=== PATIENT | male | born 1935 | race Caucasian/White ===

== ENCOUNTER 2020-09-06 12:19 | Inpatient (IN) | payer MEDICARE ==
[2020-09-06] MEDS ORDERED: PANTOPRAZOLE 40 MG/10 ML VIAL IVP ONE (12:36)
--- NOTE | 2020-09-06 12:41 | ED ---
General Adult HPI - General Stated complaint: Poss GI bleed Time Seen by Provider: 09/06/20 12:23 Source: patient, RN notes reviewed, old records reviewed - History of Present Illness Initial comments: 85-year-old male presenting for evaluation of dark stool, concern for GI bleed. He states he's had dark stool for the past 2 days. He's had increased fatigue and dyspnea. He has had an epigastric and lower chest discomfort throughout this time as well. He denies any anticoagulation. He denies fever. Denies lower abdominal pain. Pain is epigastric and lower chest. This history of gastrointestinal hemorrhage. - Related Data Home Medications Medication Instructions Recorded Confirmed Ascorbic Acid [Vitamin C] 500 mg PO DAILY 09/06/20 09/06/20 Doxazosin [Cardura] 2 mg PO HS 09/06/20 09/06/20 Lecithin, Soy [Lecithin] 400 mg PO DAILY 09/06/20 09/06/20 Multivitamins, Thera [Multivitamin 1 tab PO DAILY 09/06/20 09/06/20 (formulary)] Simvastatin [Zocor] 5 mg PO HS 09/06/20 09/06/20 Vitamin E 400 unit PO DAILY 09/06/20 09/06/20 atenoloL [Atenolol] 25 mg PO DAILY 09/06/20 09/06/20 Allergies Allergy/AdvReac Type Severity Reaction Status Date / Time Penicillins Allergy Rash/Hives Verified 09/06/20 13:25 Review of Systems ROS Statement: Those systems with pertinent positive or pertinent negative responses have been documented in the HPI. ROS Other: All systems not noted in ROS Statement are negative. General Exam General appearance: alert, in no apparent distress Head exam: Present: atraumatic, normocephalic Eye exam: Present: normal appearance, PERRL ENT exam: Present: mucous membranes dry Neck exam: Present: normal inspection. Absent: tenderness, meningismus Respiratory exam: Present: normal lung sounds bilaterally. Absent: respiratory distress, wheezes Cardiovascular Exam: Present: normal rhythm, tachycardia GI/Abdominal exam: Present: soft, tenderness (Epigastric tenderness). Absent: distended, guarding Rectal exam: Present: black stool Extremities exam: Present: normal inspection, normal capillary refill. Absent: pedal edema Neurological exam: Present: alert, oriented X3, CN II-XII intact. Absent: motor sensory deficit Psychiatric exam: Present: normal affect, normal mood Skin exam: Present: warm, pallor Course Vital Signs 09/06/20 09/06/20 12:23 13:10 Temperature 97.7 F Pulse Rate 85 104 H Respiratory 18 18 Rate Blood Pressure 95/65 94/66 O2 Sat by Pulse 98 Oximetry EKG Findings - EKG Comments: EKG Findings:: Sinus tachycardia, left bundle branch block, ST segment depression in the precordial leads, no ST segment elevation, rate of 103 QRS duration 114, QTC 487 Medical Decision Making - Medical Decision Making 85-year-old male presenting with epigastric and lower chest pain, he has melanotic stool. He is borderline hypotensive and mildly tachycardic on arrival. He's had 3 days of melanotic stool and developed worsening epigastric and substernal chest pain throughout the day today. His EKG has ischemic changes, no ST segment elevation. He started on protonic's, 80 mg. He does appear somewhat fluid overloaded, with rales bilaterally. His chest x-ray confirms CHF. He is transfused 2 units of blood for hemoglobin of 6. He has a lactic acid of 5.0 and a significantly elevated troponin I 3. I discussed case with Dr. Sharif covering for gastroenterology, Dr. Sayra liang for cardiology, and Dr. Nabil liang for the ICU as well as the admitting physician Dr. Downs. Patient will be admitted to the ICU. Non-ST segment elevated FL, acute blood loss anemia, melanotic stool, acute GI bleed. - Lab Data Result diagrams: 09/06/20 12:39 09/06/20 12:39 Lab Results 09/06/20 09/06/20 09/06/20 Range/Units 12:39 12:39 12:39 WBC 9.4 (3.8-10.6) k/uL RBC 2.22 L (4.30-5.90) m/uL Hgb 6.4 L* (13.0-17.5) gm/dL Hct 20.3 L (39.0-53.0) % MCV 91.6 (80.0-100.0) fL MCH 28.7 (25.0-35.0) pg MCHC 31.4 (31.0-37.0) g/dL RDW 16.6 H (11.5-15.5) % Plt Count 205 (150-450) k/uL MPV 6.9 Neutrophils % 82 % Lymphocytes % 10 % Monocytes % 7 % Eosinophils % 1 % Basophils % 0 % Neutrophils # 7.7 (1.3-7.7) k/uL Lymphocytes # 0.9 L (1.0-4.8) k/uL Monocytes # 0.6 (0-1.0) k/uL Eosinophils # 0.1 (0-0.7) k/uL Basophils # 0.0 (0-0.2) k/uL Anisocytosis Slight Sodium 135 L (137-145) mmol/L Potassium 4.2 (3.5-5.1) mmol/L Chloride 103 (98-107) mmol/L Carbon Dioxide 23 (22-30) mmol/L Anion Gap 9 mmol/L BUN 28 H (9-20) mg/dL Creatinine 0.77 (0.66-1.25) mg/dL Est GFR (CKD-EPI)AfAm >90 (>60 ml/min/1.73 sqM) Est GFR (CKD-EPI)NonAf 84 (>60 ml/min/1.73 sqM) Glucose 173 H (74-99) mg/dL Plasma Lactic Acid Junior (0.7-2.0) mmol/L Calcium 8.7 (8.4-10.2) mg/dL Magnesium 1.8 (1.6-2.3) mg/dL Total Bilirubin 0.5 (0.2-1.3) mg/dL AST 101 H (17-59) U/L ALT 37 (4-49) U/L Alkaline Phosphatase 66 (38-126) U/L Troponin I 3.550 H* (0.000-0.034) ng/mL Total Protein 5.6 L (6.3-8.2) g/dL Albumin 3.4 L (3.5-5.0) g/dL Stool Occult Blood (Negative) Blood Type Recheck Bld Type Recheck Status Crossmatch Spec Expiration Date 09/06/20 09/06/20 09/06/20 Range/Units 12:39 12:40 12:41 WBC (3.8-10.6) k/uL RBC (4.30-5.90) m/uL Hgb (13.0-17.5) gm/dL Hct (39.0-53.0) % MCV (80.0-100.0) fL MCH (25.0-35.0) pg MCHC (31.0-37.0) g/dL RDW (11.5-15.5) % Plt Count (150-450) k/uL MPV Neutrophils % % Lymphocytes % % Monocytes % % Eosinophils % % Basophils % % Neutrophils # (1.3-7.7) k/uL Lymphocytes # (1.0-4.8) k/uL Monocytes # (0-1.0) k/uL Eosinophils # (0-0.7) k/uL Basophils # (0-0.2) k/uL Anisocytosis Sodium (137-145) mmol/L Potassium (3.5-5.1) mmol/L Chloride (98-107) mmol/L Carbon Dioxide (22-30) mmol/L Anion Gap mmol/L BUN (9-20) mg/dL Creatinine (0.66-1.25) mg/dL Est GFR (CKD-EPI)AfAm (>60 ml/min/1.73 sqM) Est GFR (CKD-EPI)NonAf (>60 ml/min/1.73 sqM) Glucose (74-99) mg/dL Plasma Lactic Acid Junior 5.0 H* (0.7-2.0) mmol/L Calcium (8.4-10.2) mg/dL Magnesium (1.6-2.3) mg/dL Total Bilirubin (0.2-1.3) mg/dL AST (17-59) U/L ALT (4-49) U/L Alkaline Phosphatase (38-126) U/L Troponin I (0.000-0.034) ng/mL Total Protein (6.3-8.2) g/dL Albumin (3.5-5.0) g/dL Stool Occult Blood Positive (Negative) Blood Type Recheck No Previous Record Bld Type Recheck Status CABO Indicated Crossmatch See Detail Spec Expiration Date 09/09/2020 - 2339 Critical Care Time Critical Care Time: Yes Total Critical Care Time: 35 Disposition Clinical Impression: Acute non-ST elevation myocardial infarction (NSTEMI), GI bleed Disposition: ADMITTED IP TO THIS HOSP Condition: Serious Is patient prescribed a controlled substance at d/c from ED?: No Referrals: Nonstaff,Physician [Primary Care Provider] - 1-2 days Decision to Admit Reason: Admit from EC Decision Date: 09/06/20 Decision Time: 13:55
[2020-09-06 13:09] LABS: Anisocytosis Slight; Basophils % (A) 0 %; Eosinophils # (A) 0.1 k/uL (0-0.7); Eosinophils % (A) 1 %; HCT 20.3 % (39.0-53.0); Lymphocytes # (A) 0.9 k/uL (1.0-4.8); Lymphocytes % (A) 10 %; MCH 28.7 pg (25.0-35.0); MCHC 31.4 g/dL (31.0-37.0); MCV 91.6 fL (80.0-100.0); Mean Platelet Volume 6.9; Monocytes # (A) 0.6 k/uL (0-1.0); Monocytes % (A) 7 %; Neutrophils # (A) 7.7 k/uL (1.3-7.7); Neutrophils % (A) 82 %; Platelet Count 205 k/uL (150-450); RBC 2.22 m/uL (4.30-5.90); RDW 16.6 % (11.5-15.5); WBC 9.4 k/uL (3.8-10.6)
[2020-09-06 13:12] LABS: HGB 6.4 gm/dL (13.0-17.5)
[2020-09-06 13:16] LABS: ALT 37 U/L (4-49); AST 101 U/L (17-59); African American GFR (CKD) >90 (>60 ml/min/1.73 sqM); Albumin 3.4 g/dL (3.5-5.0); Alkaline Phosphatase 66 U/L (38-126); Anion Gap 9 mmol/L; Blood Urea Nitrogen 28 mg/dL (9-20); Calcium 8.7 mg/dL (8.4-10.2); Carbon Dioxide 23 mmol/L (22-30); Chloride 103 mmol/L (98-107); Glucose 173 mg/dL (74-99); Magnesium 1.8 mg/dL (1.6-2.3); Non-African American GFR(CKD) 84 (>60 ml/min/1.73 sqM); Potassium 4.2 mmol/L (3.5-5.1); Sodium 135 mmol/L (137-145); Total Bilirubin 0.5 mg/dL (0.2-1.3); Total Protein 5.6 g/dL (6.3-8.2)
[2020-09-06 13:44] LABS: Prothrombin Time 10.6 sec (9.0-12.0)
[2020-09-06] MEDS ORDERED: NALOXONE 0.4 MG/ML 1 ML VIAL IV PRN (13:48)
[2020-09-06] MEDS ORDERED: FUROSEMIDE 10 MG/ML 2 ML VIAL IV STA (13:50)
--- NOTE | 2020-09-06 13:50 | XR ---
EXAMINATION TYPE: XR chest 2V DATE OF EXAM: 09/06/2020 COMPARISON: NONE HISTORY: Shortness of breath TECHNIQUE: Frontal and lateral views of the chest are obtained. FINDINGS: There is cardiomegaly with pulmonary venous congestion scattered infiltrates. The findings may reflec t congestive failure. Superimposed infiltrates of other etiology not excluded. Correlate clinically. Mediastinal structures are stable and grossly unremarkable. No evidence for hilar prominence. Degenerative changes dorsal spine. IMPRESSION: 1. There is cardiomegaly with pulmonary venous congestion scattered infiltrates. The findings may ref lect congestive failure. Superimposed infiltrates of other etiology not excluded. Correlate clinicall y.
[2020-09-06 13:51] LABS: Partial Thromboplastin Time 19.7 sec (22.0-30.0)
[2020-09-06] MEDS ORDERED: SODIUM CHLORIDE 0.9% 1,000 ML IV SCH ×2 (14:00→21:30)
--- NOTE | 2020-09-06 14:22 | P.HPIM ---
History of Present Illness H&P Date: 09/06/20 Chief Complaint: Epigastric pain and black stool This is a 85-year-old male with past medical history noted below presented to the emergency room with a chief complaint of having black stool. Patient said that his problems started 3 days ago and is been persistent. Today, he started having severe epigastric pain that he rates as 10 out of 10 in severity. Patient was also feeling weak. He presented to the emergency room and was found to be hypotensive with a hemoglobin of 6.4. Patient denies any history of GI bleed in the past. Last colonoscopy was 2 or 3 years ago and was reported normal. Patient denies alcohol use. No NSAIDs. 2 units of blood ordered for transfusion by ER staff. Patient otherwise denies any fevers or chills. He said that he is fairly active and usually is able to walk 1 mile with no difficulty. He has a history of coronary artery disease with previous CABG. Review of Systems Review of system: 14 points review of systems were obtained and were negative except to what were mentioned in the HPI. Past Medical History Past Medical History: Chest Pain / Angina, Myocardial Infarction (RI) History of Any Multi-Drug Resistant Organisms: None Reported Past Surgical History: Coronary Bypass/CABG Past Psychological History: No Psychological Hx Reported Smoking Status: Former smoker Past Alcohol Use History: Rare Past Drug Use History: None Reported Medications and Allergies Home Medications Medication Instructions Recorded Confirmed Type Ascorbic Acid [Vitamin C] 500 mg PO DAILY 09/06/20 09/06/20 History Doxazosin [Cardura] 2 mg PO HS 09/06/20 09/06/20 History Lecithin, Soy [Lecithin] 400 mg PO DAILY 09/06/20 09/06/20 History Multivitamins, Thera [Multivitamin 1 tab PO DAILY 09/06/20 09/06/20 History (formulary)] Simvastatin [Zocor] 5 mg PO HS 09/06/20 09/06/20 History Vitamin E 400 unit PO DAILY 09/06/20 09/06/20 History atenoloL [Atenolol] 25 mg PO DAILY 09/06/20 09/06/20 History Allergies Allergy/AdvReac Type Severity Reaction Status Date / Time Penicillins Allergy Rash/Hives Verified 09/06/20 13:25 Physical Exam Vitals: Vital Signs Temp Pulse Resp BP Pulse Ox 09/06/20 14:13 98 F 108 H 18 82/58 09/06/20 14:07 98 F 112 H 18 80/54 09/06/20 13:10 104 H 18 94/66 98 09/06/20 12:23 97.7 F 85 18 95/65 Intake and Output 09/05/20 09/06/20 09/06/20 22:59 06:59 14:59 Intake Total 0 Balance 0 Intake: Blood Product 0 Rc As-1 Unit 0 [id number] Other: Weight 97.522 kg General: The patient is awake and alert, in no distress Eye: there is normal conjunctiva bilaterally. Neck: The neck is supple, there is no JVD. Cardiovascular: Normal S1-S2, no S3-S4, no murmurs. Respiratory: Lungs diffuse crackles all over the chest Gastrointestinal: Abdomen is soft, nontender Musculoskeletal: There is +2 edema up to the midshin Neurological:. Speech is normal. Skin: Skin is warm and dry Results CBC & Chem 7: 09/06/20 12:39 09/06/20 12:39 Labs: Abnormal Lab Results - Last 24 Hours (Table) 09/06/20 09/06/20 09/06/20 Range/Units 12:39 12:39 12:39 RBC 2.22 L (4.30-5.90) m/uL Hgb 6.4 L* (13.0-17.5) gm/dL Hct 20.3 L (39.0-53.0) % RDW 16.6 H (11.5-15.5) % Lymphocytes # 0.9 L (1.0-4.8) k/uL APTT 19.7 L (22.0-30.0) sec Sodium 135 L (137-145) mmol/L BUN 28 H (9-20) mg/dL Glucose 173 H (74-99) mg/dL Plasma Lactic Acid Junior (0.7-2.0) mmol/L AST 101 H (17-59) U/L Troponin I (0.000-0.034) ng/mL Total Protein 5.6 L (6.3-8.2) g/dL Albumin 3.4 L (3.5-5.0) g/dL Crossmatch 09/06/20 09/06/2020 Range/Units 12:39 12:40 12:41 RBC (4.30-5.90) m/uL Hgb (13.0-17.5) gm/dL Hct (39.0-53.0) % RDW (11.5-15.5) % Lymphocytes # (1.0-4.8) k/uL APTT (22.0-30.0) sec Sodium (137-145) mmol/L BUN (9-20) mg/dL Glucose (74-99) mg/dL Plasma Lactic Acid Junior 5.0 H* (0.7-2.0) mmol/L AST (17-59) U/L Troponin I 3.550 H* (0.000-0.034) ng/mL Total Protein (6.3-8.2) g/dL Albumin (3.5-5.0) g/dL Crossmatch See Detail Assessment and Plan Assessment: This is a 85-year-old male with past medical history noted below who presented to the emergency room with chief complaint of black stool. Patient was evaluated in the ER and admitted to the hospital for further management of his medical problems noted below. 1. Upper GI bleed: GI consulted for further evaluation. Continue IV Protonix 40 mg twice daily. Nothing by mouth for now. 2. Hypovolemic shock: With lactic acidosis. Secondary to blood loss. Hold home blood pressure medications. 3. Acute blood loss anemia: 2 units of PRBC ordered for transfusion. Recheck hemoglobin in the morning 4. Acute heart failure exacerbation, suspected systolic: With evidence of fluid overloaded clinically and on chest x-ray. I would order BNP and echocardiogram for further evaluation. Continue IV Lasix 40 mg twice daily. 5. Troponin elevation: Most likely non-thrombotic troponin leak secondary to hypotension and ongoing GI bleed. 12-lead EKG in the emergency room showed no acute ischemic changes. Trend troponin. Cardiology consulted for further evaluation. 6. Lactic acidosis 7. History of coronary artery disease with prior CABG 8. DVT prophylaxis with SCD Patient to be admitted to the ICU. Overall prognosis is guarded.
[2020-09-06] MEDS: fentaNYL (PF) 50 MCG/ML 2 ML AMP IVP PRN (14:51)
[2020-09-06] MEDS ORDERED: ONDANSETRON 4 MG/2 ML VIAL IVP PRN (15:37)
[2020-09-06] MEDS ORDERED: ACETAMINOPHEN IV (For NPO) 1,000 MG in EMPTY BAG 1 BAG IVPB ONE (16:15)
--- NOTE | 2020-09-06 16:44 | CONS ---
CONSULTATION DATE OF SERVICE: 09/06/2020 REASON FOR CONSULTATION: Acute upper gastrointestinal bleed. HISTORY OF PRESENT ILLNESS: The patient is an 85-year-old pleasant white male, he came to the emergency room complaining of black tarry stools for the last 2 day's duration. He was having some heartburn for the last 3-4 days and had black tarry stools 3 days ago and 2 days ago, he did not have anything since then. He started to become somewhat short of breath and fatigued and this morning had severe chest discomfort, has prior history of coronary artery disease with CABG done several years ago. Came into the Emergency Room, was noted to have a hemoglobin of 6.4 g/dL and currently receiving 2 units of PRBC transfusion. Denies any recent NSAID use. No prior history of peptic ulcer disease. No history of EGD or colonoscopy in the past. He did have carpal bypass surgery several years ago denies being on any anticoagulation. He usually takes 1 aspirin a day. PAST MEDICAL HISTORY: Significant for hypertension, coronary artery disease, hyperlipidemia. MEDICATIONS: At home, atenolol, vitamin E, Zocor, multivitamin, and vitamin C. ALLERGIES: PENICILLIN. SOCIAL HISTORY: No smoking, no alcohol use. FAMILY HISTORY: Unremarkable. REVIEW OF SYSTEMS: CARDIOPULMONARY: He does have no chest pain, but he does have some chest pain and some shortness of breath. GENITOURINARY: No dysuria, no hematuria. MUSCULOSKELETAL: Unremarkable. SKIN: Unremarkable. ENDOCRINE: Unremarkable. PSYCHIATRIC: Unremarkable. NEUROLOGY: Unremarkable. GI: As mentioned above. HEMATOLOGY: Severe anemia. ENT: Vision unremarkable. CONSTITUTIONAL: No recent weight loss. No fever, chills, night sweats. PHYSICAL EXAMINATION: Blood pressure is 95/65, pulse rate 85, temperature 97.7. HEENT: Examination unremarkable. Conjunctivae are pink. Sclerae nonicteric. Oral cavity no lesions. NECK: No JVD or lymph node enlargement. CHEST: Clear to auscultation. HEART: Regular rate and rhythm. ABDOMEN: Soft, there was very minimal tenderness in the epigastric area. Rest of the abdomen is benign, bowel sounds are positive. EXTREMITIES: No pedal edema. SKIN: No rashes. NEURO: He is alert and oriented x3. No focal deficits. LABS: WBC 9.2, hemoglobin 6.4, platelets 205, PT 10.6, INR 1, BUN 28, creatinine 0.77. Troponin is 3.5. Past lactic acid is 5, occult blood is positive. IMPRESSION: 1. Black tarry stools for the last 4 days duration. Hemoglobin is 6 g/dL and receiving 2 units of PRBC transfusion. The patient did not have any active bleeding for the last 2 days. Did did not have any black tarry stools for the last 2 days duration. None so far in the emergency room. Most likely dealing with an upper GI source of bleeding, possibly peptic ulcer disease. No prior history of recent NSAID use. No history of EGD or colonoscopy in the past. 2. Chest pain with EKG changes and elevated troponin at 3.3. Cardiology has been consulted. 3. History of hypertension. 4. History of hypercholesteremia. 5. History of coronary artery disease status post CABG several years ago. RECOMMENDATIONS: 1. Protonix 40 mg twice daily. 2. Await Cardiology recommendations. 3. Monitor CBC every 6 hours. 4. If based on the results, will consider proceeding with an upper endoscopy once cleared by Cardiology. Thank you for this consultation. MMODL / IJN: [id number] /
[2020-09-06 20:16] LABS: Basophils % (A) 0 %; Eosinophils # (A) 0.1 k/uL (0-0.7); Eosinophils % (A) 1 %; HCT 31.1 % (39.0-53.0); Hypochromasia Slight; Lymphocytes # (A) 1.1 k/uL (1.0-4.8); Lymphocytes % (A) 6 %; MCH 28.4 pg (25.0-35.0); MCHC 30.3 g/dL (31.0-37.0); MCV 93.7 fL (80.0-100.0); Mean Platelet Volume 7.1; Monocytes # (A) 1.3 k/uL (0-1.0); Monocytes % (A) 8 %; Neutrophils # (A) 14.6 k/uL (1.3-7.7); Neutrophils % (A) 85 %; Platelet Count 228 k/uL (150-450); RBC 3.32 m/uL (4.30-5.90); WBC 17.2 k/uL (3.8-10.6)
[2020-09-06 20:20] LABS: HGB 9.4 gm/dL (13.0-17.5)
[2020-09-06 20:29] LABS: Albumin 3.8 g/dL (3.5-5.0); Magnesium 2.1 mg/dL (1.6-2.3); Potassium 4.8 mmol/L (3.5-5.1); Total Protein 6.1 g/dL (6.3-8.2)
[2020-09-06] MEDS ORDERED: FUROSEMIDE 10 MG/ML 4 ML VIAL IV SCH (21:00)
[2020-09-06] MEDS: SODIUM CHLORIDE 0.9% 1,000 ML IV SCH (21:30)
--- NOTE | 2020-09-06 21:56 | P.EN ---
i was notified to evaluate patient with hypotension patient with CAD and CABG, presented with 3-4 days history of GI bleed with aurelio, initial hgb was 6.4 improved with 2 units of blood, still having aurelio elevated trops and trending up, EKG showed lateral ischemic changes, cardiology thought its demand ischemia, BNP 1200 , CXR suggestive of congestion , however patient only made less than 100cc urine with diuresis , currently hypotensive and oliguric with worsening renal function. lung exam showed good breath sounds throughout , with minimal rales at lung basis , no JVD. plan continiue Bipap recheck BNP trops trending up , no heparin due to GI bleed worsening renal function , and worsening lactic acid cardiology recommended to consider gentle IVF hydration discussed with the patient and family , agreeable , if becomes fluid overloaded agreeable to intubation close monitor of urine output challenge with 500 cc IVF , then 130 cc per hour of normal saline close monitor of Hgb
[2020-09-06 22:29] LABS: ABG Base Excess -15.9 mmol/L; ABG HCO3 12 mmol/L (21-25); ABG Oxygen Saturation 98.1 % (94-97); ABG PCO2 31 mmHg (35-45); ABG PO2 119 mmHg (83-108); ABG TCO2 13 mmol/L (19-24); Allen Test Performed? Yes
[2020-09-06] MEDS ORDERED: SODIUM BICARB 8.4% 50 ML SYR (1 MEQ/ML) IV STA (22:50)
--- NOTE | 2020-09-06 22:52 | XR ---
EXAMINATION TYPE: XR chest 1V portable DATE OF EXAM: 09/06/2020 COMPARISON: 09/06/2020 HISTORY: Cough. Short of breath. TECHNIQUE: FINDINGS: There is pulmonary interstitial and airspace edema. Heart is probably enlarged. There are s ternal wires. There is blunting of the costophrenic angles. IMPRESSION: Congestive heart failure with pulmonary edema that is worse than exam earlier today 9 melania rs ago. RDS is possible.
[2020-09-06] MEDS ORDERED: WATER FOR INJECTION, STERILE 1,000 ML with SODIUM ACETATE 150 MEQ IV SCH ×2 (23:00)
[2020-09-06] MEDS: PANTOPRAZOLE 40 MG/10 ML VIAL IVP SCH (23:02)
[2020-09-06] MEDS: DEXTROSE 5% IN WATER 1,000 ML with SODIUM BICARB (1 MEQ/ML) 150 ML IV SCH (23:39)
[2020-09-06] MEDS ORDERED: FUROSEMIDE 10 MG/ML 4 ML VIAL IV STA (23:52)
[2020-09-07] MEDS: SODIUM CHLORIDE 0.9% 1,000 ML IV SCH ×2 (00:03→02:08)
[2020-09-07 00:05] LABS: Anisocytosis Slight; Basophils % (A) 0 %; Eosinophils # (A) 0.1 k/uL (0-0.7); Eosinophils % (A) 0 %; HCT 28.8 % (39.0-53.0); HGB 9.3 gm/dL (13.0-17.5); Hypochromasia Slight; Lymphocytes # (A) 0.9 k/uL (1.0-4.8); Lymphocytes % (A) 5 %; MCH 30.2 pg (25.0-35.0); MCHC 32.1 g/dL (31.0-37.0); MCV 93.8 fL (80.0-100.0); Mean Platelet Volume 7.4; Monocytes # (A) 1.2 k/uL (0-1.0); Monocytes % (A) 7 %; Neutrophils # (A) 14.9 k/uL (1.3-7.7); Neutrophils % (A) 86 %; Platelet Count 216 k/uL (150-450); RBC 3.07 m/uL (4.30-5.90); RDW 16.2 % (11.5-15.5); WBC 17.2 k/uL (3.8-10.6)
[2020-09-07] MEDS: fentaNYL (PF) 50 MCG/ML 2 ML AMP IVP PRN (00:54)
[2020-09-07] MEDS ORDERED: NITROGLYCERIN OINT 1 INCH/GM PACKET TOPICAL STA (01:50)
[2020-09-07] MEDS: MORPHINE SULFATE 4 MG/ML SYRINGE IVP PRN (03:02)
[2020-09-07] MEDS: NOREPINEPHRINE 4 MG in SODIUM CHLORIDE 0.9% 250 ML IV SCH ×2 (03:41→14:04)
--- NOTE | 2020-09-07 04:43 | XR ---
EXAM: XR Abdomen, 2 Views and XR Chest, 1 View CLINICAL HISTORY: ITS.REASON XR Reason: distended abd TECHNIQUE: Frontal view of the chest, frontal view of the abdomen/pelvis and upright or decubitus view of the abdomen. COMPARISON: Chest radiograph September 06, 2020. FINDINGS/IMPRESSION: Chest: Small left pleural effusion. Moderate pulmonary edema, similar in appearance to September 06, 2020. No pneumothorax. Cardiomegaly. Median sternotomy wires. Abdomen: Nonobstructed bowel gas pattern. Air distended stomach. Moderate fecal retention. Degenerative changes of the spine.
[2020-09-07 05:31] LABS: ABG Base Excess -12.1 mmol/L; ABG HCO3 15 mmol/L (21-25); ABG Oxygen Saturation 99.6 % (94-97); ABG PCO2 33 mmHg (35-45); ABG PH 7.26 (7.35-7.45); ABG PO2 146 mmHg (83-108); ABG TCO2 16 mmol/L (19-24); Allen Test Performed? Yes
[2020-09-07 06:22] LABS: Anisocytosis Slight; HCT 30.1 % (39.0-53.0); HGB 9.4 gm/dL (13.0-17.5); Hypochromasia Moderate; MCH 29.9 pg (25.0-35.0); MCHC 31.3 g/dL (31.0-37.0); MCV 95.6 fL (80.0-100.0); Mean Platelet Volume 7.5; Platelet Count 205 k/uL (150-450); RBC 3.15 m/uL (4.30-5.90); RDW 16.4 % (11.5-15.5); WBC 24.5 k/uL (3.8-10.6)
[2020-09-07 06:35] LABS: Calcium 8.2 mg/dL (8.4-10.2); Potassium 5.7 mmol/L (3.5-5.1)
--- NOTE | 2020-09-07 07:51 | ECHOF ---
Referral Reason:Heart failure exacerbation MEASUREMENTS -------- HEIGHT: 177.8 cm WEIGHT: 97.5 kg BP: 89/57 RVIDd: 3.9 cm (< 3.3) IVSd: 1.9 cm (0.6 - 1.1) LVIDd: 4.0 cm (3.9 - 5.3) LVPWd: 1.9 cm (0.6 - 1.1) IVSs: 1.9 cm LVIDs: 3.5 cm LVPWs: 1.9 cm LAESV Index (A-L): 40.47 ml/m Ao Diam: 3.6 cm (2.0 - 3.7) AV Cusp: 2.0 cm (1.5 - 2.6) RAP: 5.00 mmHg RVSP: 33.99 mmHg FINDINGS -------- Sinus rhythm. This was a technically difficult study with suboptimal apical views. The left ventricular size is normal. There is severe concentric left ventricular hypertrophy. The re is severe global hypokinesis of LV . Overall left ventricular systolic function is severely impa ired with, an EF between 25 - 30 %. Mitral Doppler inflow pattern suggests diastolic filling abnorm ality {E/E'}. Septal wall motion is delayed and consistent with prior cardiac surgery. The right ventricle is moderately enlarged. LA is moderately dilated 34-39 ml/m2 The right atrium was not well visualized. Lumason used Interatrial and interventricular septum intact. There is mild aortic valve sclerosis. There is no evidence of aortic regurgitation. There is no e vidence of aortic stenosis. Moderate mitral regurgitation is present. [id number] tricuspid regurgitation present. There is mild pulmonary hypertension. The right ventricular systolic pressure, as measured by Doppler, is 33.99mmHg. There is no pulmonic regurgitation present. The aortic root size is normal. IVC Not well visulized. There is no pericardial effusion. CONCLUSIONS -------- 1. The left ventricular size is normal. 2. There is severe concentric left ventricular hypertrophy. 3. There is severe global hypokinesis of LV . 4. Overall left ventricular systolic function is severely impaired with, an EF between 25 - 30 %. 5. Mitral Doppler inflow pattern suggest diastolic filling abnormality {E/E'}. 6. The right ventricle is moderately enlarged. 7. LA is moderately dilated 34-39 ml/m2 8. There is mild aortic valve sclerosis. 9. Moderate mitral regurgitation is present. 10. [id number] tricuspid regurgitation present. 11. There is mild pulmonary hypertension. 12. The right ventricular systolic pressure, as measured by Doppler, is 33.99mmHg. PALLET REPAIRER: Idalia Eller RDCS
[2020-09-07] MEDS ORDERED: FUROSEMIDE 10 MG/ML 10 ML VIAL IV STA (08:05)
[2020-09-07] MEDS ORDERED: DEXTROSE 5% IN WATER 1,000 ML with SODIUM BICARB (1 MEQ/ML) 150 ML IV SCH (08:15)
[2020-09-07] MEDS: DOBUTamine DRIP 500 MG in DEXTROSE/WATER 1 250ML.BAG IV SCH (09:01)
[2020-09-07] MEDS: FUROSEMIDE 100 MG in SODIUM CHLORIDE 0.9% 90 ML IV SCH ×2 (09:02→20:08)
--- NOTE | 2020-09-07 09:43 | P.NPCON ---
History of Present Illness - Reason for Consult acute renal failure - History of Present Illness Reason for consultation: Acute kidney injury History of present illness: Patient is a 85-year-old male seen in renal consultation for acute kidney injury. Creatinine was 0.77 on admission and is up to 2.37 today. Patient presented to the hospital with generalized weakness and dyspnea. He was having dark colored bowel movements for 2 days prior to admission. Hemoglobin was 6.4 on admission and he has received 2 units of packed red cells this admission. Hemoglobin 9.4 this morning. He hasn't had any bowel movements since being in the hospital. Patient also has history of CHF with ejection fraction of 25% with mild to moderate tricuspid regurgitation and moderate mitral regurgitation. Chest x-ray suggestive of fluid overload. Currently on BiPAP. He did receive IV Lasix yesterday morning, last night and again this morning but remains oliguric. He will not be started on dobutamine as well as Lasix drip. No history of diabetes. Covid 19 negative. He is also noted to be quite acidotic and is currently maintained on bicarb drip. Vital signs are stable. General: On BiPAP. HEENT: No JVD. LUNGS: Breath sounds decreased. HEART: Rate and Rhythm are regular. ABDOMEN: Soft, nontender. EXTREMITITES: 1+ edema. Past Medical History Past Medical History: Chest Pain / Angina, Myocardial Infarction ([place]) History of Any Multi-Drug Resistant Organisms: None Reported Past Surgical History: Coronary Bypass/CABG Past Psychological History: No Psychological Hx Reported Smoking Status: Former smoker Past Alcohol Use History: Rare Past Drug Use History: None Reported Medications and Allergies Home Medications Medication Instructions Recorded Confirmed Type Ascorbic Acid [Vitamin C] 500 mg PO DAILY 09/06/20 09/06/20 History Doxazosin [Cardura] 2 mg PO HS 09/06/20 09/06/20 History Lecithin, Soy [Lecithin] 400 mg PO DAILY 09/06/20 09/06/20 History Multivitamins, Thera [Multivitamin 1 tab PO DAILY 09/06/20 09/06/20 History (formulary)] Simvastatin [Zocor] 5 mg PO HS 09/06/20 09/06/20 History Vitamin E 400 unit PO DAILY 09/06/20 09/06/20 History atenoloL [Atenolol] 25 mg PO DAILY 09/06/20 09/06/20 History Allergies Allergy/AdvReac Type Severity Reaction Status Date / Time Penicillins Allergy Rash/Hives Verified 09/06/20 13:25 Physical Exam Vitals: Vital Signs Temp Pulse Resp BP Pulse Ox 09/07/20 09:20 87 26 H 94/57 93 L 09/07/20 09:10 90 28 H 102/52 93 L 09/07/20 09:00 70 28 H 79/55 93 L 09/07/20 08:50 68 30 H 85/60 93 L 09/07/20 08:40 92 28 H 111/61 90 L 09/07/20 08:30 92 30 H 84/62 94 L 09/07/20 08:23 87 26 H 83/56 96 09/07/20 08:20 81 28 H 76/54 93 L 09/07/20 08:10 71 30 H 82/56 95 09/07/20 08:00 71 31 H 78/48 09/07/20 07:50 68 30 H 71/49 09/07/20 07:40 90 30 H 87/54 09/07/20 07:37 97.9 F 90 26 H 87/54 100 09/07/20 07:30 93 28 H 89/63 09/07/20 07:20 93 30 H 81/55 09/07/20 07:10 94 26 H 101/68 09/07/20 07:00 87 30 H 74/56 100 09/07/20 06:50 93 30 H 77/60 96 09/07/20 06:45 83 30 H 85/32 100 09/07/20 06:40 92 29 H 93/53 100 09/07/20 06:35 93 29 H 76/53 99 09/07/20 06:30 97.6 F 94 28 H 78/56 99 09/07/20 06:25 90 29 H 90/60 100 09/07/20 06:20 96 29 H 101/70 97 09/07/20 06:15 96 32 H 88/60 99 09/07/20 06:10 92 31 H 81/51 100 09/07/20 06:05 86 33 H 77/56 100 09/07/20 06:00 92 30 H 84/57 100 09/07/20 05:55 93 31 H 78/58 99 09/07/20 05:50 96 29 H 73/53 99 09/07/20 05:45 85 29 H 84/56 100 09/07/20 05:40 96 33 H 80/68 100 09/07/20 05:35 95 35 H 85/45 98 09/07/20 05:30 78 29 H 76/55 96 09/07/20 05:25 73 30 H 77/44 100 09/07/20 05:20 86 29 H 85/67 100 09/07/20 05:15 86 30 H 73/54 100 09/07/20 05:10 80 30 H 93/48 100 09/07/20 05:05 83 28 H 84/57 100 09/07/20 05:00 87 30 H 80/55 100 09/07/20 04:55 84 30 H 80/57 100 09/07/20 04:50 88 28 H 80/58 100 09/07/20 04:45 85 29 H 83/54 100 09/07/20 04:40 87 30 H 78/57 100 09/07/20 04:35 87 29 H 85/58 100 09/07/20 04:30 92 31 H 81/57 100 09/07/20 04:25 89 27 H 86/58 100 09/07/20 04:20 94 29 H 88/67 100 09/07/20 04:15 97 29 H 96/63 99 09/07/20 04:00 89 30 H 79/48 98 09/07/20 03:45 86 32 H 81/52 95 09/07/20 03:30 82 37 H 61/37 97 09/07/20 03:15 88 30 H 65/50 100 09/07/20 03:05 99 18 76/45 99 09/07/20 03:00 103 H 34 H 90/48 99 09/07/20 02:45 101 H 34 H 87/71 99 09/07/20 02:30 98 34 H 94/55 98 09/07/20 02:15 104 H 31 H 90/59 98 09/07/20 02:00 96 40 H 93/64 100 09/07/20 01:45 100 32 H 97/64 97 09/07/20 01:30 104 H 30 H 101/71 97 09/07/20 01:15 110 H 31 H 87/52 100 09/07/20 01:00 97.8 F 103 H 27 H 104/59 96 09/07/20 00:45 117 H 39 H 104/79 100 09/07/20 00:30 116 H 45 H 103/78 98 09/07/20 00:15 116 H 31 H 99/60 97 09/07/20 00:04 115 H 31 H 99/60 98 09/07/20 00:00 116 H 40 H 104/64 95 09/06/20 23:45 111 H 33 H 107/70 97 09/06/20 23:30 118 H 32 H 95 09/06/20 23:15 116 H 31 H 106/67 97 09/06/20 23:00 118 H 41 H 115/73 98 09/06/20 22:45 114 H 33 H 107/62 98 09/06/20 22:30 101 H 33 H 103/93 98 09/06/20 22:15 107 H 30 H 95/70 98 09/06/20 22:00 90 33 H 81/53 95 09/06/20 21:45 92 31 H 76/57 95 09/06/20 21:30 104 H 29 H 82/65 98 09/06/20 21:15 106 H 28 H 84/56 95 09/06/20 21:10 105 H 20 84/56 95 09/06/20 21:00 107 H 26 H 94/62 98 09/06/20 20:45 112 H 30 H 98 09/06/20 20:30 113 H 27 H 84/61 98 09/06/20 20:15 115 H 25 H 98/69 98 09/06/20 20:00 124 H 27 H 98 09/06/20 19:45 118 H 30 H 90/63 94 L 09/06/20 19:30 120 H 29 H 87/71 95 09/06/20 19:27 117 H 18 87/71 09/06/20 19:15 121 H 30 H 96/56 94 L 09/06/20 19:00 130 H 33 H 95/65 96 09/06/20 17:59 115 H 18 80/59 93 L 09/06/20 17:17 97.4 F L 105 H 20 83/58 93 L 09/06/20 16:47 97.7 F 99 20 84/58 93 L 09/06/20 16:37 97.6 F 103 H 20 82/62 93 L 09/06/20 16:34 97.6 F 103 H 20 82/62 93 L 09/06/20 15:45 97.8 F 104 H 18 85/54 09/06/20 14:53 97.6 F 101 H 18 89/59 98 09/06/20 14:23 98 F 105 H 18 89/57 98 09/06/20 14:20 98 F 108 H 22 86/55 96 09/06/20 14:17 98 F 105 H 27 H 86/55 95 09/06/20 14:13 98 F 108 H 18 82/58 09/06/20 14:07 98 F 112 H 18 80/54 09/06/20 13:10 104 H 18 94/66 98 09/06/20 12:23 97.7 F 85 18 95/65 Intake and Output 09/06/20 09/07/20 09/07/20 22:59 06:59 14:59 Intake Total 620 47.621 86.228 Output Total 40 35 Balance 620 7.621 51.228 Intake: Intake, IV Titration 47.621 86.228 Amount Furosemide 100 mg In 0.833 Sodium Chloride 0.9% 90 ml @ 10 MG/HR 10 mls/hr IV .Q10H BETH Rx#: [id number] Norepinephrine 4 mg In 47.621 85.395 Sodium Chloride 0.9% 250 ml @ 0.05 MCG/KG/MIN 18. 578 mls/hr IV .[id number] B[facility] Rx#:[id number] Blood Product 620 As-1 Unit 310 [id number] As-1 Unit 310 [id number] Output: Urine 40 35 Results - Lab Results Most recent lab results ABG pH 7.26 (7.35-7.45) L 09/07/20 05:28 ABG pCO2 33 mmHg (35-45) L 09/07/20 05:28 ABG pO2 146 mmHg (83-108) H 09/07/20 05:28 ABG HCO3 15 mmol/L (21-25) L 09/07/20 05:28 ABG O2 Saturation 99.6 % (94-97) H 09/07/20 05:28 Calcium 8.2 mg/dL (8.4-10.2) L 09/07/20 05:49 Magnesium 2.0 mg/dL (1.6-2.3) 09/07/20 05:49 09/07/20 05:49 09/07/20 05:49 Assessment and Plan Plan: Assessment: 1. Acute kidney injury secondary to ATN secondary to acute blood loss anemia and cardiorenal syndrome. Baseline creatinine near 1 and is 2.37 today. Oliguric. 2. Acute on chronic systolic CHF with ejection fraction of 25% with moderate mitral regurgitation and tricuspid regurgitation. 3. Metabolic acidosis secondary to acute kidney injury. 4. Hyperkalemia secondary to acute kidney injury, GI bleed and metabolic acidosis. 5. Volume overload. 6. Acute blood loss anemia status post blood transfusion. GI following. Plan: Maintain bicarb drip. Dobutamine and Lasix drip to be started. Check UA and renal ultrasound. Repeat BMP this evening. Continue to monitor renal function and urine output closely. Continue to assess daily for need for renal replacement therapy. Thank you for the consultation. I will continue to follow the patient with you during his hospital stay.
[2020-09-07] MEDS: PANTOPRAZOLE 40 MG/10 ML VIAL IVP SCH ×2 (09:59→20:09)
--- NOTE | 2020-09-07 10:41 | US ---
EXAMINATION TYPE: US kidneys/renal and bladder DATE OF EXAM: 09/07/2020 COMPARISON: NONE CLINICAL HISTORY: yelitza. EC patient. EXAM MEASUREMENTS: Right Kidney: 10.4 x 7.2 x 5.1 cm Left Kidney: 10.4 x 6.4 x 6.1 cm Post Void Residual Volume: NA as Shaikh Catheter is present Right Kidney: No hydronephrosis or masses seen ; hyperechoic parallel linear foci mid pole suggests c alcified vessel barrett Left Kidney: No hydronephrosis or masses seen Bladder: Shaikh Catheter is noted within bladder There is no evidence for hydronephrosis at this point in time. No nephrolithiasis is seen. No jaye s are identified. IMPRESSION: 1. Normal renal ultrasound as visualized.
[2020-09-07 10:45] LABS: Appearance,Urine Cloudy (Clear); Bacteria,Urine Occasional /hpf; Bilirubin,Urine Negative (Negative); Blood,Urine Moderate (Negative); Color,Urine Yellow; Glucose,Urine (UA) Negative (Negative); Hyaline Casts,Urine 4 /lpf (0-2); Ketones,Urine Trace (Negative); Leukocyte Esterase,Urine Large (Negative); Mucus,Urine Moderate /hpf; Nitrite,Urine Negative (Negative); PH, Urine 5.5 (5.0-8.0); Protein,Urine 1+ (Negative); RBC,Urine 13 /hpf (0-5); Specific Gravity,Urine 1.026 (1.001-1.035); Squamous Epithelial Cell,Urine <1 /hpf (0-4); Urobilinogen,Urine <2.0 mg/dL (<2.0); WBC,Urine 14 /hpf (0-5)
--- NOTE | 2020-09-07 10:55 | P.PN ---
Subjective Progress Note Date: 09/07/20 Patient's overall condition declined significantly since last night. He is currently on 2 vasopressors including dobutamine and Levophed. His oxygen requirement also increased and is currently on BiPAP. Chest x-ray showed worsening pulmonary edema. Objective - Vital Signs Vital signs: Vital Signs Temp 97.9 F 09/07/20 07:37 Pulse 95 09/07/20 10:00 Resp 24 09/07/20 10:00 BP 109/68 09/07/20 10:00 Pulse Ox 96 09/07/20 10:00 Intake & Output 09/06/20 09/07/20 09/07/20 18:59 06:59 18:59 Intake Total 620 47.621 173.173 Output Total 40 65 Balance 620 7.621 108.173 Weight 97.522 kg Intake: Intake, IV Titration 47.621 173.173 Amount Furosemide 100 mg In 0.833 Sodium Chloride 0.9% 90 ml @ 10 MG/HR 10 mls/hr IV .Q10H [facility]ETH Rx#: [id number] Norepinephrine 4 mg In 47.621 172.340 Sodium Chloride 0.9% 250 ml @ 0.05 MCG/KG/MIN 18. 578 mls/hr IV .[id number] B[facility] Rx#:[id number] Blood Product 620 Rc As-1 Unit 310 [id number] Rc As-1 Unit 310 [id number] Output: Urine 40 65 - Exam General: The patient is awake and alert, he is wearing BiPAP Eye: there is normal conjunctiva bilaterally. Neck: The neck is supple, there is no JVD. Cardiovascular: Normal S1-S2, no S3-S4, no murmurs. Respiratory: Lungs with diffuse crackles and BiPAP sounds Gastrointestinal: Abdomen is soft, nontender Musculoskeletal: There is +2-3 pedal edema. Neurological:. Speech is normal. Skin: Skin is warm and dry - Labs CBC & Chem 7: 09/07/20 05:49 09/07/20 05:49 Labs: Abnormal Lab Results - Last 24 Hours (Table) 09/06/20 09/06/20 09/06/20 Range/Units 12:39 12:39 12:39 WBC (3.8-10.6) k/uL RBC 2.22 L (4.30-5.90) m/uL Hgb 6.4 L* (13.0-17.5) gm/dL Hct 20.3 L (39.0-53.0) % MCHC (31.0-37.0) g/dL RDW 16.6 H (11.5-15.5) % Neutrophils # (1.3-7.7) k/uL Lymphocytes # 0.9 L (1.0-4.8) k/uL Monocytes # (0-1.0) k/uL APTT 19.7 L (22.0-30.0) sec ABG pH (7.35-7.45) ABG pCO2 (35-45) mmHg ABG pO2 (83-108) mmHg ABG HCO3 (21-25) mmol/L ABG Total CO2 (19-24) mmol/L ABG O2 Saturation (94-97) % Sodium 135 L (137-145) mmol/L Potassium (3.5-5.1) mmol/L Carbon Dioxide (22-30) mmol/L BUN 28 H (9-20) mg/dL Creatinine (0.66-1.25) mg/dL Glucose 173 H (74-99) mg/dL Plasma Lactic Acid Junior (0.7-2.0) mmol/L Calcium (8.4-10.2) mg/dL AST 101 H (17-59) U/L ALT (4-49) U/L Troponin I (0.000-0.034) ng/mL Total Protein 5.6 L (6.3-8.2) g/dL Albumin 3.4 L (3.5-5.0) g/dL Urine Protein (Negative) Urine Ketones (Negative) Urine Blood (Negative) Ur Leukocyte Esterase (Negative) Urine RBC (0-5) /hpf Urine WBC (0-5) /hpf Urine WBC Clumps (None) /hpf Urine Bacteria (None) /hpf Hyaline Casts (0-2) /lpf Urine Mucus (None) /hpf Crossmatch 09/06/20 09/06/20 09/06/20 Range/Units 12:39 12:40 12:41 WBC (3.8-10.6) k/uL RBC (4.30-5.90) m/uL Hgb (13.0-17.5) gm/dL Hct (39.0-53.0) % MCHC (31.0-37.0) g/dL RDW (11.5-15.5) % Neutrophils # (1.3-7.7) k/uL Lymphocytes # (1.0-4.8) k/uL Monocytes # (0-1.0) k/uL APTT (22.0-30.0) sec ABG pH (7.35-7.45) ABG pCO2 (35-45) mmHg ABG pO2 (83-108) mmHg ABG HCO3 (21-25) mmol/L ABG Total CO2 (19-24) mmol/L ABG O2 Saturation (94-97) % Sodium (137-145) mmol/L Potassium (3.5-5.1) mmol/L Carbon Dioxide (22-30) mmol/L BUN (9-20) mg/dL Creatinine (0.66-1.25) mg/dL Glucose (74-99) mg/dL Plasma Lactic Acid Junior 5.0 H* (0.7-2.0) mmol/L Calcium (8.4-10.2) mg/dL AST (17-59) U/L ALT (4-49) U/L Troponin I 3.550 H* (0.000-0.034) ng/mL Total Protein (6.3-8.2) g/dL Albumin (3.5-5.0) g/dL Urine Protein (Negative) Urine Ketones (Negative) Urine Blood (Negative) Ur Leukocyte Esterase (Negative) Urine RBC (0-5) /hpf Urine WBC (0-5) /hpf Urine WBC Clumps (None) /hpf Urine Bacteria (None) /hpf Hyaline Casts (0-2) /lpf Urine Mucus (None) /hpf Crossmatch See Detail 09/06/20 09/06/20 09/06/20 Range/Units 17:46 19:53 19:53 WBC 17.2 H (3.8-10.6) k/uL RBC 3.32 L (4.30-5.90) m/uL Hgb 9.4 L D (13.0-17.5) gm/dL Hct 31.1 L (39.0-53.0) % MCHC 30.3 L (31.0-37.0) g/dL RDW 16.0 H (11.5-15.5) % Neutrophils # 14.6 H (1.3-7.7) k/uL Lymphocytes # (1.0-4.8) k/uL Monocytes # 1.3 H (0-1.0) k/uL APTT (22.0-30.0) sec ABG pH (7.35-7.45) ABG pCO2 (35-45) mmHg ABG pO2 (83-108) mmHg ABG HCO3 (21-25) mmol/L ABG Total CO2 (19-24) mmol/L ABG O2 Saturation (94-97) % Sodium (137-145) mmol/L Potassium (3.5-5.1) mmol/L Carbon Dioxide (22-30) mmol/L BUN (9-20) mg/dL Creatinine (0.66-1.25) mg/dL Glucose (74-99) mg/dL Plasma Lactic Acid Junior 11.7 H* (0.7-2.0) mmol/L Calcium (8.4-10.2) mg/dL AST (17-59) U/L ALT (4-49) U/L Troponin I 7.210 H* (0.000-0.034) ng/mL Total Protein (6.3-8.2) g/dL Albumin (3.5-5.0) g/dL Urine Protein (Negative) Urine Ketones (Negative) Urine Blood (Negative) Ur Leukocyte Esterase (Negative) Urine RBC (0-5) /hpf Urine WBC (0-5) /hpf Urine WBC Clumps (None) /hpf Urine Bacteria (None) /hpf Hyaline Casts (0-2) /lpf Urine Mucus (None) /hpf Crossmatch 09/06/20 09/06/20 09/06/20 Range/Units 19:53 22:26 23:49 WBC 17.2 H (3.8-10.6) k/uL RBC 3.07 L (4.30-5.90) m/uL Hgb 9.3 L (13.0-17.5) gm/dL Hct 28.8 L (39.0-53.0) % MCHC (31.0-37.0) g/dL RDW 16.2 H (11.5-15.5) % Neutrophils # 14.9 H (1.3-7.7) k/uL Lymphocytes # 0.9 L (1.0-4.8) k/uL Monocytes # 1.2 H (0-1.0) k/uL APTT (22.0-30.0) sec ABG pH 7.20 L (7.35-7.45) ABG pCO2 31 L (35-45) mmHg ABG pO2 119 H (83-108) mmHg ABG HCO3 12 L (21-25) mmol/L ABG Total CO2 13 L (19-24) mmol/L ABG O2 Saturation 98.1 H (94-97) % Sodium (137-145) mmol/L Potassium (3.5-5.1) mmol/L Carbon Dioxide 16 L (22-30) mmol/L BUN 32 H (9-20) mg/dL Creatinine 1.38 H (0.66-1.25) mg/dL Glucose 209 H (74-99) mg/dL Plasma Lactic Acid Junior (0.7-2.0) mmol/L Calcium (8.4-10.2) mg/dL AST 189 H (17-59) U/L ALT 50 H (4-49) U/L Troponin I (0.000-0.034) ng/mL Total Protein 6.1 L (6.3-8.2) g/dL Albumin (3.5-5.0) g/dL Urine Protein (Negative) Urine Ketones (Negative) Urine Blood (Negative) Ur Leukocyte Esterase (Negative) Urine RBC (0-5) /hpf Urine WBC (0-5) /hpf Urine WBC Clumps (None) /hpf Urine Bacteria (None) /hpf Hyaline Casts (0-2) /lpf Urine Mucus (None) /hpf Crossmatch 09/06/20 09/07/20 09/07/20 Range/Units 23:49 02:12 05:28 WBC (3.8-10.6) k/uL RBC (4.30-5.90) m/uL Hgb (13.0-17.5) gm/dL Hct (39.0-53.0) % MCHC (31.0-37.0) g/dL RDW (11.5-15.5) % Neutrophils # (1.3-7.7) k/uL Lymphocytes # (1.0-4.8) k/uL Monocytes # (0-1.0) k/uL APTT (22.0-30.0) sec ABG pH 7.26 L (7.35-7.45) ABG pCO2 33 L (35-45) mmHg ABG pO2 146 H (83-108) mmHg ABG HCO3 15 L (21-25) mmol/L ABG Total CO2 16 L (19-24) mmol/L ABG O2 Saturation 99.6 H (94-97) % Sodium (137-145) mmol/L Potassium (3.5-5.1) mmol/L Carbon Dioxide (22-30) mmol/L BUN (9-20) mg/dL Creatinine (0.66-1.25) mg/dL Glucose (74-99) mg/dL Plasma Lactic Acid Junior 13.2 H* (0.7-2.0) mmol/L Calcium (8.4-10.2) mg/dL AST (17-59) U/L ALT (4-49) U/L Troponin I 36.900 H* (0.000-0.034) ng/mL Total Protein (6.3-8.2) g/dL Albumin (3.5-5.0) g/dL Urine Protein (Negative) Urine Ketones (Negative) Urine Blood (Negative) Ur Leukocyte Esterase (Negative) Urine RBC (0-5) /hpf Urine WBC (0-5) /hpf Urine WBC Clumps (None) /hpf Urine Bacteria (None) /hpf Hyaline Casts (0-2) /lpf Urine Mucus (None) /hpf Crossmatch 09/07/20 09/07/20 09/07/20 Range/Units 05:49 05:49 05:49 WBC 24.5 H (3.8-10.6) k/uL RBC 3.15 L (4.30-5.90) m/uL Hgb 9.4 L (13.0-17.5) gm/dL Hct 30.1 L (39.0-53.0) % MCHC (31.0-37.0) g/dL RDW 16.4 H (11.5-15.5) % Neutrophils # (1.3-7.7) k/uL Lymphocytes # (1.0-4.8) k/uL Monocytes # (0-1.0) k/uL APTT (22.0-30.0) sec ABG pH (7.35-7.45) ABG pCO2 (35-45) mmHg ABG pO2 (83-108) mmHg ABG HCO3 (21-25) mmol/L ABG Total CO2 (19-24) mmol/L ABG O2 Saturation (94-97) % Sodium 135 L (137-145) mmol/L Potassium 5.7 H (3.5-5.1) mmol/L Carbon Dioxide 14 L (22-30) mmol/L BUN 40 H (9-20) mg/dL Creatinine 2.37 H (0.66-1.25) mg/dL Glucose 169 H (74-99) mg/dL Plasma Lactic Acid Junior 11.8 H* (0.7-2.0) mmol/L Calcium 8.2 L (8.4-10.2) mg/dL AST (17-59) U/L ALT (4-49) U/L Troponin I (0.000-0.034) ng/mL Total Protein (6.3-8.2) g/dL Albumin (3.5-5.0) g/dL Urine Protein (Negative) Urine Ketones (Negative) Urine Blood (Negative) Ur Leukocyte Esterase (Negative) Urine RBC (0-5) /hpf Urine WBC (0-5) /hpf Urine WBC Clumps (None) /hpf Urine Bacteria (None) /hpf Hyaline Casts (0-2) /lpf Urine Mucus (None) /hpf Crossmatch 09/07/20 Range/Units 09:53 WBC (3.8-10.6) k/uL RBC (4.30-5.90) m/uL Hgb (13.0-17.5) gm/dL Hct (39.0-53.0) % MCHC (31.0-37.0) g/dL RDW (11.5-15.5) % Neutrophils # (1.3-7.7) k/uL Lymphocytes # (1.0-4.8) k/uL Monocytes # (0-1.0) k/uL APTT (22.0-30.0) sec ABG pH (7.35-7.45) ABG pCO2 (35-45) mmHg ABG pO2 (83-108) mmHg ABG HCO3 (21-25) mmol/L ABG Total CO2 (19-24) mmol/L ABG O2 Saturation (94-97) % Sodium (137-145) mmol/L Potassium (3.5-5.1) mmol/L Carbon Dioxide (22-30) mmol/L BUN (9-20) mg/dL Creatinine (0.66-1.25) mg/dL Glucose (74-99) mg/dL Plasma Lactic Acid Junior (0.7-2.0) mmol/L Calcium (8.4-10.2) mg/dL AST (17-59) U/L ALT (4-49) U/L Troponin I (0.000-0.034) ng/mL Total Protein (6.3-8.2) g/dL Albumin (3.5-5.0) g/dL Urine Protein 1+ H (Negative) Urine Ketones Trace H (Negative) Urine Blood Moderate H (Negative) Ur Leukocyte Esterase Large H (Negative) Urine RBC 13 H (0-5) /hpf Urine WBC 14 H (0-5) /hpf Urine WBC Clumps Few H (None) /hpf Urine Bacteria Occasional H (None) /hpf Hyaline Casts 4 H (0-2) /lpf Urine Mucus Moderate H (None) /hpf Crossmatch Assessment and Plan Assessment: This is a 85-year-old male with past medical history noted below who presented to the emergency room with chief complaint of black stool. Patient was evaluated in the ER and admitted to the hospital for further management of his medical problems noted below. 1. Upper GI bleed: With hemoglobin of 6.4 on presentation. Status post 2 units of PRBC transfusion. GI consulted for further evaluation. Continue IV Protonix 40 mg twice daily. Nothing by mouth for now. Endoscopy on hold given unstable clinical status 2. Hypovolemic and cardiogenic shock: With lactic acidosis. Currently on IV dobutamine and Levophed drip. Secondary to blood loss and heart failure. Hold home blood pressure medications. 3. Acute heart failure exacerbation, suspected systolic: With evidence of fluid overload clinically and on chest x-ray. Continue IV Lasix as directed by cardiology 4. Acute blood loss anemia: 2 units of PRBC ordered for transfusion. Recheck hemoglobin in the morning 5. Troponin elevation/type II non-ST elevation IN: Most likely non-thrombotic troponin leak secondary to hypotension, heart failure, and GI bleed. 12-lead EKG in the emergency room showed no acute ischemic changes. Unable to anticoagulate or use aspirin at this time. Cardiology consulted for further evaluation. Echocardiogram done and awaiting report 6. Acute hypoxic respiratory failure secondary to flash pulmonary edema: Currently on BiPAP 7. History of coronary artery disease with prior CABG 8. DVT prophylaxis with SCD 9. CODE STATUS: DO NOT RESUSCITATE/DO NOT INTUBATE. Discussed with patient and his nephew at bedside who is his [employer]URABLE POWER OF [employer] SITE SUPERVISOR
--- NOTE | 2020-09-07 11:09 | CDI ---
Documentation Clarification Form Date: 09/07/2020 10:56:00 AM From: Lynnette Hernandez CCS, CCDS Admit Date: 09/06/2020 01:48:00 PM Patient Name: Danial Logan Visit Number: [id number] Discharge Date: ATTENTION: The Clinical Documentation Specialists (CDI) and [facility] Coding Staff appreciate your assistance in clarifying documentation. Please respond to the clarification below the line at the bottom and electronically sign. The CDI & [facility] Coding staff will review the response and follow-up if needed. Please note: Queries are made part of the Legal Health Record. If you have any questions, please contact the author of this message via ITS. Dr. Chirag Merirtt: Per the Nephrology Consult 09/07: JOSE secondary to ATN secondary to Acute Blood Loss Anemia and Cardiorenal Syndrome. Baseline Creatinine near 1 and is 2.37 today. Oliguric. Acute on Chronic Systolic CHF w/EF 25%. History/Risk Factors: CAD, OR & status post CABG, Hypertension, Hypercholesterolemia. Clinical Indicators: Presented to the ED on 09/06 with dark tarry stool for several days, diagnosed with NSTEMI, ABLA and Melanotic Stool. Patient was started on Levophed for dropping BP, Hgb 6/4 on presentation, improved to 9.4 status post 2 units PRBCs. Current BUN: 28^ - 32, 09/07: 40^. Current Creatinine: 0.77 - 1.38^; 08/28: 2.37^. Current GFR: 84 - 47; 09/07: 24 Previous GFR is not available or not documented. Per the Nephrology Consult: Baseline Creatinine is near 1. Treatment: IV Dobutamine & Lasix drips, UA & Renal US, monitored renal function & urine output. IV Protonix, IV Lasix 20 mg x1, IV Fentanyl, IV Zofran, IV Tylenol, IV Na Bicarb, IV Dextrose/Water w/Na Bicarb, IV Lasix 40 mg, Nitropaste. In order to capture the severity of condition, please clarify the stage of the CKD, if known: CKD Stage 2 (GFR 60-89) CKD Stage 3a (GFR 45-59) CKD Stage 3b (GFR 30-44) CKD Stage 4 (GFR 15-29) Other, please specify Unable to determine [Template Last reviewed: May 2020] aki, atn MTDD
--- NOTE | 2020-09-07 13:02 | P.PN ---
Subjective Progress Note Date: 09/07/20 Principal diagnosis: Acute upper gastrointestinal bleed Patient is a 85-year-old pleasant white male who came into the emergency room yesterday complaining of black tarry stools for the last 2-3 days duration. He is having some heartburn for the last 3-4 days of black tarry stools. He was also becoming short of breath and fatigue, yesterday morning he had severe chest discomfort and came into the emergency department. He has a prior history of coronary artery disease with CABG several years ago. On admission to the emergency department his hemoglobin was 6.4, he has been transfused with 2 units of packed red blood cells. Today's hemoglobin is 9.4, his troponins were elevated to 36 on his plasma lactic acid was 11.8, his potassium was 5.7. He has been oliguric with an output of 35 mL this morning. Through the night the team was called for acute respiratory distress, he has also been hypotensive. He was started on levothyroxine, dobutamine, and Lasix drip. He is currently on BiPAP. He had a abdominal x-ray that showed nonobstructive bowel gas pattern. Air distended stomach. Moderate fecal retention. Degenerative changes of the spine. He was seen and evaluated in the emergency department awaiting an ICU bed. He is denying any abdominal pain, he has had no further black stools, he denies any nausea or vomiting. Cardiology, pulmonology, and nephrology are on consult. Objective - Vital Signs Vital signs: Vital Signs Temp 97.9 F 09/07/20 07:37 Pulse 88 09/07/20 11:00 Resp 26 H 09/07/20 11:00 BP 90/60 09/07/20 11:00 Pulse Ox 96 09/07/20 11:00 Intake & Output 09/06/20 09/07/20 09/07/20 18:59 06:59 18:59 Intake Total 620 47.621 173.173 Output Total 40 100 Balance 620 7.621 73.173 Weight 97.522 kg Intake: Intake, IV Titration 47.621 173.173 Amount Furosemide 100 mg In 0.833 Sodium Chloride 0.9% 90 ml @ 10 MG/HR 10 mls/hr IV .Q10H [facility] Rx#: [id number] Norepinephrine 4 mg In 47.621 172.340 Sodium Chloride 0.9% 250 ml @ 0.05 MCG/KG/MIN 18. 578 mls/hr IV .[id number] [facility] Rx#:[id number] Blood Product 620 Rc As-1 Unit 310 [id number] Rc As-1 Unit 310 [id number] Output: Urine 40 100 - Exam General appearance: The patient is alert, oriented, on Bipap HET: Head is normocephalic and atraumatic. Conjunctiva pink. Sclera anicteric. Neck: Supple without lymphadenopathy. Abdomen: Soft, nontender, mildly distended with bowel sounds. No guarding or rigidity. Extremities: Normal skin color and turgor. No pedal edema Neurological: No focal deficits. Alert and oriented 3. - Labs CBC & Chem 7: 09/07/20 05:49 09/07/20 05:49 Labs: Abnormal Lab Results - Last 24 Hours (Table) 09/06/20 09/06/20 09/06/20 Range/Units 12:39 12:39 12:39 WBC (3.8-10.6) k/uL RBC 2.22 L (4.30-5.90) m/uL Hgb 6.4 L* (13.0-17.5) gm/dL Hct 20.3 L (39.0-53.0) % MCHC (31.0-37.0) g/dL RDW 16.6 H (11.5-15.5) % Neutrophils # (1.3-7.7) k/uL Lymphocytes # 0.9 L (1.0-4.8) k/uL Monocytes # (0-1.0) k/uL APTT 19.7 L (22.0-30.0) sec ABG pH (7.35-7.45) ABG pCO2 (35-45) mmHg ABG pO2 (83-108) mmHg ABG HCO3 (21-25) mmol/L ABG Total CO2 (19-24) mmol/L ABG O2 Saturation (94-97) % Sodium 135 L (137-145) mmol/L Potassium (3.5-5.1) mmol/L Carbon Dioxide (22-30) mmol/L BUN 28 H (9-20) mg/dL Creatinine (0.66-1.25) mg/dL Glucose 173 H (74-99) mg/dL Plasma Lactic Acid Junior (0.7-2.0) mmol/L Calcium (8.4-10.2) mg/dL AST 101 H (17-59) U/L ALT (4-49) U/L Troponin I (0.000-0.034) ng/mL Total Protein 5.6 L (6.3-8.2) g/dL Albumin 3.4 L (3.5-5.0) g/dL Urine Protein (Negative) Urine Ketones (Negative) Urine Blood (Negative) Ur Leukocyte Esterase (Negative) Urine RBC (0-5) /hpf Urine WBC (0-5) /hpf Urine WBC Clumps (None) /hpf Urine Bacteria (None) /hpf Hyaline Casts (0-2) /lpf Urine Mucus (None) /hpf Crossmatch 09/06/20 09/06/20 09/06/20 Range/Units 12:39 12:40 12:41 WBC (3.8-10.6) k/uL RBC (4.30-5.90) m/uL Hgb (13.0-17.5) gm/dL Hct (39.0-53.0) % MCHC (31.0-37.0) g/dL RDW (11.5-15.5) % Neutrophils # (1.3-7.7) k/uL Lymphocytes # (1.0-4.8) k/uL Monocytes # (0-1.0) k/uL APTT (22.0-30.0) sec ABG pH (7.35-7.45) ABG pCO2 (35-45) mmHg ABG pO2 (83-108) mmHg ABG HCO3 (21-25) mmol/L ABG Total CO2 (19-24) mmol/L ABG O2 Saturation (94-97) % Sodium (137-145) mmol/L Potassium (3.5-5.1) mmol/L Carbon Dioxide (22-30) mmol/L BUN (9-20) mg/dL Creatinine (0.66-1.25) mg/dL Glucose (74-99) mg/dL Plasma Lactic Acid Junior 5.0 H* (0.7-2.0) mmol/L Calcium (8.4-10.2) mg/dL AST (17-59) U/L ALT (4-49) U/L Troponin I 3.550 H* (0.000-0.034) ng/mL Total Protein (6.3-8.2) g/dL Albumin (3.5-5.0) g/dL Urine Protein (Negative) Urine Ketones (Negative) Urine Blood (Negative) Ur Leukocyte Esterase (Negative) Urine RBC (0-5) /hpf Urine WBC (0-5) /hpf Urine WBC Clumps (None) /hpf Urine Bacteria (None) /hpf Hyaline Casts (0-2) /lpf Urine Mucus (None) /hpf Crossmatch See Detail 09/06/20 09/06/20 09/06/20 Range/Units 17:46 19:53 19:53 WBC 17.2 H (3.8-10.6) k/uL RBC 3.32 L (4.30-5.90) m/uL Hgb 9.4 L D (13.0-17.5) gm/dL Hct 31.1 L (39.0-53.0) % MCHC 30.3 L (31.0-37.0) g/dL RDW 16.0 H (11.5-15.5) % Neutrophils # 14.6 H (1.3-7.7) k/uL Lymphocytes # (1.0-4.8) k/uL Monocytes # 1.3 H (0-1.0) k/uL APTT (22.0-30.0) sec ABG pH (7.35-7.45) ABG pCO2 (35-45) mmHg ABG pO2 (83-108) mmHg ABG HCO3 (21-25) mmol/L ABG Total CO2 (19-24) mmol/L ABG O2 Saturation (94-97) % Sodium (137-145) mmol/L Potassium (3.5-5.1) mmol/L Carbon Dioxide (22-30) mmol/L BUN (9-20) mg/dL Creatinine (0.66-1.25) mg/dL Glucose (74-99) mg/dL Plasma Lactic Acid Junior 11.7 H* (0.7-2.0) mmol/L Calcium (8.4-10.2) mg/dL AST (17-59) U/L ALT (4-49) U/L Troponin I 7.210 H* (0.000-0.034) ng/mL Total Protein (6.3-8.2) g/dL Albumin (3.5-5.0) g/dL Urine Protein (Negative) Urine Ketones (Negative) Urine Blood (Negative) Ur Leukocyte Esterase (Negative) Urine RBC (0-5) /hpf Urine WBC (0-5) /hpf Urine WBC Clumps (None) /hpf Urine Bacteria (None) /hpf Hyaline Casts (0-2) /lpf Urine Mucus (None) /hpf Crossmatch 09/06/20 09/06/20 09/06/20 Range/Units 19:53 22:26 23:49 WBC 17.2 H (3.8-10.6) k/uL RBC 3.07 L (4.30-5.90) m/uL Hgb 9.3 L (13.0-17.5) gm/dL Hct 28.8 L (39.0-53.0) % MCHC (31.0-37.0) g/dL RDW 16.2 H (11.5-15.5) % Neutrophils # 14.9 H (1.3-7.7) k/uL Lymphocytes # 0.9 L (1.0-4.8) k/uL Monocytes # 1.2 H (0-1.0) k/uL APTT (22.0-30.0) sec ABG pH 7.20 L (7.35-7.45) ABG pCO2 31 L (35-45) mmHg ABG pO2 119 H (83-108) mmHg ABG HCO3 12 L (21-25) mmol/L ABG Total CO2 13 L (19-24) mmol/L ABG O2 Saturation 98.1 H (94-97) % Sodium (137-145) mmol/L Potassium (3.5-5.1) mmol/L Carbon Dioxide 16 L (22-30) mmol/L BUN 32 H (9-20) mg/dL Creatinine 1.38 H (0.66-1.25) mg/dL Glucose 209 H (74-99) mg/dL Plasma Lactic Acid Junior (0.7-2.0) mmol/L Calcium (8.4-10.2) mg/dL AST 189 H (17-59) U/L ALT 50 H (4-49) U/L Troponin I (0.000-0.034) ng/mL Total Protein 6.1 L (6.3-8.2) g/dL Albumin (3.5-5.0) g/dL Urine Protein (Negative) Urine Ketones (Negative) Urine Blood (Negative) Ur Leukocyte Esterase (Negative) Urine RBC (0-5) /hpf Urine WBC (0-5) /hpf Urine WBC Clumps (None) /hpf Urine Bacteria (None) /hpf Hyaline Casts (0-2) /lpf Urine Mucus (None) /hpf Crossmatch 09/06/20 09/07/20 09/07/20 Range/Units 23:49 02:12 05:28 WBC (3.8-10.6) k/uL RBC (4.30-5.90) m/uL Hgb (13.0-17.5) gm/dL Hct (39.0-53.0) % MCHC (31.0-37.0) g/dL RDW (11.5-15.5) % Neutrophils # (1.3-7.7) k/uL Lymphocytes # (1.0-4.8) k/uL Monocytes # (0-1.0) k/uL APTT (22.0-30.0) sec ABG pH 7.26 L (7.35-7.45) ABG pCO2 33 L (35-45) mmHg ABG pO2 146 H (83-108) mmHg ABG HCO3 15 L (21-25) mmol/L ABG Total CO2 16 L (19-24) mmol/L ABG O2 Saturation 99.6 H (94-97) % Sodium (137-145) mmol/L Potassium (3.5-5.1) mmol/L Carbon Dioxide (22-30) mmol/L BUN (9-20) mg/dL Creatinine (0.66-1.25) mg/dL Glucose (74-99) mg/dL Plasma Lactic Acid Junior 13.2 H* (0.7-2.0) mmol/L Calcium (8.4-10.2) mg/dL AST (17-59) U/L ALT (4-49) U/L Troponin I 36.900 H* (0.000-0.034) ng/mL Total Protein (6.3-8.2) g/dL Albumin (3.5-5.0) g/dL Urine Protein (Negative) Urine Ketones (Negative) Urine Blood (Negative) Ur Leukocyte Esterase (Negative) Urine RBC (0-5) /hpf Urine WBC (0-5) /hpf Urine WBC Clumps (None) /hpf Urine Bacteria (None) /hpf Hyaline Casts (0-2) /lpf Urine Mucus (None) /hpf Crossmatch 09/07/20 09/07/20 09/07/20 Range/Units 05:49 05:49 05:49 WBC 24.5 H (3.8-10.6) k/uL RBC 3.15 L (4.30-5.90) m/uL Hgb 9.4 L (13.0-17.5) gm/dL Hct 30.1 L (39.0-53.0) % MCHC (31.0-37.0) g/dL RDW 16.4 H (11.5-15.5) % Neutrophils # (1.3-7.7) k/uL Lymphocytes # (1.0-4.8) k/uL Monocytes # (0-1.0) k/uL APTT (22.0-30.0) sec ABG pH (7.35-7.45) ABG pCO2 (35-45) mmHg ABG pO2 (83-108) mmHg ABG HCO3 (21-25) mmol/L ABG Total CO2 (19-24) mmol/L ABG O2 Saturation (94-97) % Sodium 135 L (137-145) mmol/L Potassium 5.7 H (3.5-5.1) mmol/L Carbon Dioxide 14 L (22-30) mmol/L BUN 40 H (9-20) mg/dL Creatinine 2.37 H (0.66-1.25) mg/dL Glucose 169 H (74-99) mg/dL Plasma Lactic Acid Junior 11.8 H* (0.7-2.0) mmol/L Calcium 8.2 L (8.4-10.2) mg/dL AST (17-59) U/L ALT (4-49) U/L Troponin I (0.000-0.034) ng/mL Total Protein (6.3-8.2) g/dL Albumin (3.5-5.0) g/dL Urine Protein (Negative) Urine Ketones (Negative) Urine Blood (Negative) Ur Leukocyte Esterase (Negative) Urine RBC (0-5) /hpf Urine WBC (0-5) /hpf Urine WBC Clumps (None) /hpf Urine Bacteria (None) /hpf Hyaline Casts (0-2) /lpf Urine Mucus (None) /hpf Crossmatch 09/07/20 09/07/20 Range/Units 09:53 10:22 WBC (3.8-10.6) k/uL RBC (4.30-5.90) m/uL Hgb (13.0-17.5) gm/dL Hct (39.0-53.0) % MCHC (31.0-37.0) g/dL RDW (11.5-15.5) % Neutrophils # (1.3-7.7) k/uL Lymphocytes # (1.0-4.8) k/uL Monocytes # (0-1.0) k/uL APTT (22.0-30.0) sec ABG pH (7.35-7.45) ABG pCO2 (35-45) mmHg ABG pO2 (83-108) mmHg ABG HCO3 (21-25) mmol/L ABG Total CO2 (19-24) mmol/L ABG O2 Saturation (94-97) % Sodium (137-145) mmol/L Potassium (3.5-5.1) mmol/L Carbon Dioxide (22-30) mmol/L BUN (9-20) mg/dL Creatinine (0.66-1.25) mg/dL Glucose (74-99) mg/dL Plasma Lactic Acid Junior 8.5 H* (0.7-2.0) mmol/L Calcium (8.4-10.2) mg/dL AST (17-59) U/L ALT (4-49) U/L Troponin I (0.000-0.034) ng/mL Total Protein (6.3-8.2) g/dL Albumin (3.5-5.0) g/dL Urine Protein 1+ H (Negative) Urine Ketones Trace H (Negative) Urine Blood Moderate H (Negative) Ur Leukocyte Esterase Large H (Negative) Urine RBC 13 H (0-5) /hpf Urine WBC 14 H (0-5) /hpf Urine WBC Clumps Few H (None) /hpf Urine Bacteria Occasional H (None) /hpf Hyaline Casts 4 H (0-2) /lpf Urine Mucus Moderate H (None) /hpf Crossmatch Assessment and Plan Assessment: 1. Black tarry stools for last 4 days duration. Hemoglobin of 6.4 and received 2 units of packed red blood cell transfusion. The patient has not had any further active bleeding or black tarry stools. Most likely dealing with an upper GI source of bleeding, possibly peptic ulcer disease. No prior history of recent NSAID use. No history of EGD or colonoscopy in the past. 2. Chest pain with EKG changes and elevated troponin at 36.9. Cardiology on consult 3. Acute respiratory distress, 18 called yesterday evening. Pulmonology on consult. Patient now on BiPAP. 4. History of hypertension 5. History of hypercholesteremia 6. History of coronary artery disease status post CABG several years ago Plan: 1. Protonix 40 mg twice daily 2. Patient was scheduled for EGD today, canceled due to change in respiratory and cardiac status 3. Await cardiology and pulmonology recommendations 4. Monitor Daily CBC 5. Patient is status post 2 units of packed red blood cell transfusion 6. Will consider proceeding with upper endoscopy once patient is stabilized We will continue to follow closely Dr. Zach Sharif I agree with the dictator's note, documented as a scribe by Sonal Pierre.
[2020-09-07] MEDS: DEXTROSE 5% IN WATER 1,000 ML with SODIUM BICARB (1 MEQ/ML) 150 ML IV SCH (14:03)
[2020-09-07 15:21] LABS: Calcium 7.6 mg/dL (8.4-10.2); Potassium 5.4 mmol/L (3.5-5.1)
--- NOTE | 2020-09-07 15:23 | HP ---
HISTORY AND PHYSICAL This is an 85-year-old male patient who presented to the hospital yesterday with severe GI bleeding and severe acute anemia secondary to GI loss. According to his son, he threw up dark red material and was having loose stools which were dark for several days. He is complaining mainly of epigastric and lower chest discomfort. Cardiology was consulted on account of his ECG abnormalities and abnormal troponins. His blood pressure was in the 90s and his heart rate was in the low 100s and hence beta blockers were held by the ER physician. His medications at home were reviewed and include atenolol, simvastatin and ascorbic acid and Cardura. There were no NSAIDs on board. When I saw him this morning, he was struggling to breathe. He was complaining of discomfort daily in the epigastric region, not in the chest. He was very short of breath using a BiPAP mask and uncomfortable. His respiratory rate obviously was elevated. His blood pressure was in the 90s and his heart rates were in the low 100s. EXAMINATION: His breath sounds are reduced bilaterally. HEART: Sounds were soft and distant. Abdomen was soft and mildly tender. No guarding. No rigidity. Lower extremity edema is noted. He had jugular venous distention. His 2D echo since then has shown severely reduced LV systolic function. Ejection fraction of about 25-30 percent and RVSP of about 34 mmHg. His ECG showed sinus tachycardia with ST depression in V3 to V6 and in the high lateral leads. His labs are reviewed and his white count is 25 34,000. Hemoglobin 6 and now after blood transfusions along with IV Lasix intermittently was 9.4. His lactic acid level is elevated. His troponins were elevated at 3.5, 7.2 and 37, potassium yesterday was 4.8, today it is 5.7. Creatinine has jumped to 2.37, BUN is 40. He has received multiple doses of IV Lasix. IMPRESSION: 1. Acute gastrointestinal bleeding. 2. Acute on chronic heart failure with severe exacerbation and acute respiratory failure requiring BiPAP therapy. Patient does not want to be intubated. He has been transfused 2-3 units of blood. His hemoglobin is up to 9, but in the process, he has become much more short of breath and when he came in his blood pressure is low. He is hypertensive (cardiogenic shock as well as hypovolemic shock) worsening renal function and acute on chronic renal failure. SUGGEST: 1. IV Lasix drip. 2. IV dobutamine 2.5 mics. 3. Continue low-dose Levophed to maintain blood pressure between 90 to 100 mmHg systolic. 4. I followed up after about 4 hours and his breathing was a lot better. When I saw him, he was able to lie flatter in bed and looked a lot more comfortable on this treatment. PLAN: Continue current management and hopefully we can get him to the endoscopy suite within the next 24 hours for endoscopy in as safe a manner as possible. His overall condition clearly is very critical and he does not want to be intubated. [id number] / KELLYN: [id number] /
--- NOTE | 2020-09-07 15:30 | P.CNPUL ---
History of Present Illness Consult date: 09/07/20 Reason for consult: dyspnea Chief complaint: Acute GI bleed, dark tarry stools, shortness of breath, fatigue History of present illness: 85-year-old white male patient with previous history of coronary artery disease with bypass grafting, previous history of myocardial infarction, former smoker, hyperlipidemia, presented to the emergency department on 09/06/2020 for evaluation of a 2 day history of passing dark tarry stools concerning for acute GI bleeding. Patient reports increased fatigue and dyspnea, and epigastric and lower chest discomfort. .he is not on any anticoagulation, denies any abdominal pain, he was noted to be borderline hypotensive, tachycardic on arrival. His hemoglobin on admission was 6. Patient was transfused with 2 units of packed red blood cells, positive lactic acid was elevated at 5.0 and subsequently increased to 11.7, patient hasn't done troponin elevation on admission with tro ponin level III.550, which has subsequently increased to 7.2, and 36.9 with a third set, cardiology has been consulted, his chest x-ray shows evidence of pulmonary edema, patient is short of breath, he is requiring BiPAP support currently, he is hypotensive, requiring levo fed support at 13 weeks per minute, he is currently on D5 with 3 A of bicarbonate at a rate of 75 ML per hour, his BiPAP settings are 10 and 5 and FiO2 of 80%. States he is short of breath, does not appear to be in any acute distress, his abdomen is distended, but nontender, this morning his hemoglobin is 9.4, blood cell count increased to 17.2, his renal function has worsened, BUN of 32 and creatinine of 1.3, proBNP level is 4820, he is evaluation by GI service, cardiology has been consulted, his echocardiogram revealed severely impaired systolic function with the EF between 25-30%, there was a moderate mitral regurgitation, mild to moderate tricuspid regurgitation, and mild pulmonary hypertension with right-sided pressures of 33.9 mmHg. X-ray of the abdomen showed nonobstructed bowel gas pattern, ear distended stomach, moderate fecal retention, renal ultrasound showed no hydronephrosis. Patient was given a small dose of Lasix 20 mg last night, has not produced significant output, remains oliguric, he will be given additional dose of 60 mg Lasix today, and cardiology after further discussion switched it to lasix infusion at 10 mg per hour, and dobutamine infusion was added. His current BiPAP settings are 10.5 and FiO2 of 80% Review of Systems All systems: negative Constitutional: Reports fatigue, Reports weakness, Denies chills, Denies fever Eyes: denies blurred vision, denies pain Ears, nose, mouth and throat: Denies headache, Denies sore throat Cardiovascular: Denies chest pain, Denies shortness of breath Respiratory: Reports dyspnea, Denies cough Gastrointestinal: Reports change in bowel habits, Reports melena, Denies abdominal pain, Denies diarrhea, Denies nausea, Denies vomiting Musculoskeletal: Denies myalgias Integumentary: Denies pruritus, Denies rash Neurological: Denies numbness, Denies weakness Psychiatric: Denies anxiety, Denies depression Endocrine: Denies fatigue, Denies weight change Past Medical History Past Medical History: Chest Pain / Angina, Myocardial Infarction (ID) Additional Past Medical History / Comment(s): History of CAD with previous history of bypass grafting Last Myocardial Infarction Date:: Unknown History of Any Multi-Drug Resistant Organisms: None Reported Past Surgical History: Coronary Bypass/CABG Past Psychological History: No Psychological Hx Reported Smoking Status: Former smoker Past Alcohol Use History: Rare Past Drug Use History: None Reported Medications and Allergies Home Medications Medication Instructions Recorded Confirmed Type Ascorbic Acid [Vitamin C] 500 mg PO DAILY 09/06/20 09/06/20 History Doxazosin [Cardura] 2 mg PO HS 09/06/20 09/06/20 History Lecithin, Soy [Lecithin] 400 mg PO DAILY 09/06/20 09/06/20 History Multivitamins, Thera [Multivitamin 1 tab PO DAILY 09/06/20 09/06/20 History (formulary)] Simvastatin [Zocor] 5 mg PO HS 09/06/20 09/06/20 History Vitamin E 400 unit PO DAILY 09/06/20 09/06/20 History atenoloL [Atenolol] 25 mg PO DAILY 09/06/20 09/06/20 History Allergies Allergy/AdvReac Type Severity Reaction Status Date / Time Penicillins Allergy Rash/Hives Verified 09/06/20 13:25 Physical Exam Vitals: Vital Signs Temp Pulse Resp BP Pulse Ox 09/07/20 14:30 96 30 H 95/60 96 09/07/20 14:00 92 18 92/60 96 09/07/20 13:35 98.6 F 94 22 90/61 96 09/07/20 13:00 93 27 H 91/59 94 L 09/07/20 12:30 93 28 H 98/66 83 L 09/07/20 12:00 88 26 H 98/65 94 L 09/07/20 11:30 90 26 H 89/62 90 L 09/07/20 11:00 88 26 H 90/60 96 09/07/20 10:30 88 32 H 93/69 96 09/07/20 10:00 95 24 109/68 96 09/07/20 09:20 87 26 H 94/57 93 L 09/07/20 09:10 90 28 H 102/52 93 L 09/07/20 09:00 70 28 H 79/55 93 L 09/07/20 08:50 68 30 H 85/60 93 L 09/07/20 08:40 92 28 H 111/61 90 L 09/07/20 08:30 92 30 H 84/62 94 L 09/07/20 08:23 87 26 H 83/56 96 09/07/20 08:20 81 28 H 76/54 93 L 09/07/20 08:10 71 30 H 82/56 95 09/07/20 08:00 71 31 H 78/48 09/07/20 07:50 68 30 H 71/49 09/07/20 07:40 90 30 H 87/54 09/07/20 07:37 97.9 F 90 26 H 87/54 100 09/07/20 07:30 93 28 H 89/63 09/07/20 07:20 93 30 H 81/55 09/07/20 07:10 94 26 H 101/68 09/07/20 07:00 87 30 H 74/56 100 09/07/20 06:50 93 30 H 77/60 96 09/07/20 06:45 83 30 H 85/32 100 09/07/20 06:40 92 29 H 93/53 100 09/07/20 06:35 93 29 H 76/53 99 09/07/20 06:30 97.6 F 94 28 H 78/56 99 09/07/20 06:25 90 29 H 90/60 100 09/07/20 06:20 96 29 H 101/70 97 09/07/20 06:15 96 32 H 88/60 99 09/07/20 06:10 92 31 H 81/51 100 09/07/20 06:05 86 33 H 77/56 100 09/07/20 06:00 92 30 H 84/57 100 09/07/20 05:55 93 31 H 78/58 99 09/07/20 05:50 96 29 H 73/53 99 09/07/20 05:45 85 29 H 84/56 100 09/07/20 05:40 96 33 H 80/68 100 09/07/20 05:35 95 35 H 85/45 98 09/07/20 05:30 78 29 H 76/55 96 09/07/20 05:25 73 30 H 77/44 100 09/07/20 05:20 86 29 H 85/67 100 09/07/20 05:15 86 30 H 73/54 100 09/07/20 05:10 80 30 H 93/48 100 09/07/20 05:05 83 28 H 84/57 100 09/07/20 05:00 87 30 H 80/55 100 09/07/20 04:55 84 30 H 80/57 100 09/07/20 04:50 88 28 H 80/58 100 09/07/20 04:45 85 29 H 83/54 100 09/07/20 04:40 87 30 H 78/57 100 09/07/20 04:35 87 29 H 85/58 100 09/07/20 04:30 92 31 H 81/57 100 09/07/20 04:25 89 27 H 86/58 100 09/07/20 04:20 94 29 H 88/67 100 09/07/20 04:15 97 29 H 96/63 99 09/07/20 04:00 89 30 H 79/48 98 09/07/20 03:45 86 32 H 81/52 95 09/07/20 03:30 82 37 H 61/37 97 09/07/20 03:15 88 30 H 65/50 100 09/07/20 03:05 99 18 76/45 99 09/07/20 03:00 103 H 34 H 90/48 99 09/07/20 02:45 101 H 34 H 87/71 99 09/07/20 02:30 98 34 H 94/55 98 09/07/20 02:15 104 H 31 H 90/59 98 09/07/20 02:00 96 40 H 93/64 100 09/07/20 01:45 100 32 H 97/64 97 09/07/20 01:30 104 H 30 H 101/71 97 09/07/20 01:15 110 H 31 H 87/52 100 09/07/20 01:00 97.8 F 103 H 27 H 104/59 96 09/07/20 00:45 117 H 39 H 104/79 100 09/07/20 00:30 116 H 45 H 103/78 98 09/07/20 00:15 116 H 31 H 99/60 97 09/07/20 00:04 115 H 31 H 99/60 98 09/07/20 00:00 116 H 40 H 104/64 95 09/06/20 23:45 111 H 33 H 107/70 97 09/06/20 23:30 118 H 32 H 95 09/06/20 23:15 116 H 31 H 106/67 97 09/06/20 23:00 118 H 41 H 115/73 98 09/06/20 22:45 114 H 33 H 107/62 98 09/06/20 22:30 101 H 33 H 103/93 98 09/06/20 22:15 107 H 30 H 95/70 98 09/06/20 22:00 90 33 H 81/53 95 09/06/20 21:45 92 31 H 76/57 95 09/06/20 21:30 104 H 29 H 82/65 98 09/06/20 21:15 106 H 28 H 84/56 95 09/06/20 21:10 105 H 20 84/56 95 09/06/20 21:00 107 H 26 H 94/62 98 09/06/20 20:45 112 H 30 H 98 09/06/20 20:30 113 H 27 H 84/61 98 09/06/20 20:15 115 H 25 H 98/69 98 09/06/20 20:00 124 H 27 H 98 09/06/20 19:45 118 H 30 H 90/63 94 L 09/06/20 19:30 120 H 29 H 87/71 95 09/06/20 19:27 117 H 18 87/71 09/06/20 19:15 121 H 30 H 96/56 94 L 09/06/20 19:00 130 H 33 H 95/65 96 09/06/20 17:59 115 H 18 80/59 93 L 09/06/20 17:17 97.4 F L 105 H 20 83/58 93 L 09/06/20 16:47 97.7 F 99 20 84/58 93 L 09/06/20 16:37 97.6 F 103 H 20 82/62 93 L 09/06/20 16:34 97.6 F 103 H 20 82/62 93 L 09/06/20 15:45 97.8 F 104 H 18 85/54 Intake and Output 09/07/20 09/07/20 09/07/20 06:59 14:59 22:59 Intake Total 47.621 207.212 Output Total 40 165 Balance 7.621 42.212 Intake: Intake, IV Titration 47.621 207.212 Amount Furosemide 100 mg In 0.833 Sodium Chloride 0.9% 90 ml @ 10 MG/HR 10 mls/hr IV .Q10H BETH Rx#: [id number] Norepinephrine 4 mg In 47.621 206.379 Sodium Chloride 0.9% 250 ml @ 0.05 MCG/KG/MIN 18. 578 mls/hr IV .[id number] BETH Rx#:[id number] Output: Urine 40 165 GENERAL EXAM: Alert, short of breath, 85-year-old white male, on BiPAP support, with pressures of 10, and FiO2 of 80%, resting on the gurney in the emergency department, awaiting a bed in the ICU, comfortable in no apparent distress. HEAD: Normocephalic/atraumatic. EYES: Normal reaction of pupils, equal size. Conjunctiva pink, sclera white. NOSE: Clear with pink turbinates. THROAT: No erythema or exudates. NECK: No masses, no JVD, no thyroid enlargement, no adenopathy. CHEST: No chest wall deformity. Symmetrical expansion. LUNGS: Equal air entry with diffuse basilar crackles CVS: Regular rate and rhythm, normal S1 and S2, no gallops, no murmurs, no rubs ABDOMEN: Soft, nontender. No hepatosplenomegaly, normal bowel sounds, no gu arding or rigidity. EXTREMITIES: No clubbing, no edema, no cyanosis, 2+ pulses and upper and lower e xtremities. MUSCULOSKELETAL: Muscle strength and tone normal. SPINE: No scoliosis or deformity SKIN: No rashes CENTRAL NERVOUS SYSTEM: Alert and oriented -3. No focal deficits, tone is normal in all 4 extremities. PSYCHIATRIC: Alert and oriented -3. Appropriate affect. Intact judgment and insight. Results - Laboratory Findings CBC and BMP: 09/07/20 05:49 09/07/20 05:49 ABG ABG pH 7.26 (7.35-7.45) L 09/07/20 05:28 ABG pCO2 33 mmHg (35-45) L 09/07/20 05:28 ABG pO2 146 mmHg (83-108) H 09/07/20 05:28 ABG O2 Saturation 99.6 % (94-97) H 09/07/20 05:28 PT/INR, D-dimer PT 10.6 sec (9.0-12.0) 09/06/20 12:39 INR 1.0 (<1.2) 09/06/20 12:39 Abnormal lab findings: Abnormal Labs 09/06/20 09/06/20 09/06/20 12:39 12:39 12:39 WBC RBC 2.22 L Hgb 6.4 L* Hct 20.3 L MCHC RDW 16.6 H Neutrophils # Lymphocytes # 0.9 L Monocytes # APTT 19.7 L ABG pH ABG pCO2 ABG pO2 ABG HCO3 ABG Total CO2 ABG O2 Saturation Sodium 135 L Potassium Carbon Dioxide BUN 28 H Creatinine Glucose 173 H Plasma Lactic Acid Junior Calcium AST 101 H ALT Troponin I Total Protein 5.6 L Albumin 3.4 L Urine Protein Urine Ketones Urine Blood Ur Leukocyte Esterase Urine RBC Urine WBC Urine WBC Clumps Urine Bacteria Hyaline Casts Urine Mucus Crossmatch 09/06/20 09/06/20 09/06/20 12:39 12:40 12:41 WBC RBC Hgb Hct MCHC RDW Neutrophils # Lymphocytes # Monocytes # APTT ABG pH ABG pCO2 ABG pO2 ABG HCO3 ABG Total CO2 ABG O2 Saturation Sodium Potassium Carbon Dioxide BUN Creatinine Glucose Plasma Lactic Acid Junior 5.0 H* Calcium AST ALT Troponin I 3.550 H* Total Protein Albumin Urine Protein Urine Ketones Urine Blood Ur Leukocyte Esterase Urine RBC Urine WBC Urine WBC Clumps Urine Bacteria Hyaline Casts Urine Mucus Crossmatch See Detail 09/06/20 09/06/20 09/06/20 17:46 19:53 19:53 WBC 17.2 H RBC 3.32 L Hgb 9.4 L D Hct 31.1 L MCHC 30.3 L RDW 16.0 H Neutrophils # 14.6 H Lymphocytes # Monocytes # 1.3 H APTT ABG pH ABG pCO2 ABG pO2 ABG HCO3 ABG Total CO2 ABG O2 Saturation Sodium Potassium Carbon Dioxide BUN Creatinine Glucose Plasma Lactic Acid Junior 11.7 H* Calcium AST ALT Troponin I 7.210 H* Total Protein Albumin Urine Protein Urine Ketones Urine Blood Ur Leukocyte Esterase Urine RBC Urine WBC Urine WBC Clumps Urine Bacteria Hyaline Casts Urine Mucus Crossmatch 09/06/20 09/06/20 09/06/20 19:53 22:26 23:49 WBC 17.2 H RBC 3.07 L Hgb 9.3 L Hct 28.8 L MCHC RDW 16.2 H Neutrophils # 14.9 H Lymphocytes # 0.9 L Monocytes # 1.2 H APTT ABG pH 7.20 L ABG pCO2 31 L ABG pO2 119 H ABG HCO3 12 L ABG Total CO2 13 L ABG O2 Saturation 98.1 H Sodium Potassium Carbon Dioxide 16 L BUN 32 H Creatinine 1.38 H Glucose 209 H Plasma Lactic Acid Junior Calcium AST 189 H ALT 50 H Troponin I Total Protein 6.1 L Albumin Urine Protein Urine Ketones Urine Blood Ur Leukocyte Esterase Urine RBC Urine WBC Urine WBC Clumps Urine Bacteria Hyaline Casts Urine Mucus Crossmatch 09/06/20 09/07/20 09/07/20 23:49 02:12 05:28 WBC RBC Hgb Hct MCHC RDW Neutrophils # Lymphocytes # Monocytes # APTT ABG pH 7.26 L ABG pCO2 33 L ABG pO2 146 H ABG HCO3 15 L ABG Total CO2 16 L ABG O2 Saturation 99.6 H Sodium Potassium Carbon Dioxide BUN Creatinine Glucose Plasma Lactic Acid Junior 13.2 H* Calcium AST ALT Troponin I 36.900 H* Total Protein Albumin Urine Protein Urine Ketones Urine Blood Ur Leukocyte Esterase Urine RBC Urine WBC Urine WBC Clumps Urine Bacteria Hyaline Casts Urine Mucus Crossmatch 09/07/20 09/07/20 09/07/20 05:49 05:49 05:49 WBC 24.5 H RBC 3.15 L Hgb 9.4 L Hct 30.1 L MCHC RDW 16.4 H Neutrophils # Lymphocytes # Monocytes # APTT ABG pH ABG pCO2 ABG pO2 ABG HCO3 ABG Total CO2 ABG O2 Saturation Sodium 135 L Potassium 5.7 H Carbon Dioxide 14 L BUN 40 H Creatinine 2.37 H Glucose 169 H Plasma Lactic Acid Junior 11.8 H* Calcium 8.2 L AST ALT Troponin I Total Protein Albumin Urine Protein Urine Ketones Urine Blood Ur Leukocyte Esterase Urine RBC Urine WBC Urine WBC Clumps Urine Bacteria Hyaline Casts Urine Mucus Crossmatch 09/07/20 09/07/20 09:53 10:22 WBC RBC Hgb Hct MCHC RDW Neutrophils # Lymphocytes # Monocytes # APTT ABG pH ABG pCO2 ABG pO2 ABG HCO3 ABG Total CO2 ABG O2 Saturation Sodium Potassium Carbon Dioxide BUN Creatinine Glucose Plasma Lactic Acid Junior 8.5 H* Calcium AST ALT Troponin I Total Protein Albumin Urine Protein 1+ H Urine Ketones Trace H Urine Blood Moderate H Ur Leukocyte Esterase Large H Urine RBC 13 H Urine WBC 14 H Urine WBC Clumps Few H Urine Bacteria Occasional H Hyaline Casts 4 H Urine Mucus Moderate H Crossmatch - Diagnostic Findings Chest x-ray: report reviewed, image reviewed Additional studies: Echocardiogram results reviewed, Assessment and Plan Plan: Assessment: #1. Acute GI bleeding, patient presented to the emergency department for evaluation of 2 day history of melanotic stools #2. Acute blood loss anemia related to the above, presented with a hemoglobin of 6.4, status post transfusion with 2 units of packed red blood cells, current hemoglobin is 9.4 #3. Acute non-ST elevated myocardial infarction #4. Acute cardiogenic shock, patient is currently on Levaquin fed, dobutamine and Lasix drip. Chest x-ray shows pulmonary edema, EF was severely impaired on the echocardiogram with EF 25-30% #5. Acute kidney injury #6. Leukocytosis, possibly reactive, related to acute myocardial infarction #7. Elevated troponins related to acute myocardial infarction #8. Lactic acidosis, doubt infectious etiology, patient has been afebrile, this likely related to acute cardiogenic shock #9. History of coronary artery disease with previous bypass grafting the details of which are unknown to us at this time #10. Former smoker Plan: Continue with the Lasix drip, continue with bicarbonate infusion, patient is maintained on norepinephrine infusion, cardiology has added dobutamine infusion, continue with the PPI therapy, GI service is following, today's chest x-ray continues to show pulmonary edema, his echocardiogram showed a severely impaired ventricular function with EF of 25-30%, patient is awaiting a bed in the intensive care unit. Likely need central line or midline placement for infusion of vasoactive drips. We'll continue BiPAP support, we discussed CODE STATUS with the patient and his son, and the patient made it very clear that he does not want intubation, placement of mechanical ventilator, progressive resuscitation, we'll continue with supportive medical treatment, overall prognosis is quite guarded. I performed a history & physical examination of the patient and discussed their management with my nurse practitioner, Eliana Wisodm. I reviewed the nurse practitioner's note and agree with the documented findings and plan of care. Lung sounds are positive for diminished breath sounds, with bibasilar crackles. The findings and the impression was discussed with the patient. I attest to the documentation by the nurse practitioner. Time with Patient: Greater than 30
[2020-09-07 15:45] LABS: Anisocytosis Slight; HCT 25.9 % (39.0-53.0); HGB 8.3 gm/dL (13.0-17.5); MCHC 31.9 g/dL (31.0-37.0); Mean Platelet Volume 7.3; Platelet Count 166 k/uL (150-450); RBC 2.84 m/uL (4.30-5.90); RDW 17.1 % (11.5-15.5); WBC 20.5 k/uL (3.8-10.6)
[2020-09-07 18:00] LABS: Glucose,Whole Blood 168 mg/dL (75-99)
[2020-09-07] MEDS ORDERED: SODIUM CHLORIDE 0.9% 1,000 ML IV SCH (20:30)
[2020-09-07 22:56] LABS: Calcium 7.7 mg/dL (8.4-10.2); Potassium 5.3 mmol/L (3.5-5.1)
[2020-09-08] MEDS ORDERED: AMIODARONE 360 MG in DEXTROSE 5% IN WATER 200 ML IV ONE ×2 (02:01)
[2020-09-08] MEDS: FUROSEMIDE 100 MG in SODIUM CHLORIDE 0.9% 90 ML IV SCH ×2 (04:26→15:15)
[2020-09-08] MEDS: NOREPINEPHRINE 4 MG in SODIUM CHLORIDE 0.9% 250 ML IV SCH (04:28)
[2020-09-08 05:01] LABS: Anisocytosis Slight; HCT 29.9 % (39.0-53.0); HGB 9.6 gm/dL (13.0-17.5); MCH 29.7 pg (25.0-35.0); MCHC 32.2 g/dL (31.0-37.0); MCV 92.2 fL (80.0-100.0); Platelet Count 150 k/uL (150-450); RBC 3.25 m/uL (4.30-5.90); RDW 16.9 % (11.5-15.5); WBC 23.8 k/uL (3.8-10.6)
[2020-09-08 05:09] LABS: Calcium 7.6 mg/dL (8.4-10.2)
[2020-09-08 05:10] LABS: Potassium 5.4 mmol/L (3.5-5.1)
[2020-09-08 05:34] LABS: Band Neutrophils % 1 %; Lymphocytes # (M) 0.48 k/uL (1.0-4.8); Metamyelocytes # (M) 0.24 k/uL (0); Metamyelocytes % 1 %; Monocytes # (M) 1.19 k/uL (0-1.0); Neutrophils % (M) 92 %; Nucleated Red Blood Cells 0 /100 WBC (0-0); Polychromasia Present; Total Cells Counted 200
--- NOTE | 2020-09-08 07:00 | XR ---
EXAMINATION TYPE: XR chest 1V portable DATE OF EXAM: 09/08/2020 HISTORY: Shortness of breath. COMPARISON: 09/06/2020 TECHNIQUE: Single view of the chest is submitted. FINDINGS: Demonstrated are scattered senescent parenchymal change. Perihilar and basilar infiltrates persist without significant interval improvement. The heart is stable. Hilar and mediastinal structures are within normal limits. Degenerative changes are seen of the dorsal spine. IMPRESSION: 1. Perihilar and basilar infiltrates persist without significant interval improvement.
[2020-09-08] MEDS: AMIODARONE 300 MG in DEXTROSE 5% IN WATER 250 ML IV SCH ×6 (07:13→23:10)
[2020-09-08] MEDS: PANTOPRAZOLE 40 MG/10 ML VIAL IVP SCH ×2 (08:39→20:47)
--- NOTE | 2020-09-08 10:17 | P.PN ---
Subjective Patient is seen in follow-up for acute kidney injury. Creatinine stable at 2.64 today. Maintained on Levophed and Lasix drip. He's also on amiodarone drip for A. fib with RVR. Remains on BiPAP. Dobutamine stopped per cardiology. Urine output 20-40 mL an hour. General: The patient appeared well nourished and normally developed. HEENT: On BiPAP. LUNGS: Breath sounds decreased. HEART: Irregular rate and rhythm. ABDOMEN: soft nontender. EXTREMITITES: 1+ edema. Objective - Vital Signs Vital signs: Vital Signs Temp 98.2 F 09/08/20 04:00 Pulse 130 H 09/08/20 07:00 Resp 21 09/08/20 07:00 BP 103/90 09/08/20 07:00 Pulse Ox 92 L 09/08/20 07:00 Intake & Output 09/07/20 09/08/20 09/08/20 18:59 06:59 18:59 Intake Total 346.174 826.621 50 Output Total 190 320 40 Balance 156.174 506.621 10 Weight 109 kg Intake: IV 150 Dextrose 5% in Water 1, 150 000 ml @ 75 mls/hr IV . [id number] [facility]ETH with Sodium Bicarb (1 Meq/ml) 150 ml Rx#:[id number] Intake, IV Titration 346.174 676.621 50 Amount Furosemide 100 mg In 0.833 61.583 Sodium Chloride 0.9% 90 ml @ 10 MG/HR 10 mls/hr IV .Q10H B[facility] Rx#: [id number] Norepinephrine 4 mg In 345.341 115.038 Sodium Chloride 0.9% 250 ml @ 0.05 MCG/KG/MIN 18. 578 mls/hr IV .[id number] B[facility] Rx#:[id number] Sodium Chloride 0.9% 1, 500 50 000 ml @ 50 mls/hr IV . Q20H BETH Rx#:[id number] Output: Urine 190 320 40 Other: Voiding Method Indwelling Catheter Indwelling Catheter - Labs CBC & Chem 7: 09/08/20 04:32 09/08/20 04:32 Labs: Abnormal Lab Results - Last 24 Hours (Table) 09/06/20 09/07/20 09/07/20 Range/Units 12:40 09:53 10:22 WBC (3.8-10.6) k/uL RBC (4.30-5.90) m/uL Hgb (13.0-17.5) gm/dL Hct (39.0-53.0) % RDW (11.5-15.5) % Neutrophils # (Manual) (1.3-7.7) k/uL Lymphocytes # (Manual) (1.0-4.8) k/uL Monocytes # (Manual) (0-1.0) k/uL Metamyelocytes # (Man) (0) k/uL Sodium (137-145) mmol/L Potassium (3.5-5.1) mmol/L Carbon Dioxide (22-30) mmol/L BUN (9-20) mg/dL Creatinine (0.66-1.25) mg/dL Glucose (74-99) mg/dL POC Glucose (mg/dL) (75-99) mg/dL Plasma Lactic Acid Junior 8.5 H* (0.7-2.0) mmol/L Calcium (8.4-10.2) mg/dL Urine Protein 1+ H (Negative) Urine Ketones Trace H (Negative) Urine Blood Moderate H (Negative) Ur Leukocyte Esterase Large H (Negative) Urine RBC 13 H (0-5) /hpf Urine WBC 14 H (0-5) /hpf Urine WBC Clumps Few H (None) /hpf Urine Bacteria Occasional H (None) /hpf Hyaline Casts 4 H (0-2) /lpf Urine Mucus Moderate H (None) /hpf Crossmatch See Detail 09/07/20 09/07/20 09/07/20 Range/Units 14:45 14:45 15:30 WBC 20.5 H (3.8-10.6) k/uL RBC 2.84 L (4.30-5.90) m/uL Hgb 8.3 L (13.0-17.5) gm/dL Hct 25.9 L (39.0-53.0) % RDW 17.1 H (11.5-15.5) % Neutrophils # (Manual) (1.3-7.7) k/uL Lymphocytes # (Manual) (1.0-4.8) k/uL Monocytes # (Manual) (0-1.0) k/uL Metamyelocytes # (Man) (0) k/uL Sodium 134 L (137-145) mmol/L Potassium 5.4 H (3.5-5.1) mmol/L Carbon Dioxide (22-30) mmol/L BUN 54 H (9-20) mg/dL Creatinine 2.69 H (0.66-1.25) mg/dL Glucose 181 H (74-99) mg/dL POC Glucose (mg/dL) (75-99) mg/dL Plasma Lactic Acid Junior 4.4 H* (0.7-2.0) mmol/L Calcium 7.6 L (8.4-10.2) mg/dL Urine Protein (Negative) Urine Ketones (Negative) Urine Blood (Negative) Ur Leukocyte Esterase (Negative) Urine RBC (0-5) /hpf Urine WBC (0-5) /hpf Urine WBC Clumps (None) /hpf Urine Bacteria (None) /hpf Hyaline Casts (0-2) /lpf Urine Mucus (None) /hpf Crossmatch 09/07/20 09/07/20 09/08/20 Range/Units 17:58 22:30 04:32 WBC (3.8-10.6) k/uL RBC (4.30-5.90) m/uL Hgb (13.0-17.5) gm/dL Hct (39.0-53.0) % RDW (11.5-15.5) % Neutrophils # (Manual) (1.3-7.7) k/uL Lymphocytes # (Manual) (1.0-4.8) k/uL Monocytes # (Manual) (0-1.0) k/uL Metamyelocytes # (Man) (0) k/uL Sodium 134 L 134 L (137-145) mmol/L Potassium 5.3 H 5.4 H (3.5-5.1) mmol/L Carbon Dioxide 20 L (22-30) mmol/L BUN 62 H 65 H (9-20) mg/dL Creatinine 2.76 H 2.64 H (0.66-1.25) mg/dL Glucose 127 H 139 H (74-99) mg/dL POC Glucose (mg/dL) 168 H (75-99) mg/dL Plasma Lactic Acid Junior (0.7-2.0) mmol/L Calcium 7.7 L 7.6 L (8.4-10.2) mg/dL Urine Protein (Negative) Urine Ketones (Negative) Urine Blood (Negative) Ur Leukocyte Esterase (Negative) Urine RBC (0-5) /hpf Urine WBC (0-5) /hpf Urine WBC Clumps (None) /hpf Urine Bacteria (None) /hpf Hyaline Casts (0-2) /lpf Urine Mucus (None) /hpf Crossmatch 09/08/20 Range/Units 04:32 WBC 23.8 H (3.8-10.6) k/uL RBC 3.25 L (4.30-5.90) m/uL Hgb 9.6 L (13.0-17.5) gm/dL Hct 29.9 L (39.0-53.0) % RDW 16.9 H (11.5-15.5) % Neutrophils # (Manual) 22.10 H (1.3-7.7) k/uL Lymphocytes # (Manual) 0.48 L (1.0-4.8) k/uL Monocytes # (Manual) 1.19 H (0-1.0) k/uL Metamyelocytes # (Man) 0.24 H (0) k/uL Sodium (137-145) mmol/L Potassium (3.5-5.1) mmol/L Carbon Dioxide (22-30) mmol/L BUN (9-20) mg/dL Creatinine (0.66-1.25) mg/dL Glucose (74-99) mg/dL POC Glucose (mg/dL) (75-99) mg/dL Plasma Lactic Acid Junior (0.7-2.0) mmol/L Calcium (8.4-10.2) mg/dL Urine Protein (Negative) Urine Ketones (Negative) Urine Blood (Negative) Ur Leukocyte Esterase (Negative) Urine RBC (0-5) /hpf Urine WBC (0-5) /hpf Urine WBC Clumps (None) /hpf Urine Bacteria (None) /hpf Hyaline Casts (0-2) /lpf Urine Mucus (None) /hpf Crossmatch Assessment and Plan Plan: Assessment: 1. Acute kidney injury secondary to ATN secondary to acute blood loss anemia, A. fib, hypotension and component of cardiorenal syndrome. Baseline creatinine near 1 and is 2.64 today. No hydronephrosis noted on kidney ultrasound. 2. Acute on chronic systolic CHF with ejection fraction of 25% with moderate mitral regurgitation and tricuspid regurgitation. 3. Metabolic acidosis secondary to acute kidney injury. Status post bicarb drip. 4. Hyperkalemia secondary to acute kidney injury, GI bleed and metabolic acidosis. Better. 5. Volume overload. 6. Acute blood loss anemia secondary to GI bleed status post blood transfusion. GI following. Hemoglobin stable. 7. A. fib with RVR maintained on amiodarone drip. 8. Shock maintained on Levophed. Plan: Maintain Lasix drip at 10 mL an hour. Add metolazone 5 mg once daily. Add oral sodium bicarbonate. Wean FiO2 and vasopressors. Continue to monitor renal function and urine output closely. Continue to assess daily for need for renal replacement therapy. Patient currently hemodynamically unstable to tolerate renal replacement therapy. Repeat potassium level this afternoon.
[2020-09-08] MEDS: DOBUTamine DRIP 500 MG in DEXTROSE/WATER 1 250ML.BAG IV SCH (10:31)
[2020-09-08 11:11] LABS: ABG Base Excess -3.4 mmol/L; ABG HCO3 21 mmol/L (21-25); ABG Oxygen Saturation 99.6 % (94-97); ABG PCO2 33 mmHg (35-45); ABG PH 7.42 (7.35-7.45); ABG PO2 125 mmHg (83-108); ABG TCO2 22 mmol/L (19-24); Allen Test Performed? Yes
[2020-09-08] MEDS: NOREPINEPHRINE 32 MG in SODIUM CHLORIDE 0.9% 218 ML IV SCH (12:21)
[2020-09-08] MEDS: SODIUM BICARBONATE TAB 650 MG TAB PO SCH ×3 (12:22→20:48)
[2020-09-08] MEDS: metOLazone 5 MG TAB PO SCH (12:22)
--- NOTE | 2020-09-08 12:26 | P.PN ---
Subjective Progress Note Date: 09/08/20 Principal diagnosis: Acute upper gastrointestinal bleed Patient is a 85-year-old pleasant white male who came into the emergency room yesterday complaining of black tarry stools for the last 2-3 days duration. He is having some heartburn for the last 3-4 days of black tarry stools. He was also becoming short of breath and fatigue, yesterday morning he had severe chest discomfort and came into the emergency department. He has a prior history of coronary artery disease with CABG several years ago. On admission to the emergency department his hemoglobin was 6.4, he has been transfused with 2 units of packed red blood cells. Today's hemoglobin is 9.6. He has not had any further signs of bleeding. He denies any chest pain, abdominal pain, nausea, or vomiting. He has not had any more melena. His breathing does appear better today. Cardiology, pulmonology, and nephrology are closely following. According to his nurse the patient went into A. fib with RVR. His been started on amiodarone, continues with levofed, and Lasix drip. Dobutamine stopped per cardiology. He remains on BiPAP. Objective - Vital Signs Vital signs: Vital Signs Temp 98.2 F 09/08/20 04:00 Pulse 130 H 09/08/20 07:00 Resp 21 09/08/20 07:00 BP 103/90 09/08/20 07:00 Pulse Ox 92 L 09/08/20 07:00 Intake & Output 09/07/20 09/08/20 09/08/20 18:59 06:59 18:59 Intake Total 346.174 826.621 50 Output Total 190 320 40 Balance 156.174 506.621 10 Weight 109 kg Intake: IV 150 Dextrose 5% in Water 1, 150 000 ml @ 75 mls/hr IV . [id number] BETH with Sodium Bicarb (1 Meq/ml) 150 ml Rx#:[id number] Intake, IV Titration 346.174 676.621 50 Amount Furosemide 100 mg In 0.833 61.583 Sodium Chloride 0.9% 90 ml @ 10 MG/HR 10 mls/hr IV .Q10H BETH Rx#: [id number] Norepinephrine 4 mg In 345.341 115.038 Sodium Chloride 0.9% 250 ml @ 0.05 MCG/KG/MIN 18. 578 mls/hr IV .[id number] BETH Rx#:[id number] Sodium Chloride 0.9% 1, 500 50 000 ml @ 50 mls/hr IV . Q20H BETH Rx#:[id number] Output: Urine 190 320 40 Other: Voiding Method Indwelling Catheter Indwelling Catheter - Exam General appearance: The patient is alert, oriented, on Bipap HET: Head is normocephalic and atraumatic. Conjunctiva pink. Sclera anicteric. Neck: Supple without lymphadenopathy. Abdomen: Soft, nontender, mildly distended with bowel sounds. No guarding or rigidity. Extremities: Normal skin color and turgor. No pedal edema Neurological: No focal deficits. Alert and oriented 3. - Labs CBC & Chem 7: 09/08/20 04:32 09/08/20 11:47 Labs: Abnormal Lab Results - Last 24 Hours (Table) 09/06/20 09/07/20 09/07/20 Range/Units 12:40 09:53 10:22 WBC (3.8-10.6) k/uL RBC (4.30-5.90) m/uL Hgb (13.0-17.5) gm/dL Hct (39.0-53.0) % RDW (11.5-15.5) % Neutrophils # (Manual) (1.3-7.7) k/uL Lymphocytes # (Manual) (1.0-4.8) k/uL Monocytes # (Manual) (0-1.0) k/uL Metamyelocytes # (Man) (0) k/uL Sodium (137-145) mmol/L Potassium (3.5-5.1) mmol/L Carbon Dioxide (22-30) mmol/L BUN (9-20) mg/dL Creatinine (0.66-1.25) mg/dL Glucose (74-99) mg/dL POC Glucose (mg/dL) (75-99) mg/dL Plasma Lactic Acid Junior 8.5 H* (0.7-2.0) mmol/L Calcium (8.4-10.2) mg/dL Urine Protein 1+ H (Negative) Urine Ketones Trace H (Negative) Urine Blood Moderate H (Negative) Ur Leukocyte Esterase Large H (Negative) Urine RBC 13 H (0-5) /hpf Urine WBC 14 H (0-5) /hpf Urine WBC Clumps Few H (None) /hpf Urine Bacteria Occasional H (None) /hpf Hyaline Casts 4 H (0-2) /lpf Urine Mucus Moderate H (None) /hpf Crossmatch See Detail 09/07/20 09/07/20 09/07/20 Range/Units 14:45 14:45 15:30 WBC 20.5 H (3.8-10.6) k/uL RBC 2.84 L (4.30-5.90) m/uL Hgb 8.3 L (13.0-17.5) gm/dL Hct 25.9 L (39.0-53.0) % RDW 17.1 H (11.5-15.5) % Neutrophils # (Manual) (1.3-7.7) k/uL Lymphocytes # (Manual) (1.0-4.8) k/uL Monocytes # (Manual) (0-1.0) k/uL Metamyelocytes # (Man) (0) k/uL Sodium 134 L (137-145) mmol/L Potassium 5.4 H (3.5-5.1) mmol/L Carbon Dioxide (22-30) mmol/L BUN 54 H (9-20) mg/dL Creatinine 2.69 H (0.66-1.25) mg/dL Glucose 181 H (74-99) mg/dL POC Glucose (mg/dL) (75-99) mg/dL Plasma Lactic Acid Junior 4.4 H* (0.7-2.0) mmol/L Calcium 7.6 L (8.4-10.2) mg/dL Urine Protein (Negative) Urine Ketones (Negative) Urine Blood (Negative) Ur Leukocyte Esterase (Negative) Urine RBC (0-5) /hpf Urine WBC (0-5) /hpf Urine WBC Clumps (None) /hpf Urine Bacteria (None) /hpf Hyaline Casts (0-2) /lpf Urine Mucus (None) /hpf Crossmatch 09/07/20 09/07/20 09/08/20 Range/Units 17:58 22:30 04:32 WBC (3.8-10.6) k/uL RBC (4.30-5.90) m/uL Hgb (13.0-17.5) gm/dL Hct (39.0-53.0) % RDW (11.5-15.5) % Neutrophils # (Manual) (1.3-7.7) k/uL Lymphocytes # (Manual) (1.0-4.8) k/uL Monocytes # (Manual) (0-1.0) k/uL Metamyelocytes # (Man) (0) k/uL Sodium 134 L 134 L (137-145) mmol/L Potassium 5.3 H 5.4 H (3.5-5.1) mmol/L Carbon Dioxide 20 L (22-30) mmol/L BUN 62 H 65 H (9-20) mg/dL Creatinine 2.76 H 2.64 H (0.66-1.25) mg/dL Glucose 127 H 139 H (74-99) mg/dL POC Glucose (mg/dL) 168 H (75-99) mg/dL Plasma Lactic Acid Junior (0.7-2.0) mmol/L Calcium 7.7 L 7.6 L (8.4-10.2) mg/dL Urine Protein (Negative) Urine Ketones (Negative) Urine Blood (Negative) Ur Leukocyte Esterase (Negative) Urine RBC (0-5) /hpf Urine WBC (0-5) /hpf Urine WBC Clumps (None) /hpf Urine Bacteria (None) /hpf Hyaline Casts (0-2) /lpf Urine Mucus (None) /hpf Crossmatch 09/08/20 Range/Units 04:32 WBC 23.8 H (3.8-10.6) k/uL RBC 3.25 L (4.30-5.90) m/uL Hgb 9.6 L (13.0-17.5) gm/dL Hct 29.9 L (39.0-53.0) % RDW 16.9 H (11.5-15.5) % Neutrophils # (Manual) 22.10 H (1.3-7.7) k/uL Lymphocytes # (Manual) 0.48 L (1.0-4.8) k/uL Monocytes # (Manual) 1.19 H (0-1.0) k/uL Metamyelocytes # (Man) 0.24 H (0) k/uL Sodium (137-145) mmol/L Potassium (3.5-5.1) mmol/L Carbon Dioxide (22-30) mmol/L BUN (9-20) mg/dL Creatinine (0.66-1.25) mg/dL Glucose (74-99) mg/dL POC Glucose (mg/dL) (75-99) mg/dL Plasma Lactic Acid Junior (0.7-2.0) mmol/L Calcium (8.4-10.2) mg/dL Urine Protein (Negative) Urine Ketones (Negative) Urine Blood (Negative) Ur Leukocyte Esterase (Negative) Urine RBC (0-5) /hpf Urine WBC (0-5) /hpf Urine WBC Clumps (None) /hpf Urine Bacteria (None) /hpf Hyaline Casts (0-2) /lpf Urine Mucus (None) /hpf Crossmatch Assessment and Plan Assessment: 1. Black tarry stools for last 4 days duration prior to hospitalization. Hemoglobin of 6.4 and received 2 units of packed red blood cell transfusion. The patient has not had any further active bleeding or black tarry stools. Most likely dealing with an upper GI source of bleeding, possibly peptic ulcer disease. No prior history of recent NSAID use. No history of EGD or colonoscopy in the past. 2. Chest pain with EKG changes and elevated troponin at 36.9. New onset atrial fibrillation with RVR on amiodarone drip. Cardiology following closely 3. Acute respiratory distress. Pulmonology on consult. Patient remains on BiPAP. 4. Acute kidney injury secondary to ATN secondary to acute blood loss anemia, A. fib, hypotension and component of cardiorenal syndrome. 5. History of hypertension 6. History of hypercholesteremia 7. History of coronary artery disease status post CABG several years ago Plan: 1. Continue Protonix 40 mg twice daily 2. Appreicaite cardiology and pulmonology recommendations 4. Monitor Daily CBC and transfuse as needed for hemoglobin less than 7 5. Patient is status post 2 units of packed red blood cell transfusion 6. Will consider proceeding with upper endoscopy in the next 48-72 hours once patient is stabilized We will continue to follow closely Dr. Zach Sharif I agree with the dictator's note, documented as a scribe by Sonal Pierre.
--- NOTE | 2020-09-08 12:56 | P.PN ---
Subjective Patient went into atrial fibrillation with RVR with aberrancy He is on pressors for low blood pressure His hemoglobin has remained stable at 9.6. White count is elevated Sodium 134 potassium 5.4 creatinine 2.64 He is on IV amiodarone at this time and remains in A. fib with RVR with aberrancy His urine output is low Data stop dobutamine because he went into A. fib with RVR but he remains on norepinephrine for pressure control On examination but sounds are reduced bilaterally He is on BiPAP mask Heart sounds are irregular Lower extremity edema Low urine output Impression Patient presented with GI bleeding with significant acute anemia Thereafter he had acute and chronic congestive heart failure with respiratory distress requiring BiPAP treatment I started him on dobutamine yesterday He was already on norepinephrine at low dose to maintain blood pressure between 90-100 mmHg Hyperkalemia Lasix drip and yesterday he looked a lot better Today his respiratory status is better than when I saw him yesterday morning prezone A. fib with RVR with difficult rate control. There is inability to give him any beta blockers on account of his hypertension Known cardiac myopathy He needs an endoscopy and we should evaluate him on a daily basis While his risks of anesthesia are significant his overall risk of mortality is high. Overall prognosis is poor Objective - Vital Signs Vital signs: Vital Signs Temp 98.2 F 09/08/20 04:00 Pulse 80 09/08/20 11:00 Resp 18 09/08/20 11:00 BP 109/72 09/08/20 10:00 Pulse Ox 97 09/08/20 11:00 Intake & Output 09/07/20 09/08/20 09/08/20 18:59 06:59 18:59 Intake Total 346.174 826.621 344.583 Output Total 190 320 120 Balance 156.174 506.621 224.583 Weight 109 kg Intake: IV 150 Dextrose 5% in Water 1, 150 000 ml @ 75 mls/hr IV . [id number] BETH with Sodium Bicarb (1 Meq/ml) 150 ml Rx#:[id number] Intake, IV Titration 346.174 676.621 294.583 Amount Amiodarone 300 mg In 44.583 Dextrose 5% in Water 250 ml @ 0.5 MG/MIN 25 mls/hr IV .Q10H BETH Rx#: [id number] Furosemide 100 mg In 0.833 61.583 Sodium Chloride 0.9% 90 ml @ 10 MG/HR 10 mls/hr IV .Q10H BETH Rx#: [id number] Norepinephrine 4 mg In 345.341 115.038 Sodium Chloride 0.9% 250 ml @ 0.05 MCG/KG/MIN 18. 578 mls/hr IV .[id number] BETH Rx#:[id number] Sodium Chloride 0.9% 1, 500 250 000 ml @ 50 mls/hr IV . Q20H BETH Rx#:[id number] Oral 50 Output: Urine 190 320 120 Other: Voiding Method Indwelling Catheter Indwelling Catheter Indwelling Catheter ABP, PAP, CO, CI - Last Documented Arterial Blood Pressure 112/63 - Labs CBC & Chem 7: 09/08/20 04:32 09/08/20 11:47 Labs: Abnormal Lab Results - Last 24 Hours (Table) 09/06/20 09/07/20 09/07/20 Range/Units 12:40 14:45 14:45 WBC (3.8-10.6) k/uL RBC (4.30-5.90) m/uL Hgb (13.0-17.5) gm/dL Hct (39.0-53.0) % RDW (11.5-15.5) % Neutrophils # (Manual) (1.3-7.7) k/uL Lymphocytes # (Manual) (1.0-4.8) k/uL Monocytes # (Manual) (0-1.0) k/uL Metamyelocytes # (Man) (0) k/uL ABG pCO2 (35-45) mmHg ABG pO2 (83-108) mmHg ABG O2 Saturation (94-97) % Sodium 134 L (137-145) mmol/L Potassium 5.4 H (3.5-5.1) mmol/L Carbon Dioxide (22-30) mmol/L BUN 54 H (9-20) mg/dL Creatinine 2.69 H (0.66-1.25) mg/dL Glucose 181 H (74-99) mg/dL POC Glucose (mg/dL) (75-99) mg/dL Plasma Lactic Acid Junior 4.4 H* (0.7-2.0) mmol/L Calcium 7.6 L (8.4-10.2) mg/dL Crossmatch See Detail 09/07/20 09/07/20 09/07/20 Range/Units 15:30 17:58 22:30 WBC 20.5 H (3.8-10.6) k/uL RBC 2.84 L (4.30-5.90) m/uL Hgb 8.3 L (13.0-17.5) gm/dL Hct 25.9 L (39.0-53.0) % RDW 17.1 H (11.5-15.5) % Neutrophils # (Manual) (1.3-7.7) k/uL Lymphocytes # (Manual) (1.0-4.8) k/uL Monocytes # (Manual) (0-1.0) k/uL Metamyelocytes # (Man) (0) k/uL ABG pCO2 (35-45) mmHg ABG pO2 (83-108) mmHg ABG O2 Saturation (94-97) % Sodium 134 L (137-145) mmol/L Potassium 5.3 H (3.5-5.1) mmol/L Carbon Dioxide (22-30) mmol/L BUN 62 H (9-20) mg/dL Creatinine 2.76 H (0.66-1.25) mg/dL Glucose 127 H (74-99) mg/dL POC Glucose (mg/dL) 168 H (75-99) mg/dL Plasma Lactic Acid Junior (0.7-2.0) mmol/L Calcium 7.7 L (8.4-10.2) mg/dL Crossmatch 09/08/20 09/08/20 09/08/20 Range/Units 04:32 04:32 11:08 WBC 23.8 H (3.8-10.6) k/uL RBC 3.25 L (4.30-5.90) m/uL Hgb 9.6 L (13.0-17.5) gm/dL Hct 29.9 L (39.0-53.0) % RDW 16.9 H (11.5-15.5) % Neutrophils # (Manual) 22.10 H (1.3-7.7) k/uL Lymphocytes # (Manual) 0.48 L (1.0-4.8) k/uL Monocytes # (Manual) 1.19 H (0-1.0) k/uL Metamyelocytes # (Man) 0.24 H (0) k/uL ABG pCO2 33 L (35-45) mmHg ABG pO2 125 H (83-108) mmHg ABG O2 Saturation 99.6 H (94-97) % Sodium 134 L (137-145) mmol/L Potassium 5.4 H (3.5-5.1) mmol/L Carbon Dioxide 20 L (22-30) mmol/L BUN 65 H (9-20) mg/dL Creatinine 2.64 H (0.66-1.25) mg/dL Glucose 139 H (74-99) mg/dL POC Glucose (mg/dL) (75-99) mg/dL Plasma Lactic Acid Junior (0.7-2.0) mmol/L Calcium 7.6 L (8.4-10.2) mg/dL Crossmatch
--- NOTE | 2020-09-08 15:05 | P.PN ---
Subjective Progress Note Date: 09/08/20 Principal diagnosis: Acute hypoxic respiratory failure secondary to acute non-ST elevation myocardial infarction, pulmonary edema, and acute GI bleeding as well as acute cardiogenic shock. 85-year-old white male patient with previous history of coronary artery disease with bypass grafting, previous history of myocardial infarction, former smoker, hyperlipidemia, presented to the emergency department on 09/06/2020 for evaluation of a 2 day history of passing dark tarry stools concerning for acute GI bleeding. Patient reports increased fatigue and dyspnea, and epigastric and lower chest discomfort. .he is not on any anticoagulation, denies any abdominal pain, he was noted to be borderline hypotensive, tachycardic on arrival. His hemoglobin on admission was 6. Patient was transfused with 2 units of packed red blood cells, positive lactic acid was elevated at 5.0 and subsequently increased to 11.7, patient hasn't done troponin elevation on admission with troponin level III.550, which has subsequently increased to 7.2, and 36.9 with a third set, cardiology has been consulted, his chest x-ray shows evidence of pulmonary edema, patient is short of breath, he is requiring BiPAP support currently, he is hypotensive, requiring levo fed support at 13 weeks per minute, he is currently on D5 with 3 A of bicarbonate at a rate of 75 ML per hour, his BiPAP settings are 10 and 5 and FiO2 of 80%. States he is short of breath, does not appear to be in any acute distress, his abdomen is distended, but nontender, this morning his hemoglobin is 9.4, blood cell count increased to 17.2, his renal function has worsened, BUN of 32 and creatinine of 1.3, proBNP level is 48 20, he is evaluation by GI service, cardiology has been consulted, his echocardiogram revealed severely impaired systolic function with the EF between 25-30%, there was a moderate mitral regurgitation, mild to moderate tricuspid regurgitation, and mild pulmonary hypertension with right-sided pressures of 33.9 mmHg. X-ray of the abdomen showed nonobstructed bowel gas pattern, ear distended stomach, moderate fecal retention, renal ultrasound showed no hydronephrosis. Patient was given a small dose of Lasix 20 mg last night, has not produced significant output, remains oliguric, he will be given additional dose of 60 mg Lasix today, and cardiology after further discussion switched it to lasix infusion at 10 mg per hour, and dobutamine infusion was added. His current BiPAP settings are 10.5 and FiO2 of 80% Patient was reevaluated today in the ICU, remains on BiPAP, he is on IPAP of 10 and EPAP of 5, FiO2 is 60%, patient is on norepinephrine at 0.35 mcg/kg/m, he is also on amiodarone at 1 mg/minutes. Patient is off the Imitrex because he developed atrial fibrillation with RVR while on Dobutrex. Chest x-ray continues to show evidence of pulmonary edema. Slightly improved compared to the chest x- ray yesterday. But still consistent with pulmonary edema. Patient is also developing leukocytosis with WBC count of 23.8, hemoglobin is 9.6, received a total of 2 units of packed RBCs since admission yesterday. Patient has marginal urine output, and he remains in positive fluid balance roughly about 1 L in the last 24 hours. ABG on BiPAP today showed a pO2 of 125 pCO2 of 33 pH of 7.42. His potassium is a bit elevated at 5.4, his BUN is 65 and creatinine is 2.64. Right carpal is 20 this morning. Patient was switched to oral bicarb 650 mg by mouth 3 times a day. And his off sodium bicarb drip at present. Remains on Lasix drip at 10 mg per hour, he is also on Zaroxolyn 5 mg daily. Obviously the patient is not making significant improvement, but he is relatively holding. Yesterday I had a long discussion with the patient and his son while he was in the ER, and he clearly expressed wishes as not to be intubated and placed on mechanical ventilation. Objective - Vital Signs Vital signs: Vital Signs Temp 99 F 09/08/20 12:00 Pulse 83 09/08/20 14:00 Resp 24 09/08/20 14:00 BP 109/72 09/08/20 10:00 Pulse Ox 95 09/08/20 14:00 Intake & Output 09/07/20 09/08/20 09/08/20 18:59 06:59 18:59 Intake Total 346.174 826.621 644.583 Output Total 190 320 195 Balance 156.174 506.621 449.583 Weight 109 kg Intake: IV 150 Dextrose 5% in Water 1, 150 000 ml @ 75 mls/hr IV . [id number] BETH with Sodium Bicarb (1 Meq/ml) 150 ml Rx#:[id number] Intake, IV Titration 346.174 676.621 444.583 Amount Amiodarone 300 mg In 44.583 Dextrose 5% in Water 250 ml @ 0.5 MG/MIN 25 mls/hr IV .Q10H BETH Rx#: [id number] Furosemide 100 mg In 0.833 61.583 Sodium Chloride 0.9% 90 ml @ 10 MG/HR 10 mls/hr IV .Q10H BETH Rx#: [id number] Norepinephrine 4 mg In 345.341 115.038 Sodium Chloride 0.9% 250 ml @ 0.05 MCG/KG/MIN 18. 578 mls/hr IV .[id number] BETH Rx#:[id number] Sodium Chloride 0.9% 1, 500 400 000 ml @ 50 mls/hr IV . Q20H BETH Rx#:[id number] Oral 200 Output: Urine 190 320 195 Other: Voiding Method Indwelling Catheter Indwelling Catheter Indwelling Catheter ABP, PAP, CO, CI - Last Documented Arterial Blood Pressure 139/81 - Exam GENERAL EXAM: Revealed a 85-year-old white male, slightly lethargic, but arousable, follows simple instructions, on BiPAP. HEAD: Normocephalic/atraumatic. ENT: Dry mucous membranes, PERRLA, EOMI, no icterus, no neck masses, no JVD. CHEST: No chest wall deformity. Symmetrical expansion. LUNGS: Minimal crackles at the bases. CVS: Regular rate and rhythm, normal S1 and S2, no gallops, no murmurs, no rubs ABDOMEN: Obese, Soft, nontender. No hepatosplenomegaly, normal bowel sounds, no guarding or rigidity. EXTREMITIES: No clubbing, trace of bipedal edema, no cyanosis, 2+ pulses and upper and lower extremities. MUSCULOSKELETAL: Muscle strength and tone normal. SKIN: No rashes CENTRAL NERVOUS SYSTEM: Lethargic, but arousable, follows simple instructions, oriented 3. PSYCHIATRIC: Depressed mood, blunt affect, - Labs CBC & Chem 7: 09/08/20 04:32 09/08/20 11:47 Labs: Abnormal Lab Results - Last 24 Hours (Table) 09/06/20 09/07/20 09/07/20 Range/Units 12:40 14:45 14:45 WBC (3.8-10.6) k/uL RBC (4.30-5.90) m/uL Hgb (13.0-17.5) gm/dL Hct (39.0-53.0) % RDW (11.5-15.5) % Neutrophils # (Manual) (1.3-7.7) k/uL Lymphocytes # (Manual) (1.0-4.8) k/uL Monocytes # (Manual) (0-1.0) k/uL Metamyelocytes # (Man) (0) k/uL ABG pCO2 (35-45) mmHg ABG pO2 (83-108) mmHg ABG O2 Saturation (94-97) % Sodium 134 L (137-145) mmol/L Potassium 5.4 H (3.5-5.1) mmol/L Carbon Dioxide (22-30) mmol/L BUN 54 H (9-20) mg/dL Creatinine 2.69 H (0.66-1.25) mg/dL Glucose 181 H (74-99) mg/dL POC Glucose (mg/dL) (75-99) mg/dL Plasma Lactic Acid Junior 4.4 H* (0.7-2.0) mmol/L Calcium 7.6 L (8.4-10.2) mg/dL Crossmatch See Detail 09/07/20 09/07/20 09/07/20 Range/Units 15:30 17:58 22:30 WBC 20.5 H (3.8-10.6) k/uL RBC 2.84 L (4.30-5.90) m/uL Hgb 8.3 L (13.0-17.5) gm/dL Hct 25.9 L (39.0-53.0) % RDW 17.1 H (11.5-15.5) % Neutrophils # (Manual) (1.3-7.7) k/uL Lymphocytes # (Manual) (1.0-4.8) k/uL Monocytes # (Manual) (0-1.0) k/uL Metamyelocytes # (Man) (0) k/uL ABG pCO2 (35-45) mmHg ABG pO2 (83-108) mmHg ABG O2 Saturation (94-97) % Sodium 134 L (137-145) mmol/L Potassium 5.3 H (3.5-5.1) mmol/L Carbon Dioxide (22-30) mmol/L BUN 62 H (9-20) mg/dL Creatinine 2.76 H (0.66-1.25) mg/dL Glucose 127 H (74-99) mg/dL POC Glucose (mg/dL) 168 H (75-99) mg/dL Plasma Lactic Acid Junior (0.7-2.0) mmol/L Calcium 7.7 L (8.4-10.2) mg/dL Crossmatch 09/08/20 09/08/20 09/08/20 Range/Units 04:32 04:32 11:08 WBC 23.8 H (3.8-10.6) k/uL RBC 3.25 L (4.30-5.90) m/uL Hgb 9.6 L (13.0-17.5) gm/dL Hct 29.9 L (39.0-53.0) % RDW 16.9 H (11.5-15.5) % Neutrophils # (Manual) 22.10 H (1.3-7.7) k/uL Lymphocytes # (Manual) 0.48 L (1.0-4.8) k/uL Monocytes # (Manual) 1.19 H (0-1.0) k/uL Metamyelocytes # (Man) 0.24 H (0) k/uL ABG pCO2 33 L (35-45) mmHg ABG pO2 125 H (83-108) mmHg ABG O2 Saturation 99.6 H (94-97) % Sodium 134 L (137-145) mmol/L Potassium 5.4 H (3.5-5.1) mmol/L Carbon Dioxide 20 L (22-30) mmol/L BUN 65 H (9-20) mg/dL Creatinine 2.64 H (0.66-1.25) mg/dL Glucose 139 H (74-99) mg/dL POC Glucose (mg/dL) (75-99) mg/dL Plasma Lactic Acid Junior (0.7-2.0) mmol/L Calcium 7.6 L (8.4-10.2) mg/dL Crossmatch Assessment and Plan Assessment: Impression: Acute hypoxic referring failure Acute cardiogenic shock and pulmonary edema secondary to acute systolic dysf unction Acute non-ST elevation myocardial infarction Ischemic cardiomyopathy and LV dysfunction, ejection fraction is 25-30%. Acute GI bleeding Acute kidney injury, suspect acute tubular necrosis secondary to hypotension and possible cardiorenal syndrome. Acute lactic acidosis secondary to hypoperfusion and cardiogenic shock. History of coronary artery disease and previous CABG. Former smoker. Recommendation: Continue BiPAP, patient requested not to be placed on mechanical ventilation if his condition gets any worse. Continue Lasix drip. Continue norepinephrine and titrate accordingly maintain a mean arterial pressure of 65 or higher. Continue to monitor hemoglobin, and transfuse if hemoglobin below 8. Continue Protonix. GI to follow at this point the patient is not stable for EGD or colonoscopy. Patient did not tolerate Dobutrex as he developed atrial fibrillation with RVR requiring placement on amiodarone. Continue amiodarone. Continue sodium bicarb orally, IV bicarb was discontinued. Continue to follow in the ICU with different consultants including cardiology and nephrology and gastroenterology. Patient is critically ill. Critical care time is over 30 minutes not including the time spent on procedures/placement of a central line and arterial line Time with Patient: Greater than 30
--- NOTE | 2020-09-08 16:08 | P.PN ---
Subjective Progress Note Date: 09/08/20 Patient seen and examined at bedside. Patient is awake and alert. Patient went to A. fib earlier. Patient is currently on amiodarone. Dobutamine was discontinued and patient remains on norepinephrine. Patient is currently on BiPAP. Patient denies chest pain and is resting comfortably with the BiPAP. Shortness of breath is stable. Objective - Vital Signs Vital signs: Vital Signs Temp 99 F 09/08/20 12:00 Pulse 88 09/08/20 15:00 Resp 24 09/08/20 15:00 BP 109/72 09/08/20 10:00 Pulse Ox 100 09/08/20 15:00 Intake & Output 09/07/20 09/08/20 09/08/20 18:59 06:59 18:59 Intake Total 346.174 826.621 794.583 Output Total 190 320 295 Balance 156.174 506.621 499.583 Weight 109 kg Intake: IV 150 Dextrose 5% in Water 1, 150 000 ml @ 75 mls/hr IV . [id number] BETH with Sodium Bicarb (1 Meq/ml) 150 ml Rx#:[id number] Intake, IV Titration 346.174 676.621 594.583 Amount Amiodarone 300 mg In 44.583 Dextrose 5% in Water 250 ml @ 0.5 MG/MIN 25 mls/hr IV .Q10H BETH Rx#: [id number] Furosemide 100 mg In 0.833 61.583 100 Sodium Chloride 0.9% 90 ml @ 10 MG/HR 10 mls/hr IV .Q10H BETH Rx#: [id number] Norepinephrine 4 mg In 345.341 115.038 Sodium Chloride 0.9% 250 ml @ 0.05 MCG/KG/MIN 18. 578 mls/hr IV .[id number] BETH Rx#:[id number] Sodium Chloride 0.9% 1, 500 450 000 ml @ 50 mls/hr IV . Q20H BETH Rx#:[id number] Oral 200 Output: Urine 190 320 295 Other: Voiding Method Indwelling Catheter Indwelling Catheter Indwelling Catheter ABP, PAP, CO, CI - Last Documented Arterial Blood Pressure 141/66 - Exam General: [non toxic], [no distress], [appears at stated age] Derm: [warm], [dry] Head: [atraumatic], [normocephalic], [symmetric] Eyes: [EOMI], [no lid lag], [anicteric sclera] Mouth: [no lip lesion], [mucus membranes moist] Cardiovascular: [irregular], [no murmur], [positive posterior tibial pulse bilateral], Lungs: [Diminished bilateral], [no rhonchi, no rales] , [no accessory muscle use] Abdominal: [soft], [ nontender to palpation], [no guarding], [no appreciable organomegaly] Ext: [no gross muscle atrophy], [no edema], [no contractures] Neuro: [ CN II-XI grossly intact], [no focal neuro deficits] Psych: [Alert], [oriented], [appropriate affect] - Constitutional Constitutional Comment(s): A 12 point review systems was assessed patient was only positive for those discussed in HPI - Labs CBC & Chem 7: 09/08/20 04:32 09/08/20 11:47 Labs: Abnormal Lab Results - Last 24 Hours (Table) 09/06/20 09/07/20 09/07/20 Range/Units 12:40 14:45 15:30 WBC 20.5 H (3.8-10.6) k/uL RBC 2.84 L (4.30-5.90) m/uL Hgb 8.3 L (13.0-17.5) gm/dL Hct 25.9 L (39.0-53.0) % RDW 17.1 H (11.5-15.5) % Neutrophils # (Manual) (1.3-7.7) k/uL Lymphocytes # (Manual) (1.0-4.8) k/uL Monocytes # (Manual) (0-1.0) k/uL Metamyelocytes # (Man) (0) k/uL ABG pCO2 (35-45) mmHg ABG pO2 (83-108) mmHg ABG O2 Saturation (94-97) % Sodium (137-145) mmol/L Potassium (3.5-5.1) mmol/L Carbon Dioxide (22-30) mmol/L BUN (9-20) mg/dL Creatinine (0.66-1.25) mg/dL Glucose (74-99) mg/dL POC Glucose (mg/dL) (75-99) mg/dL Plasma Lactic Acid Junior 4.4 H* (0.7-2.0) mmol/L Calcium (8.4-10.2) mg/dL Crossmatch See Detail 09/07/20 09/07/20 09/08/20 Range/Units 17:58 22:30 04:32 WBC (3.8-10.6) k/uL RBC (4.30-5.90) m/uL Hgb (13.0-17.5) gm/dL Hct (39.0-53.0) % RDW (11.5-15.5) % Neutrophils # (Manual) (1.3-7.7) k/uL Lymphocytes # (Manual) (1.0-4.8) k/uL Monocytes # (Manual) (0-1.0) k/uL Metamyelocytes # (Man) (0) k/uL ABG pCO2 (35-45) mmHg ABG pO2 (83-108) mmHg ABG O2 Saturation (94-97) % Sodium 134 L 134 L (137-145) mmol/L Potassium 5.3 H 5.4 H (3.5-5.1) mmol/L Carbon Dioxide 20 L (22-30) mmol/L BUN 62 H 65 H (9-20) mg/dL Creatinine 2.76 H 2.64 H (0.66-1.25) mg/dL Glucose 127 H 139 H (74-99) mg/dL POC Glucose (mg/dL) 168 H (75-99) mg/dL Plasma Lactic Acid Junior (0.7-2.0) mmol/L Calcium 7.7 L 7.6 L (8.4-10.2) mg/dL Crossmatch 09/08/20 09/08/20 Range/Units 04:32 11:08 WBC 23.8 H (3.8-10.6) k/uL RBC 3.25 L (4.30-5.90) m/uL Hgb 9.6 L (13.0-17.5) gm/dL Hct 29.9 L (39.0-53.0) % RDW 16.9 H (11.5-15.5) % Neutrophils # (Manual) 22.10 H (1.3-7.7) k/uL Lymphocytes # (Manual) 0.48 L (1.0-4.8) k/uL Monocytes # (Manual) 1.19 H (0-1.0) k/uL Metamyelocytes # (Man) 0.24 H (0) k/uL ABG pCO2 33 L (35-45) mmHg ABG pO2 125 H (83-108) mmHg ABG O2 Saturation 99.6 H (94-97) % Sodium (137-145) mmol/L Potassium (3.5-5.1) mmol/L Carbon Dioxide (22-30) mmol/L BUN (9-20) mg/dL Creatinine (0.66-1.25) mg/dL Glucose (74-99) mg/dL POC Glucose (mg/dL) (75-99) mg/dL Plasma Lactic Acid Junior (0.7-2.0) mmol/L Calcium (8.4-10.2) mg/dL Crossmatch Assessment and Plan Assessment: This is a 85-year-old male with past medical history noted below who presented to the emergency room with chief complaint of black stool. Patient was evaluated in the ER and admitted to the hospital for further management of his medical problems noted below. 1. Upper GI bleed: With hemoglobin of 6.4 on presentation. Status post PRBC transfusions. GI recs appreciated. Continue IV Protonix 40 mg twice daily. Nothing by mouth for now. Endoscopy on hold given unstable clinical status Patient will likely need an upper endoscopy in the next 48 to 72 hours once patient is stable per GI. 2. Hypovolemic and cardiogenic shock: With lactic acidosis. Currently on Levophed drip. Secondary to blood loss and heart failure. Hold home blood pressure medications. 3. Acute heart failure exacerbation, systolic EF=25-30%: With evidence of fluid overload clinically and on chest x-ray. Continue IV Lasix as directed by cardiology 4. Acute blood loss anemia:Hb is stable at 9.6 status post 2 units PRBCs Continue to monitor 5. A. fib with RVR Continue amiodarone drip 6. Troponin elevation/type II non-ST elevation [place]: Most likely non-thrombotic troponin leak secondary to hypotension, heart failure, and GI bleed. 12-lead EKG in the emergency room showed no acute ischemic changes. Unable to anticoagulate or use aspirin at this time. Cardiology recommendations appreciated 7. Acute hypoxic respiratory failure secondary to flash pulmonary edema: Currently on BiPAP 8. History of coronary artery disease with prior CABG 9. DVT prophylaxis with SCD 10. CODE STATUS: DO NOT RESUSCITATE/DO NOT INTUBATE. Discussed with patient and his nephew at bedside who is his [employer]
--- NOTE | 2020-09-08 17:49 | OP ---
OPERATIVE REPORT OPERATIVE REPORT: Placement of right femoral triple-lumen catheter. PREOPERATIVE DIAGNOSIS: Acute myocardial infarction, acute hypoxic respiratory failure, acute gastrointestinal bleeding. POSTOPERATIVE DIAGNOSIS: Acute myocardial infarction, acute hypoxic respiratory failure, acute gastrointestinal bleeding. ANESTHESIA USED: Two mL of 1% lidocaine. PROCEDURE DESCRIPTION: The patient was placed in a supine position. The area of the right groin was prepared in a sterile fashion and drapes were applied. The right groin area was locally anesthetized with 2 mL of lidocaine. Then the right femoral vein was easily cannulated. A guidewire was placed. A triple-lumen catheter was inserted over the guidewire, and the guidewire was removed. The line was secured using 3.0 silk sutures. There was good blood flow in the 3 different ports of the triple-lumen catheter. No evidence of any immediate complications. MMODL / IJN: [id number] /
--- NOTE | 2020-09-08 17:49 | OP ---
OPERATIVE REPORT OPERATIVE REPORT: Placement of a left radial arterial line. PREOPERATIVE DIAGNOSIS: Acute hypoxic respiratory failure. POSTOPERATIVE DIAGNOSIS: Acute hypoxic respiratory failure. ANESTHESIA USED: None deployed. PROCEDURE DESCRIPTION: The left wrist was prepared in a sterile fashion and drapes were applied. The left radial artery was palpated, cannulated. A guidewire was placed and a Cook's catheter was inserted over the guidewire. Guidewire was removed. Good blood flow, good waveform noted. No evidence of any complications. Line was secured using 3.0 silk sutures. MMODL / IJN: [id number] /
[2020-09-08] MEDS: MORPHINE SULFATE 4 MG/ML SYRINGE IVP PRN (22:19)
[2020-09-09 05:08] LABS: Anisocytosis Slight; HCT 25.3 % (39.0-53.0); HGB 8.4 gm/dL (13.0-17.5); MCH 30.4 pg (25.0-35.0); MCHC 33.4 g/dL (31.0-37.0); MCV 91.1 fL (80.0-100.0); Platelet Count 104 k/uL (150-450); RBC 2.77 m/uL (4.30-5.90); RDW 16.5 % (11.5-15.5)
[2020-09-09 05:09] LABS: Calcium 7.2 mg/dL (8.4-10.2); Potassium 3.8 mmol/L (3.5-5.1)
[2020-09-09 05:32] LABS: Band Neutrophils % 1 %; Eosinophils # (M) 0.19 k/uL (0-0.7); Lymphocytes # (M) 2.41 k/uL (1.0-4.8); Monocytes # (M) 1.48 k/uL (0-1.0); Neutrophils % (M) 79 %; Nucleated Red Blood Cells 1 /100 WBC (0-0); Total Cells Counted 200; WBC 18.5 k/uL (3.8-10.6)
[2020-09-09 05:33] LABS: Large Platelets Present; Polychromasia Present
[2020-09-09] MEDS: FUROSEMIDE 100 MG in SODIUM CHLORIDE 0.9% 90 ML IV SCH ×3 (05:42→23:39)
[2020-09-09] MEDS: AMIODARONE 300 MG in DEXTROSE 5% IN WATER 250 ML IV SCH ×10 (08:15→23:40)
[2020-09-09] MEDS: PANTOPRAZOLE 40 MG/10 ML VIAL IVP SCH ×2 (08:16→20:36)
[2020-09-09] MEDS: SODIUM BICARBONATE TAB 650 MG TAB PO SCH (08:16)
[2020-09-09] MEDS: metOLazone 5 MG TAB PO SCH (08:16)
[2020-09-09] MEDS: NOREPINEPHRINE 32 MG in SODIUM CHLORIDE 0.9% 218 ML IV SCH (08:30)
--- NOTE | 2020-09-09 09:27 | XR ---
EXAMINATION TYPE: XR chest 1V DATE OF EXAM: 09/09/2020 CLINICAL HISTORY: Difficulty breathing progress study. TECHNIQUE: Single AP portable upright view of the chest is obtained. COMPARISON: Chest x-ray from one day earlier and older studies. FINDINGS: Overlying sternal wires and mediastinal clips redemonstrated. Persistent cardiomegaly. Per sistent central vascular congestion and small bilateral pleural effusions. Some interval improvement in central alveolar edema or opacity is from most recent x-ray. Osseous structures are intact. IMPRESSION: Cardiomegaly with central vascular congestion and small to tiny bilateral pleural effusio ns redemonstrated. Suspect CHF exacerbation. Improving bilateral central edema and/or infiltrates con sistent with interval improvement. Correlate clinically.
--- NOTE | 2020-09-09 09:51 | P.PN ---
Subjective Patient is seen in follow-up for acute kidney injury. Renal function improving. Maintained on Levophed and Lasix drip. He's also on amiodarone drip for A. fib with RVR. Now on 2 L nasal cannula. Urine output improved significantly. General: The patient appeared well nourished and normally developed. HEENT: No JVD. On nasal cannula. LUNGS: Breath sounds decreased. HEART: Irregular rate and rhythm. ABDOMEN: soft nontender. EXTREMITITES: 1+ edema. Objective - Vital Signs Vital signs: Vital Signs Temp 98.4 F 09/09/20 04:00 Pulse 125 H 09/09/20 08:00 Resp 26 H 09/09/20 08:00 BP 109/72 09/08/20 10:00 Pulse Ox 96 09/09/20 08:00 Intake & Output 09/08/20 09/09/20 09/09/20 18:59 06:59 18:59 Intake Total 1150.000 888.136 691.475 Output Total 995 2370 200 Balance 155.000 -1481.864 491.475 Weight 107.2 kg Intake: IV 20 Sodium Chloride 0.9% 1, 20 000 ml @ 50 mls/hr IV . Q20H BETH Rx#:[id number] Intake, IV Titration 950.000 768.136 91.475 Amount Amiodarone 300 mg In 250.000 250 Dextrose 5% in Water 250 ml @ 0.5 MG/MIN 25 mls/hr IV .Q10H BETH Rx#: [id number] Furosemide 100 mg In 100 100 26.333 Sodium Chloride 0.9% 90 ml @ 10 MG/HR 10 mls/hr IV .Q10H BETH Rx#: [id number] Norepinephrine 32 mg In 193.136 65.142 Sodium Chloride 0.9% 218 ml @ 0.05 MCG/KG/MIN 2. 555 mls/hr IV .Q24H BETH Rx#:[id number] Sodium Chloride 0.9% 1, 600 225 000 ml @ 50 mls/hr IV . Q20H BETH Rx#:[id number] Oral 200 100 600 Output: Urine 995 2370 200 Other: Voiding Method Indwelling Catheter Indwelling Catheter ABP, PAP, CO, CI - Last Documented Arterial Blood Pressure 107/57 - Labs CBC & Chem 7: 09/09/20 04:15 12/17/20 04:15 Labs: Abnormal Lab Results - Last 24 Hours (Table) 09/08/20 09/09/20 09/09/20 Range/Units 11:08 04:15 04:15 WBC 18.5 H (3.8-10.6) k/uL RBC 2.77 L (4.30-5.90) m/uL Hgb 8.4 L (13.0-17.5) gm/dL Hct 25.3 L (39.0-53.0) % RDW 16.5 H (11.5-15.5) % Plt Count 104 L (150-450) k/uL Neutrophils # (Manual) 14.80 H (1.3-7.7) k/uL Monocytes # (Manual) 1.48 H (0-1.0) k/uL Nucleated RBCs 1 H (0-0) /100 WBC ABG pCO2 33 L (35-45) mmHg ABG pO2 125 H (83-108) mmHg ABG O2 Saturation 99.6 H (94-97) % Sodium 134 L (137-145) mmol/L BUN 69 H (9-20) mg/dL Creatinine 2.08 H (0.66-1.25) mg/dL Glucose 158 H (74-99) mg/dL Calcium 7.2 L (8.4-10.2) mg/dL Assessment and Plan Plan: Assessment: 1. Acute kidney injury secondary to ATN secondary to acute blood loss anemia, A. fib, hypotension and component of cardiorenal syndrome. Baseline creatinine near 1 and peaked at 2.76 this admission - 2.08 today. No hydronephrosis noted on kidney ultrasound. 2. Acute on chronic systolic CHF with ejection fraction of 25% with moderate mitral regurgitation and tricuspid regurgitation. 3. Metabolic acidosis secondary to acute kidney injury. Status post bicarb drip. 4. Hyperkalemia secondary to acute kidney injury, GI bleed and metabolic acidosis. Resolved. 5. Volume overload. Improving with diuresis. 6. Acute blood loss anemia secondary to GI bleed status post blood transfusion. GI following. 7. A. fib with RVR maintained on amiodarone drip. 8. Shock maintained on Levophed. Plan: Maintain Lasix drip at 10 mL an hour. Maintain metolazone 5 mg once daily. Stop oral bicarb. Wean vasopressors. Continue to monitor renal function and urine output closely.
--- NOTE | 2020-09-09 11:41 | P.PN ---
Subjective Progress Note Date: 09/09/20 Principal diagnosis: GI bleeding Patient denied having any bleeding. No vomiting, no BM. No fevers. No chest pain or sob. No palpitations. Objective - Vital Signs Vital signs: Vital Signs Temp 98.4 F 09/09/20 04:00 Pulse 125 H 09/09/20 08:00 Resp 26 H 09/09/20 08:00 BP 109/72 09/08/20 10:00 Pulse Ox 96 09/09/20 08:00 Intake & Output 09/08/20 09/09/20 09/09/20 18:59 06:59 18:59 Intake Total 1150.000 888.136 691.475 Output Total 995 2370 200 Balance 155.000 -1481.864 491.475 Weight 107.2 kg Intake: IV 20 Sodium Chloride 0.9% 1, 20 000 ml @ 50 mls/hr IV . Q20H BETH Rx#:[id number] Intake, IV Titration 950.000 768.136 91.475 Amount Amiodarone 300 mg In 250.000 250 Dextrose 5% in Water 250 ml @ 0.5 MG/MIN 25 mls/hr IV .Q10H BETH Rx#: [id number] Furosemide 100 mg In 100 100 26.333 Sodium Chloride 0.9% 90 ml @ 10 MG/HR 10 mls/hr IV .Q10H BETH Rx#: [id number] Norepinephrine 32 mg In 193.136 65.142 Sodium Chloride 0.9% 218 ml @ 0.05 MCG/KG/MIN 2. 555 mls/hr IV .Q24H BETH Rx#:[id number] Sodium Chloride 0.9% 1, 600 225 000 ml @ 50 mls/hr IV . Q20H BETH Rx#:[id number] Oral 200 100 600 Output: Urine 995 2370 200 Other: Voiding Method Indwelling Catheter Indwelling Catheter ABP, PAP, CO, CI - Last Documented Arterial Blood Pressure 107/57 - Exam General: [non toxic], [no distress], [appears at stated age] Derm: [warm], [dry] Head: [atraumatic], [normocephalic], [symmetric] Eyes: [EOMI], [no lid lag], [anicteric sclera] Mouth: [no lip lesion], [mucus membranes moist] Cardiovascular: [irregular, tachycardic], [no murmur], [positive posterior tibial pulse bilateral], Lungs: [Diminished bilateral], [no rhonchi, no rales] , [no accessory muscle use] Abdominal: [soft], [ nontender to palpation], [no guarding], [no appreciable organomegaly] Ext: [no gross muscle atrophy], [no edema], [no contractures] Neuro: [ CN II-XI grossly intact], [no focal neuro deficits] Psych: [Alert], [oriented], [appropriate affect] - Labs CBC & Chem 7: 09/09/20 04:15 09/09/20 04:15 Labs: Abnormal Lab Results - Last 24 Hours (Table) 09/09/20 09/09/20 Range/Units 04:15 04:15 WBC 18.5 H (3.8-10.6) k/uL RBC 2.77 L (4.30-5.90) m/uL Hgb 8.4 L (13.0-17.5) gm/dL Hct 25.3 L (39.0-53.0) % RDW 16.5 H (11.5-15.5) % Plt Count 104 L (150-450) k/uL Neutrophils # (Manual) 14.80 H (1.3-7.7) k/uL Monocytes # (Manual) 1.48 H (0-1.0) k/uL Nucleated RBCs 1 H (0-0) /100 WBC Sodium 134 L (137-145) mmol/L BUN 69 H (9-20) mg/dL Creatinine 2.08 H (0.66-1.25) mg/dL Glucose 158 H (74-99) mg/dL Calcium 7.2 L (8.4-10.2) mg/dL Assessment and Plan Plan: Upper GI bleed: With hemoglobin of 6.4 on presentation. Status post PRBC transfusions. GI recs appreciated. No scopes until stable. Continue IV Protonix 40 mg twice daily. Nothing by mouth for now. Hypovolemic and cardiogenic shock, with lactic acidosis. Currently on Levophed drip as well as lasix gtt. Hold home blood pressure medications. Acute on chronic systolic heart failure exacerbation, systolic EF=25-30%: With evidence of fluid overload clinically and on chest x-ray. Continue IV Lasix as directed by cardiology A. fib with RVR Continue amiodarone drip NSTEMI with hx of CAD s/p CABG Most likely non-thrombotic troponin leak secondary to hypotension, heart fa ilure, and GI bleed. Unable to anticoagulate or use aspirin at this time due to GI bleeding. Cardiology recommendations appreciated Acute blood loss anemia: Hb is stable at 9.6 as of this am Recheck in the afternoon Acute hypoxic respiratory failure secondary to flash pulmonary edema: Resolved, currently off BiPAP CODE STATUS: DO NOT RESUSCITATE/DO NOT INTUBATE.
--- NOTE | 2020-09-09 12:53 | P.PN ---
Subjective Progress Note Date: 09/09/20 Principal diagnosis: Acute upper gastrointestinal bleed Patient is a 85-year-old pleasant white male who came into the emergency room yesterday complaining of black tarry stools for the last 2-3 days duration. He is having some heartburn for the last 3-4 days of black tarry stools. He was also becoming short of breath and fatigue, yesterday morning he had severe chest discomfort and came into the emergency department. He has a prior history of coronary artery disease with CABG several years ago. On admission to the emergency department his hemoglobin was 6.4, he has been transfused with 2 units of packed red blood cells. Today's hemoglobin is 8.4. He has not had any further signs of GI bleeding. Is not having a bowel movement since admission. He denies any chest pain, abdominal pain, nausea, or vomiting. His breathing does appear better today, is on 2 L of nasal cannula. Cardiology, pulmonology, and nephrology are closely following. He remains on amiodarone, and Levofed, however his nurse states they will be discontinuing his levofed. Objective - Vital Signs Vital signs: Vital Signs Temp 98.4 F 09/09/20 04:00 Pulse 113 H 09/09/20 06:00 Resp 18 09/09/20 06:00 BP 109/72 09/08/20 10:00 Pulse Ox 96 09/09/20 06:00 Intake & Output 09/08/20 09/09/20 09/09/20 18:59 06:59 18:59 Intake Total 1150.000 888.136 Output Total 995 2370 Balance 155.000 -1481.864 Weight 107.2 kg Intake: IV 20 Sodium Chloride 0.9% 1, 20 000 ml @ 50 mls/hr IV . Q20H BETH Rx#:[id number] Intake, IV Titration 950.000 768.136 Amount Amiodarone 300 mg In 250.000 250 Dextrose 5% in Water 250 ml @ 0.5 MG/MIN 25 mls/hr IV .Q10H BETH Rx#: [id number] Furosemide 100 mg In 100 100 Sodium Chloride 0.9% 90 ml @ 10 MG/HR 10 mls/hr IV .Q10H BETH Rx#: [id number] Norepinephrine 32 mg In 193.136 Sodium Chloride 0.9% 218 ml @ 0.05 MCG/KG/MIN 2. 555 mls/hr IV .Q24H BETH Rx#:[id number] Sodium Chloride 0.9% 1, 600 225 000 ml @ 50 mls/hr IV . Q20H BETH Rx#:[id number] Oral 200 100 Output: Urine 995 2370 Other: Voiding Method Indwelling Catheter Indwelling Catheter ABP, PAP, CO, CI - Last Documented Arterial Blood Pressure 91/52 - Exam General appearance: The patient is alert, oriented, person no acute distress. HET: Head is normocephalic and atraumatic. Conjunctiva pink. Sclera anicteric. Neck: Supple without lymphadenopathy. Abdomen: Soft, nontender, mildly distended with bowel sounds. No guarding or rigidity. Extremities: Normal skin color and turgor. No pedal edema Neurological: No focal deficits. Alert and oriented 3. - Labs CBC & Chem 7: 09/09/20 04:15 09/09/20 04:15 Labs: Abnormal Lab Results - Last 24 Hours (Table) 09/08/20 09/09/20 09/09/20 Range/Units 11:08 04:15 04:15 WBC 18.5 H (3.8-10.6) k/uL RBC 2.77 L (4.30-5.90) m/uL Hgb 8.4 L (13.0-17.5) gm/dL Hct 25.3 L (39.0-53.0) % RDW 16.5 H (11.5-15.5) % Plt Count 104 L (150-450) k/uL Neutrophils # (Manual) 14.80 H (1.3-7.7) k/uL Monocytes # (Manual) 1.48 H (0-1.0) k/uL Nucleated RBCs 1 H (0-0) /100 WBC ABG pCO2 33 L (35-45) mmHg ABG pO2 125 H (83-108) mmHg ABG O2 Saturation 99.6 H (94-97) % Sodium 134 L (137-145) mmol/L BUN 69 H (9-20) mg/dL Creatinine 2.08 H (0.66-1.25) mg/dL Glucose 158 H (74-99) mg/dL Calcium 7.2 L (8.4-10.2) mg/dL Assessment and Plan Assessment: 1. Black tarry stools for last 4 days duration prior to hospitalization. Hemoglobin of 6.4 and received 2 units of packed red blood cell transfusion. Most likely dealing with an upper GI source of bleeding, possibly peptic ulcer disease. No prior history of recent NSAID use. No history of EGD or colonoscopy in the past. The patient has not had any further active bleeding or black tarry stools. 2. Chest pain with EKG changes and elevated troponin at 36.9. New onset atrial fibrillation with RVR on amiodarone drip. Cardiology following closely 3. Acute respiratory distress. Pulmonology on consult following closely. 4. Acute kidney injury secondary to ATN secondary to acute blood loss anemia, A. fib, hypotension and component of cardiorenal syndrome. 5. History of hypertension 6. History of hypercholesteremia 7. History of coronary artery disease status post CABG several years ago Plan: 1. Continue Protonix 40 mg twice daily 2. Appreicaite cardiology and pulmonology recommendations 4. Monitor Daily CBC and transfuse as needed for hemoglobin less than 7 5. Patient is status post 2 units of packed red blood cell transfusion 6. Will consider proceeding with upper endoscopy if any further signs of GI bleed, and once patient is stable We will continue to follow closely Dr. Zach Sharif I agree with the dictator's note, documented as a scribe by Sonal Pierre.
[2020-09-09 13:51] LABS: Anisocytosis Slight; HCT 24.4 % (39.0-53.0); MCH 29.8 pg (25.0-35.0); MCHC 32.9 g/dL (31.0-37.0); MCV 90.4 fL (80.0-100.0); Mean Platelet Volume 8.8; RBC 2.69 m/uL (4.30-5.90); RDW 16.7 % (11.5-15.5)
[2020-09-09 14:22] LABS: Platelet Count 84 k/uL (150-450)
[2020-09-09 14:25] LABS: Band Neutrophils % 2 %; Lymphocytes # (M) 1.55 k/uL (1.0-4.8); Monocytes # (M) 1.09 k/uL (0-1.0); Myelocytes # (M) 0.16 k/uL (0); Myelocytes % 1 %; Neutrophils % (M) 81 %; Nucleated Red Blood Cells 3 /100 WBC (0-0); Total Cells Counted 200; WBC 15.5 k/uL (3.8-10.6)
[2020-09-09 14:27] LABS: Poikilocytosis (M) Present
--- NOTE | 2020-09-09 16:46 | P.PN ---
Subjective Progress Note Date: 09/09/20 Principal diagnosis: Acute hypoxic respiratory failure secondary to acute non-ST elevation myocardial infarction, pulmonary edema, and acute GI bleeding as well as acute cardiogenic shock. 85-year-old white male patient with previous history of coronary artery disease with bypass grafting, previous history of myocardial infarction, former smoker, hyperlipidemia, presented to the emergency department on 09/06/2020 for evaluation of a 2 day history of passing dark tarry stools concerning for acute GI bleeding. Patient reports increased fatigue and dyspnea, and epigastric and lower chest discomfort. .he is not on any anticoagulation, denies any abdominal pain, he was noted to be borderline hypotensive, tachycardic on arrival. His hemoglobin on admission was 6. Patient was transfused with 2 units of packed red blood cells, positive lactic acid was elevated at 5.0 and subsequently increased to 11.7, patient hasn't done troponin elevation on admission with troponin level III.550, which has subsequently increased to 7.2, and 36.9 with a third set, cardiology has been consulted, his chest x-ray shows evidence of pulmonary edema, patient is short of breath, he is requiring BiPAP support currently, he is hypotensive, requiring levo fed support at 13 weeks per minute, he is currently on D5 with 3 A of bicarbonate at a rate of 75 ML per hour, his BiPAP settings are 10 and 5 and FiO2 of 80%. States he is short of breath, does not appear to be in any acute distress, his abdomen is distended, but nontender, this morning his hemoglobin is 9.4, blood cell count increased to 17.2, his renal function has worsened, BUN of 32 and creatinine of 1.3, proBNP level is 48 20, he is evaluation by GI service, cardiology has been consulted, his echocardiogram revealed severely impaired systolic function with the EF between 25-30%, there was a moderate mitral regurgitation, mild to moderate tricuspid regurgitation, and mild pulmonary hypertension with right-sided pressures of 33.9 mmHg. X-ray of the abdomen showed nonobstructed bowel gas pattern, ear distended stomach, moderate fecal retention, renal ultrasound showed no hydronephrosis. Patient was given a small dose of Lasix 20 mg last night, has not produced significant output, remains oliguric, he will be given additional dose of 60 mg Lasix today, and cardiology after further discussion switched it to lasix infusion at 10 mg per hour, and dobutamine infusion was added. His current BiPAP settings are 10.5 and FiO2 of 80% Patient was reevaluated today in the ICU, remains on BiPAP, he is on IPAP of 10 and EPAP of 5, FiO2 is 60%, patient is on norepinephrine at 0.35 mcg/kg/m, he is also on amiodarone at 1 mg/minutes. Patient is off the Imitrex because he developed atrial fibrillation with RVR while on Dobutrex. Chest x-ray continues to show evidence of pulmonary edema. Slightly improved compared to the chest x- ray yesterday. But still consistent with pulmonary edema. Patient is also developing leukocytosis with WBC count of 23.8, hemoglobin is 9.6, received a total of 2 units of packed RBCs since admission yesterday. Patient has marginal urine output, and he remains in positive fluid balance roughly about 1 L in the last 24 hours. ABG on BiPAP today showed a pO2 of 125 pCO2 of 33 pH of 7.42. His potassium is a bit elevated at 5.4, his BUN is 65 and creatinine is 2.64. Right carpal is 20 this morning. Patient was switched to oral bicarb 650 mg by mouth 3 times a day. And his off sodium bicarb drip at present. Remains on Lasix drip at 10 mg per hour, he is also on Zaroxolyn 5 mg daily. Obviously the patient is not making significant improvement, but he is relatively holding. Yesterday I had a long discussion with the patient and his son while he was in the ER, and he clearly expressed wishes as not to be intubated and placed on mechanical ventilation. Reevaluated today on 09/09/20, patient remains in the ICU, remains on norepinephrine at 12 mcg/m, he is also on amiodarone at 1 mg/m, IV fluid at KVO, Lasix drip at 10 mg per hour. Patient is feeling better, he is on few liters nasal cannula, he is however in atrial fibrillation with RVR, amiodarone remains as requested by cardiology. Patient is alert oriented 3, and we are in the process of hopefully weaning off levo fed. Renal status is showing slight improvement, patient has good urine output roughly about 200 mL per hour. Patient was on BiPAP last night, however he was switched to a nasal cannula t reji. Chest x-ray continues to show evidence of cardiomegaly, and central venous congestion, small bilateral pleural effusions noted. Interval improvement is noted compared to chest x-ray on admission . Hemoglobin is holding remains around 8. WBC count is 15.5. BUN is 69 today creatinine is veronika n to 2.08. compared to 2.64 yesterday. Objective - Vital Signs Vital signs: Vital Signs Temp 98.4 F 09/09/20 04:00 Pulse 122 H 09/09/20 15:00 Resp 22 09/09/20 15:00 BP 109/72 09/08/20 10:00 Pulse Ox 99 09/09/20 15:05 Intake & Output 09/08/20 09/09/20 09/09/20 18:59 06:59 18:59 Intake Total 1150.000 888.136 918.316 Output Total 995 2370 940 Balance 155.000 -1481.864 -21.684 Weight 107.2 kg Intake: IV 20 Sodium Chloride 0.9% 1, 20 000 ml @ 50 mls/hr IV . Q20H [facility] Rx#:[id number] Intake, IV Titration 950.000 768.136 118.316 Amount Amiodarone 300 mg In 250.000 250 Dextrose 5% in Water 250 ml @ 0.5 MG/MIN 25 mls/hr IV .Q10H [facility] Rx#: [id number] Furosemide 100 mg In 100 100 26.333 Sodium Chloride 0.9% 90 ml @ 10 MG/HR 10 mls/hr IV .Q10H [facility] Rx#: [id number] Norepinephrine 32 mg In 193.136 91.983 Sodium Chloride 0.9% 218 ml @ 0.05 MCG/KG/MIN 2. 555 mls/hr IV .Q24H [facility] Rx#:[id number] Sodium Chloride 0.9% 1, 600 225 000 ml @ 50 mls/hr IV . Q20H [facility] Rx#:[id number] Oral 200 100 800 Output: Urine 995 2370 940 Other: Voiding Method Indwelling Catheter Indwelling Catheter Indwelling Catheter ABP, PAP, CO, CI - Last Documented Arterial Blood Pressure 95/50 - Exam GENERAL EXAM: Revealed a 85-year-old white male, in no distress, much better today compared to yesterday. HEAD: Normocephalic/atraumatic. ENT: Dry mucous membranes, PERRLA, EOMI, no icterus, no neck masses, no JVD. CHEST: No chest wall deformity. Symmetrical expansion. LUNGS: Minimal crackles at the bases. CVS: Regular rate and rhythm, normal S1 and S2, no gallops, no murmurs, no rubs ABDOMEN: Obese, Soft, nontender. No hepatosplenomegaly, normal bowel sounds, no guarding or rigidity. EXTREMITIES: No clubbing, trace of bipedal edema, no cyanosis, 2+ pulses and upper and lower extremities. Cold feet bilaterally. Diminished distal pulses MUSCULOSKELETAL: Muscle strength and tone normal. SKIN: No rashes CENTRAL NERVOUS SYSTEM: Alert and oriented 3, no gross focal deficits. PSYCHIATRIC: Normal mood affect and normal mental status examination. - Labs CBC & Chem 7: 09/09/20 13:02 09/09/20 04:15 Labs: Abnormal Lab Results - Last 24 Hours (Table) 09/09/20 09/09/20 09/09/20 Range/Units 04:15 04:15 13:02 WBC 18.5 H 15.5 H (3.8-10.6) k/uL RBC 2.77 L 2.69 L (4.30-5.90) m/uL Hgb 8.4 L 8.0 L (13.0-17.5) gm/dL Hct 25.3 L 24.4 L (39.0-53.0) % RDW 16.5 H 16.7 H (11.5-15.5) % Plt Count 104 L 84 L (150-450) k/uL Neutrophils # (Manual) 14.80 H 12.80 H (1.3-7.7) k/uL Monocytes # (Manual) 1.48 H 1.09 H (0-1.0) k/uL Myelocytes # (Manual) 0.16 H (0) k/uL Nucleated RBCs 1 H 3 H (0-0) /100 WBC Sodium 134 L (137-145) mmol/L BUN 69 H (9-20) mg/dL Creatinine 2.08 H (0.66-1.25) mg/dL Glucose 158 H (74-99) mg/dL Calcium 7.2 L (8.4-10.2) mg/dL Assessment and Plan Assessment: Impression: Acute hypoxic referring failure, secondary to acute systolic congestive heart failure and pulmonary edema Acute cardiogenic shock and pulmonary edema secondary to acute systolic dysfunct ion Acute non-ST elevation myocardial infarction Ischemic cardiomyopathy and LV dysfunction, ejection fraction is 25-30%. Acute GI bleeding, exact source in nature is not clear at this point. Acute kidney injury, suspect acute tubular necrosis secondary to hypotension and possible cardiorenal syndrome. Acute lactic acidosis secondary to hypoperfusion and cardiogenic shock. History of coronary artery disease and previous CABG. Former smoker. New-onset atrial fibrillation with RVR. Recommendation: Continue to monitor in the ICU. Continue amiodarone. Continue norepinephrine and titrate accordingly. Continue Lasix drip. Continue to monitor hemoglobin, and transfuse if hemoglobin below 8. Continue Protonix. Patient is critically ill. But improving Time with Patient: Less than 30
[2020-09-10] MEDS: MORPHINE SULFATE 4 MG/ML SYRINGE IVP PRN ×3 (00:31→16:23)
[2020-09-10 05:28] LABS: Anisocytosis Slight; HCT 20.3 % (39.0-53.0); Hypochromasia Slight; MCH 30.4 pg (25.0-35.0); MCHC 33.8 g/dL (31.0-37.0); MCV 89.7 fL (80.0-100.0); Poikilocytosis Slight; RBC 2.26 m/uL (4.30-5.90); RDW 16.3 % (11.5-15.5)
[2020-09-10 05:39] LABS: Potassium 2.9 mmol/L (3.5-5.1)
[2020-09-10] MEDS ORDERED: Potassium Replacement Protocol 1 EACH MISC MISCELLANE PRN (05:47)
[2020-09-10 05:51] LABS: Platelet Count 66 k/uL (150-450)
[2020-09-10 05:53] LABS: HGB 6.9 gm/dL (13.0-17.5)
[2020-09-10 06:24] LABS: Band Neutrophils % 3 %; Lymphocytes # (M) 1.52 k/uL (1.0-4.8); Metamyelocytes # (M) 0.23 k/uL (0); Metamyelocytes % 2 %; Monocytes # (M) 1.17 k/uL (0-1.0); Neutrophils % (M) 73 %; Nucleated Red Blood Cells 4 /100 WBC (0-0); Total Cells Counted 200; WBC 11.7 k/uL (3.8-10.6)
[2020-09-10] MEDS: POTASSIUM CHLORIDE 20 MEQ in WATER FOR INJECTION 1 100ML.BAG IVPB SCH ×3 (06:52→11:31)
[2020-09-10] MEDS: POTASSIUM CHLORIDE ER 20 MEQ TAB.ER PO SCH ×3 (06:52→11:31)
[2020-09-10] MEDS: FUROSEMIDE 100 MG in SODIUM CHLORIDE 0.9% 90 ML IV SCH ×2 (06:53→17:51)
[2020-09-10] MEDS: AMIODARONE 300 MG in DEXTROSE 5% IN WATER 250 ML IV SCH ×6 (06:53→17:04)
[2020-09-10] MEDS ORDERED: CALCIUM GLUCONATE 1 GM in SODIUM CHLORIDE 0.9% 100 ML IVPB ONE ×2 (07:00→12:00)
--- NOTE | 2020-09-10 09:24 | XR ---
EXAMINATION TYPE: XR chest 1V portable DATE OF EXAM: 09/10/2020 COMPARISON: 09/09/2020 INDICATION: Cardiogenic shock TECHNIQUE: Single frontal view of the chest is obtained. FINDINGS: The heart size is mildly prominent. Sternotomy wires are in the midline from prior CABG. The pulmonary vasculature is normal. Minimal residual infiltrate may be at the left base. Tiny amount of right pleural fluid may be presen t. Findings are improved from earlier exam. IMPRESSION: 1. Cardiomegaly. 2. Improving left lower lobe infiltrate. 3. Minimal residual right pleural fluid
[2020-09-10 09:29] LABS: ABG Base Excess 6.7 mmol/L; ABG HCO3 30 mmol/L (21-25); ABG Oxygen Saturation 99.2 % (94-97); ABG PCO2 41 mmHg (35-45); ABG PH 7.43 (7.35-7.45); ABG PO2 97 mmHg (83-108); ABG TCO2 32 mmol/L (19-24); Allen Test Performed? no
[2020-09-10] MEDS: PANTOPRAZOLE 40 MG/10 ML VIAL IVP SCH ×2 (10:03→19:58)
--- NOTE | 2020-09-10 10:23 | P.PN ---
Subjective Patient is seen in follow-up for acute kidney injury. Renal function improving. Maintained on Levophed and Lasix drip. He's also on amiodarone drip for A. fib with RVR. Now on 2 L nasal cannula. Urine output 2.7 L in the last 24 hours. General: The patient appeared well nourished and normally developed. HEENT: No JVD. On nasal cannula. LUNGS: Breath sounds decreased. HEART: Irregular rate and rhythm. ABDOMEN: soft nontender. EXTREMITITES: 1+ edema. Objective - Vital Signs Vital signs: Vital Signs Temp 98.1 F 09/10/20 09:28 Pulse 133 H 09/10/20 10:00 Resp 19 09/10/20 10:00 BP 101/86 09/10/20 10:00 Pulse Ox 99 09/10/20 10:00 Intake & Output 09/09/20 09/10/20 09/10/20 18:59 06:59 18:59 Intake Total 1268.316 409.254 449.9 Output Total 1115 1615 760 Balance 153.316 -1205.746 -310.1 Weight 106 kg Intake: IV 149.9 0.9 NACL 30 amiodarone 99.9 lasix 20 Intake, IV Titration 468.316 209.254 300 Amount Amiodarone 300 mg In 250 72.10 Dextrose 5% in Water 250 ml @ 1 MG/MIN 50 mls/hr IV .Q5H [facility] Rx#:[id number] Calcium Gluconate 1 gm In 100 Sodium Chloride 0.9% 100 ml @ 100 mls/hr IVPB ONCE ONE Rx#:[id number] Furosemide 100 mg In 126.333 72.333 Sodium Chloride 0.9% 90 ml @ 5 MG/HR 5 mls/hr IV .Q20H [facility] Rx#:[id number] Norepinephrine 32 mg In 91.983 64.821 Sodium Chloride 0.9% 218 ml @ 0.05 MCG/KG/MIN 2. 555 mls/hr IV .Q24H [facility] Rx#:[id number] Potassium Chloride 20 meq 200 In Water For Injection 1 100ml.bag @ 50 mls/hr IVPB Q2H [facility] Rx#: [id number] Oral 800 200 Blood Product 0 Rc As-1 Unit 0 [id number] Output: Urine 1115 1615 760 Other: Voiding Method Indwelling Catheter Indwelling Catheter ABP, PAP, CO, CI - Last Documented Arterial Blood Pressure 97/59 - Labs CBC & Chem 7: 09/10/20 05:11 09/10/20 05:11 Labs: Abnormal Lab Results - Last 24 Hours (Table) 09/09/20 09/10/20 09/10/20 Range/Units 13:02 05:11 05:11 WBC 15.5 H 11.7 H (3.8-10.6) k/uL RBC 2.69 L 2.26 L (4.30-5.90) m/uL Hgb 8.0 L 6.9 L* (13.0-17.5) gm/dL Hct 24.4 L 20.3 L (39.0-53.0) % RDW 16.7 H 16.3 H (11.5-15.5) % Plt Count 84 L 66 L (150-450) k/uL Neutrophils # (Manual) 12.80 H 8.80 H (1.3-7.7) k/uL Monocytes # (Manual) 1.09 H 1.17 H (0-1.0) k/uL Metamyelocytes # (Man) 0.23 H (0) k/uL Myelocytes # (Manual) 0.16 H (0) k/uL Nucleated RBCs 3 H 4 H (0-0) /100 WBC ABG HCO3 (21-25) mmol/L ABG Total CO2 (19-24) mmol/L ABG O2 Saturation (94-97) % Sodium 134 L (137-145) mmol/L Potassium 2.9 L (3.5-5.1) mmol/L BUN 69 H (9-20) mg/dL Creatinine 1.53 H (0.66-1.25) mg/dL Glucose 125 H (74-99) mg/dL Calcium 6.0 L* (8.4-10.2) mg/dL Crossmatch 09/10/20 09/10/20 Range/Units 07:00 09:08 WBC (3.8-10.6) k/uL RBC (4.30-5.90) m/uL Hgb (13.0-17.5) gm/dL Hct (39.0-53.0) % RDW (11.5-15.5) % Plt Count (150-450) k/uL Neutrophils # (Manual) (1.3-7.7) k/uL Monocytes # (Manual) (0-1.0) k/uL Metamyelocytes # (Man) (0) k/uL Myelocytes # (Manual) (0) k/uL Nucleated RBCs (0-0) /100 WBC ABG HCO3 30 H (21-25) mmol/L ABG Total CO2 32 H (19-24) mmol/L ABG O2 Saturation 99.2 H (94-97) % Sodium (137-145) mmol/L Potassium (3.5-5.1) mmol/L BUN (9-20) mg/dL Creatinine (0.66-1.25) mg/dL Glucose (74-99) mg/dL Calcium (8.4-10.2) mg/dL Crossmatch See Detail Assessment and Plan Plan: Assessment: 1. Acute kidney injury secondary to ATN secondary to acute blood loss anemia, A. fib, hypotension and component of cardiorenal syndrome. Baseline creatinine near 1 and peaked at 2.76 this admission - 1.53 today. No hydronephrosis noted on kidney ultrasound. 2. Acute on chronic systolic CHF with ejection fraction of 25% with moderate mitral regurgitation and tricuspid regurgitation. 3. Metabolic acidosis secondary to acute kidney injury. Status post bicarb drip. resolved. 4. Hyperkalemia secondary to acute kidney injury, GI bleed and metabolic acidosis. Resolved. now hypokalemic from diuresis. Being replaced. 5. Volume overload. Improving with diuresis. 6. Acute blood loss anemia secondary to GI bleed status post blood transfusion. GI following. Hemoglobin 6.9 today. He will be receiving another unit of blood. 7. A. fib with RVR maintained on amiodarone drip. 8. Shock maintained on Levophed. 9. Hypocalcemia secondary to acute kidney injury and diuresis. Plan: Lasix drip decreased to 5 mL an hour this morning. Decrease metolazone to 2.5 mg once daily. Wean vasopressors. Continue to monitor renal function and urine output closely. Continue to replace potassium. I will give him another gram of IV calcium gluconate today. Check ionized calcium level. Check albumin level.
[2020-09-10] MEDS: methylPREDNISolone SOD SUCCI 40 MG/ML 1 ML VIAL IV SCH ×2 (10:26→16:24)
--- NOTE | 2020-09-10 10:40 | P.PN ---
Subjective Progress Note Date: 09/10/20 Principal diagnosis: GI bleeding Patient states that he is feeling okay. He denied any pain. No shortness of breath. No overnight events. He did have a bowel movement yesterday and his stools were brown according to patient. Objective - Vital Signs Vital signs: Vital Signs Temp 97.8 F 09/10/20 09:58 Pulse 133 H 09/10/20 10:00 Resp 19 09/10/20 10:00 BP 101/86 09/10/20 10:00 Pulse Ox 99 09/10/20 10:00 Intake & Output 09/09/20 09/10/20 09/10/20 18:59 06:59 18:59 Intake Total 1268.316 409.254 449.9 Output Total 1115 1615 760 Balance 153.316 -1205.746 -310.1 Weight 106 kg Intake: IV 149.9 0.9 NACL 30 amiodarone 99.9 lasix 20 Intake, IV Titration 468.316 209.254 300 Amount Amiodarone 300 mg In 250 72.10 Dextrose 5% in Water 250 ml @ 1 MG/MIN 50 mls/hr IV .Q5H [facility] Rx#:[id number] Calcium Gluconate 1 gm In 100 Sodium Chloride 0.9% 100 ml @ 100 mls/hr IVPB ONCE ONE Rx#:[id number] Furosemide 100 mg In 126.333 72.333 Sodium Chloride 0.9% 90 ml @ 5 MG/HR 5 mls/hr IV .Q20H [facility] Rx#:[id number] Norepinephrine 32 mg In 91.983 64.821 Sodium Chloride 0.9% 218 ml @ 0.05 MCG/KG/MIN 2. 555 mls/hr IV .Q24H [facility] Rx#:[id number] Potassium Chloride 20 meq 200 In Water For Injection 1 100ml.bag @ 50 mls/hr IVPB Q2H [facility] Rx#: [id number] Oral 800 200 Blood Product 0 Rc As-1 Unit 0 [id number] Output: Urine 1115 1615 760 Other: Voiding Method Indwelling Catheter Indwelling Catheter ABP, PAP, CO, CI - Last Documented Arterial Blood Pressure 97/59 - Exam General: [non toxic], [no distress], [appears at stated age] Derm: [warm], [dry] Head: [atraumatic], [normocephalic], [symmetric] Eyes: [EOMI], [no lid lag], [anicteric sclera] Mouth: [no lip lesion], [mucus membranes moist] Cardiovascular: [irregular, tachycardic], [no murmur], [positive posterior tibial pulse bilateral], Lungs: [Diminished bilateral], [no rhonchi, no rales] , [no accessory muscle use] Abdominal: [soft], [ nontender to palpation], [no guarding], [no appreciable organomegaly] Ext: [no gross muscle atrophy], [no edema], [no contractures] Neuro: [ CN II-XI grossly intact], [no focal neuro deficits] Psych: [Alert], [oriented], [appropriate affect] - Labs CBC & Chem 7: 09/10/20 05:11 09/10/20 05:11 Labs: Abnormal Lab Results - Last 24 Hours (Table) 09/09/20 09/10/20 09/10/20 Range/Units 13:02 05:11 05:11 WBC 15.5 H 11.7 H (3.8-10.6) k/uL RBC 2.69 L 2.26 L (4.30-5.90) m/uL Hgb 8.0 L 6.9 L* (13.0-17.5) gm/dL Hct 24.4 L 20.3 L (39.0-53.0) % RDW 16.7 H 16.3 H (11.5-15.5) % Plt Count 84 L 66 L (150-450) k/uL Neutrophils # (Manual) 12.80 H 8.80 H (1.3-7.7) k/uL Monocytes # (Manual) 1.09 H 1.17 H (0-1.0) k/uL Metamyelocytes # (Man) 0.23 H (0) k/uL Myelocytes # (Manual) 0.16 H (0) k/uL Nucleated RBCs 3 H 4 H (0-0) /100 WBC ABG HCO3 (21-25) mmol/L ABG Total CO2 (19-24) mmol/L ABG O2 Saturation (94-97) % Sodium 134 L (137-145) mmol/L Potassium 2.9 L (3.5-5.1) mmol/L BUN 69 H (9-20) mg/dL Creatinine 1.53 H (0.66-1.25) mg/dL Glucose 125 H (74-99) mg/dL Calcium 6.0 L* (8.4-10.2) mg/dL Crossmatch 09/10/20 09/10/20 Range/Units 07:00 09:08 WBC (3.8-10.6) k/uL RBC (4.30-5.90) m/uL Hgb (13.0-17.5) gm/dL Hct (39.0-53.0) % RDW (11.5-15.5) % Plt Count (150-450) k/uL Neutrophils # (Manual) (1.3-7.7) k/uL Monocytes # (Manual) (0-1.0) k/uL Metamyelocytes # (Man) (0) k/uL Myelocytes # (Manual) (0) k/uL Nucleated RBCs (0-0) /100 WBC ABG HCO3 30 H (21-25) mmol/L ABG Total CO2 32 H (19-24) mmol/L ABG O2 Saturation 99.2 H (94-97) % Sodium (137-145) mmol/L Potassium (3.5-5.1) mmol/L BUN (9-20) mg/dL Creatinine (0.66-1.25) mg/dL Glucose (74-99) mg/dL Calcium (8.4-10.2) mg/dL Crossmatch See Detail Assessment and Plan Plan: Upper GI bleed: With hemoglobin of 6.4 on presentation/Acute blood loss anemia: Hemoglobin dropped again today to 6.9, will order one more unit of packed red b lood cells. Need to recheck hemoglobin after transfusion and around 5 PM this afternoon. Discussed with nurse. GI recs appreciated. No scopes until stable. Continue IV Protonix 40 mg twice daily. Hypovolemic and cardiogenic shock, with lactic acidosis. Currently on Levophed drip as well as lasix gtt which was decreased to 4 mg per hour per nephrology today.. Hold home blood pressure medications. Acute on chronic systolic heart failure exacerbation, systolic EF=25-30%: With evidence of fluid overload clinically and on chest x-ray. Continue IV Lasix as directed by cardiology Chest x-ray from today improving. A. 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 Unable to anticoagulate or use aspirin at this time due to GI bleeding. Cardiology recommendations appreciated Acute hypoxic respiratory failure secondary to flash pulmonary edema: Resolved, currently off BiPAP CODE STATUS: DO NOT RESUSCITATE/DO NOT INTUBATE.
[2020-09-10] MEDS: NOREPINEPHRINE 32 MG in SODIUM CHLORIDE 0.9% 218 ML IV SCH (13:18)
--- NOTE | 2020-09-10 14:04 | P.PN ---
Subjective Progress Note Date: 09/10/20 Principal diagnosis: Acute upper gastrointestinal bleed Patient is a 85-year-old pleasant white male who came into the emergency room yesterday complaining of black tarry stools for the last 2-3 days duration. He is having some heartburn for the last 3-4 days of black tarry stools. He was also becoming short of breath and fatigue, yesterday morning he had severe chest discomfort and came into the emergency department. He has a prior history of coronary artery disease with CABG several years ago. On admission to the emergency department his hemoglobin was 6.4, he has been transfused with 2 units of packed red blood cells. Today's hemoglobin is 6.9. He had a reported black stool. He denies any chest pain, abdominal pain, nausea, or vomiting. He remains on 2 L of oxygen per nasal cannula Cardiology, pulmonology, and nephrology are closely following. He remains on amiodarone, Lasix drip, and Levofed. He is getting another unit of PRBC transfusion today. Objective - Vital Signs Vital signs: Vital Signs Temp 98.2 F 09/10/20 08:15 Pulse 112 H 09/10/20 08:45 Resp 25 H 09/10/20 08:45 BP 91/65 09/10/20 08:45 Pulse Ox 94 L 09/10/20 04:00 Intake & Output 09/09/20 09/10/20 09/10/20 18:59 06:59 18:59 Intake Total 1268.316 409.254 320 Output Total 1115 1615 600 Balance 153.316 -1205.746 -280 Weight 106 kg Intake: IV 20 0.9 NACL 10 lasix 10 Intake, IV Titration 468.316 209.254 300 Amount Amiodarone 300 mg In 250 72.10 Dextrose 5% in Water 250 ml @ 1 MG/MIN 50 mls/hr IV .Q5H [facility] Rx#:[id number] Calcium Gluconate 1 gm In 100 Sodium Chloride 0.9% 100 ml @ 100 mls/hr IVPB ONCE ONE Rx#:[id number] Furosemide 100 mg In 126.333 72.333 Sodium Chloride 0.9% 90 ml @ 10 MG/HR 10 mls/hr IV .Q10H [facility] Rx#: [id number] Norepinephrine 32 mg In 91.983 64.821 Sodium Chloride 0.9% 218 ml @ 0.05 MCG/KG/MIN 2. 555 mls/hr IV .Q24H [facility] Rx#:[id number] Potassium Chloride 20 meq 200 In Water For Injection 1 100ml.bag @ 50 mls/hr IVPB Q2H [facility] Rx#: [id number] Oral 800 200 Output: Urine 1115 1615 600 Other: Voiding Method Indwelling Catheter Indwelling Catheter ABP, PAP, CO, CI - Last Documented Arterial Blood Pressure 97/58 - Exam General appearance: The patient is alert, oriented, person no acute distress. HET: Head is normocephalic and atraumatic. Conjunctiva pink. Sclera anicteric. Neck: Supple without lymphadenopathy. Abdomen: Soft, nontender, mildly distended with bowel sounds. No guarding or rigidity. Extremities: Bilateral hands and fingers peeling dusky, bilateral lower extrem ity feet and toes pale and dusky. Cool to touch, with pedal edema. Neurological: No focal deficits. Alert and oriented 3. - Labs CBC & Chem 7: 09/10/20 05:11 09/10/20 05:11 Labs: Abnormal Lab Results - Last 24 Hours (Table) 09/09/20 09/10/20 09/10/20 Range/Units 13:02 05:11 05:11 WBC 15.5 H 11.7 H (3.8-10.6) k/uL RBC 2.69 L 2.26 L (4.30-5.90) m/uL Hgb 8.0 L 6.9 L* (13.0-17.5) gm/dL Hct 24.4 L 20.3 L (39.0-53.0) % RDW 16.7 H 16.3 H (11.5-15.5) % Plt Count 84 L 66 L (150-450) k/uL Neutrophils # (Manual) 12.80 H 8.80 H (1.3-7.7) k/uL Monocytes # (Manual) 1.09 H 1.17 H (0-1.0) k/uL Metamyelocytes # (Man) 0.23 H (0) k/uL Myelocytes # (Manual) 0.16 H (0) k/uL Nucleated RBCs 3 H 4 H (0-0) /100 WBC Sodium 134 L (137-145) mmol/L Potassium 2.9 L (3.5-5.1) mmol/L BUN 69 H (9-20) mg/dL Creatinine 1.53 H (0.66-1.25) mg/dL Glucose 125 H (74-99) mg/dL Calcium 6.0 L* (8.4-10.2) mg/dL Crossmatch 09/10/20 Range/Units 07:00 WBC (3.8-10.6) k/uL RBC (4.30-5.90) m/uL Hgb (13.0-17.5) gm/dL Hct (39.0-53.0) % RDW (11.5-15.5) % Plt Count (150-450) k/uL Neutrophils # (Manual) (1.3-7.7) k/uL Monocytes # (Manual) (0-1.0) k/uL Metamyelocytes # (Man) (0) k/uL Myelocytes # (Manual) (0) k/uL Nucleated RBCs (0-0) /100 WBC Sodium (137-145) mmol/L Potassium (3.5-5.1) mmol/L BUN (9-20) mg/dL Creatinine (0.66-1.25) mg/dL Glucose (74-99) mg/dL Calcium (8.4-10.2) mg/dL Crossmatch See Detail Assessment and Plan Assessment: 1. Black tarry stools for last 4 days duration prior to hospitalization. Hemoglobin of 6.4 and received 2 units of packed red blood cell transfusion. Most likely dealing with an upper GI source of bleeding, possibly peptic ulcer disease. No prior history of recent NSAID use. No history of EGD or colonoscopy in the past. Patient had a drop in his hemoglobin today to 6.9. He is receiving 1 unit of packed red blood cell transfusion. 2. Chest pain with EKG changes and elevated troponin at 36.9. New onset atrial fibrillation with RVR on amiodarone drip. Cardiology following closely 3. Acute respiratory distress. Pulmonology on consult following closely. 4. Acute kidney injury secondary to ATN secondary to acute blood loss anemia, A. fib, hypotension and component of cardiorenal syndrome. 5. History of hypertension 6. History of hypercholesteremia 7. History of coronary artery disease status post CABG several years ago Plan: 1. Continue Protonix 40 mg twice daily 2. Appreicaite cardiology and pulmonology recommendations 4. Monitor Daily CBC and transfuse as needed for hemoglobin less than 7 5. Agree with PRBC transfusion 6. Will consider proceeding with upper endoscopy as patient stabilized with clearance from cardiology and pulmonology. We will continue to follow closely Dr. Alvarez I agree with the dictator's note, documented as a scribe by Sonal Pierre.
--- NOTE | 2020-09-10 14:05 | PN ---
PROGRESS NOTE Mr. Logan is an 85-year-old male patient who was admitted with GI bleeding, severe cardiomyopathy and heart failure. Today from a respiratory standpoint, he is doing extremely well. He is not even on a BiPAP mask and he looks very comfortable as compared to the last few days. However, he is on IV Lasix drip. The dose has just been reduced. His urine output is excellent. His hemoglobin did drop once again and he received blood and therefore there is evidence of ongoing GI losses. He is on norepinephrine and we have tried to reduce the dose, but his blood pressure plummets to the 60s. His hands and feet are bluish on account of norepinephrine. The second complicating factor is that he has gone to atrial fibrillation with RVR. He is on IV amiodarone. Unfortunately, we cannot give him beta blockers or calcium channel blockers and we simply continue IV amiodarone at 1 mg/minute. Suggest a GI management per Dr. Quinones. I would continue to taper off the norepinephrine and tomorrow we will assess whether we can stop IV Lasix drip and put him on IV Lasix pushes instead. MMODL / IJN: [id number] /
[2020-09-10 15:26] LABS: Albumin 2.9 g/dL (3.5-5.0); Calcium 7.3 mg/dL (8.4-10.2); Magnesium 2.2 mg/dL (1.6-2.3); Potassium 4.2 mmol/L (3.5-5.1)
[2020-09-10 15:27] LABS: HCT 27.8 % (39.0-53.0); Hypochromasia Slight; MCH 29.7 pg (25.0-35.0); MCHC 33.3 g/dL (31.0-37.0); MCV 89.4 fL (80.0-100.0); Mean Platelet Volume 8.2; Poikilocytosis Slight; RBC 3.11 m/uL (4.30-5.90); RDW 15.9 % (11.5-15.5)
[2020-09-10 15:38] LABS: HGB 9.3 gm/dL (13.0-17.5); Platelet Count 74 k/uL (150-450)
[2020-09-10 15:57] LABS: Lymphocytes # (M) 0.76 k/uL (1.0-4.8); Monocytes # (M) 0.64 k/uL (0-1.0); Neutrophils # (M) 11.43 k/uL (1.3-7.7); Neutrophils % (M) 90 %; Nucleated Red Blood Cells 13 /100 WBC (0-0); Polychromasia Present; Total Cells Counted 200; WBC 12.7 k/uL (3.8-10.6)
--- NOTE | 2020-09-10 16:07 | P.PN ---
Subjective Progress Note Date: 09/10/20 Principal diagnosis: Acute hypoxic respiratory failure secondary to acute pulmonary edema, acute non- ST segment elevation myocardial infarction, acute GI bleed with acute cardiogen ic shock 85-year-old white male patient with previous history of coronary artery disease with bypass grafting, previous history of myocardial infarction, former smoker, hyperlipidemia, presented to the emergency department on 09/06/2020 for evaluation of a 2 day history of passing dark tarry stools concerning for acute GI bleeding. Patient reports increased fatigue and dyspnea, and epigastric and lower chest discomfort. .he is not on any anticoagulation, denies any abdominal pain, he was noted to be borderline hypotensive, tachycardic on arrival. His hemoglobin on admission was 6. Patient was transfused with 2 units of packed red blood cells, positive lactic acid was elevated at 5.0 and subsequently increased to 11.7, patient hasn't done troponin elevation on admission with troponin level III.550, which has subsequently increased to 7.2, and 36.9 with a third set, cardiology has been consulted, his chest x-ray shows evidence of pulmonary edema, patient is short of breath, he is requiring BiPAP support currently, he is hypotensive, requiring levo fed support at 13 weeks per minute, he is currently on D5 with 3 A of bicarbonate at a rate of 75 ML per hour, his BiPAP settings are 10 and 5 and FiO2 of 80%. States he is short of breath, does not appear to be in any acute distress, his abdomen is distended, but nontender, this morning his hemoglobin is 9.4, blood cell count increased to 17.2, his renal function has worsened, BUN of 32 and creatinine of 1.3, proBNP level is 4820, he is evaluation by GI service, cardiology has been consulted, his echocardiogram revealed severely impaired systolic function with the EF between 25-30%, there was a moderate mitral regurgitation, mild to moderate tricuspid regurgitation, and mild pulmonary hypertension with right-sided pressures of 33.9 mmHg. X-ray of the abdomen showed nonobstructed bowel gas pattern, ear distended stomach, moderate fecal retention, renal ultrasound showed no hydronephrosis. Patient was given a small dose of Lasix 20 mg last night, has not produced significant output, remains oliguric, he will be given additional dose of 60 mg Lasix today, and cardiology after further discussion switched it to lasix infusion at 10 mg per hour, and dobutamine infusion was added. His current BiPAP settings are 10.5 and FiO2 of 80% Patient was reevaluated today in the ICU, remains on BiPAP, he is on IPAP of 10 and EPAP of 5, FiO2 is 60%, patient is on norepinephrine at 0.35 mcg/kg/m, he is also on amiodarone at 1 mg/minutes. Patient is off the Imitrex because he developed atrial fibrillation with RVR while on Dobutrex. Chest x-ray continues to show evidence of pulmonary edema. Slightly improved compared to the chest x- ray yesterday. But still consistent with pulmonary edema. Patient is also developing leukocytosis with WBC count of 23.8, hemoglobin is 9.6, received a total of 2 units of packed RBCs since admission yesterday. Patient has marginal urine output, and he remains in positive fluid balance roughly about 1 L in the last 24 hours. ABG on BiPAP today showed a pO2 of 125 pCO2 of 33 pH of 7.42. His potassium is a bit elevated at 5.4, his BUN is 65 and creatinine is 2.64. Right carpal is 20 this morning. Patient was switched to oral bicarb 650 mg by mouth 3 times a day. And his off sodium bicarb drip at present. Remains on Lasix drip at 10 mg per hour, he is also on Zaroxolyn 5 mg daily. Obviously the patient is not making significant improvement, but he is relatively holding. Yesterday I had a long discussion with the patient and his son while he was in the ER, and he clearly expressed wishes as not to be intubated and placed on mechanical ventilation. Reevaluated today on 09/09/20, patient remains in the ICU, remains on norepinephrine at 12 mcg/m, he is also on amiodarone at 1 mg/m, IV fluid at KVO, Lasix drip at 10 mg per hour. Patient is feeling better, he is on few liters nasal cannula, he is however in atrial fibrillation with RVR, amiodarone remains as requested by cardiology. Patient is alert oriented 3, and we are in the process of hopefully weaning off levo fed. Renal status is showing slight improvement, patient has good urine output roughly about 200 mL per hour. Patient was on BiPAP last night, however he was switched to a nasal cannula today. Chest x-ray continues to show evidence of cardiomegaly, and central venous congestion, small bilateral pleural effusions noted. Interval improvement is noted compared to chest x-ray on admission . Hemoglobin is holding remains around 8. WBC count is 15.5. BUN is 69 today creatinine is d own to 2.08. compared to 2.64 yesterday. The patient is seen today 09/10/2020 in follow-up in the intensive care unit. He is currently sitting up in bed. Awake and alert in no acute distress. Karolina ntaining O2 saturation in the 90s on 2 L/m per nasal cannula. Remains tachycardic. Slightly tachypneic. Hypotensive. On amiodarone drip at 1 mg/m. Lasix drip at 10 mg per hour. Zaroxolyn. IV Solu-Medrol. Norepinephrine at 8 mcg/m. 0.9 normal saline at, pulse per hour. Chest x-ray reveals cardiomegaly. Improving left lower lobe infiltrate. Minimal residual right pleural effusion. Hemoglobin was 6.9 earlier, transfused, current hemoglobin 9.3. He is status post 3 units of packed red blood cells this admission. White count 12.7. Platelets 74,000. Sodium 131. Potassium 4.2. Creatinine 1.71. Arterial blood gases on 28% FiO2 revealed a pO2 of 97, pCO2 41, pH 7.43. Objective - Vital Signs Vital signs: Vital Signs Temp 98.1 F 09/10/20 12:19 Pulse 121 H 09/10/20 15:00 Resp 24 09/10/20 15:00 BP 93/73 09/10/20 15:00 Pulse Ox 94 L 09/10/20 15:00 Intake & Output 09/09/20 09/10/20 09/10/20 18:59 06:59 18:59 Intake Total 1268.316 813.416 1071.433 Output Total 1115 1615 1510 Balance 153.316 -1205.746 -463.567 Weight 106 kg Intake: IV 391.4 0.9 NACL 80 amiodarone 266.4 lasix 45 Intake, IV Titration 468.316 209.254 345.033 Amount Amiodarone 300 mg In 250 72.10 45.033 Dextrose 5% in Water 250 ml @ 1 MG/MIN 50 mls/hr IV .Q5H [facility] Rx#:[id number] Calcium Gluconate 1 gm In 100 Sodium Chloride 0.9% 100 ml @ 100 mls/hr IVPB ONCE ONE Rx#:[id number] Furosemide 100 mg In 126.333 72.333 Sodium Chloride 0.9% 90 ml @ 5 MG/HR 5 mls/hr IV .Q20H [facility] Rx#:[id number] Norepinephrine 32 mg In 91.983 64.821 Sodium Chloride 0.9% 218 ml @ 0.05 MCG/KG/MIN 2. 555 mls/hr IV .Q24H [facility] Rx#:[id number] Potassium Chloride 20 meq 200 In Water For Injection 1 100ml.bag @ 50 mls/hr IVPB Q2H [facility] Rx#: [id number] Oral 800 200 Blood Product 310 Rc As-1 Unit 310 [id number] Output: Urine 1115 1615 1510 Other: Voiding Method Indwelling Catheter Indwelling Catheter Indwelling Catheter ABP, PAP, CO, CI - Last Documented Arterial Blood Pressure 100/95 - Exam GENERAL EXAM: Revealed a pleasant 85-year-old male patient, on 2 L nasal cannula, in no distress, much better today compared to yesterday. HEAD: Normocephalic/atraumatic. ENT: Dry mucous membranes, PERRLA, EOMI, no icterus, no neck masses, no JVD. CHEST: No chest wall deformity. Symmetrical expansion. LUNGS: Minimal crackles at the bases. CVS: Regular rate and rhythm, normal S1 and S2, no gallops, no murmurs, no rubs ABDOMEN: Obese, Soft, nontender. No hepatosplenomegaly, normal bowel sounds, no guarding or rigidity. EXTREMITIES: No clubbing, trace of bipedal edema, slight cyanosis, 2+ pulses and upper and lower extremities. Cold feet bilaterally. Diminished distal pulses MUSCULOSKELETAL: Muscle strength and tone normal. SKIN: No rashes CENTRAL NERVOUS SYSTEM: Alert and oriented 3, no gross focal deficits. PSYCHIATRIC: Normal mood affect and normal mental status examination. - Labs CBC & Chem 7: 09/10/20 15:00 09/10/20 15:00 Labs: Abnormal Lab Results - Last 24 Hours (Table) 09/10/20 09/10/20 09/10/20 Range/Units 05:11 05:11 07:00 WBC 11.7 H (3.8-10.6) k/uL RBC 2.26 L (4.30-5.90) m/uL Hgb 6.9 L* (13.0-17.5) gm/dL Hct 20.3 L (39.0-53.0) % RDW 16.3 H (11.5-15.5) % Plt Count 66 L (150-450) k/uL Neutrophils # (Manual) 8.80 H (1.3-7.7) k/uL Monocytes # (Manual) 1.17 H (0-1.0) k/uL Metamyelocytes # (Man) 0.23 H (0) k/uL Nucleated RBCs 4 H (0-0) /100 WBC ABG HCO3 (21-25) mmol/L ABG Total CO2 (19-24) mmol/L ABG O2 Saturation (94-97) % Sodium 134 L (137-145) mmol/L Potassium 2.9 L (3.5-5.1) mmol/L Chloride (98-107) mmol/L Carbon Dioxide (22-30) mmol/L BUN 69 H (9-20) mg/dL Creatinine 1.53 H (0.66-1.25) mg/dL Glucose 125 H (74-99) mg/dL Calcium 6.0 L* (8.4-10.2) mg/dL Ionized Calcium Vikki (4.5-5.3) mg/dL Albumin (3.5-5.0) g/dL Crossmatch See Detail 09/10/20 09/10/20 09/10/20 Range/Units 09:08 15:00 15:00 WBC 14.3 H (3.8-10.6) k/uL RBC 3.11 L (4.30-5.90) m/uL Hgb 9.3 L D (13.0-17.5) gm/dL Hct 27.8 L (39.0-53.0) % RDW 15.9 H (11.5-15.5) % Plt Count (150-450) k/uL Neutrophils # (Manual) (1.3-7.7) k/uL Monocytes # (Manual) (0-1.0) k/uL Metamyelocytes # (Man) (0) k/uL Nucleated RBCs (0-0) /100 WBC ABG HCO3 30 H (21-25) mmol/L ABG Total CO2 32 H (19-24) mmol/L ABG O2 Saturation 99.2 H (94-97) % Sodium (137-145) mmol/L Potassium (3.5-5.1) mmol/L Chloride (98-107) mmol/L Carbon Dioxide (22-30) mmol/L BUN (9-20) mg/dL Creatinine (0.66-1.25) mg/dL Glucose (74-99) mg/dL Calcium (8.4-10.2) mg/dL Ionized Calcium Vikki 4.2 L (4.5-5.3) mg/dL Albumin (3.5-5.0) g/dL Crossmatch 09/10/20 Range/Units 15:00 WBC (3.8-10.6) k/uL RBC (4.30-5.90) m/uL Hgb (13.0-17.5) gm/dL Hct (39.0-53.0) % RDW (11.5-15.5) % Plt Count (150-450) k/uL Neutrophils # (Manual) (1.3-7.7) k/uL Monocytes # (Manual) (0-1.0) k/uL Metamyelocytes # (Man) (0) k/uL Nucleated RBCs (0-0) /100 WBC ABG HCO3 (21-25) mmol/L ABG Total CO2 (19-24) mmol/L ABG O2 Saturation (94-97) % Sodium 131 L (137-145) mmol/L Potassium (3.5-5.1) mmol/L Chloride 94 L (98-107) mmol/L Carbon Dioxide 33 H (22-30) mmol/L BUN 79 H (9-20) mg/dL Creatinine 1.71 H (0.66-1.25) mg/dL Glucose 160 H (74-99) mg/dL Calcium 7.3 L (8.4-10.2) mg/dL Ionized Calcium Vikki (4.5-5.3) mg/dL Albumin 2.9 L (3.5-5.0) g/dL Crossmatch Assessment and Plan Assessment: 1 Acute hypoxic referring failure, secondary to acute systolic congestive heart failure and pulmonary edema, improving on 2 L nasal cannula, remains on a Lasix drip 2 Acute cardiogenic shock and pulmonary edema secondary to acute systolic dysfunction, currently on norepinephrine 3 Acute non-ST elevation myocardial infarction 4 Ischemic cardiomyopathy and LV dysfunction, ejection fraction is 25-30%. 5 Acute GI bleeding, exact source in nature is not clear at this point. Status post 3 units packed red blood cells this admission. Current hemoglobin 9.3. 6 Acute kidney injury, suspect acute tubular necrosis secondary to hypotension and possible cardiorenal syndrome. 7 Acute lactic acidosis secondary to hypoperfusion and cardiogenic shock. 8 History of coronary artery disease and previous CABG. 9 Former smoker. 10 New-onset atrial fibrillation with RVR. Plan: The patient was seen and evaluated by Dr. Ferrer Chest x-ray and labs reviewed Add Solu-Medrol 40 mg every 8 hours Decrease Lasix drip at 5 mg per hour Wean off norepinephrine as tolerated Transfuse a unit of packed red blood cells, continue to monitor hemoglobin Continue Protonix Rate control per cardiology We will continue to follow and make further recommendations based on his clinical status I, the cosigning physician, performed a history & physical examination of the patient. Lungs sounds crackles in the bilateral posterior bases. Maintaining good O2 saturations in the 90s on 2 L/m per nasal cannula. I discussed the assessment and plan of care with my nurse practitioner, Shima Walsh. I attest to the above note as dictated by her.
[2020-09-10] MEDS: metOLazone 5 MG TAB PO SCH (21:03)
[2020-09-11] MEDS: MORPHINE SULFATE 4 MG/ML SYRINGE IVP PRN (00:07)
[2020-09-11] MEDS: AMIODARONE 300 MG in DEXTROSE 5% IN WATER 250 ML IV SCH ×4 (00:07→06:34)
[2020-09-11] MEDS: methylPREDNISolone SOD SUCCI 40 MG/ML 1 ML VIAL IV SCH ×3 (00:09→16:07)
[2020-09-11 04:38] LABS: Anisocytosis Slight; HCT 27.8 % (39.0-53.0); HGB 9.1 gm/dL (13.0-17.5); Hypochromasia Slight; MCHC 32.8 g/dL (31.0-37.0); MCV 88.2 fL (80.0-100.0); Mean Platelet Volume 9.1; Poikilocytosis Slight; RBC 3.16 m/uL (4.30-5.90); RDW 16.2 % (11.5-15.5)
[2020-09-11 04:54] LABS: Platelet Count 78 k/uL (150-450)
[2020-09-11 04:57] LABS: Calcium 7.5 mg/dL (8.4-10.2); Magnesium 2.4 mg/dL (1.6-2.3); Potassium 3.8 mmol/L (3.5-5.1)
[2020-09-11 05:15] LABS: Band Neutrophils % 2 %; Lymphocytes # (M) 0.96 k/uL (1.0-4.8); Monocytes # (M) 0.36 k/uL (0-1.0); Neutrophils % (M) 88 %; Nucleated Red Blood Cells 20 /100 WBC (0-0); Polychromasia Present; Total Cells Counted 200
--- NOTE | 2020-09-11 07:37 | XR ---
EXAMINATION TYPE: XR chest 1V portable DATE OF EXAM: 09/11/2020 COMPARISON: 1218 HISTORY: Cough TECHNIQUE: Single frontal view of the chest is obtained. FINDINGS: Cardiomegaly with diffuse interstitial pattern, bilateral infiltrate and pleural effusion. No pneumothorax. Postoperative changes seen. Arthropathy of the shoulders. IMPRESSION: Diffuse pleural-parenchymal changes stable correlate for CHF otherwise consider pneumoni a.
[2020-09-11 07:54] LABS: Glucose,Whole Blood 224 mg/dL (75-99)
[2020-09-11] MEDS: INSULIN ASPART (NovoLOG) 100 UNIT/ML VIAL SQ SCH ×4 (08:22→20:03)
[2020-09-11] MEDS: PANTOPRAZOLE 40 MG/10 ML VIAL IVP SCH ×2 (08:22→19:57)
[2020-09-11] MEDS ORDERED: metOLazone 5 MG TAB PO SCH (09:00)
[2020-09-11] MEDS: NOREPINEPHRINE 32 MG in SODIUM CHLORIDE 0.9% 218 ML IV SCH (09:56)
--- NOTE | 2020-09-11 10:48 | P.PN ---
Subjective Progress Note Date: 09/11/20 Principal diagnosis: Melena, anemia of acute blood loss Patient is seen lying in bed in no acute complaints. She tolerated breakfast. No further signs or symptoms of GI bleeding. Objective - Vital Signs Vital signs: Vital Signs Temp 97.6 F 09/11/20 08:00 Pulse 114 H 09/11/20 08:00 Resp 31 H 09/11/20 08:00 BP 94/77 09/11/20 08:00 Pulse Ox 98 09/11/20 08:00 Intake & Output 09/10/20 09/11/20 09/11/20 18:59 06:59 18:59 Intake Total 1317.583 380.194 15 Output Total 2110 1705 175 Balance -792.417 -1324.806 -160 Weight 107.1 kg Intake: IV 536.3 228.3 15 0.9 NACL 110 130 10 amiodarone 366.3 33.3 lasix 60 65 5 Intake, IV Titration 471.283 151.894 Amount Amiodarone 300 mg In 71.283 94.500 Dextrose 5% in Water 250 ml @ 1 MG/MIN 50 mls/hr IV .Q5H [facility] Rx#:[id number] Calcium Gluconate 1 gm In 100 Sodium Chloride 0.9% 100 ml @ 100 mls/hr IVPB ONCE ONE Rx#:[id number] Furosemide 100 mg In 100 Sodium Chloride 0.9% 90 ml @ 5 MG/HR 5 mls/hr IV .Q20H [facility] Rx#:[id number] Norepinephrine 32 mg In 57.394 Sodium Chloride 0.9% 218 ml @ 0.05 MCG/KG/MIN 2. 555 mls/hr IV .Q24H [facility] Rx#:[id number] Potassium Chloride 20 meq 200 In Water For Injection 1 100ml.bag @ 50 mls/hr IVPB Q2H [facility] Rx#: [id number] Blood Product 310 Rc As-1 Unit 310 [id number] Output: Urine 2110 1705 175 Other: Voiding Method Indwelling Catheter Indwelling Catheter ABP, PAP, CO, CI - Last Documented Arterial Blood Pressure 92/79 - Exam On physical examination, patient appears comfortable in no apparent distress. HEAD: Normocephalic, atraumatic. EYES: No scleral icterus. No conjunctival injection. MOUTH: No lesions, tongue midline. NECK: Trachea midline, no gross abnormalities. CHEST: Decreased air entry in all lung ortiz. HEART: S1-S2 appreciated. ABDOMEN: Soft, obese. Bowel sounds are positive. No organomegaly. No guarding or rigidity. EXTREMITIES: Bilateral pedal edema. SKIN: No rashes, no jaundice. NEUROLOGIC: Alert and oriented to person and place. - Labs CBC & Chem 7: 09/11/20 04:20 09/11/20 04:20 Labs: Abnormal Lab Results - Last 24 Hours (Table) 09/10/20 09/10/20 09/10/20 Range/Units 07:00 15:00 15:00 WBC 12.7 H (3.8-10.6) k/uL RBC 3.11 L (4.30-5.90) m/uL Hgb 9.3 L D (13.0-17.5) gm/dL Hct 27.8 L (39.0-53.0) % RDW 15.9 H (11.5-15.5) % Plt Count 74 L (150-450) k/uL Neutrophils # (Manual) 11.43 H (1.3-7.7) k/uL Lymphocytes # (Manual) 0.76 L (1.0-4.8) k/uL Nucleated RBCs 13 H (0-0) /100 WBC Sodium (137-145) mmol/L Chloride (98-107) mmol/L Carbon Dioxide (22-30) mmol/L BUN (9-20) mg/dL Creatinine (0.66-1.25) mg/dL Glucose (74-99) mg/dL POC Glucose (mg/dL) (75-99) mg/dL Calcium (8.4-10.2) mg/dL Ionized Calcium Vikki 4.2 L (4.5-5.3) mg/dL Magnesium (1.6-2.3) mg/dL Albumin (3.5-5.0) g/dL Crossmatch See Detail 09/10/20 09/11/20 09/11/20 Range/Units 15:00 04:20 04:20 WBC 12.0 H (3.8-10.6) k/uL RBC 3.16 L (4.30-5.90) m/uL Hgb 9.1 L (13.0-17.5) gm/dL Hct 27.8 L (39.0-53.0) % RDW 16.2 H (11.5-15.5) % Plt Count 78 L (150-450) k/uL Neutrophils # (Manual) 10.80 H (1.3-7.7) k/uL Lymphocytes # (Manual) 0.96 L (1.0-4.8) k/uL Nucleated RBCs 20 H (0-0) /100 WBC Sodium 131 L 131 L (137-145) mmol/L Chloride 94 L 95 L (98-107) mmol/L Carbon Dioxide 33 H 33 H (22-30) mmol/L BUN 79 H 82 H (9-20) mg/dL Creatinine 1.71 H 1.57 H (0.66-1.25) mg/dL Glucose 160 H 171 H (74-99) mg/dL POC Glucose (mg/dL) (75-99) mg/dL Calcium 7.3 L 7.5 L (8.4-10.2) mg/dL Ionized Calcium Vikki (4.5-5.3) mg/dL Magnesium 2.4 H (1.6-2.3) mg/dL Albumin 2.9 L (3.5-5.0) g/dL Crossmatch 09/11/20 Range/Units 07:51 WBC (3.8-10.6) k/uL RBC (4.30-5.90) m/uL Hgb (13.0-17.5) gm/dL Hct (39.0-53.0) % RDW (11.5-15.5) % Plt Count (150-450) k/uL Neutrophils # (Manual) (1.3-7.7) k/uL Lymphocytes # (Manual) (1.0-4.8) k/uL Nucleated RBCs (0-0) /100 WBC Sodium (137-145) mmol/L Chloride (98-107) mmol/L Carbon Dioxide (22-30) mmol/L BUN (9-20) mg/dL Creatinine (0.66-1.25) mg/dL Glucose (74-99) mg/dL POC Glucose (mg/dL) 224 H (75-99) mg/dL Calcium (8.4-10.2) mg/dL Ionized Calcium Vikki (4.5-5.3) mg/dL Magnesium (1.6-2.3) mg/dL Albumin (3.5-5.0) g/dL Crossmatch Assessment and Plan (1) Melena Narrative/Plan: 85-year-old male with multiple medical comorbidities presenting with black tarry bowel movements over the past 4 days. Hemoglobin 6.4 status post transfusion of 2 units of packed red blood cells hemoglobin currently improved and stable. No recent EGD or colonoscopy. Unclear etiology may be secondary to gastritis, esophagitis, peptic ulcer disease or other etiology. Currently patient is being treated for elevated troponins and new onset atrial fibrillation with RVR and being followed by the pulmonology and cardiology services. Current Visit: Yes Status: Acute Code(s): K92.1 - MELENA SNOMED Code(s): 3786402 (2) Anemia associated with acute blood loss Current Visit: Yes Status: Acute Code(s): D62 - ACUTE POSTHEMORRHAGIC ANEMIA SNOMED Code(s): 630832310 (3) GI bleed Current Visit: Yes Status: Acute Code(s): K92.2 - GASTROINTESTINAL HEMORRHAGE, UNSPECIFIED SNOMED Code(s): 36204902 Plan: Supportive care Continue Protonix 40 mg twice daily Okay for diet as tolerated Continue to monitor hemoglobin and hematocrit and transfuse as needed Appreciate recommendations from cardiology and pulmonology service is Will consider proceeding to EGD was medically stable and cleared by cardiology and pulmonology service is Thank you for allowing us to participate in the care of the patient
[2020-09-11 11:53] LABS: Glucose,Whole Blood 343 mg/dL (75-99)
[2020-09-11] MEDS: AMIODARONE 200 MG TAB PO SCH ×3 (11:54→22:16)
--- NOTE | 2020-09-11 12:04 | P.PN ---
Subjective Progress Note Date: 09/11/20 Follow-up for acute kidney injury. Good urine output with Lasix. Negative of 2 L in the last 24 hours. Objective - Vital Signs Vital signs: Vital Signs Temp 97.6 F 09/11/20 08:00 Pulse 103 H 09/11/20 11:30 Resp 23 09/11/20 11:30 BP 108/79 09/11/20 11:30 Pulse Ox 99 09/11/20 11:30 Intake & Output 09/10/20 09/11/20 09/11/20 18:59 06:59 18:59 Intake Total 1317.583 380.194 60 Output Total 2110 1705 595 Balance -792.417 -1324.806 -535 Weight 107.1 kg Intake: IV 536.3 228.3 60 0.9 NACL 110 130 40 amiodarone 366.3 33.3 lasix 60 65 20 Intake, IV Titration 471.283 151.894 Amount Amiodarone 300 mg In 71.283 94.500 Dextrose 5% in Water 250 ml @ 1 MG/MIN 50 mls/hr IV .Q5H [facility] Rx#:[id number] Calcium Gluconate 1 gm In 100 Sodium Chloride 0.9% 100 ml @ 100 mls/hr IVPB ONCE ONE Rx#:[id number] Furosemide 100 mg In 100 Sodium Chloride 0.9% 90 ml @ 5 MG/HR 5 mls/hr IV .Q20H [facility] Rx#:[id number] Norepinephrine 32 mg In 57.394 Sodium Chloride 0.9% 218 ml @ 0.05 MCG/KG/MIN 2. 555 mls/hr IV .Q24H [facility] Rx#:[id number] Potassium Chloride 20 meq 200 In Water For Injection 1 100ml.bag @ 50 mls/hr IVPB Q2H [facility] Rx#: [id number] Blood Product 310 Rc As-1 Unit 310 [id number] Output: Urine 2110 1705 595 Other: Voiding Method Indwelling Catheter Indwelling Catheter Indwelling Catheter ABP, PAP, CO, CI - Last Documented Arterial Blood Pressure 92/79 - Exam No acute distress S1-S2 heard Decreased breath sounds Edema - Labs CBC & Chem 7: 09/11/20 04:20 09/11/20 04:20 Labs: Abnormal Lab Results - Last 24 Hours (Table) 1209/10/20 09/10/20 Range/Units 07:00 15:00 15:00 WBC 12.7 H (3.8-10.6) k/uL RBC 3.11 L (4.30-5.90) m/uL Hgb 9.3 L D (13.0-17.5) gm/dL Hct 27.8 L (39.0-53.0) % RDW 15.9 H (11.5-15.5) % Plt Count 74 L (150-450) k/uL Neutrophils # (Manual) 11.43 H (1.3-7.7) k/uL Lymphocytes # (Manual) 0.76 L (1.0-4.8) k/uL Nucleated RBCs 13 H (0-0) /100 WBC Sodium (137-145) mmol/L Chloride (98-107) mmol/L Carbon Dioxide (22-30) mmol/L BUN (9-20) mg/dL Creatinine (0.66-1.25) mg/dL Glucose (74-99) mg/dL POC Glucose (mg/dL) (75-99) mg/dL Calcium (8.4-10.2) mg/dL Ionized Calcium Vikki 4.2 L (4.5-5.3) mg/dL Magnesium (1.6-2.3) mg/dL Albumin (3.5-5.0) g/dL Crossmatch See Detail 09/10/20 09/11/20 09/11/20 Range/Units 15:00 04:20 04:20 WBC 12.0 H (3.8-10.6) k/uL RBC 3.16 L (4.30-5.90) m/uL Hgb 9.1 L (13.0-17.5) gm/dL Hct 27.8 L (39.0-53.0) % RDW 16.2 H (11.5-15.5) % Plt Count 78 L (150-450) k/uL Neutrophils # (Manual) 10.80 H (1.3-7.7) k/uL Lymphocytes # (Manual) 0.96 L (1.0-4.8) k/uL Nucleated RBCs 20 H (0-0) /100 WBC Sodium 131 L 131 L (137-145) mmol/L Chloride 94 L 95 L (98-107) mmol/L Carbon Dioxide 33 H 33 H (22-30) mmol/L BUN 79 H 82 H (9-20) mg/dL Creatinine 1.71 H 1.57 H (0.66-1.25) mg/dL Glucose 160 H 171 H (74-99) mg/dL POC Glucose (mg/dL) (75-99) mg/dL Calcium 7.3 L 7.5 L (8.4-10.2) mg/dL Ionized Calcium Vikki (4.5-5.3) mg/dL Magnesium 2.4 H (1.6-2.3) mg/dL Albumin 2.9 L (3.5-5.0) g/dL Crossmatch 09/11/20 09/11/20 Range/Units 07:51 11:52 WBC (3.8-10.6) k/uL RBC (4.30-5.90) m/uL Hgb (13.0-17.5) gm/dL Hct (39.0-53.0) % RDW (11.5-15.5) % Plt Count (150-450) k/uL Neutrophils # (Manual) (1.3-7.7) k/uL Lymphocytes # (Manual) (1.0-4.8) k/uL Nucleated RBCs (0-0) /100 WBC Sodium (137-145) mmol/L Chloride (98-107) mmol/L Carbon Dioxide (22-30) mmol/L BUN (9-20) mg/dL Creatinine (0.66-1.25) mg/dL Glucose (74-99) mg/dL POC Glucose (mg/dL) 224 H 343 H (75-99) mg/dL Calcium (8.4-10.2) mg/dL Ionized Calcium Vikki (4.5-5.3) mg/dL Magnesium (1.6-2.3) mg/dL Albumin (3.5-5.0) g/dL Crossmatch Assessment and Plan Assessment: #1 Nonoliguric acute kidney injury secondary to ischemic ATN and cardiorenal syndrome. Baseline creatinine near 1. #2 systolic CHF with the EF of 25% #3 hypervolemic hyponatremia #4 low normal blood pressures #5 volume overload #6 metabolic alkalosis secondary to diuretics Plan: #1 renal function stable and improving. Continue with Lasix at 5 mg an hour. #2 discontinue metolazone with hyponatremia. Metolazone can cause hyponatremia. #3 avoid nephrotoxic agents and hypotensive episodes.
--- NOTE | 2020-09-11 14:04 | P.PN ---
Subjective Progress Note Date: 09/11/20 Principal diagnosis: Acute hypoxic respiratory failure secondary to acute non-ST elevation myocardial infarction, pulmonary edema, and acute GI bleeding as well as acute cardiogenic shock. 85-year-old white male patient with previous history of coronary artery disease with bypass grafting, previous history of myocardial infarction, former smoker, hyperlipidemia, presented to the emergency department on 09/06/2020 for evaluation of a 2 day history of passing dark tarry stools concerning for acute GI bleeding. Patient reports increased fatigue and dyspnea, and epigastric and lower chest discomfort. .he is not on any anticoagulation, denies any abdominal pain, he was noted to be borderline hypotensive, tachycardic on arrival. His hemoglobin on admission was 6. Patient was transfused with 2 units of packed red blood cells, positive lactic acid was elevated at 5.0 and subsequently increased to 11.7, patient hasn't done troponin elevation on admission with troponin level III.550, which has subsequently increased to 7.2, and 36.9 with a third set, cardiology has been consulted, his chest x-ray shows evidence of pulmonary edema, patient is short of breath, he is requiring BiPAP support currently, he is hypotensive, requiring levo fed support at 13 weeks per minute, he is currently on D5 with 3 A of bicarbonate at a rate of 75 ML per hour, his BiPAP settings are 10 and 5 and FiO2 of 80%. States he is short of breath, does not appear to be in any acute distress, his abdomen is distended, but nontender, this morning his hemoglobin is 9.4, blood cell count increased to 17.2, his renal function has worsened, BUN of 32 and creatinine of 1.3, proBNP level is 48 20, he is evaluation by GI service, cardiology has been consulted, his echocardiogram revealed severely impaired systolic function with the EF between 25-30%, there was a moderate mitral regurgitation, mild to moderate tricuspid regurgitation, and mild pulmonary hypertension with right-sided pressures of 33.9 mmHg. X-ray of the abdomen showed nonobstructed bowel gas pattern, ear distended stomach, moderate fecal retention, renal ultrasound showed no hydronephrosis. Patient was given a small dose of Lasix 20 mg last night, has not produced significant output, remains oliguric, he will be given additional dose of 60 mg Lasix today, and cardiology after further discussion switched it to lasix infusion at 10 mg per hour, and dobutamine infusion was added. His current BiPAP settings are 10.5 and FiO2 of 80% Patient was reevaluated today in the ICU, remains on BiPAP, he is on IPAP of 10 and EPAP of 5, FiO2 is 60%, patient is on norepinephrine at 0.35 mcg/kg/m, he is also on amiodarone at 1 mg/minutes. Patient is off the Imitrex because he developed atrial fibrillation with RVR while on Dobutrex. Chest x-ray continues to show evidence of pulmonary edema. Slightly improved compared to the chest x- ray yesterday. But still consistent with pulmonary edema. Patient is also developing leukocytosis with WBC count of 23.8, hemoglobin is 9.6, received a total of 2 units of packed RBCs since admission yesterday. Patient has marginal urine output, and he remains in positive fluid balance roughly about 1 L in the last 24 hours. ABG on BiPAP today showed a pO2 of 125 pCO2 of 33 pH of 7.42. His potassium is a bit elevated at 5.4, his BUN is 65 and creatinine is 2.64. Right carpal is 20 this morning. Patient was switched to oral bicarb 650 mg by mouth 3 times a day. And his off sodium bicarb drip at present. Remains on Lasix drip at 10 mg per hour, he is also on Zaroxolyn 5 mg daily. Obviously the patient is not making significant improvement, but he is relatively holding. Yesterday I had a long discussion with the patient and his son while he was in the ER, and he clearly expressed wishes as not to be intubated and placed on mechanical ventilation. Reevaluated today on 09/09/20, patient remains in the ICU, remains on norepinephrine at 12 mcg/m, he is also on amiodarone at 1 mg/m, IV fluid at KVO, Lasix drip at 10 mg per hour. Patient is feeling better, he is on few liters nasal cannula, he is however in atrial fibrillation with RVR, amiodarone remains as requested by cardiology. Patient is alert oriented 3, and we are in the process of hopefully weaning off levo fed. Renal status is showing slight improvement, patient has good urine output roughly about 200 mL per hour. Patient was on BiPAP last night, however he was switched to a nasal cannula t reji. Chest x-ray continues to show evidence of cardiomegaly, and central venous congestion, small bilateral pleural effusions noted. Interval improvement is noted compared to chest x-ray on admission . Hemoglobin is holding remains around 8. WBC count is 15.5. BUN is 69 today creatinine is veronika n to 2.08. compared to 2.64 yesterday. The patient is seen today 09/10/2020 in follow-up in the intensive care unit. He is currently sitting up in bed. Awake and alert in no acute distress. Maint aining O2 saturation in the 90s on 2 L/m per nasal cannula. Remains tachycardic. Slightly tachypneic. Hypotensive. On amiodarone drip at 1 mg/m. Lasix drip at 10 mg per hour. Zaroxolyn. IV Solu-Medrol. Norepinephrine at 8 mcg/m. 0.9 normal saline at, pulse per hour. Chest x-ray reveals cardiomegaly. Improving left lower lobe infiltrate. Minimal residual right pleural effusion. Hemoglobin was 6.9 earlier, transfused, current hemoglobin 9.3. He is status post 3 units of packed red blood cells this admission. White count 12.7. Platelets 74,000. Sodium 131. Potassium 4.2. Creatinine 1.71. Arterial blood gases on 28% FiO2 revealed a pO2 of 97, pCO2 41, pH 7.4 Reevaluated today on 09/11/20, patient remains in the ICU, he is on 2 L nasal cannula, hemodynamically stable, off norepinephrine, remains on amiodarone at 1 milligram per minute, remains on Lasix at 5 mg per hour, norepinephrine for the last 24 hours. Hemoglobin is 9. Patient is feeling better, and his acrocyanosis in his toes and in the tips of his fingers is improving since norepinephrine was discontinued. WBC count is 12 hemoglobin is 9.1. Renal profile is improving BUN is 82 creatinine is down to 1.57 steadily improving since admission in spite of the Lasix drip at 5 mg per hour. Chest x-ray is showing significant improvement in his pulmonary edema. Objective - Vital Signs Vital signs: Vital Signs Temp 97.6 F 09/11/20 08:00 Pulse 103 H 09/11/20 11:30 Resp 23 09/11/20 11:30 BP 108/79 09/11/20 11:30 Pulse Ox 99 09/11/20 11:30 Intake & Output 09/10/20 09/11/20 09/11/20 18:59 06:59 18:59 Intake Total 1317.583 380.194 60 Output Total 2110 1705 595 Balance -792.417 -1324.806 -535 Weight 107.1 kg Intake: IV 536.3 228.3 60 0.9 NACL 110 130 40 amiodarone 366.3 33.3 lasix 60 65 20 Intake, IV Titration 471.283 151.894 Amount Amiodarone 300 mg In 71.283 94.500 Dextrose 5% in Water 250 ml @ 1 MG/MIN 50 mls/hr IV .Q5H [facility] Rx#:[id number] Calcium Gluconate 1 gm In 100 Sodium Chloride 0.9% 100 ml @ 100 mls/hr IVPB ONCE ONE Rx#:[id number] Furosemide 100 mg In 100 Sodium Chloride 0.9% 90 ml @ 5 MG/HR 5 mls/hr IV .Q20H [facility] Rx#:[id number] Norepinephrine 32 mg In 57.394 Sodium Chloride 0.9% 218 ml @ 0.05 MCG/KG/MIN 2. 555 mls/hr IV .Q24H [facility] Rx#:[id number] Potassium Chloride 20 meq 200 In Water For Injection 1 100ml.bag @ 50 mls/hr IVPB Q2H [facility] Rx#: [id number] Blood Product 310 Rc As-1 Unit 310 [id number] Output: Urine 2110 1705 595 Other: Voiding Method Indwelling Catheter Indwelling Catheter Indwelling Catheter ABP, PAP, CO, CI - Last Documented Arterial Blood Pressure 92/79 - Exam GENERAL EXAM: Revealed a 85-year-old white male, in no distress, much better today compared to yesterday. HEAD: Normocephalic/atraumatic. ENT: Dry mucous membranes, PERRLA, EOMI, no icterus, no neck masses, no JVD. CHEST: No chest wall deformity. Symmetrical expansion. LUNGS: Minimal crackles at the bases. CVS: Regular rate and rhythm, normal S1 and S2, no gallops, no murmurs, no rubs ABDOMEN: Obese, Soft, nontender. No hepatosplenomegaly, normal bowel sounds, no guarding or rigidity. EXTREMITIES: No clubbing, trace of bipedal edema, 2+ pulses and upper and lower extremities. Cold feet bilaterally. With acrocyanosis MUSCULOSKELETAL: Muscle strength and tone normal. SKIN: No rashes, however there is evidence of acrocyanosis tips of his fingers and tips of his toes. Improved compared to yesterday CENTRAL NERVOUS SYSTEM: Alert and oriented 3, no gross focal deficits. PSYCHIATRIC: Normal mood affect and normal mental status examination. - Labs CBC & Chem 7: 09/11/20 04:20 09/11/20 04:20 Labs: Abnormal Lab Results - Last 24 Hours (Table) 09/10/20 09/10/20 09/10/20 Range/Units 15:00 15:00 15:00 WBC 12.7 H (3.8-10.6) k/uL RBC 3.11 L (4.30-5.90) m/uL Hgb 9.3 L D (13.0-17.5) gm/dL Hct 27.8 L (39.0-53.0) % RDW 15.9 H (11.5-15.5) % Plt Count 74 L (150-450) k/uL Neutrophils # (Manual) 11.43 H (1.3-7.7) k/uL Lymphocytes # (Manual) 0.76 L (1.0-4.8) k/uL Nucleated RBCs 13 H (0-0) /100 WBC Sodium 131 L (137-145) mmol/L Chloride 94 L (98-107) mmol/L Carbon Dioxide 33 H (22-30) mmol/L BUN 79 H (9-20) mg/dL Creatinine 1.71 H (0.66-1.25) mg/dL Glucose 160 H (74-99) mg/dL POC Glucose (mg/dL) (75-99) mg/dL Calcium 7.3 L (8.4-10.2) mg/dL Ionized Calcium Vikki 4.2 L (4.5-5.3) mg/dL Magnesium (1.6-2.3) mg/dL Albumin 2.9 L (3.5-5.0) g/dL 09/11/20 09/11/20 09/11/20 Range/Units 04:20 04:20 07:51 WBC 12.0 H (3.8-10.6) k/uL RBC 3.16 L (4.30-5.90) m/uL Hgb 9.1 L (13.0-17.5) gm/dL Hct 27.8 L (39.0-53.0) % RDW 16.2 H (11.5-15.5) % Plt Count 78 L (150-450) k/uL Neutrophils # (Manual) 10.80 H (1.3-7.7) k/uL Lymphocytes # (Manual) 0.96 L (1.0-4.8) k/uL Nucleated RBCs 20 H (0-0) /100 WBC Sodium 131 L (137-145) mmol/L Chloride 95 L (98-107) mmol/L Carbon Dioxide 33 H (22-30) mmol/L BUN 82 H (9-20) mg/dL Creatinine 1.57 H (0.66-1.25) mg/dL Glucose 171 H (74-99) mg/dL POC Glucose (mg/dL) 224 H (75-99) mg/dL Calcium 7.5 L (8.4-10.2) mg/dL Ionized Calcium Vikki (4.5-5.3) mg/dL Magnesium 2.4 H (1.6-2.3) mg/dL Albumin (3.5-5.0) g/dL 09/11/20 Range/Units 11:52 WBC (3.8-10.6) k/uL RBC (4.30-5.90) m/uL Hgb (13.0-17.5) gm/dL Hct (39.0-53.0) % RDW (11.5-15.5) % Plt Count (150-450) k/uL Neutrophils # (Manual) (1.3-7.7) k/uL Lymphocytes # (Manual) (1.0-4.8) k/uL Nucleated RBCs (0-0) /100 WBC Sodium (137-145) mmol/L Chloride (98-107) mmol/L Carbon Dioxide (22-30) mmol/L BUN (9-20) mg/dL Creatinine (0.66-1.25) mg/dL Glucose (74-99) mg/dL POC Glucose (mg/dL) 343 H (75-99) mg/dL Calcium (8.4-10.2) mg/dL Ionized Calcium Vikki (4.5-5.3) mg/dL Magnesium (1.6-2.3) mg/dL Albumin (3.5-5.0) g/dL Assessment and Plan Assessment: Impression: Acute hypoxic referring failure, secondary to acute systolic congestive heart failure and pulmonary edema Acute cardiogenic shock and pulmonary edema secondary to acute systolic dysfunction Acute non-ST elevation myocardial infarction Ischemic cardiomyopathy and LV dysfunction, ejection fraction is 25-30%. Acute GI bleeding, exact source in nature is not clear at this point. Acute kidney injury, suspect acute tubular necrosis secondary to hypotension and possible cardiorenal syndrome. Acute lactic acidosis secondary to hypoperfusion and cardiogenic shock. History of coronary artery disease and previous CABG. Former smoker. New-onset atrial fibrillation with RVR. Recommendation: Continue to monitor in the ICU. Continue amiodarone. Off norepinephrine. Continue Lasix drip. At 5 mg per hour. Continue to monitor hemoglobin, and transfuse if hemoglobin below 8. Continue Protonix. We will continue to follow. Patient will eventually require further cardiac kamille luation possibly a cardiac catheterization. And he would also require further GI workup for his initial issue related to blood loss. Which they have been a contributing factor to his acute myocardial infarction. Time with Patient: Less than 30
[2020-09-11] MEDS: FUROSEMIDE 100 MG in SODIUM CHLORIDE 0.9% 90 ML IV SCH (14:34)
[2020-09-11 16:50] LABS: Glucose,Whole Blood 161 mg/dL (75-99)
--- NOTE | 2020-09-11 17:15 | P.PN ---
Subjective Progress Note Date: 09/11/20 Principal diagnosis: GI bleeding Patient is currently off norepinephrine, remains on amiodarone drip as well as Lasix drip. He continues to feel better. No chest pain or shortness of breath. He is eating and finished his breakfast today. No bowel movement today. No nausea or vomiting. No fevers, no other overnight events. Acrocyanosis in his toes and in the tips of his fingers is improving since norepinephrine was discontinued. Objective - Vital Signs Vital signs: Vital Signs Temp 97.6 F 09/11/20 08:00 Pulse 101 H 09/11/20 16:30 Resp 21 09/11/20 16:30 BP 95/78 09/11/20 16:30 Pulse Ox 98 09/11/20 16:30 Intake & Output 09/10/20 09/11/20 09/11/20 18:59 06:59 18:59 Intake Total 1317.583 480.194 145 Output Total 2110 1705 1305 Balance -792.417 -1224.806 -1160 Weight 107.1 kg Intake: IV 536.3 228.3 145 0.9 NACL 110 130 100 amiodarone 366.3 33.3 lasix 60 65 45 Intake, IV Titration 471.283 251.894 Amount Amiodarone 300 mg In 71.283 94.500 Dextrose 5% in Water 250 ml @ 1 MG/MIN 50 mls/hr IV .Q5H [facility] Rx#:[id number] Calcium Gluconate 1 gm In 100 Sodium Chloride 0.9% 100 ml @ 100 mls/hr IVPB ONCE ONE Rx#:[id number] Furosemide 100 mg In 100 100 Sodium Chloride 0.9% 90 ml @ 5 MG/HR 5 mls/hr IV .Q20H [facility] Rx#:[id number] Norepinephrine 32 mg In 57.394 Sodium Chloride 0.9% 218 ml @ 0.05 MCG/KG/MIN 2. 555 mls/hr IV .Q24H [facility] Rx#:[id number] Potassium Chloride 20 meq 200 In Water For Injection 1 100ml.bag @ 50 mls/hr IVPB Q2H [facility] Rx#: [id number] Blood Product 310 Rc As-1 Unit 310 [id number] Output: Urine 2110 1705 1305 Other: Voiding Method Indwelling Catheter Indwelling Catheter Indwelling Catheter ABP, PAP, CO, CI - Last Documented Arterial Blood Pressure 92/79 - Exam General: [non toxic], [no distress], [appears at stated age] Derm: [warm], [dry] Head: [atraumatic], [normocephalic], [symmetric] Eyes: [EOMI], [no lid lag], [anicteric sclera] Mouth: [no lip lesion], [mucus membranes moist] Cardiovascular: [irregular, tachycardic], [no murmur], [positive posterior tibial pulse bilateral], Lungs: [Diminished bilateral], [no rhonchi, no rales] , [no accessory muscle use] Abdominal: [soft], [ nontender to palpation], [no guarding], [no appreciable organomegaly] Ext: [no gross muscle atrophy], [no edema], [no contractures] Neuro: [ CN II-XI grossly intact], [no focal neuro deficits] Psych: [Alert], [oriented], [appropriate affect] - Labs CBC & Chem 7: 09/11/20 04:20 09/11/20 04:20 Labs: Abnormal Lab Results - Last 24 Hours (Table) 09/11/20 09/11/20 09/11/20 Range/Units 04:20 04:20 07:51 WBC 12.0 H (3.8-10.6) k/uL RBC 3.16 L (4.30-5.90) m/uL Hgb 9.1 L (13.0-17.5) gm/dL Hct 27.8 L (39.0-53.0) % RDW 16.2 H (11.5-15.5) % Plt Count 78 L (150-450) k/uL Neutrophils # (Manual) 10.80 H (1.3-7.7) k/uL Lymphocytes # (Manual) 0.96 L (1.0-4.8) k/uL Nucleated RBCs 20 H (0-0) /100 WBC Sodium 131 L (137-145) mmol/L Chloride 95 L (98-107) mmol/L Carbon Dioxide 33 H (22-30) mmol/L BUN 82 H (9-20) mg/dL Creatinine 1.57 H (0.66-1.25) mg/dL Glucose 171 H (74-99) mg/dL POC Glucose (mg/dL) 224 H (75-99) mg/dL Calcium 7.5 L (8.4-10.2) mg/dL Magnesium 2.4 H (1.6-2.3) mg/dL 09/11/20 09/11/20 Range/Units 11:52 16:48 WBC (3.8-10.6) k/uL RBC (4.30-5.90) m/uL Hgb (13.0-17.5) gm/dL Hct (39.0-53.0) % RDW (11.5-15.5) % Plt Count (150-450) k/uL Neutrophils # (Manual) (1.3-7.7) k/uL Lymphocytes # (Manual) (1.0-4.8) k/uL Nucleated RBCs (0-0) /100 WBC Sodium (137-145) mmol/L Chloride (98-107) mmol/L Carbon Dioxide (22-30) mmol/L BUN (9-20) mg/dL Creatinine (0.66-1.25) mg/dL Glucose (74-99) mg/dL POC Glucose (mg/dL) 343 H 161 H (75-99) mg/dL Calcium (8.4-10.2) mg/dL Magnesium (1.6-2.3) mg/dL Assessment and Plan Plan: Upper GI bleed: With hemoglobin of 6.4 on presentation/Acute blood loss anemia: Status post transfusion of packed red blood cells. Check hemoglobin in a.m. GI recs appreciated. No scopes until stable. Continue IV Protonix 40 mg twice daily. Hypovolemic and cardiogenic shock, with lactic acidosis. Off Levophed drip Continue lasix gtt at 5 mg per hour Hold home blood pressure medications. Acute on chronic systolic heart failure exacerbation, systolic EF=25-30%: With evidence of fluid overload clinically and on chest x-ray. Continue IV Lasix gtt Chest x-ray from today improving. A. 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 Unable to anticoagulate or use aspirin at this time due to GI bleeding. Cardiology recommendations appreciated Acute hypoxic respiratory failure secondary to flash pulmonary edema: Resolved, currently off BiPAP Steroid-induced hyperglycemia Start subcutaneous insulin and follow sliding scale CODE STATUS: DO NOT RESUSCITATE/DO NOT INTUBATE.
[2020-09-11] MEDS ORDERED: Potassium Replacement Protocol 1 EACH MISC MISCELLANE PRN (18:18)
[2020-09-11] MEDS ORDERED: POTASSIUM CHLORIDE ER 20 MEQ TAB.ER PO SCH (19:00)
[2020-09-11 20:04] LABS: Glucose,Whole Blood 81 mg/dL (75-99)
--- NOTE | 2020-09-11 21:20 | P.PN ---
Subjective Patient sitting up in bed. His respiratory status is improved significantly. He is now on only 2 L nasal cannula. He is off norepinephrine. He remains on IV amiodarone. He remains in atrial fibrillation with heart rates between 110 220 beats a minute. While he does have mild lower extremity edema his legs improved tremendously. His urine output on Lasix drip is excellent His chest x-ray has improved On examination heart sounds S1 and S2 are irregular Breath sounds are reduced bilaterally Mild bilateral lower extremity edema noted Impression Severe cardio myopathy Atrial fibrillation with RVR Acute GI bleeding requiring blood transfusions and precipitating heart failure and myocardial injury due to demand ischemia, type II [place] Suggest Switch to oral amiodarone 200 mg 3 times a day Continue IV Lasix while watching BUN and creatinine Objective - Vital Signs Vital signs: Vital Signs Temp 98.7 F 09/11/20 19:00 Pulse 106 H 09/11/20 21:00 Resp 18 09/11/20 21:00 BP 95/68 09/11/20 21:00 Pulse Ox 97 09/11/20 21:00 Intake & Output 09/11/20 09/11/20 09/12/20 06:59 18:59 06:59 Intake Total 480.194 165 45 Output Total 1705 1685 570 Balance -1224.806 -1520 -525 Weight 107.1 kg Intake: IV 228.3 165 45 0.9 NACL 130 110 30 amiodarone 33.3 lasix 65 55 15 Intake, IV Titration 251.894 Amount Amiodarone 300 mg In 94.500 Dextrose 5% in Water 250 ml @ 1 MG/MIN 50 mls/hr IV .Q5H [facility] Rx#:[id number] Furosemide 100 mg In 100 Sodium Chloride 0.9% 90 ml @ 5 MG/HR 5 mls/hr IV .Q20H [facility] Rx#:[id number] Norepinephrine 32 mg In 57.394 Sodium Chloride 0.9% 218 ml @ 0.05 MCG/KG/MIN 2. 555 mls/hr IV .Q24H [facility] Rx#:[id number] Output: Urine 1705 1685 570 Other: Voiding Method Indwelling Catheter Indwelling Catheter Indwelling Catheter ABP, PAP, CO, CI - Last Documented Arterial Blood Pressure 92/79 - Labs CBC & Chem 7: 09/11/20 04:20 09/11/20 04:20 Labs: Abnormal Lab Results - Last 24 Hours (Table) 09/11/20 09/11/20 09/11/20 Range/Units 04:20 04:20 07:51 WBC 12.0 H (3.8-10.6) k/uL RBC 3.16 L (4.30-5.90) m/uL Hgb 9.1 L (13.0-17.5) gm/dL Hct 27.8 L (39.0-53.0) % RDW 16.2 H (11.5-15.5) % Plt Count 78 L (150-450) k/uL Neutrophils # (Manual) 10.80 H (1.3-7.7) k/uL Lymphocytes # (Manual) 0.96 L (1.0-4.8) k/uL Nucleated RBCs 20 H (0-0) /100 WBC Sodium 131 L (137-145) mmol/L Chloride 95 L (98-107) mmol/L Carbon Dioxide 33 H (22-30) mmol/L BUN 82 H (9-20) mg/dL Creatinine 1.57 H (0.66-1.25) mg/dL Glucose 171 H (74-99) mg/dL POC Glucose (mg/dL) 224 H (75-99) mg/dL Calcium 7.5 L (8.4-10.2) mg/dL Magnesium 2.4 H (1.6-2.3) mg/dL 09/11/20 09/11/20 Range/Units 11:52 16:48 WBC (3.8-10.6) k/uL RBC (4.30-5.90) m/uL Hgb (13.0-17.5) gm/dL Hct (39.0-53.0) % RDW (11.5-15.5) % Plt Count (150-450) k/uL Neutrophils # (Manual) (1.3-7.7) k/uL Lymphocytes # (Manual) (1.0-4.8) k/uL Nucleated RBCs (0-0) /100 WBC Sodium (137-145) mmol/L Chloride (98-107) mmol/L Carbon Dioxide (22-30) mmol/L BUN (9-20) mg/dL Creatinine (0.66-1.25) mg/dL Glucose (74-99) mg/dL POC Glucose (mg/dL) 343 H 161 H (75-99) mg/dL Calcium (8.4-10.2) mg/dL Magnesium (1.6-2.3) mg/dL
[2020-09-12] MEDS: methylPREDNISolone SOD SUCCI 40 MG/ML 1 ML VIAL IV SCH ×4 (00:14→23:21)
[2020-09-12] MEDS: MORPHINE SULFATE 4 MG/ML SYRINGE IVP PRN ×2 (01:52→05:01)
[2020-09-12 04:19] LABS: Calcium 7.8 mg/dL (8.4-10.2)
[2020-09-12] MEDS ORDERED: Potassium Replacement Protocol 1 EACH MISC MISCELLANE PRN ×2 (04:53→20:05)
[2020-09-12] MEDS: POTASSIUM CHLORIDE ER 20 MEQ TAB.ER PO SCH ×5 (05:01→22:06)
[2020-09-12] MEDS: POTASSIUM CHLORIDE 20 MEQ in WATER FOR INJECTION 1 100ML.BAG IVPB SCH ×3 (05:01→08:25)
[2020-09-12 06:22] LABS: HCT 29.6 % (39.0-53.0); HGB 9.7 gm/dL (13.0-17.5); Hypochromasia Slight; MCH 29.3 pg (25.0-35.0); MCHC 32.9 g/dL (31.0-37.0); Mean Platelet Volume 9.4; Poikilocytosis Slight; RBC 3.32 m/uL (4.30-5.90); RDW 15.9 % (11.5-15.5)
[2020-09-12 06:31] LABS: Platelet Count 95 k/uL (150-450)
[2020-09-12 07:02] LABS: Band Neutrophils % 6 %; Metamyelocytes % 1 %; Monocytes # (M) 2.19 k/uL (0-1.0); Neutrophils % (M) 81 %; Nucleated Red Blood Cells 7 /100 WBC (0-0); Total Cells Counted 200; WBC 19.9 k/uL (3.8-10.6)
[2020-09-12 07:03] LABS: Polychromasia Present
[2020-09-12 07:03] LABS: Glucose,Whole Blood 174 mg/dL (75-99)
[2020-09-12] MEDS: INSULIN ASPART (NovoLOG) 100 UNIT/ML VIAL SQ SCH ×4 (07:04→21:35)
[2020-09-12] MEDS: AMIODARONE 200 MG TAB PO SCH ×3 (08:24→20:56)
[2020-09-12] MEDS: PANTOPRAZOLE 40 MG/10 ML VIAL IVP SCH ×2 (08:24→20:56)
--- NOTE | 2020-09-12 08:24 | XR ---
EXAMINATION TYPE: XR chest 1V portable DATE OF EXAM: 09/12/2020 HISTORY: Shortness of breath. COMPARISON: 09/11/2020 TECHNIQUE: Single view of the chest is submitted. FINDINGS: Demonstrated are scattered senescent parenchymal change. Pulmonary venous congestion persists as well as cardiomegaly although there is interval improvement. Small effusions noted. No evidence for focal pneumonia. Hilar and mediastinal structures are within normal limits. Degenerative changes are seen of the dorsal spine. IMPRESSION: 1. Pulmonary venous congestion persists as well as cardiomegaly although there is interval improveme nt. Small effusions noted. No evidence for focal pneumonia.
[2020-09-12] MEDS: FUROSEMIDE 100 MG in SODIUM CHLORIDE 0.9% 90 ML IV SCH ×2 (08:29→15:16)
[2020-09-12] MEDS: NOREPINEPHRINE 32 MG in SODIUM CHLORIDE 0.9% 218 ML IV SCH (11:13)
[2020-09-12 11:50] LABS: Glucose,Whole Blood 32 mg/dL (75-99)
[2020-09-12 11:50] LABS: Glucose,Whole Blood 79 mg/dL (75-99)
[2020-09-12 11:50] LABS: Glucose,Whole Blood 20 mg/dL (75-99)
[2020-09-12 11:51] LABS: Glucose,Whole Blood 70 mg/dL (75-99)
[2020-09-12] MEDS: METOPROLOL TARTRATE 12.5 MG TAB PO SCH ×2 (11:52→20:56)
--- NOTE | 2020-09-12 12:42 | P.PN ---
Subjective Progress Note Date: 09/12/20 Follow-up for acute kidney injury. Good urine output with Lasix. Negative of 3.6 L in the last 24 hours. Objective - Vital Signs Vital signs: Vital Signs Temp 98.7 F 09/12/20 08:00 Pulse 128 H 09/12/20 11:00 Resp 49 H 09/12/20 11:00 BP 100/74 09/12/20 11:00 Pulse Ox 97 09/12/20 11:00 Intake & Output 09/11/20 09/12/20 09/12/20 18:59 06:59 18:59 Intake Total 165 380 164.583 Output Total 1685 2540 670 Balance -1520 -2160 -505.417 Weight 104.9 kg Intake: IV 165 180 75 0.9 NACL 110 120 50 lasix 55 60 25 Intake, IV Titration 89.583 Amount Furosemide 100 mg In 89.583 Sodium Chloride 0.9% 90 ml @ 5 MG/HR 5 mls/hr IV .Q20H [facility] Rx#:[id number] Other 200 Output: Urine 1685 2540 670 Other: Voiding Method Indwelling Catheter Indwelling Catheter Indwelling Catheter ABP, PAP, CO, CI - Last Documented Arterial Blood Pressure 92/79 - Exam No acute distress S1-S2 heard Decreased breath sounds Edema - Labs CBC & Chem 7: 09/12/20 03:17 09/12/20 03:17 Labs: Abnormal Lab Results - Last 24 Hours (Table) 09/11/20 09/12/20 09/12/20 Range/Units 16:48 03:17 03:17 WBC 19.9 H (3.8-10.6) k/uL RBC 3.32 L (4.30-5.90) m/uL Hgb 9.7 L (13.0-17.5) gm/dL Hct 29.6 L (39.0-53.0) % RDW 15.9 H (11.5-15.5) % Plt Count 95 L (150-450) k/uL Neutrophils # (Manual) 17.30 H (1.3-7.7) k/uL Lymphocytes # (Manual) 0.40 L (1.0-4.8) k/uL Monocytes # (Manual) 2.19 H (0-1.0) k/uL Metamyelocytes # (Man) 0.20 H (0) k/uL Nucleated RBCs 7 H (0-0) /100 WBC Sodium 135 L (137-145) mmol/L Potassium 3.0 L (3.5-5.1) mmol/L Chloride 91 L (98-107) mmol/L Carbon Dioxide 40 H (22-30) mmol/L BUN 86 H (9-20) mg/dL Creatinine 1.47 H (0.66-1.25) mg/dL Glucose 174 H (74-99) mg/dL POC Glucose (mg/dL) 161 H (75-99) mg/dL Calcium 7.8 L (8.4-10.2) mg/dL 09/12/20 09/12/20 09/12/20 Range/Units 07:01 11:44 11:45 WBC (3.8-10.6) k/uL RBC (4.30-5.90) m/uL Hgb (13.0-17.5) gm/dL Hct (39.0-53.0) % RDW (11.5-15.5) % Plt Count (150-450) k/uL Neutrophils # (Manual) (1.3-7.7) k/uL Lymphocytes # (Manual) (1.0-4.8) k/uL Monocytes # (Manual) (0-1.0) k/uL Metamyelocytes # (Man) (0) k/uL Nucleated RBCs (0-0) /100 WBC Sodium (137-145) mmol/L Potassium (3.5-5.1) mmol/L Chloride (98-107) mmol/L Carbon Dioxide (22-30) mmol/L BUN (9-20) mg/dL Creatinine (0.66-1.25) mg/dL Glucose (74-99) mg/dL POC Glucose (mg/dL) 174 H 32 L 20 L (75-99) mg/dL Calcium (8.4-10.2) mg/dL 09/12/20 Range/Units 11:48 WBC (3.8-10.6) k/uL RBC (4.30-5.90) m/uL Hgb (13.0-17.5) gm/dL Hct (39.0-53.0) % RDW (11.5-15.5) % Plt Count (150-450) k/uL Neutrophils # (Manual) (1.3-7.7) k/uL Lymphocytes # (Manual) (1.0-4.8) k/uL Monocytes # (Manual) (0-1.0) k/uL Metamyelocytes # (Man) (0) k/uL Nucleated RBCs (0-0) /100 WBC Sodium (137-145) mmol/L Potassium (3.5-5.1) mmol/L Chloride (98-107) mmol/L Carbon Dioxide (22-30) mmol/L BUN (9-20) mg/dL Creatinine (0.66-1.25) mg/dL Glucose (74-99) mg/dL POC Glucose (mg/dL) 70 L (75-99) mg/dL Calcium (8.4-10.2) mg/dL Assessment and Plan Assessment: #1 Nonoliguric acute kidney injury secondary to ischemic ATN and cardiorenal syndrome. Baseline creatinine near 1. #2 systolic CHF with the EF of 25% #3 hypervolemic hyponatremia #4 low normal blood pressures #5 volume overload #6 metabolic alkalosis with hypokalemia secondary to diuretics Plan: #1 renal function stable and improving. Continue with Lasix at 5 mg an hour. #2 discontinued metolazone with hyponatremia. #3 avoid nephrotoxic agents and hypotensive episodes. #4 started on Aldactone by primary team for hypokalemia. Monitor closely
--- NOTE | 2020-09-12 12:46 | P.PN ---
Subjective Progress Note Date: 09/12/20 Principal diagnosis: Melena, anemia of acute blood loss Patient is seen lying in bed in no acute complaints. He continues to tolerate his diet with no abdominal pain. One bowel movement this morning somewhat dark in appearance. Hemoglobin stable at 9.7. Objective - Vital Signs Vital signs: Vital Signs Temp 98.7 F 09/12/20 08:00 Pulse 104 H 09/12/20 09:00 Resp 16 09/12/20 09:00 BP 98/63 09/12/20 09:00 Pulse Ox 99 09/12/20 09:00 Intake & Output 09/11/20 09/12/20 09/12/20 18:59 06:59 18:59 Intake Total 165 380 134.583 Output Total 1685 2540 420 Balance -1520 -2160 -285.417 Weight 104.9 kg Intake: IV 165 180 45 0.9 NACL 110 120 30 lasix 55 60 15 Intake, IV Titration 89.583 Amount Furosemide 100 mg In 89.583 Sodium Chloride 0.9% 90 ml @ 5 MG/HR 5 mls/hr IV .Q20H [facility] Rx#:[id number] Other 200 Output: Urine 1685 2540 420 Other: Voiding Method Indwelling Catheter Indwelling Catheter Indwelling Catheter ABP, PAP, CO, CI - Last Documented Arterial Blood Pressure 92/79 - Exam On physical examination, patient appears comfortable in no apparent distress. HEAD: Normocephalic, atraumatic. EYES: No scleral icterus. No conjunctival injection. MOUTH: No lesions, tongue midline. NECK: Trachea midline, no gross abnormalities. ABDOMEN: Soft, obese. Bowel sounds are positive. No organomegaly. No guarding or rigidity. EXTREMITIES: Bilateral pedal edema. SKIN: No rashes, no jaundice. NEUROLOGIC: Alert and oriented to person and place. - Labs CBC & Chem 7: 09/12/20 03:17 09/12/20 03:17 Labs: Abnormal Lab Results - Last 24 Hours (Table) 09/11/20 09/11/20 09/12/20 Range/Units 11:52 16:48 03:17 WBC (3.8-10.6) k/uL RBC (4.30-5.90) m/uL Hgb (13.0-17.5) gm/dL Hct (39.0-53.0) % RDW (11.5-15.5) % Plt Count (150-450) k/uL Neutrophils # (Manual) (1.3-7.7) k/uL Lymphocytes # (Manual) (1.0-4.8) k/uL Monocytes # (Manual) (0-1.0) k/uL Metamyelocytes # (Man) (0) k/uL Nucleated RBCs (0-0) /100 WBC Sodium 135 L (137-145) mmol/L Potassium 3.0 L (3.5-5.1) mmol/L Chloride 91 L (98-107) mmol/L Carbon Dioxide 40 H (22-30) mmol/L BUN 86 H (9-20) mg/dL Creatinine 1.47 H (0.66-1.25) mg/dL Glucose 174 H (74-99) mg/dL POC Glucose (mg/dL) 343 H 161 H (75-99) mg/dL Calcium 7.8 L (8.4-10.2) mg/dL 09/12/20 09/12/20 Range/Units 03:17 07:01 WBC 19.9 H (3.8-10.6) k/uL RBC 3.32 L (4.30-5.90) m/uL Hgb 9.7 L (13.0-17.5) gm/dL Hct 29.6 L (39.0-53.0) % RDW 15.9 H (11.5-15.5) % Plt Count 95 L (150-450) k/uL Neutrophils # (Manual) 17.30 H (1.3-7.7) k/uL Lymphocytes # (Manual) 0.40 L (1.0-4.8) k/uL Monocytes # (Manual) 2.19 H (0-1.0) k/uL Metamyelocytes # (Man) 0.20 H (0) k/uL Nucleated RBCs 7 H (0-0) /100 WBC Sodium (137-145) mmol/L Potassium (3.5-5.1) mmol/L Chloride (98-107) mmol/L Carbon Dioxide (22-30) mmol/L BUN (9-20) mg/dL Creatinine (0.66-1.25) mg/dL Glucose (74-99) mg/dL POC Glucose (mg/dL) 174 H (75-99) mg/dL Calcium (8.4-10.2) mg/dL Assessment and Plan (1) Melena Narrative/Plan: 85-year-old male with multiple medical comorbidities presenting with black tarry bowel movements over the past 4 days. Hemoglobin 6.4 status post transfusion of 2 units of packed red blood cells hemoglobin currently improved and stable. No recent EGD or colonoscopy. Unclear etiology may be secondary to gastritis, esophagitis, peptic ulcer disease or other etiology. Currently patient is being treated for elevated troponins and new onset atrial fibrillation with RVR and being followed by the pulmonology and cardiology services. Hemoglobin is stable at 9.7 this morning. Current Visit: Yes Status: Acute Code(s): K92.1 - MELENA SNOMED Code(s): 5592911 (2) Anemia associated with acute blood loss Current Visit: Yes Status: Acute Code(s): D62 - ACUTE POSTHEMORRHAGIC ANEMIA SNOMED Code(s): 841556147 (3) GI bleed Current Visit: Yes Status: Acute Code(s): K92.2 - GASTROINTESTINAL HEMORRHAGE, UNSPECIFIED SNOMED Code(s): 26249647 Plan: Supportive care Continue Protonix 40 mg twice daily Okay for diet as tolerated Continue to monitor hemoglobin and hematocrit and transfuse as needed Appreciate recommendations from cardiology and pulmonology service is Will consider proceeding to EGD was medically stable and cleared by cardiology and pulmonology service is Thank you for allowing us to participate in the care of the patient
--- NOTE | 2020-09-12 14:33 | P.PN ---
Subjective Patient seen and examined at chair side. Patient denies chest pain, shortness breath, fever, chills, nausea, vomiting, diarrhea, or constipation. Patient states he is feeling better. Objective - Vital Signs Vital signs: Vital Signs Temp 98.4 F 09/12/20 12:00 Pulse 107 H 09/12/20 12:00 Resp 17 09/12/20 12:00 BP 114/84 09/12/20 12:00 Pulse Ox 98 09/12/20 12:00 Intake & Output 09/11/20 09/12/20 09/12/20 18:59 06:59 18:59 Intake Total 165 380 164.583 Output Total 1685 2540 670 Balance -1520 -2160 -505.417 Weight 104.9 kg Intake: IV 165 180 75 0.9 NACL 110 120 50 lasix 55 60 25 Intake, IV Titration 89.583 Amount Furosemide 100 mg In 89.583 Sodium Chloride 0.9% 90 ml @ 5 MG/HR 5 mls/hr IV .Q20H [facility] Rx#:[id number] Other 200 Output: Urine 1685 2540 670 Other: Voiding Method Indwelling Catheter Indwelling Catheter Indwelling Catheter ABP, PAP, CO, CI - Last Documented Arterial Blood Pressure 92/79 - Exam General: [non toxic], [no distress], [appears at stated age] Derm: [warm], [dry] Head: [atraumatic], [normocephalic], [symmetric] Eyes: [EOMI], [no lid lag], [anicteric sclera] Mouth: [no lip lesion], [mucus membranes moist] Cardiovascular: [S1S2 reg], [no murmur], [positive posterior tibial pulse bilateral], Lungs: [CTA bilateral], [no rhonchi, no rales] , [no accessory muscle use] Abdominal: [soft], [ nontender to palpation], [no guarding], [no appreciable organomegaly] Ext: [no gross muscle atrophy], [no edema], [no contractures] Neuro: [ CN II-XI grossly intact], [no focal neuro deficits] Psych: [Alert], [oriented], [appropriate affect] - Labs CBC & Chem 7: 09/12/20 03:17 09/12/20 03:17 Labs: Abnormal Lab Results - Last 24 Hours (Table) 12/19/20 12/20/20 12/20/20 Range/Units 16:48 03:17 03:17 WBC 19.9 H (3.8-10.6) k/uL RBC 3.32 L (4.30-5.90) m/uL Hgb 9.7 L (13.0-17.5) gm/dL Hct 29.6 L (39.0-53.0) % RDW 15.9 H (11.5-15.5) % Plt Count 95 L (150-450) k/uL Neutrophils # (Manual) 17.30 H (1.3-7.7) k/uL Lymphocytes # (Manual) 0.40 L (1.0-4.8) k/uL Monocytes # (Manual) 2.19 H (0-1.0) k/uL Metamyelocytes # (Man) 0.20 H (0) k/uL Nucleated RBCs 7 H (0-0) /100 WBC Sodium 135 L (137-145) mmol/L Potassium 3.0 L (3.5-5.1) mmol/L Chloride 91 L (98-107) mmol/L Carbon Dioxide 40 H (22-30) mmol/L BUN 86 H (9-20) mg/dL Creatinine 1.47 H (0.66-1.25) mg/dL Glucose 174 H (74-99) mg/dL POC Glucose (mg/dL) 161 H (75-99) mg/dL Calcium 7.8 L (8.4-10.2) mg/dL 09/12/20 09/12/20 09/12/20 Range/Units 07:01 11:44 11:45 WBC (3.8-10.6) k/uL RBC (4.30-5.90) m/uL Hgb (13.0-17.5) gm/dL Hct (39.0-53.0) % RDW (11.5-15.5) % Plt Count (150-450) k/uL Neutrophils # (Manual) (1.3-7.7) k/uL Lymphocytes # (Manual) (1.0-4.8) k/uL Monocytes # (Manual) (0-1.0) k/uL Metamyelocytes # (Man) (0) k/uL Nucleated RBCs (0-0) /100 WBC Sodium (137-145) mmol/L Potassium (3.5-5.1) mmol/L Chloride (98-107) mmol/L Carbon Dioxide (22-30) mmol/L BUN (9-20) mg/dL Creatinine (0.66-1.25) mg/dL Glucose (74-99) mg/dL POC Glucose (mg/dL) 174 H 32 L 20 L (75-99) mg/dL Calcium (8.4-10.2) mg/dL 09/12/20 Range/Units 11:48 WBC (3.8-10.6) k/uL RBC (4.30-5.90) m/uL Hgb (13.0-17.5) gm/dL Hct (39.0-53.0) % RDW (11.5-15.5) % Plt Count (150-450) k/uL Neutrophils # (Manual) (1.3-7.7) k/uL Lymphocytes # (Manual) (1.0-4.8) k/uL Monocytes # (Manual) (0-1.0) k/uL Metamyelocytes # (Man) (0) k/uL Nucleated RBCs (0-0) /100 WBC Sodium (137-145) mmol/L Potassium (3.5-5.1) mmol/L Chloride (98-107) mmol/L Carbon Dioxide (22-30) mmol/L BUN (9-20) mg/dL Creatinine (0.66-1.25) mg/dL Glucose (74-99) mg/dL POC Glucose (mg/dL) 70 L (75-99) mg/dL Calcium (8.4-10.2) mg/dL Assessment and Plan Assessment: Upper GI bleed: With hemoglobin of 6.4 on presentation/Acute blood loss anemia: Status post transfusion of packed red blood cells. hemoglobin is stable at 9.7 today GI recs appreciated. Continue IV Protonix 40 mg twice daily. Hypovolemic and cardiogenic shock, with lactic acidosis. Off Levophed drip Continue lasix gtt at 5 mg per hour Hold home blood pressure medications. Acute on chronic systolic heart failure exacerbation, systolic EF=25-30%: With evidence of fluid overload clinically and on chest x-ray. Continue IV Lasix gtt Chest x-ray from today improving. A. 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 Unable to anticoagulate or use aspirin at this time due to GI bleeding. Cardiology recommendations appreciated Acute hypoxic respiratory failure secondary to flash pulmonary edema: Resolved, currently off BiPAP Steroid-induced hyperglycemia Start subcutaneous insulin and follow sliding scale CODE STATUS: DO NOT RESUSCITATE/DO NOT INTUBATE.
--- NOTE | 2020-09-12 15:31 | P.PN ---
Subjective Progress Note Date: 09/12/20 Principal diagnosis: Acute hypoxic respiratory failure secondary to acute non-ST elevation myocardial infarction, pulmonary edema, and acute GI bleeding as well as acute cardiogenic shock. 85-year-old white male patient with previous history of coronary artery disease with bypass grafting, previous history of myocardial infarction, former smoker, hyperlipidemia, presented to the emergency department on 09/06/2020 for evaluation of a 2 day history of passing dark tarry stools concerning for acute GI bleeding. Patient reports increased fatigue and dyspnea, and epigastric and lower chest discomfort. .he is not on any anticoagulation, denies any abdominal pain, he was noted to be borderline hypotensive, tachycardic on arrival. His hemoglobin on admission was 6. Patient was transfused with 2 units of packed red blood cells, positive lactic acid was elevated at 5.0 and subsequently increased to 11.7, patient hasn't done troponin elevation on admission with troponin level III.550, which has subsequently increased to 7.2, and 36.9 with a third set, cardiology has been consulted, his chest x-ray shows evidence of pulmonary edema, patient is short of breath, he is requiring BiPAP support currently, he is hypotensive, requiring levo fed support at 13 weeks per minute, he is currently on D5 with 3 A of bicarbonate at a rate of 75 ML per hour, his BiPAP settings are 10 and 5 and FiO2 of 80%. States he is short of breath, does not appear to be in any acute distress, his abdomen is distended, but nontender, this morning his hemoglobin is 9.4, blood cell count increased to 17.2, his renal function has worsened, BUN of 32 and creatinine of 1.3, proBNP level is 48 20, he is evaluation by GI service, cardiology has been consulted, his echocardiogram revealed severely impaired systolic function with the EF between 25-30%, there was a moderate mitral regurgitation, mild to moderate tricuspid regurgitation, and mild pulmonary hypertension with right-sided pressures of 33.9 mmHg. X-ray of the abdomen showed nonobstructed bowel gas pattern, ear distended stomach, moderate fecal retention, renal ultrasound showed no hydronephrosis. Patient was given a small dose of Lasix 20 mg last night, has not produced significant output, remains oliguric, he will be given additional dose of 60 mg Lasix today, and cardiology after further discussion switched it to lasix infusion at 10 mg per hour, and dobutamine infusion was added. His current BiPAP settings are 10.5 and FiO2 of 80% Patient was reevaluated today in the ICU, remains on BiPAP, he is on IPAP of 10 and EPAP of 5, FiO2 is 60%, patient is on norepinephrine at 0.35 mcg/kg/m, he is also on amiodarone at 1 mg/minutes. Patient is off the Imitrex because he developed atrial fibrillation with RVR while on Dobutrex. Chest x-ray continues to show evidence of pulmonary edema. Slightly improved compared to the chest x- ray yesterday. But still consistent with pulmonary edema. Patient is also developing leukocytosis with WBC count of 23.8, hemoglobin is 9.6, received a total of 2 units of packed RBCs since admission yesterday. Patient has marginal urine output, and he remains in positive fluid balance roughly about 1 L in the last 24 hours. ABG on BiPAP today showed a pO2 of 125 pCO2 of 33 pH of 7.42. His potassium is a bit elevated at 5.4, his BUN is 65 and creatinine is 2.64. Right carpal is 20 this morning. Patient was switched to oral bicarb 650 mg by mouth 3 times a day. And his off sodium bicarb drip at present. Remains on Lasix drip at 10 mg per hour, he is also on Zaroxolyn 5 mg daily. Obviously the patient is not making significant improvement, but he is relatively holding. Yesterday I had a long discussion with the patient and his son while he was in the ER, and he clearly expressed wishes as not to be intubated and placed on mechanical ventilation. Reevaluated today on 09/09/20, patient remains in the ICU, remains on norepinephrine at 12 mcg/m, he is also on amiodarone at 1 mg/m, IV fluid at KVO, Lasix drip at 10 mg per hour. Patient is feeling better, he is on few liters nasal cannula, he is however in atrial fibrillation with RVR, amiodarone remains as requested by cardiology. Patient is alert oriented 3, and we are in the process of hopefully weaning off levo fed. Renal status is showing slight improvement, patient has good urine output roughly about 200 mL per hour. Patient was on BiPAP last night, however he was switched to a nasal cannula t reji. Chest x-ray continues to show evidence of cardiomegaly, and central venous congestion, small bilateral pleural effusions noted. Interval improvement is noted compared to chest x-ray on admission . Hemoglobin is holding remains around 8. WBC count is 15.5. BUN is 69 today creatinine is veronika n to 2.08. compared to 2.64 yesterday. The patient is seen today 09/10/2020 in follow-up in the intensive care unit. He is currently sitting up in bed. Awake and alert in no acute distress. Maint aining O2 saturation in the 90s on 2 L/m per nasal cannula. Remains tachycardic. Slightly tachypneic. Hypotensive. On amiodarone drip at 1 mg/m. Lasix drip at 10 mg per hour. Zaroxolyn. IV Solu-Medrol. Norepinephrine at 8 mcg/m. 0.9 normal saline at, pulse per hour. Chest x-ray reveals cardiomegaly. Improving left lower lobe infiltrate. Minimal residual right pleural effusion. Hemoglobin was 6.9 earlier, transfused, current hemoglobin 9.3. He is status post 3 units of packed red blood cells this admission. White count 12.7. Platelets 74,000. Sodium 131. Potassium 4.2. Creatinine 1.71. Arterial blood gases on 28% FiO2 revealed a pO2 of 97, pCO2 41, pH 7.4 Reevaluated today on 09/11/20, patient remains in the ICU, he is on 2 L nasal cannula, hemodynamically stable, off norepinephrine, remains on amiodarone at 1 milligram per minute, remains on Lasix at 5 mg per hour, norepinephrine for the last 24 hours. Hemoglobin is 9. Patient is feeling better, and his acrocyanosis in his toes and in the tips of his fingers is improving since norepinephrine was discontinued. WBC count is 12 hemoglobin is 9.1. Renal profile is improving BUN is 82 creatinine is down to 1.57 steadily improving since admission in spite of the Lasix drip at 5 mg per hour. Chest x-ray is showing significant improvement in his pulmonary edema. Reevaluated today on 09/12/20, remains in the ICU, patient is now on Coumadin. Remains on Lasix at 5 mg per hour, off IV amiodarone, off norepinephrine, his IV fluid is at KVO, continues to have significant amount of urine output in the last 24 hours, patient is negative, over 8 L since admission. Surprisingly his renal functioning remains to improve, BUN is 86 creatinine is 1.47, creatinine went as high as 2.76 the day after admission. Clinically the patient is doing much better, and I would maintain him on Lasix drip, he is now on oral ami odarone, he is also on insulin and on methylprednisolone. No further episodes of GI bleeding, and hemoglobin is holding. Hemoglobin today is 9.7. Patient received a total of 3 units of packed RBCs since admission considering his cardiac status, we were unable to perform any GI studies/EGD or colonoscopy to address the primary source of his GI bleeding. Objective - Vital Signs Vital signs: Vital Signs Temp 98.4 F 09/12/20 12:00 Pulse 107 H 09/12/20 12:00 Resp 17 09/12/20 12:00 BP 114/84 09/12/20 12:00 Pulse Ox 98 09/12/20 12:00 Intake & Output 09/11/20 09/12/20 09/12/20 18:59 06:59 18:59 Intake Total 165 380 198.500 Output Total 1685 2540 670 Balance -1520 -2160 -471.500 Weight 104.9 kg Intake: IV 165 180 75 0.9 NACL 110 120 50 lasix 55 60 25 Intake, IV Titration 123.500 Amount Furosemide 100 mg In 123.500 Sodium Chloride 0.9% 90 ml @ 5 MG/HR 5 mls/hr IV .Q20H [facility] Rx#:[id number] Other 200 Output: Urine 1685 2540 670 Other: Voiding Method Indwelling Catheter Indwelling Catheter Indwelling Catheter ABP, PAP, CO, CI - Last Documented Arterial Blood Pressure 92/79 - Exam GENERAL EXAM: Revealed a 85-year-old white male, in no distress, on room air HEAD: Normocephalic/atraumatic. ENT: Dry mucous membranes, PERRLA, EOMI, no icterus, no neck masses, no JVD. CHEST: No chest wall deformity. Symmetrical expansion. LUNGS: Clear throughout no crackles or rhonchi or wheezes.. CVS: Irregular irregular rhythm, normal S1 and S2, no gallops, no murmurs, no rubs ABDOMEN: Obese, Soft, nontender. No hepatosplenomegaly, normal bowel sounds, no guarding or rigidity. EXTREMITIES: No clubbing, trace of bipedal edema, 2+ pulses and upper and lower extremities. MUSCULOSKELETAL: Muscle strength and tone normal. SKIN: No rashes, however there is evidence of acrocyanosis tips of his fingers and tips of his toes. Improving steadily since norepinephrine was discontinued CENTRAL NERVOUS SYSTEM: Alert and oriented 3, no gross focal deficits. PSYCHIATRIC: Normal mood affect and normal mental status examination. - Labs CBC & Chem 7: 09/12/20 03:17 09/12/20 03:17 Labs: Abnormal Lab Results - Last 24 Hours (Table) 09/11/20 09/12/20 09/12/20 Range/Units 16:48 03:17 03:17 WBC 19.9 H (3.8-10.6) k/uL RBC 3.32 L (4.30-5.90) m/uL Hgb 9.7 L (13.0-17.5) gm/dL Hct 29.6 L (39.0-53.0) % RDW 15.9 H (11.5-15.5) % Plt Count 95 L (150-450) k/uL Neutrophils # (Manual) 17.30 H (1.3-7.7) k/uL Lymphocytes # (Manual) 0.40 L (1.0-4.8) k/uL Monocytes # (Manual) 2.19 H (0-1.0) k/uL Metamyelocytes # (Man) 0.20 H (0) k/uL Nucleated RBCs 7 H (0-0) /100 WBC Sodium 135 L (137-145) mmol/L Potassium 3.0 L (3.5-5.1) mmol/L Chloride 91 L (98-107) mmol/L Carbon Dioxide 40 H (22-30) mmol/L BUN 86 H (9-20) mg/dL Creatinine 1.47 H (0.66-1.25) mg/dL Glucose 174 H (74-99) mg/dL POC Glucose (mg/dL) 161 H (75-99) mg/dL Calcium 7.8 L (8.4-10.2) mg/dL 09/12/20 09/12/20 09/12/20 Range/Units 07:01 11:44 11:45 WBC (3.8-10.6) k/uL RBC (4.30-5.90) m/uL Hgb (13.0-17.5) gm/dL Hct (39.0-53.0) % RDW (11.5-15.5) % Plt Count (150-450) k/uL Neutrophils # (Manual) (1.3-7.7) k/uL Lymphocytes # (Manual) (1.0-4.8) k/uL Monocytes # (Manual) (0-1.0) k/uL Metamyelocytes # (Man) (0) k/uL Nucleated RBCs (0-0) /100 WBC Sodium (137-145) mmol/L Potassium (3.5-5.1) mmol/L Chloride (98-107) mmol/L Carbon Dioxide (22-30) mmol/L BUN (9-20) mg/dL Creatinine (0.66-1.25) mg/dL Glucose (74-99) mg/dL POC Glucose (mg/dL) 174 H 32 L 20 L (75-99) mg/dL Calcium (8.4-10.2) mg/dL 09/12/ Range/Units 11:48 WBC (3.8-10.6) k/uL RBC (4.30-5.90) m/uL Hgb (13.0-17.5) gm/dL Hct (39.0-53.0) % RDW (11.5-15.5) % Plt Count (150-450) k/uL Neutrophils # (Manual) (1.3-7.7) k/uL Lymphocytes # (Manual) (1.0-4.8) k/uL Monocytes # (Manual) (0-1.0) k/uL Metamyelocytes # (Man) (0) k/uL Nucleated RBCs (0-0) /100 WBC Sodium (137-145) mmol/L Potassium (3.5-5.1) mmol/L Chloride (98-107) mmol/L Carbon Dioxide (22-30) mmol/L BUN (9-20) mg/dL Creatinine (0.66-1.25) mg/dL Glucose (74-99) mg/dL POC Glucose (mg/dL) 70 L (75-99) mg/dL Calcium (8.4-10.2) mg/dL Assessment and Plan Assessment: Impression: Acute hypoxic referring failure, secondary to acute systolic congestive heart failure and pulmonary edema Acute cardiogenic shock and pulmonary edema secondary to acute systolic dysfunction Acute non-ST elevation myocardial infarction Ischemic cardiomyopathy and LV dysfunction, ejection fraction is 25-30%. Acute GI bleeding, exact source in nature is not clear at this point. Acute kidney injury, suspect acute tubular necrosis secondary to hypotension and possible cardiorenal syndrome. Acute lactic acidosis secondary to hypoperfusion and cardiogenic shock. History of coronary artery disease and previous CABG. Former smoker. New-onset atrial fibrillation with RVR. Recommendation: Continue to monitor in the ICU. Continue amiodarone. Orally. Off norepinephrine. Continue Lasix drip. At 5 mg per hour. Will likely switch to oral Lasix tomorrow. Continue to monitor hemoglobin, and transfuse if hemoglobin below 8. Continue Protonix. Cardiology to decide on further diagnostic workup/cardiac catheterization p ossibly on this patient as his renal functioning continues to improve. We'll continue to follow Time with Patient: Less than 30
--- NOTE | 2020-09-12 15:39 | P.PN ---
Subjective Mr. Lora is steadily improving. He is on regular oxygen sitting in a chair He has no chest discomfort no shortness of breath at this time He remains on IV Lasix His potassium is low and is being replaced On examination heart sounds are irregular He remains in atrial fibrillation with heart rates of 100 110 beats a minute His blood pressures improved and is around 110-120 systolic Abdomen is soft Extremities show mild edema Impression Significant GI bleeding, acute, with acute anemia resulting in exacerbation of chronic systolic heart failure and type II NH with abnormal troponins Atrial fibrillation with RVR, off pressors now completely Plan Amiodarone 200 mg by mouth 3 times a day Start metoprolol 12.5 mg twice daily Aldactone 25 mg by mouth daily Continue IV Lasix line renal function is improving Objective - Vital Signs Vital signs: Vital Signs Temp 98.4 F 09/12/20 12:00 Pulse 101 H 09/12/20 15:00 Resp 15 09/12/20 15:00 BP 103/73 09/12/20 15:00 Pulse Ox 99 09/12/20 15:00 Intake & Output 09/11/20 09/12/20 09/12/20 18:59 06:59 18:59 Intake Total 165 380 258.500 Output Total 1685 2540 1090 Balance -1520 -2160 -831.500 Weight 104.9 kg Intake: IV 165 180 135 0.9 NACL 110 120 90 lasix 55 60 45 Intake, IV Titration 123.500 Amount Furosemide 100 mg In 123.500 Sodium Chloride 0.9% 90 ml @ 5 MG/HR 5 mls/hr IV .Q20H [facility] Rx#:[id number] Other 200 Output: Urine 1685 2540 1090 Other: Voiding Method Indwelling Catheter Indwelling Catheter Indwelling Catheter ABP, PAP, CO, CI - Last Documented Arterial Blood Pressure 92/79 - Labs CBC & Chem 7: 09/12/20 03:17 09/12/20 03:17 Labs: Abnormal Lab Results - Last 24 Hours (Table) 09/11/20 09/12/20 09/12/20 Range/Units 16:48 03:17 03:17 WBC 19.9 H (3.8-10.6) k/uL RBC 3.32 L (4.30-5.90) m/uL Hgb 9.7 L (13.0-17.5) gm/dL Hct 29.6 L (39.0-53.0) % RDW 15.9 H (11.5-15.5) % Plt Count 95 L (150-450) k/uL Neutrophils # (Manual) 17.30 H (1.3-7.7) k/uL Lymphocytes # (Manual) 0.40 L (1.0-4.8) k/uL Monocytes # (Manual) 2.19 H (0-1.0) k/uL Metamyelocytes # (Man) 0.20 H (0) k/uL Nucleated RBCs 7 H (0-0) /100 WBC Sodium 135 L (137-145) mmol/L Potassium 3.0 L (3.5-5.1) mmol/L Chloride 91 L (98-107) mmol/L Carbon Dioxide 40 H (22-30) mmol/L BUN 86 H (9-20) mg/dL Creatinine 1.47 H (0.66-1.25) mg/dL Glucose 174 H (74-99) mg/dL POC Glucose (mg/dL) 161 H (75-99) mg/dL Calcium 7.8 L (8.4-10.2) mg/dL 09/12/20 09/12/20 09/12/20 Range/Units 07:01 11:44 11:45 WBC (3.8-10.6) k/uL RBC (4.30-5.90) m/uL Hgb (13.0-17.5) gm/dL Hct (39.0-53.0) % RDW (11.5-15.5) % Plt Count (150-450) k/uL Neutrophils # (Manual) (1.3-7.7) k/uL Lymphocytes # (Manual) (1.0-4.8) k/uL Monocytes # (Manual) (0-1.0) k/uL Metamyelocytes # (Man) (0) k/uL Nucleated RBCs (0-0) /100 WBC Sodium (137-145) mmol/L Potassium (3.5-5.1) mmol/L Chloride (98-107) mmol/L Carbon Dioxide (22-30) mmol/L BUN (9-20) mg/dL Creatinine (0.66-1.25) mg/dL Glucose (74-99) mg/dL POC Glucose (mg/dL) 174 H 32 L 20 L (75-99) mg/dL Calcium (8.4-10.2) mg/dL 09/12/20 Range/Units 11:48 WBC (3.8-10.6) k/uL RBC (4.30-5.90) m/uL Hgb (13.0-17.5) gm/dL Hct (39.0-53.0) % RDW (11.5-15.5) % Plt Count (150-450) k/uL Neutrophils # (Manual) (1.3-7.7) k/uL Lymphocytes # (Manual) (1.0-4.8) k/uL Monocytes # (Manual) (0-1.0) k/uL Metamyelocytes # (Man) (0) k/uL Nucleated RBCs (0-0) /100 WBC Sodium (137-145) mmol/L Potassium (3.5-5.1) mmol/L Chloride (98-107) mmol/L Carbon Dioxide (22-30) mmol/L BUN (9-20) mg/dL Creatinine (0.66-1.25) mg/dL Glucose (74-99) mg/dL POC Glucose (mg/dL) 70 L (75-99) mg/dL Calcium (8.4-10.2) mg/dL
[2020-09-12 17:22] LABS: Glucose,Whole Blood 198 mg/dL (75-99)
[2020-09-12] MEDS: SPIRONOLACTONE 25 MG TAB PO SCH (17:41)
[2020-09-12 21:27] LABS: Glucose,Whole Blood 183 mg/dL (75-99)
[2020-09-12 21:27] LABS: Glucose,Whole Blood 32 mg/dL (75-99)
[2020-09-13] MEDS: MORPHINE SULFATE 4 MG/ML SYRINGE IVP PRN ×3 (04:08→23:26)
[2020-09-13 04:19] LABS: HCT 30.7 % (39.0-53.0); Hypochromasia Slight; MCH 29.1 pg (25.0-35.0); MCHC 32.6 g/dL (31.0-37.0); MCV 89.2 fL (80.0-100.0); Mean Platelet Volume 8.6; Poikilocytosis Slight; RBC 3.44 m/uL (4.30-5.90); RDW 15.8 % (11.5-15.5)
[2020-09-13 04:27] LABS: Platelet Count 95 k/uL (150-450)
[2020-09-13 04:30] LABS: Calcium 7.7 mg/dL (8.4-10.2); Potassium 3.4 mmol/L (3.5-5.1)
[2020-09-13 05:03] LABS: Band Neutrophils % 2 %; Lymphocytes # (M) 1.03 k/uL (1.0-4.8); Monocytes # (M) 1.23 k/uL (0-1.0); Neutrophils % (M) 88 %; Nucleated Red Blood Cells 4 /100 WBC (0-0); Total Cells Counted 200; WBC 20.5 k/uL (3.8-10.6)
[2020-09-13] MEDS: POTASSIUM CHLORIDE ER 20 MEQ TAB.ER PO SCH ×5 (06:11→17:51)
[2020-09-13 07:08] LABS: Glucose,Whole Blood 154 mg/dL (75-99)
[2020-09-13] MEDS: INSULIN ASPART (NovoLOG) 100 UNIT/ML VIAL SQ SCH ×4 (07:08→20:29)
--- NOTE | 2020-09-13 07:15 | XR ---
EXAMINATION TYPE: XR chest 1V portable DATE OF EXAM: 09/13/2020 HISTORY: Shortness of breath. COMPARISON: 09/12/2020 TECHNIQUE: Single view of the chest is submitted. FINDINGS: Demonstrated are scattered senescent parenchymal change. Persistent pulmonary venous congestion with small effusions and cardiomegaly. Consider a degree of co ngestive failure. Hilar and mediastinal structures are within normal limits. Degenerative changes are seen of the dorsal spine. IMPRESSION: 1. Persistent pulmonary venous congestion with small effusions and cardiomegaly. Consider a degree o f congestive failure.
[2020-09-13] MEDS: PANTOPRAZOLE 40 MG/10 ML VIAL IVP SCH ×2 (08:35→20:03)
[2020-09-13] MEDS: AMIODARONE 200 MG TAB PO SCH ×3 (08:35→23:27)
[2020-09-13] MEDS: METOPROLOL TARTRATE 12.5 MG TAB PO SCH ×2 (08:35→20:03)
[2020-09-13] MEDS: methylPREDNISolone SOD SUCCI 40 MG/ML 1 ML VIAL IV SCH ×3 (08:35→23:26)
--- NOTE | 2020-09-13 09:43 | PN ---
PROGRESS NOTE Danial is an 85-year-old gentleman who is admitted to the ICU with a combination of problems including congestive heart failure that was an acute exacerbation of chronic systolic , type 2 myocardial infarction, atrial fibrillation with poorly- controlled ventricular rate and we are following him currently because of atrial fibrillation with poorly controlled ventricular rate. He is doing much better. Does not seem to be short of breath. Does not have leg edema. Continues to be in renal failure, mostly prerenal. He is on Lasix, which I am going to continue. Remains in atrial fibrillation with somewhat poorly-controlled ventricular rate. He is not on anticoagulant because of GI bleed. Currently on amiodarone 200 t.i.d., Lopressor 12.5 b.i.d., which I am going to increase to 25 b.i.d. for better heart rate control and he has been started on Aldactone yesterday. Will watch his renal functions and if they worsen, we will stop the Aldactone. PHYSICAL EXAM: Heart rate is 107 beats per minute, blood pressure is 117/83, respiratory rate is 12, O2 saturation is 97% on room air. Chest exam reveals good air entry bilaterally without any crackles or rhonchi. Heart exam reveals first and second heart sounds. Systolic murmur at the left lower sternal border. Abdomen is soft. Exam of extremities reveals mild edema. LABS: Show that the white cell count is 20, hemoglobin is 10. Potassium is 3.4, BUN is 87, creatinine is 1.3. ASSESSMENT: 1. Permanent atrial fibrillation with poorly controlled ventricular rate. 2. History of anemia. 3. Acute exacerbation of chronic systolic heart failure. PLAN: Will hold the anticoagulants at this time. Increase the dose of Lopressor. Continue the Lasix that he is on. MMODL / IJN: [id number] /
--- NOTE | 2020-09-13 09:59 | P.PN ---
Subjective Patient is seen in follow-up for acute kidney injury. Renal function improving. Off vasopressors. Maintain on Lasix drip at 5 mg/hr. He's also on amiodarone drip for A. fib with RVR. On room air. No chest pain or shortness of breath. Nonoliguric. General: The patient appeared well nourished and normally developed. HEENT: No JVD. On nasal cannula. LUNGS: Breath sounds decreased. HEART: Regular rate and rhythm. ABDOMEN: soft nontender. EXTREMITITES: Trace edema. Objective - Vital Signs Vital signs: Vital Signs Temp 98.2 F 09/12/20 21:00 Pulse 104 H 09/13/20 09:00 Resp 20 09/13/20 09:00 BP 108/78 09/13/20 09:00 Pulse Ox 99 09/13/20 09:00 Intake & Output 09/12/20 09/13/20 09/13/20 18:59 06:59 18:59 Intake Total 303.500 180 285 Output Total 1370 2185 350 Balance - Weight 102.1 kg Intake: IV 180 180 45 0.9 NACL 120 120 30 lasix 60 60 15 Intake, IV Titration 123.500 Amount Furosemide 100 mg In 123.500 Sodium Chloride 0.9% 90 ml @ 5 MG/HR 5 mls/hr IV .Q20H [facility] Rx#:[id number] Oral 240 Output: Urine 1370 2185 350 Other: Voiding Method Indwelling Catheter Indwelling Catheter Indwelling Catheter ABP, PAP, CO, CI - Last Documented Arterial Blood Pressure 92/79 - Labs CBC & Chem 7: 09/13/20 04:02 09/13/20 04:02 Labs: Abnormal Lab Results - Last 24 Hours (Table) 09/12/20 09/12/20 09/12/20 Range/Units 11:44 11:45 11:48 WBC (3.8-10.6) k/uL RBC (4.30-5.90) m/uL Hgb (13.0-17.5) gm/dL Hct (39.0-53.0) % RDW (11.5-15.5) % Plt Count (150-450) k/uL Neutrophils # (Manual) (1.3-7.7) k/uL Monocytes # (Manual) (0-1.0) k/uL Nucleated RBCs (0-0) /100 WBC Sodium (137-145) mmol/L Potassium (3.5-5.1) mmol/L Chloride (98-107) mmol/L Carbon Dioxide (22-30) mmol/L BUN (9-20) mg/dL Creatinine (0.66-1.25) mg/dL Glucose (74-99) mg/dL POC Glucose (mg/dL) 32 L 20 L 70 L (75-99) mg/dL Calcium (8.4-10.2) mg/dL 09/12/20 09/12/20 09/12/20 Range/Units 17:21 21:24 21:26 WBC (3.8-10.6) k/uL RBC (4.30-5.90) m/uL Hgb (13.0-17.5) gm/dL Hct (39.0-53.0) % RDW (11.5-15.5) % Plt Count (150-450) k/uL Neutrophils # (Manual) (1.3-7.7) k/uL Monocytes # (Manual) (0-1.0) k/uL Nucleated RBCs (0-0) /100 WBC Sodium (137-145) mmol/L Potassium (3.5-5.1) mmol/L Chloride (98-107) mmol/L Carbon Dioxide (22-30) mmol/L BUN (9-20) mg/dL Creatinine (0.66-1.25) mg/dL Glucose (74-99) mg/dL POC Glucose (mg/dL) 198 H 32 L 183 H (75-99) mg/dL Calcium (8.4-10.2) mg/dL 09/13/20 09/13/20 09/13/20 Range/Units 04:02 04:02 07:06 WBC 20.5 H (3.8-10.6) k/uL RBC 3.44 L (4.30-5.90) m/uL Hgb 10.0 L (13.0-17.5) gm/dL Hct 30.7 L (39.0-53.0) % RDW 15.8 H (11.5-15.5) % Plt Count 95 L (150-450) k/uL Neutrophils # (Manual) 18.40 H (1.3-7.7) k/uL Monocytes # (Manual) 1.23 H (0-1.0) k/uL Nucleated RBCs 4 H (0-0) /100 WBC Sodium 136 L (137-145) mmol/L Potassium 3.4 L (3.5-5.1) mmol/L Chloride 90 L (98-107) mmol/L Carbon Dioxide 39 H (22-30) mmol/L BUN 87 H (9-20) mg/dL Creatinine 1.38 H (0.66-1.25) mg/dL Glucose 143 H (74-99) mg/dL POC Glucose (mg/dL) 154 H (75-99) mg/dL Calcium 7.7 L (8.4-10.2) mg/dL Assessment and Plan Plan: Assessment: 1. Acute kidney injury secondary to ATN secondary to acute blood loss anemia, A. fib, hypotension and component of cardiorenal syndrome. Baseline creatinine near 1 and peaked at 2.76 this admission - 1.38 today. No hydronephrosis noted on kidney ultrasound. 2. Acute on chronic systolic CHF with ejection fraction of 25% with moderate mitral regurgitation and tricuspid regurgitation. 3. Metabolic alkalosis from diuresis. 4. Hyperkalemia secondary to acute kidney injury, GI bleed and metabolic acidosis. Resolved. now hypokalemic from diuresis. Being replaced. 5. Volume overload. Improving with diuresis. 6. Acute blood loss anemia secondary to GI bleed status post blood transfusion. GI following. Stable. 7. A. fib with RVR maintained on amiodarone and Lopressor. 8. Shock s/p Levophed. Plan: Stop Lasix drip. Start IV Lasix 40 mg twice daily. Wean vasopressors. Continue to monitor renal function and urine output closely. Continue to replace potassium.
--- NOTE | 2020-09-13 10:38 | P.PN ---
Subjective Progress Note Date: 09/13/20 Principal diagnosis: Acute GI bleed, non-ST elevated NM, cardiogenic shock 85-year-old white male patient with previous history of coronary artery disease with bypass grafting, previous history of myocardial infarction, former smoker, hyperlipidemia, presented to the emergency department on 09/06/2020 for evaluation of a 2 day history of passing dark tarry stools concerning for acute GI bleeding. Patient reports increased fatigue and dyspnea, and epigastric and lower chest discomfort. .he is not on any anticoagulation, denies any abdominal pain, he was noted to be borderline hypotensive, tachycardic on arrival. His hemoglobin on admission was 6. Patient was transfused with 2 units of packed red blood cells, positive lactic acid was elevated at 5.0 and subsequently increased to 11.7, patient hasn't done troponin elevation on admission with troponin level III.550, which has subsequently increased to 7.2, and 36.9 with a third set, cardiology has been consulted, his chest x-ray shows evidence of pulmonary edema, patient is short of breath, he is requiring BiPAP support currently, he is hypotensive, requiring levo fed support at 13 weeks per minute, he is currently on D5 with 3 A of bicarbonate at a rate of 75 ML per hour, his BiPAP settings are 10 and 5 and FiO2 of 80%. States he is short of breath, does not appear to be in any acute distress, his abdomen is distended, but nontender, this morning his hemoglobin is 9.4, blood cell count increased to 17.2, his renal function has worsened, BUN of 32 and creatinine of 1.3, proBNP level is 4820, he is evaluation by GI service, cardiology has been consulted, his echocardiogram revealed severely impaired systolic function with the EF between 25-30%, there was a moderate mitral regurgitation, mild to moderate tricuspid regurgitation, and mild pulmonary hypertension with right-sided pressures of 33.9 mmHg. X-ray of the abdomen showed nonobstructed bowel gas pattern, ear distended stomach, moderate fecal retention, renal ultrasound showed no hydronephrosis. Patient was given a small dose of Lasix 20 mg last night, has not produced significant output, remains oliguric, he will be given additional dose of 60 mg Lasix today, and cardiology after further discussion switched it to lasix infusion at 10 mg per hour, and dobutamine infusion was added. His current BiPAP settings are 10.5 and FiO2 of 80% Patient was reevaluated today in the ICU, remains on BiPAP, he is on IPAP of 10 and EPAP of 5, FiO2 is 60%, patient is on norepinephrine at 0.35 mcg/kg/m, he is also on amiodarone at 1 mg/minutes. Patient is off the Imitrex because he developed atrial fibrillation with RVR while on Dobutrex. Chest x-ray continues to show evidence of pulmonary edema. Slightly improved compared to the chest x- ray yesterday. But still consistent with pulmonary edema. Patient is also developing leukocytosis with WBC count of 23.8, hemoglobin is 9.6, received a total of 2 units of packed RBCs since admission yesterday. Patient has marginal urine output, and he remains in positive fluid balance roughly about 1 L in the last 24 hours. ABG on BiPAP today showed a pO2 of 125 pCO2 of 33 pH of 7.42. His potassium is a bit elevated at 5.4, his BUN is 65 and creatinine is 2.64. Right carpal is 20 this morning. Patient was switched to oral bicarb 650 mg by mouth 3 times a day. And his off sodium bicarb drip at present. Remains on Lasix drip at 10 mg per hour, he is also on Zaroxolyn 5 mg daily. Obviously the patient is not making significant improvement, but he is relatively holding. Yesterday I had a long discussion with the patient and his son while he was in the ER, and he clearly expressed wishes as not to be intubated and placed on mechanical ventilation. Reevaluated today on 09/09/20, patient remains in the ICU, remains on norepinephrine at 12 mcg/m, he is also on amiodarone at 1 mg/m, IV fluid at KVO, Lasix drip at 10 mg per hour. Patient is feeling better, he is on few liters nasal cannula, he is however in atrial fibrillation with RVR, amiodarone remains as requested by cardiology. Patient is alert oriented 3, and we are in the process of hopefully weaning off levo fed. Renal status is showing slight improvement, patient has good urine output roughly about 200 mL per hour. Patient was on BiPAP last night, however he was switched to a nasal cannula today. Chest x-ray continues to show evidence of cardiomegaly, and central venous congestion, small bilateral pleural effusions noted. Interval improvement is noted compared to chest x-ray on admission . Hemoglobin is holding remains around 8. WBC count is 15.5. BUN is 69 today creatinine is down to 2.08. compared to 2.64 yesterday. The patient is seen today 09/10/2020 in follow-up in the intensive care unit. He is currently sitting up in bed. Awake and alert in no acute distress. Maintaining O2 saturation in the 90s on 2 L/m per nasal cannula. Remains tachycardic. Slightly tachypneic. Hypotensive. On amiodarone drip at 1 mg/m. Lasix drip at 10 mg per hour. Zaroxolyn. IV Solu-Medrol. Norepinephrine at 8 mcg/m. 0.9 normal saline at, pulse per hour. Chest x-ray reveals cardiomegaly. Improving left lower lobe infiltrate. Minimal residual right pleural effusion. Hemoglobin was 6.9 earlier, transfused, current hemoglobin 9.3. He is status post 3 units of packed red blood cells this admission. White count 12.7. Platelets 74,000. Sodium 131. Potassium 4.2. Creatinine 1.71. Arterial blood gases on 28% FiO2 revealed a pO2 of 97, pCO2 41, pH 7.4 Reevaluated today on 09/11/20, patient remains in the ICU, he is on 2 L nasal cannula, hemodynamically stable, off norepinephrine, remains on amiodarone at 1 milligram per minute, remains on Lasix at 5 mg per hour, norepinephrine for the last 24 hours. Hemoglobin is 9. Patient is feeling better, and his acrocyanosis in his toes and in the tips of his fingers is improving since norepinephrine was discontinued. WBC count is 12 hemoglobin is 9.1. Renal profile is improving BUN is 82 creatinine is down to 1.57 steadily improving since admission in spite of the Lasix drip at 5 mg per hour. Chest x-ray is showing significant improvement in his pulmonary edema. Reevaluated today on 09/12/20, remains in the ICU, patient is now on Coumadin. Remains on Lasix at 5 mg per hour, off IV amiodarone, off norepinephrine, his IV fluid is at KVO, continues to have significant amount of urine output in the last 24 hours, patient is negative, over 8 L since admission. Surprisingly his renal functioning remains to improve, BUN is 86 creatinine is 1.47, creatinine went as high as 2.76 the day after admission. Clinically the patient is doing much better, and I would maintain him on Lasix drip, he is now on oral amiodarone, he is also on insulin and on methylprednisolone. No further episodes of GI bleeding, and hemoglobin is holding. Hemoglobin today is 9.7. Patient received a total of 3 units of packed RBCs since admission considering his cardiac status, we were unable to perform any GI studies/EGD or colonoscopy to address the primary source of his GI bleeding. On 09/13/2020 patient seen in follow-up in the intensive care unit. He is awake and alert, in no acute distress, room air pulse ox is 99%, he is currently on IV 0.9 normal saline at a rate of 10 ML per hour, and Lasix drip at 5 mg per hour, he is breathing comfortably, he is not complaining of any chest pain, has had no active bleeding, he is maintaining negative fluid balance, he is in -3 L over the last 24 hours, today's chest x-ray shows persistent pulmonary venous congestion with small effusions. Today's labs have been reviewed, showing red b lood cell count 20.5, hemoglobin of 10, sodium 136, potassium 3.4, chloride is 90, CO2 is 39. Potassium is being replaced per protocol. Abdomen is soft, nontender nausea or vomiting, patient is tolerating a heart healthy diet. His last bowel movement was yesterday, which was dark in appearance. No bleeding overnight. Continues on PPI therapy, GI service is following. Patient remains in atrial fibrillation, he remains on oral amiodarone 200 mg 3 times daily. No anticoagulation right now in view of recent GI bleeding Objective - Vital Signs Vital signs: Vital Signs Temp 98.2 F 09/12/20 21:00 Pulse 104 H 09/13/20 09:00 Resp 20 09/13/20 09:00 BP 108/78 09/13/20 09:00 Pulse Ox 99 09/13/20 09:00 Intake & Output 09/12/20 09/13/20 09/13/20 18:59 06:59 18:59 Intake Total 303.500 180 285 Output Total 1370 2185 350 Balance -1066.500 -2004 Weight 102.1 kg Intake: IV 180 180 45 0.9 NACL 120 120 30 lasix 60 60 15 Intake, IV Titration 123.500 Amount Furosemide 100 mg In 123.500 Sodium Chloride 0.9% 90 ml @ 5 MG/HR 5 mls/hr IV .Q20H [facility] Rx#:[id number] Oral 240 Output: Urine 1370 2185 350 Other: Voiding Method Indwelling Catheter Indwelling Catheter Indwelling Catheter ABP, PAP, CO, CI - Last Documented Arterial Blood Pressure 92/79 - Exam GENERAL EXAM: Alert, very pleasant, 85-year-old white male, on room air, with pulse ox of 99%, up to the commode,, comfortable in no apparent distress. HEAD: Normocephalic/atraumatic. EYES: Normal reaction of pupils, equal size. Conjunctiva pink, sclera white. NOSE: Clear with pink turbinates. THROAT: No erythema or exudates. NECK: No masses, no JVD, no thyroid enlargement, no adenopathy. CHEST: No chest wall deformity. Symmetrical expansion. LUNGS: Equal air entry with basilar crackles, but no wheeze, rhonchi or dullness . CVS: Irregular rate and rhythm, normal S1 and S2, no gallops, no murmurs, no rubs ABDOMEN: Soft, nontender. No hepatosplenomegaly, normal bowel sounds, no guarding or rigidity. EXTREMITIES: No clubbing, no edema, no cyanosis, 2+ pulses and upper and lower extremities. MUSCULOSKELETAL: Muscle strength and tone normal. SPINE: No scoliosis or deformity SKIN: No rashes CENTRAL NERVOUS SYSTEM: Alert and oriented -3. No focal deficits, tone is normal in all 4 extremities. PSYCHIATRIC: Alert and oriented -3. Appropriate affect. Intact judgment and insight. - Labs CBC & Chem 7: 09/13/20 04:02 09/13/20 04:02 Labs: Abnormal Lab Results - Last 24 Hours (Table) 09/12/20 09/12/20 09/12/20 Range/Units 11:44 11:45 11:48 WBC (3.8-10.6) k/uL RBC (4.30-5.90) m/uL Hgb (13.0-17.5) gm/dL Hct (39.0-53.0) % RDW (11.5-15.5) % Plt Count (150-450) k/uL Neutrophils # (Manual) (1.3-7.7) k/uL Monocytes # (Manual) (0-1.0) k/uL Nucleated RBCs (0-0) /100 WBC Sodium (137-145) mmol/L Potassium (3.5-5.1) mmol/L Chloride (98-107) mmol/L Carbon Dioxide (22-30) mmol/L BUN (9-20) mg/dL Creatinine (0.66-1.25) mg/dL Glucose (74-99) mg/dL POC Glucose (mg/dL) 32 L 20 L 70 L (75-99) mg/dL Calcium (8.4-10.2) mg/dL 09/12/20 09/12/20 09/12/20 Range/Units 17:21 21:24 21:26 WBC (3.8-10.6) k/uL RBC (4.30-5.90) m/uL Hgb (13.0-17.5) gm/dL Hct (39.0-53.0) % RDW (11.5-15.5) % Plt Count (150-450) k/uL Neutrophils # (Manual) (1.3-7.7) k/uL Monocytes # (Manual) (0-1.0) k/uL Nucleated RBCs (0-0) /100 WBC Sodium (137-145) mmol/L Potassium (3.5-5.1) mmol/L Chloride (98-107) mmol/L Carbon Dioxide (22-30) mmol/L BUN (9-20) mg/dL Creatinine (0.66-1.25) mg/dL Glucose (74-99) mg/dL POC Glucose (mg/dL) 198 H 32 L 183 H (75-99) mg/dL Calcium (8.4-10.2) mg/dL 09/13/20 09/13/20 09/13/20 Range/Units 04:02 04:02 07:06 WBC 20.5 H (3.8-10.6) k/uL RBC 3.44 L (4.30-5.90) m/uL Hgb 10.0 L (13.0-17.5) gm/dL Hct 30.7 L (39.0-53.0) % RDW 15.8 H (11.5-15.5) % Plt Count 95 L (150-450) k/uL Neutrophils # (Manual) 18.40 H (1.3-7.7) k/uL Monocytes # (Manual) 1.23 H (0-1.0) k/uL Nucleated RBCs 4 H (0-0) /100 WBC Sodium 136 L (137-145) mmol/L Potassium 3.4 L (3.5-5.1) mmol/L Chloride 90 L (98-107) mmol/L Carbon Dioxide 39 H (22-30) mmol/L BUN 87 H (9-20) mg/dL Creatinine 1.38 H (0.66-1.25) mg/dL Glucose 143 H (74-99) mg/dL POC Glucose (mg/dL) 154 H (75-99) mg/dL Calcium 7.7 L (8.4-10.2) mg/dL Assessment and Plan Plan: Assessment: #1. Acute hypoxic respiratory failure, secondary to acute systolic CHF and pulm onary edema #2. Acute GI bleeding, patient presented to the emergency department for evaluation of 2 day history of melanotic stools #3. Acute blood loss anemia related to the above, presented with a hemoglobin of 6.4, status post transfusion with 3 units of packed red blood cells, current hemoglobin is 10.0 #4. A. fib with RVR, to poorly controlled at times, patient is currently on amiodarone 200 mg times a day by mouth #5. Acute non-ST elevated myocardial infarction #6. Acute cardiogenic shock, patient is currently on Levaquin fed, dobutamine and Lasix drip. Chest x-ray shows pulmonary edema, EF was severely impaired on the echocardiogram with EF 25-30% #7. Acute kidney injury #8. Leukocytosis, possibly reactive, related to acute myocardial infarction and addition of steroids #9. Elevated troponins related to acute myocardial infarction #10. Lactic acidosis, doubt infectious etiology, patient has been afebrile, this likely related to acute cardiogenic shock #11. History of coronary artery disease with previous bypass grafting the details of which are unknown to us at this time #12. Former smoker Plan: Continue current medical treatment, rate controlled medications per cardiology, hemodynamically patient remains stable, no active bleeding overnight, remains on PPI therapy, his chest x-ray has been reviewed, still showing changes consistent with pulmonary vascular congestion and acute CHF, clinically patient is doing better, breathing easier, he is on room air, he stable for transfer out of intensive care unit. I performed a history & physical examination of the patient and discussed their management with my nurse practitioner, Eliana Wisdom. I reviewed the nurse practitioner's note and agree with the documented findings and plan of care. Lung sounds are positive for diminished breath sounds, with bibasilar crackles. The findings and the impression was discussed with the patient. I attest to the documentation by the nurse practitioner. Time with Patient: Less than 30
--- NOTE | 2020-09-13 12:03 | P.PN ---
Subjective Progress Note Date: 09/13/20 Principal diagnosis: Acute upper gastrointestinal bleed This is an 89-year-old white male patient who came into the emergency department last week for complaints of shortness of breath and chest pain. He was also with complaint of black stools and coffee-ground emesis. He was found to have elevated troponins, was diagnosed with new onset of atrial fibrillation with RVR. He remains in the ICU. He is without any complaints today. He denies having any further black bowel movements, or hematemesis. Remains on IV Lasix drip, his levo fed and IV amiodarone has been discontinued. He is now on oral amiodarone and metoprolol. He is no longer requiring oxygen, saturation is 98- 99% on room air. Hemoglobin continues to improve, today is at 10.0. Discussion with the patient regarding possibly proceeding with an upper endoscopy if any further episodes of bleeding, patient states at this point in time he does not want to proceed with any endoscopies. Objective - Vital Signs Vital signs: Vital Signs Temp 98.2 F 09/12/20 21:00 Pulse 104 H 09/13/20 09:00 Resp 20 09/13/20 09:00 BP 108/78 09/13/20 09:00 Pulse Ox 99 09/13/20 09:00 Intake & Output 09/12/20 09/13/20 09/13/20 18:59 06:59 18:59 Intake Total 303.500 180 285 Output Total 1370 2185 350 Balance -1066.500 Weight 102.1 kg Intake: IV 180 180 45 0.9 NACL 120 120 30 lasix 60 60 15 Intake, IV Titration 123.500 Amount Furosemide 100 mg In 123.500 Sodium Chloride 0.9% 90 ml @ 5 MG/HR 5 mls/hr IV .Q20H [facility] Rx#:[id number] Oral 240 Output: Urine 1370 2185 350 Other: Voiding Method Indwelling Catheter Indwelling Catheter Indwelling Catheter ABP, PAP, CO, CI - Last Documented Arterial Blood Pressure 92/79 - Exam General appearance: The patient is alert, oriented, person no acute distress. HET: Head is normocephalic and atraumatic. Conjunctiva pink. Sclera anicteric. Neck: Supple without lymphadenopathy. Abdomen: Soft, nontender, non-distended with bowel sounds. No guarding or rigidity. Extremities: Bilateral pedal edema. Neurological: No focal deficits. Alert and oriented 3. - Labs CBC & Chem 7: 09/13/20 04:02 09/13/20 04:02 Labs: Abnormal Lab Results - Last 24 Hours (Table) 09/12/20 09/12/20 09/12/20 Range/Units 11:44 11:45 11:48 WBC (3.8-10.6) k/uL RBC (4.30-5.90) m/uL Hgb (13.0-17.5) gm/dL Hct (39.0-53.0) % RDW (11.5-15.5) % Plt Count (150-450) k/uL Neutrophils # (Manual) (1.3-7.7) k/uL Monocytes # (Manual) (0-1.0) k/uL Nucleated RBCs (0-0) /100 WBC Sodium (137-145) mmol/L Potassium (3.5-5.1) mmol/L Chloride (98-107) mmol/L Carbon Dioxide (22-30) mmol/L BUN (9-20) mg/dL Creatinine (0.66-1.25) mg/dL Glucose (74-99) mg/dL POC Glucose (mg/dL) 32 L 20 L 70 L (75-99) mg/dL Calcium (8.4-10.2) mg/dL 09/12/20 09/12/20 09/12/20 Range/Units 17:21 21:24 21:26 WBC (3.8-10.6) k/uL RBC (4.30-5.90) m/uL Hgb (13.0-17.5) gm/dL Hct (39.0-53.0) % RDW (11.5-15.5) % Plt Count (150-450) k/uL Neutrophils # (Manual) (1.3-7.7) k/uL Monocytes # (Manual) (0-1.0) k/uL Nucleated RBCs (0-0) /100 WBC Sodium (137-145) mmol/L Potassium (3.5-5.1) mmol/L Chloride (98-107) mmol/L Carbon Dioxide (22-30) mmol/L BUN (9-20) mg/dL Creatinine (0.66-1.25) mg/dL Glucose (74-99) mg/dL POC Glucose (mg/dL) 198 H 32 L 183 H (75-99) mg/dL Calcium (8.4-10.2) mg/dL 09/13/20 09/13/20 09/13/20 Range/Units 04:02 04:02 07:06 WBC 20.5 H (3.8-10.6) k/uL RBC 3.44 L (4.30-5.90) m/uL Hgb 10.0 L (13.0-17.5) gm/dL Hct 30.7 L (39.0-53.0) % RDW 15.8 H (11.5-15.5) % Plt Count 95 L (150-450) k/uL Neutrophils # (Manual) 18.40 H (1.3-7.7) k/uL Monocytes # (Manual) 1.23 H (0-1.0) k/uL Nucleated RBCs 4 H (0-0) /100 WBC Sodium 136 L (137-145) mmol/L Potassium 3.4 L (3.5-5.1) mmol/L Chloride 90 L (98-107) mmol/L Carbon Dioxide 39 H (22-30) mmol/L BUN 87 H (9-20) mg/dL Creatinine 1.38 H (0.66-1.25) mg/dL Glucose 143 H (74-99) mg/dL POC Glucose (mg/dL) 154 H (75-99) mg/dL Calcium 7.7 L (8.4-10.2) mg/dL Assessment and Plan (1) Melena Narrative/Plan: 85-year-old male with multiple medical comorbidities presenting with black tarry bowel movements over the past 4 days. Hemoglobin 6.4 status post transfusion of 2 units of packed red blood cells hemoglobin currently improved and stable. No recent EGD or colonoscopy. Unclear etiology may be secondary to gastritis, esophagitis, peptic ulcer disease or other etiology. Currently patient is being treated for elevated troponins and new onset atrial fibrillation with RVR and being followed by the pulmonology and cardiology services. Current Visit: Yes Status: Acute Code(s): K92.1 - MELENA SNOMED Code(s): 7842509 (2) Anemia associated with acute blood loss Current Visit: Yes Status: Acute Code(s): D62 - ACUTE POSTHEMORRHAGIC ANEMIA SNOMED Code(s): 640156338 (3) GI bleed Current Visit: Yes Status: Acute Code(s): K92.2 - GASTROINTESTINAL HEMORRHAGE, UNSPECIFIED SNOMED Code(s): 04386658 Plan: Supportive care Continue Protonix 40 mg twice daily Okay for diet as tolerated Continue to monitor hemoglobin and hematocrit and transfuse as needed Appreciate recommendations from cardiology and pulmonology service is Will consider proceeding to EGD once medically stable and cleared by cardiology and pulmonology services, however at this time patient is stating he does not want to proceed with any endoscopy. Thank you for allowing us to participate in the care of the patient Dr. Zach Sharif I agree with the dictator's note, documented as a scribe by Sonal Pierre.
[2020-09-13 12:20] LABS: Glucose,Whole Blood 302 mg/dL (75-99)
[2020-09-13 13:07] VITALS: BMI 32.3
[2020-09-13] MEDS ORDERED: Potassium Replacement Protocol 1 EACH MISC MISCELLANE PRN (16:06)
--- NOTE | 2020-09-13 16:35 | P.PN ---
Subjective Progress Note Date: 09/13/20 Patient seen and examined at chair side. Patient denies chest pain, shortness breath, fever, chills, nausea, vomiting, diarrhea, or constipation. Patient states he is feeling better. Patient is requesting Benadryl cream for his legs. Patient states that helps his achy legs feel better. Objective - Vital Signs Vital signs: Vital Signs Temp 98.0 F 09/13/20 16:00 Pulse 102 H 09/13/20 16:00 Resp 18 09/13/20 16:00 BP 106/77 09/13/20 16:00 Pulse Ox 95 09/13/20 16:00 Intake & Output 09/12/20 09/13/20 09/13/20 18:59 06:59 18:59 Intake Total 303.500 180 825 Output Total 1370 2185 1200 Balance -1066.500 -2005 -375 Weight 102.1 kg 102.1 kg Intake: IV 180 180 125 0.9 NACL 120 120 100 lasix 60 60 25 Intake, IV Titration 123.500 100 Amount Furosemide 100 mg In 123.500 100 Sodium Chloride 0.9% 90 ml @ 5 MG/HR 5 mls/hr IV .Q20H [facility] Rx#:[id number] Oral 600 Output: Urine 1370 2185 1200 Other: Voiding Method Indwelling Catheter Indwelling Catheter Indwelling Catheter # Bowel Movements 1 ABP, PAP, CO, CI - Last Documented Arterial Blood Pressure 92/79 - Exam General: [non toxic], [no distress], [appears at stated age] Derm: [warm], [dry] Head: [atraumatic], [normocephalic], [symmetric] Eyes: [EOMI], [no lid lag], [anicteric sclera] Mouth: [no lip lesion], [mucus membranes moist] Cardiovascular: [irreg], [murmur], [positive posterior tibial pulse bilateral], Lungs: [CTA bilateral], [no rhonchi, no rales] , [no accessory muscle use] Abdominal: [soft], [ nontender to palpation], [no guarding], [no appreciable organomegaly] Ext: [no gross muscle atrophy], [no edema], [no contractures] Neuro: [ CN II-XI grossly intact], [no focal neuro deficits] Psych: [Alert], [oriented], [appropriate affect] - Labs CBC & Chem 7: 09/13/20 04:02 09/13/20 14:15 Labs: Abnormal Lab Results - Last 24 Hours (Table) 09/12/20 09/12/20 09/12/20 Range/Units 17:21 21:24 21:26 WBC (3.8-10.6) k/uL RBC (4.30-5.90) m/uL Hgb (13.0-17.5) gm/dL Hct (39.0-53.0) % RDW (11.5-15.5) % Plt Count (150-450) k/uL Neutrophils # (Manual) (1.3-7.7) k/uL Monocytes # (Manual) (0-1.0) k/uL Nucleated RBCs (0-0) /100 WBC Sodium (137-145) mmol/L Potassium (3.5-5.1) mmol/L Chloride (98-107) mmol/L Carbon Dioxide (22-30) mmol/L BUN (9-20) mg/dL Creatinine (0.66-1.25) mg/dL Glucose (74-99) mg/dL POC Glucose (mg/dL) 198 H 32 L 183 H (75-99) mg/dL Calcium (8.4-10.2) mg/dL 09/13/20 09/13/20 09/13/20 Range/Units 04:02 04:02 07:06 WBC 20.5 H (3.8-10.6) k/uL RBC 3.44 L (4.30-5.90) m/uL Hgb 10.0 L (13.0-17.5) gm/dL Hct 30.7 L (39.0-53.0) % RDW 15.8 H (11.5-15.5) % Plt Count 95 L (150-450) k/uL Neutrophils # (Manual) 18.40 H (1.3-7.7) k/uL Monocytes # (Manual) 1.23 H (0-1.0) k/uL Nucleated RBCs 4 H (0-0) /100 WBC Sodium 136 L (137-145) mmol/L Potassium 3.4 L (3.5-5.1) mmol/L Chloride 90 L (98-107) mmol/L Carbon Dioxide 39 H (22-30) mmol/L BUN 87 H (9-20) mg/dL Creatinine 1.38 H (0.66-1.25) mg/dL Glucose 143 H (74-99) mg/dL POC Glucose (mg/dL) 154 H (75-99) mg/dL Calcium 7.7 L (8.4-10.2) mg/dL 09/13/20 09/13/20 Range/Units 12:19 14:15 WBC (3.8-10.6) k/uL RBC (4.30-5.90) m/uL Hgb (13.0-17.5) gm/dL Hct (39.0-53.0) % RDW (11.5-15.5) % Plt Count (150-450) k/uL Neutrophils # (Manual) (1.3-7.7) k/uL Monocytes # (Manual) (0-1.0) k/uL Nucleated RBCs (0-0) /100 WBC Sodium (137-145) mmol/L Potassium 3.3 L (3.5-5.1) mmol/L Chloride (98-107) mmol/L Carbon Dioxide (22-30) mmol/L BUN (9-20) mg/dL Creatinine (0.66-1.25) mg/dL Glucose (74-99) mg/dL POC Glucose (mg/dL) 302 H (75-99) mg/dL Calcium (8.4-10.2) mg/dL Assessment and Plan Assessment: Upper GI bleed: With hemoglobin of 6.4 on presentation/Acute blood loss anemia: Status post transfusion of packed red blood cells. hemoglobin is stable at 10 today GI recs appreciated. Continue IV Protonix 40 mg twice daily. Per patient he does not want to proceed with an EGD Hypovolemic and cardiogenic shock, with lactic acidosis. Off Levophed drip Continue lasix gtt at 5 mg per hour Hold home blood pressure medications. Acute on chronic systolic heart failure exacerbation, systolic EF=25-30%: With evidence of fluid overload clinically and on chest x-ray. Continue IV Lasix q12h A. fib with RVR Continue amiodarone TID NSTEMI with hx of CAD s/p CABG Most likely non-thrombotic troponin leak secondary to hypotension, heart failure, and GI bleed. Cardiology recommendations appreciated Acute hypoxic respiratory failure secondary to flash pulmonary edema: improved Steroid-induced hyperglycemia insulin sliding scale Itchy legs benadryl cream prescribed CODE STATUS: DO NOT RESUSCITATE/DO NOT INTUBATE.
[2020-09-13] MEDS: SPIRONOLACTONE 25 MG TAB PO SCH (16:49)
[2020-09-13 16:57] LABS: Glucose,Whole Blood 150 mg/dL (75-99)
[2020-09-13] MEDS: diphenhydrAMINE 2% CREAM 28.4 GM TUBE TOPICAL SCH (20:02)
[2020-09-13] MEDS: FUROSEMIDE 10 MG/ML 4 ML VIAL IV SCH (20:03)
[2020-09-13 20:20] LABS: Glucose,Whole Blood 147 mg/dL (75-99)
[2020-09-14 05:47] LABS: HCT 32.4 % (39.0-53.0); HGB 10.2 gm/dL (13.0-17.5); Hypochromasia Slight; MCHC 31.3 g/dL (31.0-37.0); MCV 89.3 fL (80.0-100.0); Mean Platelet Volume 9.1; Platelet Count 115 k/uL (150-450); Poikilocytosis Slight; RBC 3.63 m/uL (4.30-5.90); RDW 15.9 % (11.5-15.5)
[2020-09-14 05:55] LABS: Calcium 8.1 mg/dL (8.4-10.2); Potassium 3.9 mmol/L (3.5-5.1)
[2020-09-14 06:17] LABS: Monocytes # (M) 1.79 k/uL (0-1.0); Neutrophils # (M) 27.81 k/uL (1.3-7.7); Neutrophils % (M) 93 %; Nucleated Red Blood Cells 1 /100 WBC (0-0); Total Cells Counted 200; WBC 29.9 k/uL (3.8-10.6)
[2020-09-14 06:18] LABS: Polychromasia Present
[2020-09-14 06:25] LABS: Glucose,Whole Blood 88 mg/dL (75-99)
[2020-09-14] MEDS: INSULIN ASPART (NovoLOG) 100 UNIT/ML VIAL SQ SCH ×4 (06:29→22:05)
[2020-09-14] MEDS ORDERED: Potassium Replacement Protocol 1 EACH MISC MISCELLANE PRN (06:32)
[2020-09-14] MEDS ORDERED: POTASSIUM CHLORIDE ER 20 MEQ TAB.ER PO SCH (07:00)
[2020-09-14] MEDS: FUROSEMIDE 10 MG/ML 4 ML VIAL IV SCH ×2 (08:22→22:12)
[2020-09-14] MEDS: SPIRONOLACTONE 25 MG TAB PO SCH (08:22)
[2020-09-14] MEDS: methylPREDNISolone SOD SUCCI 40 MG/ML 1 ML VIAL IV SCH (08:22)
[2020-09-14] MEDS: METOPROLOL TARTRATE 12.5 MG TAB PO SCH (08:22)
[2020-09-14] MEDS: PANTOPRAZOLE 40 MG/10 ML VIAL IVP SCH (08:22)
[2020-09-14] MEDS: AMIODARONE 200 MG TAB PO SCH ×3 (08:22→22:12)
[2020-09-14] MEDS: diphenhydrAMINE 2% CREAM 28.4 GM TUBE TOPICAL SCH ×2 (08:23→22:34)
[2020-09-14] MEDS ORDERED: METOPROLOL TARTRATE 12.5 MG TAB PO STA (09:48)
--- NOTE | 2020-09-14 10:12 | P.PN ---
Subjective Progress Note Date: 09/14/20 Principal diagnosis: Acute upper gastrointestinal bleed This is an 89-year-old white male patient who came into the emergency department last week for complaints of shortness of breath and chest pain. He was also with complaint of black stools and coffee-ground emesis. He was found to have elevated troponins, was diagnosed with new onset of atrial fibrillation with RVR. He was transferred out of the ICU to selective care unit. He is without any complaints today. He denies having any further black bowel movements, or hematemesis. See had a large brown bowel movement yesterday. He denies any abdominal pain, nausea, or vomiting. He is tolerating a regular diet. His hemoglobin is stable at 10.2. Objective - Vital Signs Vital signs: Vital Signs Temp 98.0 F 09/14/20 00:00 Pulse 120 H 09/14/20 05:00 Resp 19 09/14/20 05:00 BP 110/81 09/14/20 05:00 Pulse Ox 96 09/14/20 04:00 Intake & Output 09/13/20 09/14/20 09/14/20 18:59 06:59 18:59 Intake Total 1205 70 Output Total 1300 710 Balance -95 -640 Weight 102.1 kg 103 kg Intake: IV 145 70 0.9 NACL 120 70 lasix 25 Intake, IV Titration 100 Amount Furosemide 100 mg In 100 Sodium Chloride 0.9% 90 ml @ 5 MG/HR 5 mls/hr IV .Q20H [facility] Rx#:[id number] Oral 960 Output: Urine 1300 710 Other: Voiding Method Indwelling Catheter Indwelling Catheter # Bowel Movements 1 ABP, PAP, CO, CI - Last Documented Arterial Blood Pressure 92/79 - Exam General appearance: The patient is alert, oriented, person no acute distress. HET: Head is normocephalic and atraumatic. Conjunctiva pink. Sclera anicteric. Neck: Supple without lymphadenopathy. Abdomen: Soft, nontender, non-distended with bowel sounds. No guarding or rigidity. Extremities: Bilateral pedal edema. Neurological: No focal deficits. Alert and oriented 3. - Labs CBC & Chem 7: 09/14/20 05:13 09/14/20 05:13 Labs: Abnormal Lab Results - Last 24 Hours (Table) 09/13/20 09/13/20 09/13/20 Range/Units 12:19 14:15 16:55 WBC (3.8-10.6) k/uL RBC (4.30-5.90) m/uL Hgb (13.0-17.5) gm/dL Hct (39.0-53.0) % RDW (11.5-15.5) % Plt Count (150-450) k/uL Neutrophils # (Manual) (1.3-7.7) k/uL Lymphocytes # (Manual) (1.0-4.8) k/uL Monocytes # (Manual) (0-1.0) k/uL Nucleated RBCs (0-0) /100 WBC Potassium 3.3 L (3.5-5.1) mmol/L Chloride (98-107) mmol/L Carbon Dioxide (22-30) mmol/L BUN (9-20) mg/dL Glucose (74-99) mg/dL POC Glucose (mg/dL) 302 H 150 H (75-99) mg/dL Calcium (8.4-10.2) mg/dL 09/13/20 09/14/20 09/14/20 Range/Units 20:19 05:13 05:13 WBC 29.9 H (3.8-10.6) k/uL RBC 3.63 L (4.30-5.90) m/uL Hgb 10.2 L (13.0-17.5) gm/dL Hct 32.4 L (39.0-53.0) % RDW 15.9 H (11.5-15.5) % Plt Count 115 L (150-450) k/uL Neutrophils # (Manual) 27.81 H (1.3-7.7) k/uL Lymphocytes # (Manual) 0.60 L (1.0-4.8) k/uL Monocytes # (Manual) 1.79 H (0-1.0) k/uL Nucleated RBCs 1 H (0-0) /100 WBC Potassium (3.5-5.1) mmol/L Chloride 93 L (98-107) mmol/L Carbon Dioxide 36 H (22-30) mmol/L BUN 79 H (9-20) mg/dL Glucose 115 H (74-99) mg/dL POC Glucose (mg/dL) 147 H (75-99) mg/dL Calcium 8.1 L (8.4-10.2) mg/dL Assessment and Plan (1) Melena Narrative/Plan: 85-year-old male with multiple medical comorbidities presenting with black tarry bowel movements over the past 4 days. Hemoglobin 6.4 status post transfusion of 2 units of packed red blood cells hemoglobin currently improved and stable. No recent EGD or colonoscopy. Unclear etiology may be secondary to gastritis, esophagitis, peptic ulcer disease or other etiology. Currently patient is being treated for elevated troponins and new onset atrial fibrillation with RVR and being followed by the pulmonology and cardiology services. Patient has had no further bleeding. Hemoglobin is stable at 10.2. Current Visit: Yes Status: Acute Code(s): K92.1 - MELENA SNOMED Code(s): 7544930 (2) Anemia associated with acute blood loss Current Visit: Yes Status: Acute Code(s): D62 - ACUTE POSTHEMORRHAGIC ANEMIA SNOMED Code(s): 711175486 (3) GI bleed Current Visit: Yes Status: Acute Code(s): K92.2 - GASTROINTESTINAL HEMORRHAGE, UNSPECIFIED SNOMED Code(s): 75455817 Plan: Supportive care Continue Protonix 40 mg twice daily Okay for diet as tolerated Continue to monitor hemoglobin and hematocrit and transfuse as needed Appreciate recommendations from cardiology and pulmonology service is No plans for any endoscopies this admission as patient has had no further bleeding, hemoglobin remained stable and patient is declining. Thank you For this consultation, we will sign off at this time. Dr. Zach Sharif I agree with the dictator's note, documented as a scribe by Sonal Pierre.
[2020-09-14 11:44] LABS: Glucose,Whole Blood 147 mg/dL (75-99)
--- NOTE | 2020-09-14 12:16 | P.PN ---
Subjective Patient is seen in follow-up for acute kidney injury. Renal function improving. Off vasopressors. Maintain on Lasix 40 mg IV twice daily. On room air. No chest pain or shortness of breath. Nonoliguric. Appetite fair. General: The patient appeared well nourished and normally developed. HEENT: No JVD. On nasal cannula. LUNGS: Breath sounds decreased. HEART: Regular rate and rhythm. ABDOMEN: soft nontender. EXTREMITITES: Trace edema. Objective - Vital Signs Vital signs: Vital Signs Temp 97.6 F 09/14/20 08:15 Pulse 110 H 09/14/20 08:15 Resp 16 09/14/20 08:15 BP 114/62 09/14/20 08:15 Pulse Ox 94 L 09/14/20 08:15 Intake & Output 09/13/20 09/14/20 09/14/20 18:59 06:59 18:59 Intake Total 1205 70 155 Output Total 1300 710 Balance -95 -640 155 Weight 102.1 kg 103 kg Intake: IV 145 70 30 0.9 NACL 120 70 Invasive Line 3 10 Invasive Line 4 10 Invasive Line 6 10 lasix 25 Intake, IV Titration 100 Amount Furosemide 100 mg In 100 Sodium Chloride 0.9% 90 ml @ 5 MG/HR 5 mls/hr IV .Q20H [facility] Rx#:[id number] Oral 960 125 Output: Urine 1300 710 Other: Voiding Method Indwelling Catheter Indwelling Catheter Indwelling Catheter # Bowel Movements 1 ABP, PAP, CO, CI - Last Documented Arterial Blood Pressure 92/79 - Labs CBC & Chem 7: 09/14/20 05:13 09/14/20 05:13 Labs: Abnormal Lab Results - Last 24 Hours (Table) 09/13/20 09/13/20 09/13/20 Range/Units 12:19 14:15 16:55 WBC (3.8-10.6) k/uL RBC (4.30-5.90) m/uL Hgb (13.0-17.5) gm/dL Hct (39.0-53.0) % RDW (11.5-15.5) % Plt Count (150-450) k/uL Neutrophils # (Manual) (1.3-7.7) k/uL Lymphocytes # (Manual) (1.0-4.8) k/uL Monocytes # (Manual) (0-1.0) k/uL Nucleated RBCs (0-0) /100 WBC Potassium 3.3 L (3.5-5.1) mmol/L Chloride (98-107) mmol/L Carbon Dioxide (22-30) mmol/L BUN (9-20) mg/dL Glucose (74-99) mg/dL POC Glucose (mg/dL) 302 H 150 H (75-99) mg/dL Calcium (8.4-10.2) mg/dL 09/13/20 09/14/20 09/14/20 Range/Units 20:19 05:13 05:13 WBC 29.9 H (3.8-10.6) k/uL RBC 3.63 L (4.30-5.90) m/uL Hgb 10.2 L (13.0-17.5) gm/dL Hct 32.4 L (39.0-53.0) % RDW 15.9 H (11.5-15.5) % Plt Count 115 L (150-450) k/uL Neutrophils # (Manual) 27.81 H (1.3-7.7) k/uL Lymphocytes # (Manual) 0.60 L (1.0-4.8) k/uL Monocytes # (Manual) 1.79 H (0-1.0) k/uL Nucleated RBCs 1 H (0-0) /100 WBC Potassium (3.5-5.1) mmol/L Chloride 93 L (98-107) mmol/L Carbon Dioxide 36 H (22-30) mmol/L BUN 79 H (9-20) mg/dL Glucose 115 H (74-99) mg/dL POC Glucose (mg/dL) 147 H (75-99) mg/dL Calcium 8.1 L (8.4-10.2) mg/dL 09/14/20 Range/Units 11:39 WBC (3.8-10.6) k/uL RBC (4.30-5.90) m/uL Hgb (13.0-17.5) gm/dL Hct (39.0-53.0) % RDW (11.5-15.5) % Plt Count (150-450) k/uL Neutrophils # (Manual) (1.3-7.7) k/uL Lymphocytes # (Manual) (1.0-4.8) k/uL Monocytes # (Manual) (0-1.0) k/uL Nucleated RBCs (0-0) /100 WBC Potassium (3.5-5.1) mmol/L Chloride (98-107) mmol/L Carbon Dioxide (22-30) mmol/L BUN (9-20) mg/dL Glucose (74-99) mg/dL POC Glucose (mg/dL) 147 H (75-99) mg/dL Calcium (8.4-10.2) mg/dL Assessment and Plan Plan: Assessment: 1. Acute kidney injury secondary to ATN secondary to acute blood loss anemia, A. fib, hypotension and component of cardiorenal syndrome. Baseline creatinine near 1 and peaked at 2.76 this admission - 1.19 today. No hydronephrosis noted on kidney ultrasound. 2. Acute on chronic systolic CHF with ejection fraction of 25% with moderate mitral regurgitation and tricuspid regurgitation. 3. Metabolic alkalosis from diuresis. Better. 4. Hyperkalemia secondary to acute kidney injury, GI bleed and metabolic acidosis. Resolved. Became hypokalemic from diuresis. Status post placement. 5. Volume overload. Improving with diuresis. 6. Acute blood loss anemia secondary to GI bleed status post blood transfusion. GI following. Stable. 7. A. fib with RVR maintained on amiodarone and Lopressor. 8. Shock s/p Levophed. Plan: Maintain IV Lasix. Continue to monitor renal function and urine output closely.
--- NOTE | 2020-09-14 13:28 | P.PN ---
Subjective Progress Note Date: 09/14/20 No new complaints. Pt states he feels well and back to baseline Objective - Vital Signs Vital signs: Vital Signs Temp 97.6 F 09/14/20 08:15 Pulse 118 H 09/14/20 12:00 Resp 16 09/14/20 12:00 BP 130/76 09/14/20 12:00 Pulse Ox 94 L 09/14/20 12:00 Intake & Output 09/13/20 09/14/20 09/14/20 18:59 06:59 18:59 Intake Total 1205 70 155 Output Total 1300 710 Balance -95 -640 155 Weight 102.1 kg 103 kg Intake: IV 145 70 30 0.9 NACL 120 70 Invasive Line 3 10 Invasive Line 4 10 Invasive Line 6 10 lasix 25 Intake, IV Titration 100 Amount Furosemide 100 mg In 100 Sodium Chloride 0.9% 90 ml @ 5 MG/HR 5 mls/hr IV .Q20H [facility] Rx#:[id number] Oral 960 125 Output: Urine 1300 710 Other: Voiding Method Indwelling Catheter Indwelling Catheter Indwelling Catheter # Bowel Movements 1 ABP, PAP, CO, CI - Last Documented Arterial Blood Pressure 92/79 - Exam Gen: awake, alert HEENT: normocephalic, atraumatic, good hearing acuity, moist mucous membranes Resp: good air exchange, breathing comfortably with no accessory muscle use CVS: good distal perfusion x 4, GI: soft, NTTP, ND : no SPT, no CVAT, coles catheter not present MSK: no pitting edema, no clubbing Neuro: non-focal, moving all extremities Psych: cooperative, euthymic mood - Labs CBC & Chem 7: 09/14/20 05:13 09/14/20 05:13 Labs: Abnormal Lab Results - Last 24 Hours (Table) 09/13/20 09/13/20 09/13/20 Range/Units 14:15 16:55 20:19 WBC (3.8-10.6) k/uL RBC (4.30-5.90) m/uL Hgb (13.0-17.5) gm/dL Hct (39.0-53.0) % RDW (11.5-15.5) % Plt Count (150-450) k/uL Neutrophils # (Manual) (1.3-7.7) k/uL Lymphocytes # (Manual) (1.0-4.8) k/uL Monocytes # (Manual) (0-1.0) k/uL Nucleated RBCs (0-0) /100 WBC Potassium 3.3 L (3.5-5.1) mmol/L Chloride (98-107) mmol/L Carbon Dioxide (22-30) mmol/L BUN (9-20) mg/dL Glucose (74-99) mg/dL POC Glucose (mg/dL) 150 H 147 H (75-99) mg/dL Calcium (8.4-10.2) mg/dL 09/14/20 09/14/20 09/14/20 Range/Units 05:13 05:13 11:39 WBC 29.9 H (3.8-10.6) k/uL RBC 3.63 L (4.30-5.90) m/uL Hgb 10.2 L (13.0-17.5) gm/dL Hct 32.4 L (39.0-53.0) % RDW 15.9 H (11.5-15.5) % Plt Count 115 L (150-450) k/uL Neutrophils # (Manual) 27.81 H (1.3-7.7) k/uL Lymphocytes # (Manual) 0.60 L (1.0-4.8) k/uL Monocytes # (Manual) 1.79 H (0-1.0) k/uL Nucleated RBCs 1 H (0-0) /100 WBC Potassium (3.5-5.1) mmol/L Chloride 93 L (98-107) mmol/L Carbon Dioxide 36 H (22-30) mmol/L BUN 79 H (9-20) mg/dL Glucose 115 H (74-99) mg/dL POC Glucose (mg/dL) 147 H (75-99) mg/dL Calcium 8.1 L (8.4-10.2) mg/dL Assessment and Plan Assessment: 1. Mixed Shock, Hypovolemic secondary to ABLA, then Cardiogenic secondary to blood product transfusion superimposed on chronic HFrEF 2. Upper GI Bleed 3. Permanent Atrial Fibrillation with RVR 4. JOSE 5. HTN 6. HLD 85 year old man with history of CAD/HTN/HLD, HFrEF 25%, AFib presented with hypovolemic shock secondary to upper GI Bleed, warranting 3U PRBCs and levophed initially. He was then felt to be in cardiogenic shock warranting levophed and lasix gtt, which he was weaned off of gradually. Patient had refused an EGD for work up, however, fortunately blood counts remained stable at 10. GI and Cardiology consulted on care, and recommendations appreciated. Upper GI bleed: With hemoglobin of 6.4 on presentation/Acute blood loss anemia: Status post transfusion of packed red blood cells. hemoglobin is stable at 10 today GI recs appreciated. Continue IV Protonix 40 mg twice daily. Per patient he does not want to proceed with an EGD Hypovolemic and cardiogenic shock, with lactic acidosis. Off Levophed drip Off lasix gtt, now on 40mg IV BID Hold home blood pressure medications. Acute on chronic systolic heart failure exacerbation, systolic EF=25-30%: With evidence of fluid overload clinically and on chest x-ray. Continue IV Lasix q12h Continue spironolactone Start ARB (losartan), and uptitrate as tolerated since no longer in JOSE JOSE resolved with resolution of shock state A. fib with RVR Continue amiodarone TID Steroid-induced hyperglycemia insulin sliding scale Itchy legs benadryl cream prescribed CODE STATUS: DO NOT RESUSCITATE/DO NOT INTUBATE.
[2020-09-14] MEDS: MORPHINE SULFATE 4 MG/ML SYRINGE IVP PRN (14:08)
[2020-09-14] MEDS: LOSARTAN 25 MG TAB PO SCH (14:08)
--- NOTE | 2020-09-14 15:14 | P.PN ---
Subjective Progress Note Date: 09/14/20 HISTORY OF PRESENT ILLNESS: Patient examined this point bedside. He denies chest pain or pressure. He denies shortness of breath at rest. Patient's heart rate is mildly uncontrolled this morning in the low 100s. Blood pressure stable. PHYSICAL EXAM: VITAL SIGNS: Reviewed. GENERAL: Well-developed in no acute distress. NECK: Supple. No JVD or thyromegaly LUNGS: Respirations even and unlabored. Lungs diminished bilaterally. HEART: Irregular rate and rhythm. S1 and S2 heard. Systolic murmur. EXTREMITIES: Normal range of motion. No clubbing or cyanosis. Peripheral pulses intact. Trace bilateral lower extremity edema ASSESSMENT: Chronic persistent atrial fibrillation Acute exacerbation of chronic systolic congestive heart failure, EF 25-30% Upper GI bleed PLAN: Increase metoprolol to 25mg BID for optimal heart rate control No anticoagulation due to GI bleed Continue IV lasix per nephrology Further recommendations pending patient course Nurse practitioner note has been reviewed by physician. Signing provider agrees with the documented findings, assessment, and plan of care. Objective - Vital Signs Vital signs: Vital Signs Temp 97.6 F 09/14/20 08:15 Pulse 118 H 09/14/20 12:00 Resp 16 09/14/20 12:00 BP 130/76 09/14/20 12:00 Pulse Ox 94 L 09/14/20 12:00 Intake & Output 09/13/20 09/14/20 09/14/20 18:59 06:59 18:59 Intake Total 1205 70 280 Output Total 1300 710 Balance -95 -640 280 Weight 102.1 kg 103 kg Intake: IV 145 70 30 0.9 NACL 120 70 Invasive Line 3 10 Invasive Line 4 10 Invasive Line 6 10 lasix 25 Intake, IV Titration 100 Amount Furosemide 100 mg In 100 Sodium Chloride 0.9% 90 ml @ 5 MG/HR 5 mls/hr IV .Q20H [facility] Rx#:[id number] Oral 960 250 Output: Urine 1300 710 Other: Voiding Method Indwelling Catheter Indwelling Catheter Indwelling Catheter # Bowel Movements 1 ABP, PAP, CO, CI - Last Documented Arterial Blood Pressure 92/79 - Labs CBC & Chem 7: 09/14/20 05:13 09/14/20 05:13 Labs: Abnormal Lab Results - Last 24 Hours (Table) 09/13/20 09/13/20 09/14/20 Range/Units 16:55 20:19 05:13 WBC 29.9 H (3.8-10.6) k/uL RBC 3.63 L (4.30-5.90) m/uL Hgb 10.2 L (13.0-17.5) gm/dL Hct 32.4 L (39.0-53.0) % RDW 15.9 H (11.5-15.5) % Plt Count 115 L (150-450) k/uL Neutrophils # (Manual) 27.81 H (1.3-7.7) k/uL Lymphocytes # (Manual) 0.60 L (1.0-4.8) k/uL Monocytes # (Manual) 1.79 H (0-1.0) k/uL Nucleated RBCs 1 H (0-0) /100 WBC Chloride (98-107) mmol/L Carbon Dioxide (22-30) mmol/L BUN (9-20) mg/dL Glucose (74-99) mg/dL POC Glucose (mg/dL) 150 H 147 H (75-99) mg/dL Calcium (8.4-10.2) mg/dL 09/14/20 09/14/20 Range/Units 05:13 11:39 WBC (3.8-10.6) k/uL RBC (4.30-5.90) m/uL Hgb (13.0-17.5) gm/dL Hct (39.0-53.0) % RDW (11.5-15.5) % Plt Count (150-450) k/uL Neutrophils # (Manual) (1.3-7.7) k/uL Lymphocytes # (Manual) (1.0-4.8) k/uL Monocytes # (Manual) (0-1.0) k/uL Nucleated RBCs (0-0) /100 WBC Chloride 93 L (98-107) mmol/L Carbon Dioxide 36 H (22-30) mmol/L BUN 79 H (9-20) mg/dL Glucose 115 H (74-99) mg/dL POC Glucose (mg/dL) 147 H (75-99) mg/dL Calcium 8.1 L (8.4-10.2) mg/dL
--- NOTE | 2020-09-14 16:10 | PN ---
PROGRESS NOTE PULMONARY/CRITICAL CARE PROGRESS NOTE: DATE OF SERVICE: September 14, 2020 This is an 85-year-old gentleman with a history of acute hypoxemic respiratory failure secondary to CHF, as well as history of GI bleed. Currently, the patient is doing well from the pulmonary standpoint, could be discharged. He is currently on room air. The patient did receive 3 units of blood total. In addition, he has a history of atrial fibrillation with RVR, acute non ST-segment elevation myocardial infarction, acute cardiogenic shock, kidney injury, elevated troponins, lactic acidosis, CAD with previous bypass grafting, and previous tobacco use. Currently, the patient is sitting up in a chair. He is not on any supplemental oxygen. He looks very stable. Because of rapid heart rate, his beta feng dose was increased. PHYSICAL EXAMINATION: VITAL SIGNS: Current vital signs good temperature 97.6 heart rate 118, respiratory rate 16, blood pressure 130/76, mean 94, room air saturation 94% to 95%. GENERAL: Appears in no acute distress. HEENT: Examination is grossly unremarkable. NECK: Supple. Full range of motion. No adenopathy. Neck veins are flat. CARDIOVASCULAR: Examination reveals irregular rhythm and rate. S1, S2 normal. No S3, S4, or murmur. LUNGS: Reveal bibasilar crackles. Breath sounds equal. ABDOMEN: Soft. Bowel sounds are heard. EXTREMITIES: Are intact. No significant cyanosis, clubbing, or edema. SKIN: Without rash. NEUROLOGIC: Examination is brief but nonfocal. LABS: Labs are reviewed. White count 29.9, hemoglobin 10.2, hematocrit 32.4, platelet count a 115,000. Sodium 137, potassium 3.9, chloride 93, CO2 of 36. Anion gap is 8. BUN and creatinine were 79 and 1.19. Calcium 8.1. Microbiology is all negative. No recent chest x-ray. The last chest x-ray was done a day go which showed a pattern of chronic interstitial and alveolar edema. There were small effusions. CURRENT MEDICATIONS: Current medications are reviewed. He is on amiodarone, Benadryl cream, Lasix, insulin, losartan, Solu-Medrol, metoprolol, morphine, Narcan, Zofran, Protonix, potassium and Aldactone. ASSESSMENT: 1. Acute hypoxemic respiratory failure secondary to acute systolic congestive heart failure. 2. Acute gastrointestinal bleed, status post 3 units of PRBCs. 3. Atrial fibrillation with rapid ventricular response, currently on amiodarone. 4. Acute non ST-segment elevation myocardial infarction. 5. Acute cardiogenic shock, with most recent echocardiogram showing ejection fraction of 25% to 30%. 6. Acute kidney injury. 7. Leukocytosis, likely secondary to steroids. 8. Elevated troponins, secondary to acute myocardial infarction. 9. Lactic acidosis, resolved. 10.History of coronary artery disease with previous bypass grafting. 11.Previous history of tobacco use. PLAN: The patient's corticosteroids were discontinued. No additional recommendations are made. We will continue to follow. Prognosis is guarded. Additional recommendations and suggestions are forthcoming. MMODL / IJN: [id number] /
[2020-09-14] MEDS ORDERED: METOPROLOL TARTRATE 25 MG TAB PO STA (16:45)
[2020-09-14 17:19] LABS: Glucose,Whole Blood 102 mg/dL (75-99)
[2020-09-14 20:21] LABS: Glucose,Whole Blood 114 mg/dL (75-99)
[2020-09-14] MEDS ORDERED: METOPROLOL TARTRATE 25 MG TAB PO SCH (21:00)
[2020-09-14] MEDS: PANTOPRAZOLE 40 MG TABLET PO SCH (22:12)
[2020-09-14] MEDS: METOPROLOL TARTRATE 50 MG TAB PO SCH (22:12)
[2020-09-15 06:14] LABS: Glucose,Whole Blood 122 mg/dL (75-99)
[2020-09-15] MEDS: INSULIN ASPART (NovoLOG) 100 UNIT/ML VIAL SQ SCH ×4 (06:18→21:59)
[2020-09-15] MEDS: FUROSEMIDE 10 MG/ML 4 ML VIAL IV SCH ×2 (08:16→22:29)
[2020-09-15] MEDS: diphenhydrAMINE 2% CREAM 28.4 GM TUBE TOPICAL SCH ×2 (08:16→22:30)
[2020-09-15] MEDS: LOSARTAN 25 MG TAB PO SCH (08:16)
[2020-09-15] MEDS: PANTOPRAZOLE 40 MG TABLET PO SCH ×2 (08:16→21:48)
[2020-09-15] MEDS: AMIODARONE 200 MG TAB PO SCH ×3 (08:16→21:51)
[2020-09-15] MEDS: METOPROLOL TARTRATE 50 MG TAB PO SCH ×2 (08:16→21:48)
[2020-09-15] MEDS: SPIRONOLACTONE 25 MG TAB PO SCH (08:16)
[2020-09-15 08:18] LABS: Calcium 7.8 mg/dL (8.4-10.2); Magnesium 2.4 mg/dL (1.6-2.3); Potassium 4.1 mmol/L (3.5-5.1)
[2020-09-15 09:15] LABS: Basophils # (A) 0.2 k/uL (0-0.2); Basophils % (A) 1 %; Eosinophils # (A) 0.1 k/uL (0-0.7); Eosinophils % (A) 0 %; HCT 30.4 % (39.0-53.0); HGB 9.9 gm/dL (13.0-17.5); Hypochromasia Moderate; Lymphocytes # (A) 0.4 k/uL (1.0-4.8); Lymphocytes % (A) 1 %; MCH 29.2 pg (25.0-35.0); MCHC 32.6 g/dL (31.0-37.0); MCV 89.6 fL (80.0-100.0); Mean Platelet Volume 8.8; Monocytes # (A) 1.7 k/uL (0-1.0); Monocytes % (A) 5 %; Neutrophils % (A) 93 %; Platelet Count 121 k/uL (150-450); Poikilocytosis Slight; RDW 15.9 % (11.5-15.5); WBC 35.7 k/uL (3.8-10.6)
--- NOTE | 2020-09-15 11:13 | P.PN ---
Subjective Progress Note Date: 09/15/20 No new complaints today, did cough up thick yellowish-bloody sputum, WBC increasing to 35 today. ROS negative for chest pain, dyspnea, palps, abd pain, n/v/c/d, fevers, chills, sweats. Objective - Vital Signs Vital signs: Vital Signs Temp 98.3 F 09/15/20 08:15 Pulse 107 H 09/15/20 08:15 Resp 20 09/15/20 08:15 BP 109/78 09/15/20 08:15 Pulse Ox 93 L 09/15/20 08:15 Intake & Output 09/14/20 09/15/20 09/15/20 18:59 06:59 18:59 Intake Total 557 20 457 Output Total 700 1800 Balance -143 -1780 457 Weight 106 kg Intake: IV 70 20 10 Invasive Line 3 30 20 10 Invasive Line 4 20 Invasive Line 6 20 Oral 487 447 Output: Urine 700 1800 Other: Voiding Method Indwelling Catheter Indwelling Catheter ABP, PAP, CO, CI - Last Documented Arterial Blood Pressure 92/79 - Exam Gen: awake, alert HEENT: normocephalic, atraumatic, good hearing acuity, moist mucous membranes Resp: good air exchange, breathing comfortably with no accessory muscle use CVS: good distal perfusion x 4, GI: soft, NTTP, ND : no SPT, no CVAT, coles catheter not present MSK: no pitting edema, no clubbing Neuro: non-focal, moving all extremities Psych: cooperative, euthymic mood - Labs CBC & Chem 7: 09/15/20 07:47 09/15/20 07:47 Labs: Abnormal Lab Results - Last 24 Hours (Table) 09/14/20 09/14/20 09/14/20 Range/Units 11:39 17:03 20:19 WBC (3.8-10.6) k/uL RBC (4.30-5.90) m/uL Hgb (13.0-17.5) gm/dL Hct (39.0-53.0) % RDW (11.5-15.5) % Plt Count (150-450) k/uL Neutrophils # (1.3-7.7) k/uL Lymphocytes # (1.0-4.8) k/uL Monocytes # (0-1.0) k/uL Sodium (137-145) mmol/L Chloride (98-107) mmol/L Carbon Dioxide (22-30) mmol/L BUN (9-20) mg/dL Glucose (74-99) mg/dL POC Glucose (mg/dL) 147 H 102 H 114 H (75-99) mg/dL Calcium (8.4-10.2) mg/dL Magnesium (1.6-2.3) mg/dL 09/15/20 09/15/20 09/15/20 Range/Units 06:12 07:47 07:47 WBC 35.7 H (3.8-10.6) k/uL RBC 3.40 L (4.30-5.90) m/uL Hgb 9.9 L (13.0-17.5) gm/dL Hct 30.4 L (39.0-53.0) % RDW 15.9 H (11.5-15.5) % Plt Count 121 L (150-450) k/uL Neutrophils # 33.0 H (1.3-7.7) k/uL Lymphocytes # 0.4 L (1.0-4.8) k/uL Monocytes # 1.7 H (0-1.0) k/uL Sodium 134 L (137-145) mmol/L Chloride 89 L (98-107) mmol/L Carbon Dioxide 41 H* (22-30) mmol/L BUN 69 H (9-20) mg/dL Glucose 150 H (74-99) mg/dL POC Glucose (mg/dL) 122 H (75-99) mg/dL Calcium 7.8 L (8.4-10.2) mg/dL Magnesium 2.4 H (1.6-2.3) mg/dL Assessment and Plan Assessment: 1. Mixed Shock, Hypovolemic secondary to ABLA, then Cardiogenic secondary to blood product transfusion superimposed on chronic HFrEF 2. Upper GI Bleed 3. Permanent Atrial Fibrillation with RVR 4. JOSE 5. HTN 6. HLD 7. Leukocytosis with Cough with sputum production 85 year old man with history of CAD/HTN/HLD, HFrEF 25%, AFib presented with hypovolemic shock secondary to upper GI Bleed, warranting 3U PRBCs and levophed initially. He was then felt to be in cardiogenic shock warranting levophed and lasix gtt, which he was weaned off of gradually. Patient had refused an EGD for work up, however, fortunately blood counts remained stable at 10. GI and Cardiology consulted on care, and recommendations appreciated. Leukocytosis/Cough - sputum cx pending - started ceftriaxone/azithromycin - may be partly due to steroids, however, will cover empirically until further data available - CXR Upper GI bleed: With hemoglobin of 6.4 on presentation/Acute blood loss anemia: Status post transfusion of packed red blood cells. hemoglobin is stable at 10 today GI recs appreciated. Continue IV Protonix 40 mg twice daily. Per patient he does not want to proceed with an EGD Hypovolemic and cardiogenic shock, with lactic acidosis. Off Levophed drip Off lasix gtt, now on 40mg IV BID Hold home blood pressure medications. Acute on chronic systolic heart failure exacerbation, systolic EF=25-30%: With evidence of fluid overload clinically and on chest x-ray. Continue IV Lasix q12h Continue spironolactone Start ARB (losartan), and uptitrate as tolerated since no longer in JOSE JOSE resolved with resolution of shock state A. fib with RVR Continue amiodarone TID Steroid-induced hyperglycemia insulin sliding scale Itchy legs benadryl cream prescribed CODE STATUS: DO NOT RESUSCITATE/DO NOT INTUBATE.
[2020-09-15 11:48] LABS: Glucose,Whole Blood 103 mg/dL (75-99)
[2020-09-15 12:14] LABS: ABG Base Excess 20.2 mmol/L; ABG Oxygen Saturation 93.6 % (94-97); ABG PCO2 44 mmHg (35-45); ABG TCO2 43 mmol/L (19-24); Allen Test Performed? Yes
[2020-09-15 12:17] LABS: ABG PH 7.59 (7.35-7.45)
[2020-09-15 12:18] LABS: ABG HCO3 42 mmol/L (21-25); ABG PO2 59 mmHg (83-108)
--- NOTE | 2020-09-15 12:47 | P.PN ---
Subjective Patient is seen in follow-up for acute kidney injury. Renal function improving. Maintained on Lasix 40 mg IV twice daily. On room air. No chest pain or shortness of breath. Nonoliguric. Urine output 2.5 L in the last 24 hours. Still has edema. Appetite fair. General: The patient appeared well nourished and normally developed. HEENT: No JVD. On nasal cannula. LUNGS: Breath sounds decreased. HEART: Regular rate and rhythm. ABDOMEN: soft nontender. EXTREMITITES: 2+ edema. Objective - Vital Signs Vital signs: Vital Signs Temp 98.3 F 09/15/20 08:15 Pulse 107 H 09/15/20 08:15 Resp 20 09/15/20 08:15 BP 109/78 09/15/20 08:15 Pulse Ox 93 L 09/15/20 08:15 Intake & Output 09/14/20 09/15/20 09/15/20 18:59 06:59 18:59 Intake Total 557 20 477 Output Total 700 1800 Balance -143 -1780 477 Weight 106 kg Intake: IV 70 20 30 Invasive Line 3 30 20 10 Invasive Line 4 20 Invasive Line 6 20 Invasive Line 7 20 Oral 487 447 Output: Urine 700 1800 Other: Voiding Method Indwelling Catheter Indwelling Catheter Indwelling Catheter ABP, PAP, CO, CI - Last Documented Arterial Blood Pressure 92/79 - Labs CBC & Chem 7: 09/15/20 07:47 09/15/20 07:47 Labs: Abnormal Lab Results - Last 24 Hours (Table) 09/14/20 09/14/20 09/15/20 Range/Units 17:03 20:19 06:12 WBC (3.8-10.6) k/uL RBC (4.30-5.90) m/uL Hgb (13.0-17.5) gm/dL Hct (39.0-53.0) % RDW (11.5-15.5) % Plt Count (150-450) k/uL Neutrophils # (1.3-7.7) k/uL Lymphocytes # (1.0-4.8) k/uL Monocytes # (0-1.0) k/uL ABG pH (7.35-7.45) ABG pO2 (83-108) mmHg ABG HCO3 (21-25) mmol/L ABG Total CO2 (19-24) mmol/L ABG O2 Saturation (94-97) % Sodium (137-145) mmol/L Chloride (98-107) mmol/L Carbon Dioxide (22-30) mmol/L BUN (9-20) mg/dL Glucose (74-99) mg/dL POC Glucose (mg/dL) 102 H 114 H 122 H (75-99) mg/dL Calcium (8.4-10.2) mg/dL Magnesium (1.6-2.3) mg/dL 09/15/20 09/15/20 09/15/20 Range/Units 07:47 07:47 11:43 WBC 35.7 H (3.8-10.6) k/uL RBC 3.40 L (4.30-5.90) m/uL Hgb 9.9 L (13.0-17.5) gm/dL Hct 30.4 L (39.0-53.0) % RDW 15.9 H (11.5-15.5) % Plt Count 121 L (150-450) k/uL Neutrophils # 33.0 H (1.3-7.7) k/uL Lymphocytes # 0.4 L (1.0-4.8) k/uL Monocytes # 1.7 H (0-1.0) k/uL ABG pH (7.35-7.45) ABG pO2 (83-108) mmHg ABG HCO3 (21-25) mmol/L ABG Total CO2 (19-24) mmol/L ABG O2 Saturation (94-97) % Sodium 134 L (137-145) mmol/L Chloride 89 L (98-107) mmol/L Carbon Dioxide 41 H* (22-30) mmol/L BUN 69 H (9-20) mg/dL Glucose 150 H (74-99) mg/dL POC Glucose (mg/dL) 103 H (75-99) mg/dL Calcium 7.8 L (8.4-10.2) mg/dL Magnesium 2.4 H (1.6-2.3) mg/dL 09/15/20 Range/Units 12:11 WBC (3.8-10.6) k/uL RBC (4.30-5.90) m/uL Hgb (13.0-17.5) gm/dL Hct (39.0-53.0) % RDW (11.5-15.5) % Plt Count (150-450) k/uL Neutrophils # (1.3-7.7) k/uL Lymphocytes # (1.0-4.8) k/uL Monocytes # (0-1.0) k/uL ABG pH 7.59 H* (7.35-7.45) ABG pO2 59 L* (83-108) mmHg ABG HCO3 42 H* (21-25) mmol/L ABG Total CO2 43 H (19-24) mmol/L ABG O2 Saturation 93.6 L (94-97) % Sodium (137-145) mmol/L Chloride (98-107) mmol/L Carbon Dioxide (22-30) mmol/L BUN (9-20) mg/dL Glucose (74-99) mg/dL POC Glucose (mg/dL) (75-99) mg/dL Calcium (8.4-10.2) mg/dL Magnesium (1.6-2.3) mg/dL Assessment and Plan Plan: Assessment: 1. Acute kidney injury secondary to ATN secondary to acute blood loss anemia, A. fib, hypotension and component of cardiorenal syndrome. Baseline creatinine near 1 and peaked at 2.76 this admission - 1.08 today. No hydronephrosis noted on kidney ultrasound. 2. Acute on chronic systolic CHF with ejection fraction of 25% with moderate mitral regurgitation and tricuspid regurgitation. 3. Metabolic alkalosis and respiratory alkalosis. ABG reviewed. 4. Hyperkalemia secondary to acute kidney injury, GI bleed and metabolic acidosis. Resolved. Became hypokalemic from diuresis. Status post placement. 5. Volume overload. Improving with diuresis. 6. Acute blood loss anemia secondary to GI bleed status post blood transfusion. GI following. Stable. 7. A. fib with RVR maintained on amiodarone and Lopressor. 8. Shock s/p Levophed. Plan: Maintain IV Lasix. Add Diamox 250 mg IV twice daily. Continue to monitor renal function and urine output closely.
[2020-09-15] MEDS: AZITHROMYCIN 500 MG in SODIUM CHLORIDE 0.9% 250 ML IVPB SCH (13:18)
[2020-09-15] MEDS ORDERED: METOPROLOL TARTRATE 25 MG TAB PO STA (13:37)
--- NOTE | 2020-09-15 13:41 | P.PN ---
Subjective Progress Note Date: 09/15/20 HISTORY OF PRESENT ILLNESS: Patient examined this morning at the bedside. He denies chest pain or pressure. He denies shortness of breath at rest. Patients metoprolol was increased to 50mg BID. His heart rate is better controlled this morning. Blood pressure stable. PHYSICAL EXAM: VITAL SIGNS: Reviewed. GENERAL: Well-developed in no acute distress. NECK: Supple. No JVD or thyromegaly LUNGS: Respirations even and unlabored. Lungs diminished bilaterally with expiratory wheezing noted and some rales to bilateral bases. HEART: Irregular rate and rhythm. S1 and S2 heard. Systolic murmur. EXTREMITIES: Normal range of motion. No clubbing or cyanosis. Peripheral pulses intact. 2+ bilateral lower extremity edema ASSESSMENT: Chronic persistent atrial fibrillation Acute exacerbation of chronic systolic congestive heart failure, EF 25-30% Upper GI bleed PLAN: Continue current dose of metoprolol. Continue amio. Monitor heart rate. No anticoagulation due to GI bleed Continue IV lasix per nephrology Further recommendations pending patient course Nurse practitioner note has been reviewed by physician. Signing provider agrees with the documented findings, assessment, and plan of care. Objective - Vital Signs Vital signs: Vital Signs Temp 98.3 F 09/15/20 08:15 Pulse 107 H 09/15/20 08:15 Resp 20 09/15/20 08:15 BP 109/78 09/15/20 08:15 Pulse Ox 93 L 09/15/20 08:15 Intake & Output 09/14/20 09/15/20 09/15/20 18:59 06:59 18:59 Intake Total 557 20 477 Output Total 700 1800 Balance -143 -1780 477 Weight 106 kg Intake: IV 70 20 30 Invasive Line 3 30 20 10 Invasive Line 4 20 Invasive Line 6 20 Invasive Line 7 20 Oral 487 447 Output: Urine 700 1800 Other: Voiding Method Indwelling Catheter Indwelling Catheter Indwelling Catheter ABP, PAP, CO, CI - Last Documented Arterial Blood Pressure 92/79 - Labs CBC & Chem 7: 09/15/20 07:47 09/15/20 07:47 Labs: Abnormal Lab Results - Last 24 Hours (Table) 09/14/20 09/14/20 09/15/20 Range/Units 17:03 20:19 06:12 WBC (3.8-10.6) k/uL RBC (4.30-5.90) m/uL Hgb (13.0-17.5) gm/dL Hct (39.0-53.0) % RDW (11.5-15.5) % Plt Count (150-450) k/uL Neutrophils # (1.3-7.7) k/uL Lymphocytes # (1.0-4.8) k/uL Monocytes # (0-1.0) k/uL ABG pH (7.35-7.45) ABG pO2 (83-108) mmHg ABG HCO3 (21-25) mmol/L ABG Total CO2 (19-24) mmol/L ABG O2 Saturation (94-97) % Sodium (137-145) mmol/L Chloride (98-107) mmol/L Carbon Dioxide (22-30) mmol/L BUN (9-20) mg/dL Glucose (74-99) mg/dL POC Glucose (mg/dL) 102 H 114 H 122 H (75-99) mg/dL Calcium (8.4-10.2) mg/dL Magnesium (1.6-2.3) mg/dL 09/15/20 09/15/20 09/15/20 Range/Units 07:47 07:47 11:43 WBC 35.7 H (3.8-10.6) k/uL RBC 3.40 L (4.30-5.90) m/uL Hgb 9.9 L (13.0-17.5) gm/dL Hct 30.4 L (39.0-53.0) % RDW 15.9 H (11.5-15.5) % Plt Count 121 L (150-450) k/uL Neutrophils # 33.0 H (1.3-7.7) k/uL Lymphocytes # 0.4 L (1.0-4.8) k/uL Monocytes # 1.7 H (0-1.0) k/uL ABG pH (7.35-7.45) ABG pO2 (83-108) mmHg ABG HCO3 (21-25) mmol/L ABG Total CO2 (19-24) mmol/L ABG O2 Saturation (94-97) % Sodium 134 L (137-145) mmol/L Chloride 89 L (98-107) mmol/L Carbon Dioxide 41 H* (22-30) mmol/L BUN 69 H (9-20) mg/dL Glucose 150 H (74-99) mg/dL POC Glucose (mg/dL) 103 H (75-99) mg/dL Calcium 7.8 L (8.4-10.2) mg/dL Magnesium 2.4 H (1.6-2.3) mg/dL 09/15/20 Range/Units 12:11 WBC (3.8-10.6) k/uL RBC (4.30-5.90) m/uL Hgb (13.0-17.5) gm/dL Hct (39.0-53.0) % RDW (11.5-15.5) % Plt Count (150-450) k/uL Neutrophils # (1.3-7.7) k/uL Lymphocytes # (1.0-4.8) k/uL Monocytes # (0-1.0) k/uL ABG pH 7.59 H* (7.35-7.45) ABG pO2 59 L* (83-108) mmHg ABG HCO3 42 H* (21-25) mmol/L ABG Total CO2 43 H (19-24) mmol/L ABG O2 Saturation 93.6 L (94-97) % Sodium (137-145) mmol/L Chloride (98-107) mmol/L Carbon Dioxide (22-30) mmol/L BUN (9-20) mg/dL Glucose (74-99) mg/dL POC Glucose (mg/dL) (75-99) mg/dL Calcium (8.4-10.2) mg/dL Magnesium (1.6-2.3) mg/dL
--- NOTE | 2020-09-15 14:51 | XR ---
EXAMINATION TYPE: XR chest 2V DATE OF EXAM: 09/15/2020 COMPARISON: 09/13/2020 HISTORY: Shortness of breath TECHNIQUE: Frontal and lateral views of the chest are obtained. FINDINGS: Scattered senescent parenchymal changes noted. Hyperinflation compatible with COPD. There is pulmonary venous congestion with cardiomegaly and small effusions. The findings suggest tomasa estive failure. Superimposed infiltrates of other etiology are difficult to exclude and clinical kaylan elation is advised. Mediastinal structures are stable and grossly unremarkable. No evidence for hilar prominence. Degenerative changes dorsal spine. IMPRESSION: 1. There is pulmonary venous congestion with cardiomegaly and small effusions. The findings suggest c ongestive failure. Superimposed infiltrates of other etiology are difficult to exclude and clinical c orrelation is advised.
--- NOTE | 2020-09-15 15:45 | P.PN ---
Subjective Progress Note Date: 09/15/20 Principal diagnosis: Acute hypoxic respiratory failure secondary to acute pulmonary edema, acute non- ST segment elevation myocardial infarction, acute GI bleed with acute cardiogen ic shock 85-year-old white male patient with previous history of coronary artery disease with bypass grafting, previous history of myocardial infarction, former smoker, hyperlipidemia, presented to the emergency department on 09/06/2020 for evaluation of a 2 day history of passing dark tarry stools concerning for acute GI bleeding. Patient reports increased fatigue and dyspnea, and epigastric and lower chest discomfort. .he is not on any anticoagulation, denies any abdominal pain, he was noted to be borderline hypotensive, tachycardic on arrival. His hemoglobin on admission was 6. Patient was transfused with 2 units of packed red blood cells, positive lactic acid was elevated at 5.0 and subsequently increased to 11.7, patient hasn't done troponin elevation on admission with troponin level III.550, which has subsequently increased to 7.2, and 36.9 with a third set, cardiology has been consulted, his chest x-ray shows evidence of pulmonary edema, patient is short of breath, he is requiring BiPAP support currently, he is hypotensive, requiring levo fed support at 13 weeks per minute, he is currently on D5 with 3 A of bicarbonate at a rate of 75 ML per hour, his BiPAP settings are 10 and 5 and FiO2 of 80%. States he is short of breath, does not appear to be in any acute distress, his abdomen is distended, but nontender, this morning his hemoglobin is 9.4, blood cell count increased to 17.2, his renal function has worsened, BUN of 32 and creatinine of 1.3, proBNP level is 4820, he is evaluation by GI service, cardiology has been consulted, his echocardiogram revealed severely impaired systolic function with the EF between 25-30%, there was a moderate mitral regurgitation, mild to moderate tricuspid regurgitation, and mild pulmonary hypertension with right-sided pressures of 33.9 mmHg. X-ray of the abdomen showed nonobstructed bowel gas pattern, ear distended stomach, moderate fecal retention, renal ultrasound showed no hydronephrosis. Patient was given a small dose of Lasix 20 mg last night, has not produced significant output, remains oliguric, he will be given additional dose of 60 mg Lasix today, and cardiology after further discussion switched it to lasix infusion at 10 mg per hour, and dobutamine infusion was added. His current BiPAP settings are 10.5 and FiO2 of 80% Patient was reevaluated today in the ICU, remains on BiPAP, he is on IPAP of 10 and EPAP of 5, FiO2 is 60%, patient is on norepinephrine at 0.35 mcg/kg/m, he is also on amiodarone at 1 mg/minutes. Patient is off the Imitrex because he developed atrial fibrillation with RVR while on Dobutrex. Chest x-ray continues to show evidence of pulmonary edema. Slightly improved compared to the chest x- ray yesterday. But still consistent with pulmonary edema. Patient is also developing leukocytosis with WBC count of 23.8, hemoglobin is 9.6, received a total of 2 units of packed RBCs since admission yesterday. Patient has marginal urine output, and he remains in positive fluid balance roughly about 1 L in the last 24 hours. ABG on BiPAP today showed a pO2 of 125 pCO2 of 33 pH of 7.42. His potassium is a bit elevated at 5.4, his BUN is 65 and creatinine is 2.64. Right carpal is 20 this morning. Patient was switched to oral bicarb 650 mg by mouth 3 times a day. And his off sodium bicarb drip at present. Remains on Lasix drip at 10 mg per hour, he is also on Zaroxolyn 5 mg daily. Obviously the patient is not making significant improvement, but he is relatively holding. Yesterday I had a long discussion with the patient and his son while he was in the ER, and he clearly expressed wishes as not to be intubated and placed on mechanical ventilation. Reevaluated today on 09/09/20, patient remains in the ICU, remains on norepinephrine at 12 mcg/m, he is also on amiodarone at 1 mg/m, IV fluid at KVO, Lasix drip at 10 mg per hour. Patient is feeling better, he is on few liters nasal cannula, he is however in atrial fibrillation with RVR, amiodarone remains as requested by cardiology. Patient is alert oriented 3, and we are in the process of hopefully weaning off levo fed. Renal status is showing slight improvement, patient has good urine output roughly about 200 mL per hour. Patient was on BiPAP last night, however he was switched to a nasal cannula today. Chest x-ray continues to show evidence of cardiomegaly, and central venous congestion, small bilateral pleural effusions noted. Interval improvement is noted compared to chest x-ray on admission . Hemoglobin is holding remains around 8. WBC count is 15.5. BUN is 69 today creatinine is d own to 2.08. compared to 2.64 yesterday. The patient is seen today 09/10/2020 in follow-up in the intensive care unit. He is currently sitting up in bed. Awake and alert in no acute distress. Karolina ntaining O2 saturation in the 90s on 2 L/m per nasal cannula. Remains tachycardic. Slightly tachypneic. Hypotensive. On amiodarone drip at 1 mg/m. Lasix drip at 10 mg per hour. Zaroxolyn. IV Solu-Medrol. Norepinephrine at 8 mcg/m. 0.9 normal saline at, pulse per hour. Chest x-ray reveals cardiomegaly. Improving left lower lobe infiltrate. Minimal residual right pleural effusion. Hemoglobin was 6.9 earlier, transfused, current hemoglobin 9.3. He is status post 3 units of packed red blood cells this admission. White count 12.7. Platelets 74,000. Sodium 131. Potassium 4.2. Creatinine 1.71. Arterial blood gases on 28% FiO2 revealed a pO2 of 97, pCO2 41, pH 7.43. The patient is seen today 09/15/2020 in follow-up on the selective care unit. He is currently sitting up in a chair at the bedside. Awake and alert in no acute distress. Rectal maintaining good O2 saturations in the 90s on room air. He's been afebrile. Hemodynamically stable. Chest x-ray reveals pulmonary ve nous congestion with cardiomegaly and small effusions suggestive of congestive heart failure. He is status post 3 units of packed red blood cells this admission. Current hemoglobin 9.9. White count 35.7. Platelets 121. Sodium 134. Potassium 4.1. Bicarb 41. Creatinine 1.08. He remains on ceftriaxone and azithromycin. Receiving IV diuretics. Objective - Vital Signs Vital signs: Vital Signs Temp 97.6 F 09/15/20 12:15 Pulse 134 H 09/15/20 12:15 Resp 20 09/15/20 12:15 BP 108/64 09/15/20 12:15 Pulse Ox 94 L 09/15/20 12:15 Intake & Output 09/14/20 09/15/20 09/15/20 18:59 06:59 18:59 Intake Total 801 84 8058 Output Total 700 1800 450 Balance -143 -1780 827 Weight 106 kg Intake: IV 70 20 30 Invasive Line 3 30 20 10 Invasive Line 4 20 Invasive Line 6 20 Invasive Line 7 20 Oral 487 1247 Output: Urine 700 1800 450 Other: Voiding Method Indwelling Catheter Indwelling Catheter Indwelling Catheter # Voids 1,200 ABP, PAP, CO, CI - Last Documented Arterial Blood Pressure 92/79 - Exam GENERAL EXAM: Revealed a pleasant 85-year-old male patient, on room air, up in a chair at the bedside in no distress, much better today compared to yesterday. HEAD: Normocephalic/atraumatic. ENT: Dry mucous membranes, PERRLA, EOMI, no icterus, no neck masses, no JVD. CHEST: No chest wall deformity. Symmetrical expansion. LUNGS: Minimal crackles at the bases. CVS: Regular rate and rhythm, normal S1 and S2, no gallops, no murmurs, no rubs ABDOMEN: Obese, Soft, nontender. No hepatosplenomegaly, normal bowel sounds, no guarding or rigidity. EXTREMITIES: No clubbing, trace of bipedal edema, slight cyanosis, 2+ pulses and upper and lower extremities. Cold feet bilaterally. Diminished distal pulses MUSCULOSKELETAL: Muscle strength and tone normal. SKIN: No rashes CENTRAL NERVOUS SYSTEM: Alert and oriented 3, no gross focal deficits. PSYCHIATRIC: Normal mood affect and normal mental status examination. - Labs CBC & Chem 7: 09/15/20 07:47 09/15/20 07:47 Labs: Abnormal Lab Results - Last 24 Hours (Table) 09/14/20 09/14/20 09/15/20 Range/Units 17:03 20:19 06:12 WBC (3.8-10.6) k/uL RBC (4.30-5.90) m/uL Hgb (13.0-17.5) gm/dL Hct (39.0-53.0) % RDW (11.5-15.5) % Plt Count (150-450) k/uL Neutrophils # (1.3-7.7) k/uL Lymphocytes # (1.0-4.8) k/uL Monocytes # (0-1.0) k/uL ABG pH (7.35-7.45) ABG pO2 (83-108) mmHg ABG HCO3 (21-25) mmol/L ABG Total CO2 (19-24) mmol/L ABG O2 Saturation (94-97) % Sodium (137-145) mmol/L Chloride (98-107) mmol/L Carbon Dioxide (22-30) mmol/L BUN (9-20) mg/dL Glucose (74-99) mg/dL POC Glucose (mg/dL) 102 H 114 H 122 H (75-99) mg/dL Calcium (8.4-10.2) mg/dL Magnesium (1.6-2.3) mg/dL 09/15/20 09/15/20 09/15/20 Range/Units 07:47 07:47 11:43 WBC 35.7 H (3.8-10.6) k/uL RBC 3.40 L (4.30-5.90) m/uL Hgb 9.9 L (13.0-17.5) gm/dL Hct 30.4 L (39.0-53.0) % RDW 15.9 H (11.5-15.5) % Plt Count 121 L (150-450) k/uL Neutrophils # 33.0 H (1.3-7.7) k/uL Lymphocytes # 0.4 L (1.0-4.8) k/uL Monocytes # 1.7 H (0-1.0) k/uL ABG pH (7.35-7.45) ABG pO2 (83-108) mmHg ABG HCO3 (21-25) mmol/L ABG Total CO2 (19-24) mmol/L ABG O2 Saturation (94-97) % Sodium 134 L (137-145) mmol/L Chloride 89 L (98-107) mmol/L Carbon Dioxide 41 H* (22-30) mmol/L BUN 69 H (9-20) mg/dL Glucose 150 H (74-99) mg/dL POC Glucose (mg/dL) 103 H (75-99) mg/dL Calcium 7.8 L (8.4-10.2) mg/dL Magnesium 2.4 H (1.6-2.3) mg/dL 12/23/20 Range/Units 12:11 WBC (3.8-10.6) k/uL RBC (4.30-5.90) m/uL Hgb (13.0-17.5) gm/dL Hct (39.0-53.0) % RDW (11.5-15.5) % Plt Count (150-450) k/uL Neutrophils # (1.3-7.7) k/uL Lymphocytes # (1.0-4.8) k/uL Monocytes # (0-1.0) k/uL ABG pH 7.59 H* (7.35-7.45) ABG pO2 59 L* (83-108) mmHg ABG HCO3 42 H* (21-25) mmol/L ABG Total CO2 43 H (19-24) mmol/L ABG O2 Saturation 93.6 L (94-97) % Sodium (137-145) mmol/L Chloride (98-107) mmol/L Carbon Dioxide (22-30) mmol/L BUN (9-20) mg/dL Glucose (74-99) mg/dL POC Glucose (mg/dL) (75-99) mg/dL Calcium (8.4-10.2) mg/dL Magnesium (1.6-2.3) mg/dL Assessment and Plan Assessment: 1 Acute hypoxic referring failure, secondary to acute systolic congestive heart failure and pulmonary edema, improving on room air, on IV diuretics 2 Acute cardiogenic shock and pulmonary edema secondary to acute systolic dysfunction, recovered in hemodynamically stable 3 Acute non-ST elevation myocardial infarction 4 Ischemic cardiomyopathy and LV dysfunction, ejection fraction is 25-30%. 5 Acute GI bleeding, exact source in nature is not clear at this point. Status post 3 units packed red blood cells this admission. Current hemoglobin 9.9. 6 Acute kidney injury, suspect acute tubular necrosis secondary to hypotension and possible cardiorenal syndrome. 7 Acute lactic acidosis secondary to hypoperfusion and cardiogenic shock. 8 History of coronary artery disease and previous CABG. 9 Former smoker. 10 New-onset atrial fibrillation with RVR. Plan: The patient was seen and evaluated by Dr. Magana Chest x-ray and labs reviewed Continue IV diuretics We will continue to follow and make further recommendations based on his clinical status I, the cosigning physician, performed a history & physical examination of the patient. Lungs sounds crackles in the bilateral posterior bases. Maintaining good O2 saturations in the 90s on room air. I discussed the assessment and plan of care with my nurse practitioner, Shima Walsh. I attest to the above note as dictated by her.
[2020-09-15 16:55] LABS: Glucose,Whole Blood 127 mg/dL (75-99)
[2020-09-15 20:11] LABS: Glucose,Whole Blood 156 mg/dL (75-99)
[2020-09-16] MEDS: INSULIN ASPART (NovoLOG) 100 UNIT/ML VIAL SQ SCH ×4 (06:18→20:41)
[2020-09-16 08:25] LABS: Anisocytosis Slight; Basophils % (A) 0 %; Eosinophils # (A) 0.1 k/uL (0-0.7); Eosinophils % (A) 0 %; HCT 27.5 % (39.0-53.0); HGB 8.9 gm/dL (13.0-17.5); Hypochromasia Moderate; Lymphocytes # (A) 0.5 k/uL (1.0-4.8); Lymphocytes % (A) 2 %; MCH 28.6 pg (25.0-35.0); MCHC 32.3 g/dL (31.0-37.0); MCV 88.6 fL (80.0-100.0); Mean Platelet Volume 8.6; Monocytes # (A) 1.4 k/uL (0-1.0); Monocytes % (A) 4 %; Neutrophils % (A) 94 %; Platelet Count 119 k/uL (150-450); Poikilocytosis Slight; RBC 3.11 m/uL (4.30-5.90); RDW 16.1 % (11.5-15.5); WBC 35.2 k/uL (3.8-10.6)
[2020-09-16 08:34] LABS: Calcium 7.4 mg/dL (8.4-10.2); Magnesium 2.5 mg/dL (1.6-2.3)
[2020-09-16] MEDS ORDERED: IPRATROPIUM-ALBUTEROL 3 ML NEB INHALATION PRN (08:47)
[2020-09-16] MEDS: SPIRONOLACTONE 25 MG TAB PO SCH (09:03)
[2020-09-16] MEDS: METOPROLOL TARTRATE 50 MG TAB PO SCH ×2 (09:03→19:38)
[2020-09-16] MEDS: AMIODARONE 200 MG TAB PO SCH ×3 (09:03→19:39)
[2020-09-16] MEDS: LOSARTAN 25 MG TAB PO SCH (09:03)
[2020-09-16 09:04] LABS: Potassium 2.6 mmol/L (3.5-5.1)
[2020-09-16] MEDS: IPRATROPIUM-ALBUTEROL 3 ML NEB INHALATION SCH ×3 (09:04→19:23)
[2020-09-16] MEDS: diphenhydrAMINE 2% CREAM 28.4 GM TUBE TOPICAL SCH ×2 (09:04→19:39)
[2020-09-16] MEDS: FUROSEMIDE 10 MG/ML 4 ML VIAL IV SCH ×2 (09:04→13:05)
[2020-09-16] MEDS: AZITHROMYCIN 500 MG in SODIUM CHLORIDE 0.9% 250 ML IVPB SCH (09:04)
[2020-09-16] MEDS ORDERED: Potassium Replacement Protocol 1 EACH MISC MISCELLANE PRN (09:06)
[2020-09-16] MEDS: methylPREDNISolone SOD SUCCI 40 MG/ML 1 ML VIAL IV SCH ×2 (09:18→19:39)
[2020-09-16] MEDS: PANTOPRAZOLE 40 MG TABLET PO SCH ×2 (09:21→19:39)
[2020-09-16] MEDS ORDERED: POTASSIUM CHLORIDE 20 MEQ in WATER FOR INJECTION 1 100ML.BAG IVPB SCH (09:30)
[2020-09-16] MEDS: POTASSIUM CHLORIDE ER 20 MEQ TAB.ER PO SCH ×7 (09:44→21:51)
[2020-09-16 10:13] LABS: Basophilic Stippling Present
[2020-09-16 10:35] LABS: Appearance,Urine Clear (Clear); Bilirubin,Urine Negative (Negative); Blood,Urine Trace (Negative); Color,Urine Yellow; Glucose,Urine (UA) Negative (Negative); Hyaline Casts,Urine 1 /lpf (0-2); Ketones,Urine Negative (Negative); Leukocyte Esterase,Urine Negative (Negative); Nitrite,Urine Negative (Negative); Protein,Urine Negative (Negative); RBC,Urine 4 /hpf (0-5); Specific Gravity,Urine 1.014 (1.001-1.035); WBC,Urine 2 /hpf (0-5)
--- NOTE | 2020-09-16 12:14 | P.PN ---
Subjective Progress Note Date: 09/16/20 Principal diagnosis: CC: SOB This patient this morning and states the patient was short of breath and had wheezing on exam. I started patient on DuoNeb and steroids. When he went to see the patient he states that his breathing is better now. He has no acute complaints. Patient states that when he is medically stable for discharge he wants to go home and have his family take care of him. Patient states that he does not want to go to rehab. Objective - Vital Signs Vital signs: Vital Signs Temp 98.2 F 09/16/20 08:00 Pulse 81 09/16/20 09:16 Resp 18 09/16/20 09:16 BP 113/59 09/16/20 08:00 Pulse Ox 95 09/16/20 08:05 Intake & Output 09/15/20 09/16/20 09/16/20 18:59 06:59 18:59 Intake Total 1514 950 473 Output Total 450 900 Balance 1064 50 473 Weight 107.1 kg Intake: IV 30 Invasive Line 3 10 Invasive Line 7 20 Oral 1484 950 473 Output: Urine 450 900 Other: Voiding Method Indwelling Catheter Urinal Urinal # Voids 1,200 ABP, PAP, CO, CI - Last Documented Arterial Blood Pressure 92/79 - Exam General examination - Alert and Oriented 3 in NAD Heart - + S1S2 no murmurs Lungs - diffuse wheezing Abdomen soft NT ND +ve BS Extremities - +2 pitting edema bilaterally [employer] - Moving all 4 extremities spontaneously Psych - Calm and cooperative - Labs CBC & Chem 7: 09/16/20 07:05 09/16/20 07:05 Labs: Abnormal Lab Results - Last 24 Hours (Table) 09/15/20 09/15/20 09/15/20 Range/Units 12:11 16:54 20:09 WBC (3.8-10.6) k/uL RBC (4.30-5.90) m/uL Hgb (13.0-17.5) gm/dL Hct (39.0-53.0) % RDW (11.5-15.5) % Plt Count (150-450) k/uL Neutrophils # (1.3-7.7) k/uL Lymphocytes # (1.0-4.8) k/uL Monocytes # (0-1.0) k/uL ABG pH 7.59 H* (7.35-7.45) ABG pO2 59 L* (83-108) mmHg ABG HCO3 42 H* (21-25) mmol/L ABG Total CO2 43 H (19-24) mmol/L ABG O2 Saturation 93.6 L (94-97) % Sodium (137-145) mmol/L Potassium (3.5-5.1) mmol/L Chloride (98-107) mmol/L Carbon Dioxide (22-30) mmol/L BUN (9-20) mg/dL Creatinine (0.66-1.25) mg/dL Glucose (74-99) mg/dL POC Glucose (mg/dL) 127 H 156 H (75-99) mg/dL Calcium (8.4-10.2) mg/dL Magnesium (1.6-2.3) mg/dL Urine Blood (Negative) 09/16/20 09/16/20 09/16/20 Range/Units 07:05 07:05 10:06 WBC 35.2 H (3.8-10.6) k/uL RBC 3.11 L (4.30-5.90) m/uL Hgb 8.9 L (13.0-17.5) gm/dL Hct 27.5 L (39.0-53.0) % RDW 16.1 H (11.5-15.5) % Plt Count 119 L (150-450) k/uL Neutrophils # 33.0 H (1.3-7.7) k/uL Lymphocytes # 0.5 L (1.0-4.8) k/uL Monocytes # 1.4 H (0-1.0) k/uL ABG pH (7.35-7.45) ABG pO2 (83-108) mmHg ABG HCO3 (21-25) mmol/L ABG Total CO2 (19-24) mmol/L ABG O2 Saturation (94-97) % Sodium 135 L (137-145) mmol/L Potassium 2.6 L* (3.5-5.1) mmol/L Chloride 91 L (98-107) mmol/L Carbon Dioxide 38 H (22-30) mmol/L BUN 60 H (9-20) mg/dL Creatinine 1.43 H (0.66-1.25) mg/dL Glucose 104 H (74-99) mg/dL POC Glucose (mg/dL) (75-99) mg/dL Calcium 7.4 L (8.4-10.2) mg/dL Magnesium 2.5 H (1.6-2.3) mg/dL Urine Blood Trace H (Negative) Assessment and Plan Assessment: 1. Mixed Shock, Hypovolemic secondary to ABLA, then Cardiogenic secondary to blood product transfusion superimposed on chronic HFrEF 2. Upper GI Bleed 3. Permanent Atrial Fibrillation with RVR 4. JOSE 5. HTN 6. HLD 7. Leukocytosis with Cough with sputum production 85 year old man with history of CAD/HTN/HLD, HFrEF 25%, AFib presented with hypovolemic shock secondary to upper GI Bleed, warranting 3U PRBCs and levophed initially. He was then felt to be in cardiogenic shock warranting levophed and lasix gtt, which he was weaned off of gradually. Patient had refused an EGD for work up, however, fortunately blood counts remained stable at 10. GI and Cardiology consulted on care, and recommendations appreciated. #Leukocytosis/Cough -Likely due to steroids versus possible pneumonia -Chest x-ray shows venous congestion and difficult to exclude infiltrates -Check UA -Check blood cultures -We'll start patient on IV ceftriaxone and azithromycin -WBC stable at this morning #Upper GI bleed: With hemoglobin of 6.4 on presentation/Acute blood loss anemia: Status post transfusion of packed red blood cells. hemoglobin is stable at 8.9 today GI recs appreciated. Continue IV Protonix 40 mg twice daily. Per patient he does not want to proceed with an EGD There is no overt signs of bleeding #Hypovolemic and cardiogenic shock, with lactic acidosis. -Patient now off pressors -Resolved #COPD exacerbation -Patient having wheezing this morning -Restart IV steroids day 1/5 -Patient on azithromycin as above -Duo nebs scheduled and as needed -Pulmonology on board #Acute on chronic systolic heart failure exacerbation, systolic EF=25-30%: With evidence of fluid overload clinically and on chest x-ray. Continue IV Lasix 40 mg q12h Nephrology added Diamox 250 IV every 12 Continue spironolactone Start ARB (losartan), and uptitrate as tolerated since no longer in JOSE Nephrology managing diuretics JOSE resolved with resolution of shock state A. fib with RVR Continue amiodarone TID Steroid-induced hyperglycemia insulin sliding scale Itchy legs benadryl cream prescribed CODE STATUS: DO NOT RESUSCITATE/DO NOT INTUBATE.
--- NOTE | 2020-09-16 12:33 | P.PN ---
Subjective Progress Note Date: 09/16/20 HISTORY OF PRESENT ILLNESS: Patient examined this morning at the bedside. He denies chest pain or pressure. Patient reports mild shortness of breath this morning. Patient does have audible wheezing during examination. Patients metoprolol was increased to 50mg BID. His heart rate is better controlled this morning. Blood pressure stable. PHYSICAL EXAM: VITAL SIGNS: Reviewed. GENERAL: Well-developed in no acute distress. NECK: Supple. No JVD or thyromegaly LUNGS: Respirations even and unlabored. Lungs diminished bilaterally with expiratory wheezing noted. HEART: Regular rate and rhythm. S1 and S2 heard. Systolic murmur. EXTREMITIES: Normal range of motion. No clubbing or cyanosis. Peripheral pulses intact. 1-2+ bilateral lower extremity edema ASSESSMENT: Paroxysmal atrial fibrillation, EKG from this AM revealing SR Acute exacerbation of chronic systolic congestive heart failure, EF 25-30% Upper GI bleed PLAN: Patient started on breathing treatments and IV steroids per internal medicine Continue current dose of metoprolol. Continue amio. Monitor heart rate. No anticoagulation due to GI bleed Continue IV lasix per nephrology. Diamox added yesterday. Further recommendations pending patient course Nurse practitioner note has been reviewed by physician. Signing provider agrees with the documented findings, assessment, and plan of care. Objective - Vital Signs Vital signs: Vital Signs Temp 98.2 F 09/16/20 08:00 Pulse 81 09/16/20 09:16 Resp 18 09/16/20 09:16 BP 113/59 09/16/20 08:00 Pulse Ox 95 09/16/20 08:05 Intake & Output 09/15/20 09/16/20 09/16/20 18:59 06:59 18:59 Intake Total 1514 950 473 Output Total 450 900 Balance 1064 50 473 Weight 107.1 kg Intake: IV 30 Invasive Line 3 10 Invasive Line 7 20 Oral 1484 950 473 Output: Urine 450 900 Other: Voiding Method Indwelling Catheter Urinal Urinal # Voids 1,200 ABP, PAP, CO, CI - Last Documented Arterial Blood Pressure 92/79 - Labs CBC & Chem 7: 09/16/20 07:05 09/16/20 07:05 Labs: Abnormal Lab Results - Last 24 Hours (Table) 09/15/20 09/15/20 09/15/20 Range/Units 12:11 16:54 20:09 WBC (3.8-10.6) k/uL RBC (4.30-5.90) m/uL Hgb (13.0-17.5) gm/dL Hct (39.0-53.0) % RDW (11.5-15.5) % Plt Count (150-450) k/uL Neutrophils # (1.3-7.7) k/uL Lymphocytes # (1.0-4.8) k/uL Monocytes # (0-1.0) k/uL ABG pH 7.59 H* (7.35-7.45) ABG pO2 59 L* (83-108) mmHg ABG HCO3 42 H* (21-25) mmol/L ABG Total CO2 43 H (19-24) mmol/L ABG O2 Saturation 93.6 L (94-97) % Sodium (137-145) mmol/L Potassium (3.5-5.1) mmol/L Chloride (98-107) mmol/L Carbon Dioxide (22-30) mmol/L BUN (9-20) mg/dL Creatinine (0.66-1.25) mg/dL Glucose (74-99) mg/dL POC Glucose (mg/dL) 127 H 156 H (75-99) mg/dL Calcium (8.4-10.2) mg/dL Magnesium (1.6-2.3) mg/dL Urine Blood (Negative) 09/16/20 09/16/20 09/16/20 Range/Units 07:05 07:05 10:06 WBC 35.2 H (3.8-10.6) k/uL RBC 3.11 L (4.30-5.90) m/uL Hgb 8.9 L (13.0-17.5) gm/dL Hct 27.5 L (39.0-53.0) % RDW 16.1 H (11.5-15.5) % Plt Count 119 L (150-450) k/uL Neutrophils # 33.0 H (1.3-7.7) k/uL Lymphocytes # 0.5 L (1.0-4.8) k/uL Monocytes # 1.4 H (0-1.0) k/uL ABG pH (7.35-7.45) ABG pO2 (83-108) mmHg ABG HCO3 (21-25) mmol/L ABG Total CO2 (19-24) mmol/L ABG O2 Saturation (94-97) % Sodium 135 L (137-145) mmol/L Potassium 2.6 L* (3.5-5.1) mmol/L Chloride 91 L (98-107) mmol/L Carbon Dioxide 38 H (22-30) mmol/L BUN 60 H (9-20) mg/dL Creatinine 1.43 H (0.66-1.25) mg/dL Glucose 104 H (74-99) mg/dL POC Glucose (mg/dL) (75-99) mg/dL Calcium 7.4 L (8.4-10.2) mg/dL Magnesium 2.5 H (1.6-2.3) mg/dL Urine Blood Trace H (Negative)
--- NOTE | 2020-09-16 12:49 | P.PN ---
Subjective Progress Note Date: 09/16/20 Principal diagnosis: Is a 85-year-old male seen in consultation because of cardiorenal syndrome with acute kidney injury, his creatinine was getting better with diuretics. Creatin ine was 1.03 then went up to 1.4 this morning His vital signs are stable, albeit his blood pressure is sometimes in the 90s over the last few days but more in the 110 range currently. His intake is documented 2464 output 1350 Subjective he says is feeling better less short of breath is on nasal cannula oxygen and looks somewhat short of breath His feet are cool and bluish discolored, although he is denying any pain but there are obvious ischemic. Currently his on IV Lasix 40 twice a day, Aldactone 25 twice a day and Diamox 250 every 12 IV Objective - Vital Signs Vital signs: Vital Signs Temp 98.2 F 09/16/20 08:00 Pulse 78 09/16/20 12:29 Resp 18 09/16/20 12:29 BP 113/59 09/16/20 08:00 Pulse Ox 95 09/16/20 08:05 Intake & Output 09/15/20 09/16/20 09/16/20 18:59 06:59 18:59 Intake Total 1514 950 473 Output Total 450 900 Balance 1064 50 473 Weight 107.1 kg Intake: IV 30 Invasive Line 3 10 Invasive Line 7 20 Oral 1484 950 473 Output: Urine 450 900 Other: Voiding Method Indwelling Catheter Urinal Urinal # Voids 1,200 ABP, PAP, CO, CI - Last Documented Arterial Blood Pressure 92/79 On examination is awake alert oriented slightly short of breath HEENT exam JVP is elevated about 6-8 cm about the sternal angle at is supple no facial asymmetry Lungs are significant for expiratory wheezing but fair air entry no crackles are heard Heart sounds are unremarkable for any murmur rub gallop Abdomen soft nontender slightly distended Extremity exam was moderate edema with bluish discoloration and cold feet Neurologically awake alert oriented - Labs CBC & Chem 7: 09/16/20 07:05 09/16/20 07:05 Labs: Abnormal Lab Results - Last 24 Hours (Table) 09/15/20 09/15/20 09/16/20 Range/Units 16:54 20:09 07:05 WBC 35.2 H (3.8-10.6) k/uL RBC 3.11 L (4.30-5.90) m/uL Hgb 8.9 L (13.0-17.5) gm/dL Hct 27.5 L (39.0-53.0) % RDW 16.1 H (11.5-15.5) % Plt Count 119 L (150-450) k/uL Neutrophils # 33.0 H (1.3-7.7) k/uL Lymphocytes # 0.5 L (1.0-4.8) k/uL Monocytes # 1.4 H (0-1.0) k/uL Sodium (137-145) mmol/L Potassium (3.5-5.1) mmol/L Chloride (98-107) mmol/L Carbon Dioxide (22-30) mmol/L BUN (9-20) mg/dL Creatinine (0.66-1.25) mg/dL Glucose (74-99) mg/dL POC Glucose (mg/dL) 127 H 156 H (75-99) mg/dL Calcium (8.4-10.2) mg/dL Magnesium (1.6-2.3) mg/dL Urine Blood (Negative) 09/16/20 09/16/20 Range/Units 07:05 10:06 WBC (3.8-10.6) k/uL RBC (4.30-5.90) m/uL Hgb (13.0-17.5) gm/dL Hct (39.0-53.0) % RDW (11.5-15.5) % Plt Count (150-450) k/uL Neutrophils # (1.3-7.7) k/uL Lymphocytes # (1.0-4.8) k/uL Monocytes # (0-1.0) k/uL Sodium 135 L (137-145) mmol/L Potassium 2.6 L* (3.5-5.1) mmol/L Chloride 91 L (98-107) mmol/L Carbon Dioxide 38 H (22-30) mmol/L BUN 60 H (9-20) mg/dL Creatinine 1.43 H (0.66-1.25) mg/dL Glucose 104 H (74-99) mg/dL POC Glucose (mg/dL) (75-99) mg/dL Calcium 7.4 L (8.4-10.2) mg/dL Magnesium 2.5 H (1.6-2.3) mg/dL Urine Blood Trace H (Negative) Assessment and Plan Assessment: Impression 1. Acute kidney injury, prerenal with cardiorenal syndrome. Creatinine was 0.77 on 09/06/2020 on admission peaked at 2.76 on 09/07/2020, improved to 1.08 and 09/15/2020 but went up again this morning to 1.43 likely reflecting addition of Cozaar on 1222, and slightly low blood pressure and pulmonary edema 2. Metabolic alkalosis improved on Diamox currently on 250 g IV every 12. Bicarb from 41 down to 38 today 3. Anemia of chronic kidney disease hemoglobin is 8.9, rule out an deficiency, GI bleed 4. Atrial fibrillation 5. Hypokalemia secondary to diuretics currently on Aldactone and Cozaar should improve. Echo shows 25-30% ejection fraction dated 09/06/2020 6 cardiomyopathy poor ejection fraction Recommendation 1. Increase the Lasix from 40 IV to 80 IV 2. KCl 20 mEq every 2 hours for 5 doses. 3. Check labs tomorrow 4. He has cardiomyopathy with ejection fraction low might need dopamine if he does not improve
--- NOTE | 2020-09-16 13:11 | PN ---
PROGRESS NOTE PULMONARY/CRITICAL CARE PROGRESS NOTE: DATE OF SERVICE: September 16, 2020 An 85-year-old gentleman who was admitted back on September 06 for acute hypoxemic respiratory failure secondary to acute non ST-segment elevation myocardial infarction, acute pulmonary edema, acute GI bleed, and cardiogenic shock. Currently, the patient was having a bit more difficulty breathing today. He was quite a bit more wheezy. A breathing treatment was ordered. In addition, the patient will need potassium replacement. He is quite alkalotic. Diamox was added by the boat tester yesterday. Currently, the patient is resting reasonably comfortably in bed. He is a bit more tachypneic. PHYSICAL EXAMINATION: VITAL SIGNS: Current vital signs include temperature 98, heart rate 81, respiratory rate 18, blood pressure 118/56, and 2 L saturations 94%. GENERAL: He appears to be in mild respiratory distress. No audible wheezing. No conversational dyspnea or use of accessory muscles. HEENT: Examination is grossly unremarkable. NECK: Supple. Full range of motion. No adenopathy. Neck veins are flat. CARDIOVASCULAR: Examination reveals regular rhythm and rate. S1, S2 normal. No S3, S4, or murmur. HEART: Sounds are distant. LUNGS: Reveal bibasilar crackles. There is some expiratory wheezes as well. No rhonchi. ABDOMEN: Soft. Bowel sounds are heard. EXTREMITIES: Are intact. Mild edema noted. No cyanosis or clubbing. SKIN: Without rash. NEUROLOGIC: Examination is brief but nonfocal. LABS: Labs are reviewed. White count 35.2, hemoglobin 8.9, hematocrit 27.5, platelet count 119,000. Sodium 135, potassium 2.6, chloride 91, CO2 of 38. Anion gap is 6. BUN and creatinine were 60 and 1.43. Gases done yesterday show a pO2 of 59, pCO2 of 44, and pH of 7.59. These blood gases consistent with severe metabolic alkalosis. It probably relates to volume contraction alkalosis, prerenal azotemia and hypokalemia. In addition, the urinalysis was negative. Microbiology is negative. A chest x-ray shows no acute pulmonary edema. There is some mild basilar atelectasis. Yesterday's chest x-ray showed some mild pulmonary venous congestion. CURRENT MEDICATIONS: Current medications reviewed. The patient is on Diamox, Cordarone, Zithromax, Rocephin, Benadryl cream, Lasix, DuoNeb, losartan, Solu-Medrol, metoprolol, morphine, Narcan, Zofran, Protonix, potassium chloride, and Aldactone. ASSESSMENT: 1. Acute hypoxemic respiratory failure, secondary to acute systolic congestive heart failure and pulmonary edema, improved. 2. Acute cardiogenic shock and pulmonary edema, in part related to underlying acute non ST-segment elevation myocardial infarction, improved. 3. Ischemic cardiomyopathy with ejection fraction of 25% to 30%. 4. Acute gastrointestinal bleed, status post 3 units of PRBCs. 5. Acute kidney injury secondary to acute tubular necrosis. 6. Acute lactic acidosis, resolved. 7. Profound metabolic alkalosis secondary to hypokalemia, prerenal azotemia, and volume contraction. 8. History of coronary artery disease with previous bypass grafting. 9. Previous tobacco use. 10.New onset atrial fibrillation with rapid ventricular response. PLAN: The patient is receiving appropriate medications. Corticosteroids were added back. The patient is currently on antibiotics. The patient is on diuretics. We may want to hold those. His potassium needs to be increased above 4. We will have Nephrology do that. No additional recommendations are made. Prognosis is guarded. MMODL / IJN: [id number] /
[2020-09-16] MEDS: FUROSEMIDE 10 MG/ML 10 ML VIAL IV SCH ×2 (14:31→19:41)
[2020-09-17] MEDS: IPRATROPIUM-ALBUTEROL 3 ML NEB INHALATION SCH ×4 (01:03→19:51)
[2020-09-17] MEDS: INSULIN ASPART (NovoLOG) 100 UNIT/ML VIAL SQ SCH ×4 (06:27→20:40)
[2020-09-17 08:30] LABS: Calcium 7.6 mg/dL (8.4-10.2); Magnesium 2.7 mg/dL (1.6-2.3); Potassium 3.7 mmol/L (3.5-5.1)
[2020-09-17 08:39] LABS: HCT 27.9 % (39.0-53.0); HGB 8.8 gm/dL (13.0-17.5); Hypochromasia Marked; MCH 28.7 pg (25.0-35.0); MCHC 31.5 g/dL (31.0-37.0); MCV 91.2 fL (80.0-100.0); Mean Platelet Volume 9.8; Platelet Count 143 k/uL (150-450); Poikilocytosis Slight; RBC 3.06 m/uL (4.30-5.90); RDW 15.9 % (11.5-15.5); WBC 34.4 k/uL (3.8-10.6)
[2020-09-17] MEDS: AMIODARONE 200 MG TAB PO SCH ×3 (08:58→20:33)
[2020-09-17] MEDS: LOSARTAN 25 MG TAB PO SCH (08:59)
[2020-09-17] MEDS: METOPROLOL TARTRATE 50 MG TAB PO SCH ×2 (08:59→20:33)
[2020-09-17] MEDS: PANTOPRAZOLE 40 MG TABLET PO SCH ×2 (08:59→20:33)
[2020-09-17] MEDS: FUROSEMIDE 10 MG/ML 10 ML VIAL IV SCH ×2 (09:02→20:35)
[2020-09-17] MEDS: methylPREDNISolone SOD SUCCI 40 MG/ML 1 ML VIAL IV SCH (09:06)
[2020-09-17 09:19] LABS: Anisocytosis (M) Present; Monocytes # (M) 0.34 k/uL (0-1.0); Neutrophils # (M) 34.06 k/uL (1.3-7.7); Neutrophils % (M) 99 %; Nucleated Red Blood Cells 0 /100 WBC (0-0); Total Cells Counted 100
[2020-09-17] MEDS: diphenhydrAMINE 2% CREAM 28.4 GM TUBE TOPICAL SCH ×2 (09:21→20:40)
[2020-09-17] MEDS: AZITHROMYCIN 500 MG in SODIUM CHLORIDE 0.9% 250 ML IVPB SCH (10:34)
--- NOTE | 2020-09-17 11:10 | P.PN ---
Subjective Progress Note Date: 09/17/20 Principal diagnosis: Is a 85-year-old male seen in consultation because of cardiorenal syndrome with acute kidney injury, his creatinine was getting better with diuretics. Creatin ine was 1.03 then went up to 1.4 this morning His vital signs are stable, albeit his blood pressure is sometimes in the 90s His intake is documented at 2950 input 2020, on Lasix 80 every 12 hours IV Subjective he says is feeling better less short of breath is on nasal cannula oxygen and looks somewhat short of breath His feet are cool and bluish discolored, although he is denying any pain but there are obvious ischemic. Currently his on IV Lasix 40 twice a day, Aldactone 25 twice a day and Diamox 250 every 12 IV History of present illness: Patient is a 85-year-old male seen in renal consultation for acute kidney injury. Creatinine was 0.77 on admission and is up to 2.37 today. Patient presented to the hospital with generalized weakness and dyspnea. He was having dark colored bowel movements for 2 days prior to admission. Hemoglobin was 6.4 on admission and he has received 2 units of packed red cells this admission. Hemoglobin 9.4 this morning. He hasn't had any bowel movements since being in the hospital. Patient also has history of CHF with ejection fraction of 25% wit h mild to moderate tricuspid regurgitation and moderate mitral regurgitation. Chest x-ray suggestive of fluid overload. Currently on BiPAP. He did receive IV Lasix yesterday morning, last night and again this morning but remains oliguric. He will not be started on dobutamine as well as Lasix drip. No history of diabetes. Covid 19 negative. He is also noted to be quite acidotic and is currently maintained on bicarb drip. Objective - Vital Signs Vital signs: Vital Signs Temp 98.2 F 09/17/20 04:00 Pulse 73 09/17/20 09:19 Resp 18 09/17/20 04:00 BP 118/55 09/17/20 04:00 Pulse Ox 92 L 09/17/20 04:00 Intake & Output 09/16/20 09/17/20 09/17/20 18:59 06:59 18:59 Intake Total 1546 475 240 Output Total 1800 1150 Balance -254 -675 240 Weight 110 kg Intake: IV 300 Azithromycin 500 mg In 250 Sodium Chloride 0.9% 250 ml @ 250 mls/hr IVPB DAILY [facility] Rx#:[id number] cefTRIAXone 1 gm In 50 Sodium Chloride 0.9% 50 ml @ 100 mls/hr IVPB Q24HR [facility] Rx#:[id number] Oral 1246 475 240 Output: Urine 1800 1150 Other: Voiding Method Urinal Urinal # Voids 2 ABP, PAP, CO, CI - Last Documented Arterial Blood Pressure 92/79 On examination is awake alert oriented HEENT exam elevated JVD about 6-8 cm neck is supple no facial asymmetry Lungs are significant for bilateral wheezing fair air entry bilaterally Heart sounds unremarkable for any murmur rub gallop Abdomen soft nontender Extremity exam was 2+ edema CT yesterday was somewhat cyanosed but today they're covered with stockings Neurologically awake alert oriented but generalized weakness - Labs CBC & Chem 7: 09/17/20 08:03 09/17/20 08:03 Labs: Abnormal Lab Results - Last 24 Hours (Table) 09/17/20 09/17/20 Range/Units 08:03 08:03 WBC 34.4 H (3.8-10.6) k/uL RBC 3.06 L (4.30-5.90) m/uL Hgb 8.8 L (13.0-17.5) gm/dL Hct 27.9 L (39.0-53.0) % RDW 15.9 H (11.5-15.5) % Plt Count 143 L (150-450) k/uL Neutrophils # (Manual) 34.06 H (1.3-7.7) k/uL Sodium 136 L (137-145) mmol/L Chloride 96 L (98-107) mmol/L Carbon Dioxide 36 H (22-30) mmol/L BUN 65 H (9-20) mg/dL Creatinine 1.45 H (0.66-1.25) mg/dL Glucose 164 H (74-99) mg/dL Calcium 7.6 L (8.4-10.2) mg/dL Magnesium 2.7 H (1.6-2.3) mg/dL Assessment and Plan Assessment: Impression 1. Acute kidney injury, prerenal with cardiorenal syndrome. Creatinine was 0.77 on 09/06/2020 on admission peaked at 2.76 on 09/07/2020, improved to 1.08 and 09/15/2020 but went up again 1.43 likely reflecting addition of Cozaar on 09/14, and slightly low blood pressure and pulmonary edema 2. Metabolic alkalosis improved on Diamox currently on 250 g IV every 12. Bicarb from 41 down to 36 today 3. Anemia of chronic kidney disease hemoglobin is 8.8, rule out an deficiency, iron saturation spending. Possibly GI bleed 4. Atrial fibrillation, stable 5. Hypokalemia secondary to diuretics currently on Aldactone and Cozaar should improve. 6. cardiomyopathy poor ejection fraction,Echo shows 25-30% ejection fraction dated 09/06/2020 Recommendation 1. Continue IV Lasix but increase dose of 80 mg 12 started yesterday 09/16/2020 2. Increase Aldactone to 50 daily 3. Check labs tomorrow 4. He has cardiomyopathy with ejection fraction low might need dopamine if he does not improve
--- NOTE | 2020-09-17 11:27 | P.PN ---
Subjective Progress Note Date: 09/17/20 HISTORY OF PRESENT ILLNESS: Patient examined this morning at the bedside. He denies chest pain or pressure. He reports mild shortness of breath. He is on nasal cannula. Complaining of his nose feeling "stuffed up". His lasix was increased yesterday per nephrology. His lower extremity is improving. Creatinine 1.45 today. Potassium 3.7. Fluid balance over the last 24 hours is -929 mL. PHYSICAL EXAM: VITAL SIGNS: Reviewed. GENERAL: Well-developed in no acute distress. NECK: Supple. No JVD or thyromegaly LUNGS: Respirations even and unlabored. Lungs diminished. HEART: Regular rate and rhythm. S1 and S2 heard. Systolic murmur. EXTREMITIES: Normal range of motion. No clubbing or cyanosis. Peripheral pulses intact. 1-2+ bilateral lower extremity edema ASSESSMENT: Paroxysmal atrial fibrillation, currently maintaining sinus mechanism Acute exacerbation of chronic systolic congestive heart failure, EF 25-30% Upper GI bleed PLAN: Continue current dose of metoprolol. Continue amio. Monitor heart rate. No anticoagulation due to GI bleed Continue IV lasix and diamox per nephrology. Aldactone increased per nephrology Further recommendations pending patient course Nurse practitioner note has been reviewed by physician. Signing provider agrees with the documented findings, assessment, and plan of care. Objective - Vital Signs Vital signs: Vital Signs Temp 98.2 F 09/17/20 04:00 Pulse 73 09/17/20 09:19 Resp 18 09/17/20 04:00 BP 118/55 09/17/20 04:00 Pulse Ox 92 L 09/17/20 04:00 Intake & Output 09/16/20 09/17/20 09/17/20 18:59 06:59 18:59 Intake Total 1546 475 240 Output Total 1800 1150 Balance -254 -675 240 Weight 110 kg Intake: IV 300 Azithromycin 500 mg In 250 Sodium Chloride 0.9% 250 ml @ 250 mls/hr IVPB DAILY [facility] Rx#:[id number] cefTRIAXone 1 gm In 50 Sodium Chloride 0.9% 50 ml @ 100 mls/hr IVPB Q24HR [facility] Rx#:[id number] Oral 1246 475 240 Output: Urine 1800 1150 Other: Voiding Method Urinal Urinal # Voids 2 ABP, PAP, CO, CI - Last Documented Arterial Blood Pressure 92/79 - Labs CBC & Chem 7: 09/17/20 08:03 09/17/20 08:03 Labs: Abnormal Lab Results - Last 24 Hours (Table) 09/17/20 09/17/20 Range/Units 08:03 08:03 WBC 34.4 H (3.8-10.6) k/uL RBC 3.06 L (4.30-5.90) m/uL Hgb 8.8 L (13.0-17.5) gm/dL Hct 27.9 L (39.0-53.0) % RDW 15.9 H (11.5-15.5) % Plt Count 143 L (150-450) k/uL Neutrophils # (Manual) 34.06 H (1.3-7.7) k/uL Sodium 136 L (137-145) mmol/L Chloride 96 L (98-107) mmol/L Carbon Dioxide 36 H (22-30) mmol/L BUN 65 H (9-20) mg/dL Creatinine 1.45 H (0.66-1.25) mg/dL Glucose 164 H (74-99) mg/dL Calcium 7.6 L (8.4-10.2) mg/dL Magnesium 2.7 H (1.6-2.3) mg/dL Microbiology - Last 24 Hours (Table) 09/16/20 08:57 Blood Culture - Preliminary Blood No Growth after 24 hours
[2020-09-17] MEDS: SPIRONOLACTONE 25 MG TAB PO SCH ×2 (12:58→17:23)
--- NOTE | 2020-09-17 13:38 | PN ---
PROGRESS NOTE PULMONARY/CRITICAL CARE PROGRESS NOTE: DATE OF SERVICE: 09/17/2020 85-year-old gentleman who was admitted back on September 06 for acute hypoxemic respiratory failure secondary to acute non ST-segment elevation myocardial infarction and pulmonary edema. The patient actually had cardiogenic shock. Currently, the patient is doing better today. Yesterday, he was having significant wheezing. He has diuresed well in the last 24 hours. He is currently on appropriate medications including updrafts, steroids and antibiotics. He is also getting diuretics. The patient is sitting up in his chair. He is on 2 L nasal O2. Doing much better according to the nurse today. PHYSICAL EXAMINATION: VITAL SIGNS: Current vital signs are reviewed. Temperature is 98.7, heart rate 73, respiratory rate 18, blood pressure 134/66, mean 88, 2 L saturation 96%. Appears in no acute distress. HEENT: Examination is grossly unremarkable. Nasal O2 noted. NECK: Supple. Full range of motion. No adenopathy. Neck veins are flat. CARDIOVASCULAR: Examination reveals regular rhythm rate. Heart sounds are distant. Heart rate 73. A soft systolic murmur is noted. LUNGS: Reveal some diffuse coarse rhonchi. No wheezes. A few scattered crackles. Breath sounds are better today than they were yesterday. ABDOMEN: Soft. Bowel sounds are heard. EXTREMITIES are intact. Minimal edema. SKIN: Without rash. NEUROLOGIC: Examination is nonfocal. LABS: Reviewed. White count 34.4, hemoglobin 8.8, hematocrit 27.9, platelet count is a 143,000. Sodium 136, potassium 3.7, chloride 96, CO2 36, anion gap is 4. BUN and creatinine were 65 and 1.45. Urine is negative. Microbiology is currently negative. No recent chest x-ray. CURRENT MEDICATIONS: Reviewed. The patient is on Diamox, Cordarone, Zithromax, ceftriaxone, Benadryl cream, Lasix, NovoLog insulin, DuoNeb, losartan, Solu-Medrol, metoprolol, morphine, Narcan, Zofran, Protonix, potassium replacement, and Aldactone. ASSESSMENT: 1. Acute hypoxemic respiratory failure secondary to acute systolic congestive heart failure and pulmonary edema, improved. 2. Acute cardiogenic shock and pulmonary edema, in part related to underlying acute on non ST-segment elevation myocardial infarction, improved. 3. Ischemic cardiomyopathy with an ejection fraction of 25%-30%. 4. Acute gastrointestinal bleed, status post 3 units of PRBCs. 5. Acute kidney injury secondary to acute tubular necrosis. 6. Acute lactic acidosis, resolved. 7. Profound metabolic alkalosis secondary to hypokalemia, prerenal azotemia, and volume contraction, currently on Diamox. 8. History of coronary artery disease with previous bypass grafting. 9. Previous tobacco use. 10.New onset atrial fibrillation with rapid ventricular response. PLAN: Currently, the patient seems to be doing better. He is on appropriate medications. His potassium is much better controlled. We will continue to follow. Today's breathing is better. He is only on 2 L. He has diuresed well. MMODL / IJN: [id number] /
--- NOTE | 2020-09-17 14:29 | P.PN ---
Subjective Progress Note Date: 09/17/20 Principal diagnosis: CC: SOB Patient is sitting in the chair her nose in the room. He states that his shortness of breath is improving. Patient states that he is able to walk to the bathroom with some assistance. He is currently intubated liters nasal cannula. Objective - Vital Signs Vital signs: Vital Signs Temp 98.7 F 09/17/20 08:30 Pulse 77 09/17/20 12:22 Resp 18 09/17/20 11:35 BP 80/55 09/17/20 11:35 Pulse Ox 96 09/17/20 11:35 Intake & Output 09/16/20 09/17/20 09/17/20 18:59 06:59 18:59 Intake Total 1546 475 240 Output Total 1800 1150 500 Balance -560 -227 -260 Weight 110 kg Intake: IV 300 Azithromycin 500 mg In 250 Sodium Chloride 0.9% 250 ml @ 250 mls/hr IVPB DAILY [facility] Rx#:[id number] cefTRIAXone 1 gm In 50 Sodium Chloride 0.9% 50 ml @ 100 mls/hr IVPB Q24HR [facility] Rx#:[id number] Oral 1246 475 240 Output: Urine 1800 1150 500 Other: Voiding Method Urinal Urinal Urinal # Voids 2 ABP, PAP, CO, CI - Last Documented Arterial Blood Pressure 92/79 - Exam General examination - Alert and Oriented 3 in NAD Heart - + S1S2 no murmurs Lungs - diminsed breath sounds bilaterally Abdomen soft NT ND +ve BS Extremities - +2 pitting edema bilaterally NURSE CHEMICAL DEPENDENCY - Moving all 4 extremities spontaneously Psych - Calm and cooperative - Labs CBC & Chem 7: 09/17/20 08:03 09/17/20 08:03 Labs: Abnormal Lab Results - Last 24 Hours (Table) 09/17/20 09/17/20 Range/Units 08:03 08:03 WBC 34.4 H (3.8-10.6) k/uL RBC 3.06 L (4.30-5.90) m/uL Hgb 8.8 L (13.0-17.5) gm/dL Hct 27.9 L (39.0-53.0) % RDW 15.9 H (11.5-15.5) % Plt Count 143 L (150-450) k/uL Neutrophils # (Manual) 34.06 H (1.3-7.7) k/uL Sodium 136 L (137-145) mmol/L Chloride 96 L (98-107) mmol/L Carbon Dioxide 36 H (22-30) mmol/L BUN 65 H (9-20) mg/dL Creatinine 1.45 H (0.66-1.25) mg/dL Glucose 164 H (74-99) mg/dL Calcium 7.6 L (8.4-10.2) mg/dL Magnesium 2.7 H (1.6-2.3) mg/dL Microbiology - Last 24 Hours (Table) 09/16/20 08:57 Blood Culture - Preliminary Blood No Growth after 24 hours Assessment and Plan Assessment: 1. Mixed Shock, Hypovolemic secondary to ABLA, then Cardiogenic secondary to blood product transfusion superimposed on chronic HFrEF 2. Upper GI Bleed 3. Permanent Atrial Fibrillation with RVR 4. JOSE 5. HTN 6. HLD 7. Leukocytosis with Cough with sputum production 85 year old man with history of CAD/HTN/HLD, HFrEF 25%, AFib presented with hypovolemic shock secondary to upper GI Bleed, warranting 3U PRBCs and levophed initially. He was then felt to be in cardiogenic shock warranting levophed and lasix gtt, which he was weaned off of gradually. Patient had refused an EGD for work up, however, fortunately blood counts remained stable at 10. GI and Cardiology consulted on care, and recommendations appreciated. #Leukocytosis/Cough -Likely due to steroids versus possible pneumonia -Chest x-ray shows venous congestion and difficult to exclude infiltrates -UA is clear -Blood culture negative to date -We'll start patient on IV ceftriaxone and azithromycin day 3/7 -WBC decreased slightly #Upper GI bleed: With hemoglobin of 6.4 on presentation/Acute blood loss anemia: Status post transfusion of packed red blood cells. Hemoglobin is stable but trending down gradually. GI recs appreciated. Continue IV Protonix 40 mg twice daily. Per patient he does not want to proceed with an EGD There is no overt signs of bleeding #Hypovolemic and cardiogenic shock, with lactic acidosis. -Patient now off pressors -Resolved #COPD exacerbation -Patient having wheezing this morning -Restart steroids day 2/5. Transition to oral steroids. -Patient on azithromycin as above -Duo nebs scheduled and as needed -Pulmonology on board #Acute on chronic systolic heart failure exacerbation, systolic EF=25-30%: With evidence of fluid overload clinically and on chest x-ray. Nephrology increase Lasix to 80 mg IV twice a day Nephrology added Diamox 250 IV every 12 Continue spironolactone Start ARB (losartan), and uptitrate as tolerated since no longer in JOSE Nephrology managing diuretics #JOSE shayy cardiorenal -Cr stable on diuretics #Metabolic alkalosis likely due to diuretics -patient started on dimox -bicarb improving. #A. fib with RVR Continue amiodarone TID #Steroid-induced hyperglycemia insulin sliding scale #Itchy legs benadryl cream prescribed CODE STATUS: DO NOT RESUSCITATE/DO NOT INTUBATE. Patient refuses to go to rehab. He is amenable to home care. Patient states that after discharge his nephew will live with him.
[2020-09-18] MEDS: IPRATROPIUM-ALBUTEROL 3 ML NEB INHALATION SCH ×4 (03:00→19:28)
[2020-09-18] MEDS: INSULIN ASPART (NovoLOG) 100 UNIT/ML VIAL SQ SCH ×4 (06:15→20:42)
[2020-09-18 07:49] LABS: Basophils % (A) 0 %; Eosinophils % (A) 0 %; HCT 27.8 % (39.0-53.0); HGB 8.7 gm/dL (13.0-17.5); Hypochromasia Marked; Lymphocytes # (A) 0.3 k/uL (1.0-4.8); Lymphocytes % (A) 1 %; MCH 28.8 pg (25.0-35.0); MCHC 31.2 g/dL (31.0-37.0); MCV 92.1 fL (80.0-100.0); Mean Platelet Volume 9.3; Monocytes % (A) 4 %; Neutrophils # (A) 26.3 k/uL (1.3-7.7); Neutrophils % (A) 94 %; Platelet Count 132 k/uL (150-450); Poikilocytosis Slight; RBC 3.01 m/uL (4.30-5.90); RDW 15.8 % (11.5-15.5)
[2020-09-18 08:13] LABS: Calcium 7.9 mg/dL (8.4-10.2); Magnesium 2.7 mg/dL (1.6-2.3); Potassium 3.7 mmol/L (3.5-5.1)
[2020-09-18] MEDS: METOPROLOL TARTRATE 50 MG TAB PO SCH ×2 (09:50→20:42)
[2020-09-18] MEDS: AMIODARONE 200 MG TAB PO SCH ×2 (09:50→20:42)
[2020-09-18] MEDS: FUROSEMIDE 10 MG/ML 10 ML VIAL IV SCH ×2 (09:50→20:42)
[2020-09-18] MEDS: SPIRONOLACTONE 25 MG TAB PO SCH (09:50)
[2020-09-18] MEDS: AZITHROMYCIN 500 MG in SODIUM CHLORIDE 0.9% 250 ML IVPB SCH (09:51)
[2020-09-18] MEDS: PANTOPRAZOLE 40 MG TABLET PO SCH ×2 (09:51→20:42)
[2020-09-18] MEDS: predniSONE 20 MG TAB PO SCH (09:51)
[2020-09-18] MEDS: diphenhydrAMINE 2% CREAM 28.4 GM TUBE TOPICAL SCH ×2 (10:08→20:52)
[2020-09-18] MEDS ORDERED: POTASSIUM CHLORIDE ER 20 MEQ TAB.ER PO STA (10:33)
--- NOTE | 2020-09-18 10:35 | P.PN ---
Subjective Patient is seen in follow-up for acute kidney injury. Renal function stable. Maintained on Lasix 80 mg IV twice daily and Diamox. On room air. No chest pain or shortness of breath. Nonoliguric. Still has edema. Appetite fair. General: The patient appeared well nourished and normally developed. HEENT: No JVD. On nasal cannula. LUNGS: Breath sounds decreased. HEART: Regular rate and rhythm. ABDOMEN: soft nontender. EXTREMITITES: 2+ edema. Objective - Vital Signs Vital signs: Vital Signs Temp 97.7 F 09/18/20 09:56 Pulse 78 09/18/20 09:56 Resp 20 09/18/20 09:56 BP 99/54 09/18/20 09:56 Pulse Ox 93 L 09/18/20 09:56 Intake & Output 09/17/20 09/18/20 09/18/20 18:59 06:59 18:59 Intake Total 468 240 Output Total 700 1275 150 Balance -232 -1275 90 Weight 106.5 kg Intake: Oral 468 240 Output: Urine 700 1275 150 Other: Voiding Method Urinal Urinal Urinal ABP, PAP, CO, CI - Last Documented Arterial Blood Pressure 92/79 - Labs CBC & Chem 7: 09/18/20 07:19 09/18/20 07:19 Labs: Abnormal Lab Results - Last 24 Hours (Table) 09/18/20 09/18/20 Range/Units 07:19 07:19 WBC 28.0 H (3.8-10.6) k/uL RBC 3.01 L (4.30-5.90) m/uL Hgb 8.7 L (13.0-17.5) gm/dL Hct 27.8 L (39.0-53.0) % RDW 15.8 H (11.5-15.5) % Plt Count 132 L (150-450) k/uL Neutrophils # 26.3 H (1.3-7.7) k/uL Lymphocytes # 0.3 L (1.0-4.8) k/uL Sodium 135 L (137-145) mmol/L Carbon Dioxide 33 H (22-30) mmol/L BUN 68 H (9-20) mg/dL Creatinine 1.54 H (0.66-1.25) mg/dL Glucose 135 H (74-99) mg/dL Calcium 7.9 L (8.4-10.2) mg/dL Magnesium 2.7 H (1.6-2.3) mg/dL Microbiology - Last 24 Hours (Table) 09/16/20 08:57 Blood Culture - Preliminary Blood No Growth after 24 hours Assessment and Plan Plan: Assessment: 1. Acute kidney injury secondary to ATN secondary to acute blood loss anemia, A. fib, hypotension and component of cardiorenal syndrome. Baseline creatinine near 1 and peaked at 2.76 this admission - 1.54 today. No hydronephrosis noted on kidney ultrasound. No proteinuria on UA. 2. Acute on chronic systolic CHF with ejection fraction of 25% with moderate mitral regurgitation and tricuspid regurgitation. 3. Metabolic alkalosis and respiratory alkalosis. Alkalosis improved with diamox. 4. Hyperkalemia secondary to acute kidney injury, GI bleed and metabolic acidosis. Resolved. Became hypokalemic from diuresis. Status post placement. 5. Volume overload. Improving with diuresis. 6. Acute blood loss anemia secondary to GI bleed status post blood transfusion. GI following. Stable. 7. A. fib with RVR maintained on amiodarone and Lopressor. 8. Shock s/p Levophed. Plan: Maintain IV Lasix. Maintain Diamox 250 mg IV twice daily for another 24 hours. Add metolazone. Cozaar stopped September 17 due to low blood pressures. Replace potassium. 40 mEq today. Continue to monitor renal function and urine output. Repeat electrolytes in the morning.
--- NOTE | 2020-09-18 10:51 | P.PN ---
Subjective Progress Note Date: 09/18/20 Principal diagnosis: CC: SOB Patient is on room air this morning. He states that his breathing is improving. He has some wheezing on exam. Objective - Vital Signs Vital signs: Vital Signs Temp 97.7 F 09/18/20 09:56 Pulse 78 09/18/20 09:56 Resp 20 09/18/20 09:56 BP 99/54 09/18/20 09:56 Pulse Ox 93 L 09/18/20 09:56 Intake & Output 09/17/20 09/18/20 09/18/20 18:59 06:59 18:59 Intake Total 468 240 Output Total 700 1275 150 Balance -232 -1275 90 Weight 106.5 kg Intake: Oral 468 240 Output: Urine 700 1275 150 Other: Voiding Method Urinal Urinal Urinal ABP, PAP, CO, CI - Last Documented Arterial Blood Pressure 92/79 - Exam General examination - Alert and Oriented 3 in NAD Heart - + S1S2 no murmurs Lungs - diminsed breath sounds bilaterally Abdomen soft NT ND +ve BS Extremities - +2 pitting edema bilaterally [facility] [employer] - Moving all 4 extremities spontaneously Psych - Calm and cooperative - Labs CBC & Chem 7: 09/18/20 07:19 09/18/20 07:19 Labs: Abnormal Lab Results - Last 24 Hours (Table) 09/18/20 09/18/20 Range/Units 07:19 07:19 WBC 28.0 H (3.8-10.6) k/uL RBC 3.01 L (4.30-5.90) m/uL Hgb 8.7 L (13.0-17.5) gm/dL Hct 27.8 L (39.0-53.0) % RDW 15.8 H (11.5-15.5) % Plt Count 132 L (150-450) k/uL Neutrophils # 26.3 H (1.3-7.7) k/uL Lymphocytes # 0.3 L (1.0-4.8) k/uL Sodium 135 L (137-145) mmol/L Carbon Dioxide 33 H (22-30) mmol/L BUN 68 H (9-20) mg/dL Creatinine 1.54 H (0.66-1.25) mg/dL Glucose 135 H (74-99) mg/dL Calcium 7.9 L (8.4-10.2) mg/dL Magnesium 2.7 H (1.6-2.3) mg/dL Microbiology - Last 24 Hours (Table) 09/16/20 08:57 Blood Culture - Preliminary Blood No Growth after 24 hours Assessment and Plan Assessment: 1. Mixed Shock, Hypovolemic secondary to ABLA, then Cardiogenic secondary to blood product transfusion superimposed on chronic HFrEF 2. Upper GI Bleed 3. Permanent Atrial Fibrillation with RVR 4. JOSE 5. HTN 6. HLD 7. Leukocytosis with Cough with sputum production 85 year old man with history of CAD/HTN/HLD, HFrEF 25%, AFib presented with hypovolemic shock secondary to upper GI Bleed, warranting 3U PRBCs and levophed initially. He was then felt to be in cardiogenic shock warranting levophed and lasix gtt, which he was weaned off of gradually. Patient had refused an EGD for work up, however, fortunately blood counts remained stable at 10. GI and Cardiology consulted on care, and recommendations appreciated. #Leukocytosis/Cough -Likely due to steroids versus possible pneumonia -Chest x-ray shows venous congestion and difficult to exclude infiltrates -UA is clear -Blood culture negative to date -We'll start patient on IV ceftriaxone and azithromycin day 3/ -WBC decreased slightly #Upper GI bleed: With hemoglobin of 6.4 on presentation/Acute blood loss anemia: Status post transfusion of packed red blood cells. Hemoglobin is stable but trending down gradually. GI recs appreciated. Continue IV Protonix 40 mg twice daily. Per patient he does not want to proceed with an EGD There is no overt signs of bleeding #Hypovolemic and cardiogenic shock, with lactic acidosis. -Patient now off pressors -Resolved #COPD exacerbation -Patient having wheezing this morning -Restart steroids day 2/5. Transition to oral steroids. -Patient on azithromycin as above -Duo nebs scheduled and as needed -Pulmonology on board #Acute on chronic systolic heart failure exacerbation, systolic EF=25-30%: With evidence of fluid overload clinically and on chest x-ray. Nephrology increase Lasix to 80 mg IV twice a day Patient started on metolazone Nephrology added Diamox 250 IV every 12 -> per nephrology resume for another 24 hours Continue spironolactone Losartan due to borderline low blood pressure Nephrology managing diuretics #JOSE shayy cardiorenal -Creatinine is slightly worse this morning -Nephrology is managing #Metabolic alkalosis likely due to diuretics -patient started on dimox -bicarb improving. #A. fib with RVR Continue amiodarone TID #Steroid-induced hyperglycemia insulin sliding scale #Itchy legs benadryl cream prescribed CODE STATUS: DO NOT RESUSCITATE/DO NOT INTUBATE. Patient refuses to go to rehab. He is amenable to home care. Patient states that after discharge his nephew will live with him.
[2020-09-18] MEDS: metOLazone 5 MG TAB PO SCH (12:01)
--- NOTE | 2020-09-18 12:26 | PN ---
PROGRESS NOTE PULMONARY/CRITICAL CARE PROGRESS NOTE: DATE OF SERVICE: September 18, 2020 85-year-old gentleman who was admitted back on September 06 for acute hypoxemic respiratory failure secondary to acute non ST-segment elevation myocardial infarction and pulmonary edema. The patient actually had cardiogenic shock at that time. Currently, the patient is doing much better. He has been weaned down to a couple L nasal O2. Much less short of breath. A couple days ago, he was having some wheezing and cough with congestion. That is improved. Denies any chest pain or chest discomfort. He denies any fever or chills. Denies any nausea, vomiting or diarrhea. PHYSICAL EXAMINATION: VITAL SIGNS: Current vital signs are reviewed. Temperature is 97.1, heart rate 85, respiratory rate 20. Blood pressure 93/56, mean 68 and 2 L saturations 93%. He is also 92% on room air. GENERAL: Appears in no acute distress. HEENT: Examination is grossly unremarkable. NECK: Supple. Full range of motion. No adenopathy. Neck veins are flat. CARDIOVASCULAR: Examination reveals a regular rhythm and rate. Heart rate is in the mid 60s to low 70s. S1, S2 normal. A soft systolic murmur is noted. LUNGS: A few scattered crackles. No wheezes or rhonchi. Breath sounds equal. ABDOMEN: Soft. Bowel sounds are heard. EXTREMITIES: Extremities reveal mild edema. No cyanosis or clubbing. SKIN: Without rash. NEUROLOGIC: Examination is nonfocal. LABS: Reviewed. White count 28, hemoglobin 8.7, hematocrit 27.8, platelet count 132,000. Sodium 135, potassium 3.7, chloride 98, CO2 33, anion gap is 4, BUN and creatinine were 60 and 1.54. Urine is negative. Microbiology is currently negative. No recent chest x-ray. CURRENT MEDICATIONS: Include Diamox, Cordarone, Zithromax, Rocephin, Benadryl cream, Lasix, insulin, DuoNeb, Zaroxolyn, metoprolol, morphine, Narcan, Zofran, Protonix, potassium chloride, prednisone and Aldactone. ASSESSMENT: 1. Acute hypoxemic respiratory failure secondary to acute systolic congestive heart failure and pulmonary edema, improved. 2. Acute cardiogenic shock and pulmonary edema, secondary to acute non ST-segment elevation myocardial infarction. 3. Ischemic cardiomyopathy with an ejection fraction of 25%-30%. 4. Acute gastrointestinal bleed, status post 3 units of PRBCs. 5. Acute kidney injury secondary to acute tubular necrosis. 6. Acute lactic acidosis, resolved. 7. Metabolic alkalosis, secondary to hypokalemia, prerenal azotemia, and volume contraction, currently on Diamox. 8. History of coronary artery disease with previous bypass grafting. 9. Previous tobacco use, rule out chronic obstructive pulmonary disease. 10.New onset atrial fibrillation with RVR. PLAN: Currently, the patient is doing much better. The patient is on appropriate medications. No additional recommendations are made at this time. We will continue to follow. Primary issues are cardiac in nature. MMODL / IJN: [id number] /
--- NOTE | 2020-09-18 12:28 | P.PN ---
Subjective Progress Note Date: 09/18/20 HISTORY OF PRESENT ILLNESS: Patient examined this morning at the bedside. He denies chest pain or pressure. Reports his shortness of breath is improving. He remains on Lasix 80 mg IV every 12 hours. Creatinine 1.54 today. Fluid balance over the last 24 hours is -1500 mL. PHYSICAL EXAM: VITAL SIGNS: Reviewed. GENERAL: Well-developed in no acute distress. NECK: Supple. No JVD or thyromegaly LUNGS: Respirations even and unlabored. Lungs diminished with expiratory wheezing noted. HEART: Regular rate and rhythm. S1 and S2 heard. Systolic murmur. EXTREMITIES: Normal range of motion. No clubbing or cyanosis. Peripheral pulses intact. 2+ bilateral lower extremity edema ASSESSMENT: Paroxysmal atrial fibrillation, currently maintaining sinus mechanism Acute exacerbation of chronic systolic congestive heart failure, EF 25-30% Upper GI bleed PLAN: Continue current dose of metoprolol. Monitor heart rate. Decrease amio to 200mg BID No anticoagulation due to GI bleed Continue IV diuretics per nephrology Cozaar discontinued secondary to low blood pressure Further recommendations pending patient course Nurse practitioner note has been reviewed by physician. Signing provider agrees with the documented findings, assessment, and plan of care. Objective - Vital Signs Vital signs: Vital Signs Temp 97.1 F L 09/18/20 11:25 Pulse 85 09/18/20 11:25 Resp 20 09/18/20 11:25 BP 93/56 09/18/20 11:25 Pulse Ox 93 L 09/18/20 11:25 Intake & Output 09/17/20 09/18/20 09/18/20 18:59 06:59 18:59 Intake Total 468 660 Output Total 700 1275 825 Balance -232 -1275 -165 Weight 106.5 kg Intake: IV 420 0.9 NACL 120 Azithromycin 500 mg In 250 Sodium Chloride 0.9% 250 ml @ 250 mls/hr IVPB DAILY [facility] Rx#:[id number] cefTRIAXone 1 gm In 50 Sodium Chloride 0.9% 50 ml @ 100 mls/hr IVPB Q24HR [facility] Rx#:[id number] Oral 468 240 Output: Urine 700 1275 825 Other: Voiding Method Urinal Urinal Urinal # Voids 1 ABP, PAP, CO, CI - Last Documented Arterial Blood Pressure 92/79 - Labs CBC & Chem 7: 09/18/20 07:19 09/18/20 07:19 Labs: Abnormal Lab Results - Last 24 Hours (Table) 09/18/20 09/18/20 Range/Units 07:19 07:19 WBC 28.0 H (3.8-10.6) k/uL RBC 3.01 L (4.30-5.90) m/uL Hgb 8.7 L (13.0-17.5) gm/dL Hct 27.8 L (39.0-53.0) % RDW 15.8 H (11.5-15.5) % Plt Count 132 L (150-450) k/uL Neutrophils # 26.3 H (1.3-7.7) k/uL Lymphocytes # 0.3 L (1.0-4.8) k/uL Sodium 135 L (137-145) mmol/L Carbon Dioxide 33 H (22-30) mmol/L BUN 68 H (9-20) mg/dL Creatinine 1.54 H (0.66-1.25) mg/dL Glucose 135 H (74-99) mg/dL Calcium 7.9 L (8.4-10.2) mg/dL Magnesium 2.7 H (1.6-2.3) mg/dL Microbiology - Last 24 Hours (Table) 09/16/20 08:57 Blood Culture - Preliminary Blood No Growth after 48 hours
--- NOTE | 2020-09-18 13:55 | XR ---
EXAMINATION TYPE: XR chest 1V DATE OF EXAM: 09/18/2020 COMPARISON: Prior chest x-ray 09/15/2020 HISTORY: Dyspnea, wheezing TECHNIQUE: Single frontal view of the chest is obtained. FINDINGS: Patient is rotated and post median sternotomy. Interstitium is mildly increased. Cardiac m ediastinal silhouette shows borderline enlarged heart size. IMPRESSION: There may be a component of interstitial edema, findings are improved as compared to priti or exam.
[2020-09-19] MEDS: IPRATROPIUM-ALBUTEROL 3 ML NEB INHALATION SCH ×4 (01:43→19:45)
[2020-09-19] MEDS: INSULIN ASPART (NovoLOG) 100 UNIT/ML VIAL SQ SCH ×4 (06:37→20:38)
[2020-09-19 08:31] LABS: Anisocytosis Slight; Basophils # (A) 0.1 k/uL (0-0.2); Basophils % (A) 0 %; Eosinophils % (A) 0 %; HCT 28.2 % (39.0-53.0); HGB 8.9 gm/dL (13.0-17.5); Hypochromasia Marked; Lymphocytes # (A) 0.5 k/uL (1.0-4.8); Lymphocytes % (A) 2 %; MCH 28.4 pg (25.0-35.0); MCHC 31.6 g/dL (31.0-37.0); MCV 89.9 fL (80.0-100.0); Mean Platelet Volume 9.1; Monocytes % (A) 5 %; Neutrophils % (A) 92 %; Platelet Count 143 k/uL (150-450); Poikilocytosis Slight; RBC 3.14 m/uL (4.30-5.90); WBC 22.7 k/uL (3.8-10.6)
[2020-09-19 08:51] LABS: Magnesium 2.7 mg/dL (1.6-2.3); Potassium 3.9 mmol/L (3.5-5.1)
[2020-09-19] MEDS: AZITHROMYCIN 500 MG in SODIUM CHLORIDE 0.9% 250 ML IVPB SCH (09:21)
[2020-09-19] MEDS: predniSONE 20 MG TAB PO SCH (09:22)
[2020-09-19] MEDS: METOPROLOL TARTRATE 50 MG TAB PO SCH ×2 (09:22→20:37)
[2020-09-19] MEDS: AMIODARONE 200 MG TAB PO SCH ×2 (09:22→20:37)
[2020-09-19] MEDS: FUROSEMIDE 10 MG/ML 10 ML VIAL IV SCH ×2 (09:22→20:38)
[2020-09-19] MEDS: SPIRONOLACTONE 25 MG TAB PO SCH (09:22)
[2020-09-19] MEDS: metOLazone 5 MG TAB PO SCH (09:23)
[2020-09-19] MEDS: PANTOPRAZOLE 40 MG TABLET PO SCH ×2 (09:23→20:37)
[2020-09-19 09:31] LABS: Glucose,Whole Blood 169 mg/dL (75-99)
[2020-09-19 09:31] LABS: Glucose,Whole Blood 72 mg/dL (75-99)
[2020-09-19 09:31] LABS: Glucose,Whole Blood 184 mg/dL (75-99)
[2020-09-19 09:32] LABS: Glucose,Whole Blood 186 mg/dL (75-99)
[2020-09-19 09:35] LABS: Glucose,Whole Blood 149 mg/dL (75-99)
[2020-09-19 09:35] LABS: Glucose,Whole Blood 200 mg/dL (75-99)
[2020-09-19 09:35] LABS: Glucose,Whole Blood 155 mg/dL (75-99)
[2020-09-19 09:37] LABS: Glucose,Whole Blood 116 mg/dL (75-99)
[2020-09-19 09:38] LABS: Glucose,Whole Blood 180 mg/dL (75-99)
[2020-09-19 09:39] LABS: Glucose,Whole Blood 93 mg/dL (75-99)
[2020-09-19 09:39] LABS: Glucose,Whole Blood 146 mg/dL (75-99)
[2020-09-19 09:39] LABS: Glucose,Whole Blood 146 mg/dL (75-99)
[2020-09-19 09:40] LABS: Glucose,Whole Blood 139 mg/dL (75-99)
[2020-09-19 09:40] LABS: Glucose,Whole Blood 214 mg/dL (75-99)
[2020-09-19] MEDS: diphenhydrAMINE 2% CREAM 28.4 GM TUBE TOPICAL SCH ×2 (10:41→20:38)
[2020-09-19] MEDS ORDERED: POTASSIUM CHLORIDE ER 20 MEQ TAB.ER PO STA (10:50)
--- NOTE | 2020-09-19 10:52 | P.PN ---
Subjective Patient is seen in follow-up for acute kidney injury. Renal function stable. Maintained on Lasix 80 mg IV twice daily, metolazonea, Aldactone nd Diamox. On room air. No chest pain or shortness of breath. Nonoliguric. Still has edema. Appetite fair. General: The patient appeared well nourished and normally developed. HEENT: No JVD. On nasal cannula. LUNGS: Breath sounds decreased. HEART: Regular rate and rhythm. ABDOMEN: soft nontender. EXTREMITITES: 2+ edema. Objective - Vital Signs Vital signs: Vital Signs Temp 98.1 F 09/18/20 20:00 Pulse 68 09/19/20 08:46 Resp 18 09/19/20 03:13 BP 97/52 09/19/20 03:13 Pulse Ox 100 09/19/20 03:13 Intake & Output 09/18/20 09/19/20 09/19/20 18:59 06:59 18:59 Intake Total 1140 240 240 Output Total 1575 1375 125 Balance -435 -1135 115 Weight 108.7 kg Intake: IV 420 0.9 NACL 120 Azithromycin 500 mg In 250 Sodium Chloride 0.9% 250 ml @ 250 mls/hr IVPB DAILY [facility] Rx#:[id number] cefTRIAXone 1 gm In 50 Sodium Chloride 0.9% 50 ml @ 100 mls/hr IVPB Q24HR [facility] Rx#:[id number] Oral 720 240 240 Output: Urine 1575 1375 125 Other: Voiding Method Urinal Urinal # Voids 1 ABP, PAP, CO, CI - Last Documented Arterial Blood Pressure 92/79 - Labs CBC & Chem 7: 09/19/20 08:04 09/19/20 08:04 Labs: Abnormal Lab Results - Last 24 Hours (Table) 09/16/20 09/16/20 09/16/20 Range/Units 06:14 12:06 14:00 WBC (3.8-10.6) k/uL RBC (4.30-5.90) m/uL Hgb (13.0-17.5) gm/dL Hct (39.0-53.0) % RDW (11.5-15.5) % Plt Count (150-450) k/uL Neutrophils # (1.3-7.7) k/uL Lymphocytes # (1.0-4.8) k/uL Sodium (137-145) mmol/L Carbon Dioxide (22-30) mmol/L BUN (9-20) mg/dL Creatinine (0.66-1.25) mg/dL Glucose (74-99) mg/dL POC Glucose (mg/dL) 116 H 169 H 180 H (75-99) mg/dL Calcium (8.4-10.2) mg/dL Magnesium (1.6-2.3) mg/dL 09/16/20 09/16/20 09/17/20 Range/Units 17:14 20:00 06:15 WBC (3.8-10.6) k/uL RBC (4.30-5.90) m/uL Hgb (13.0-17.5) gm/dL Hct (39.0-53.0) % RDW (11.5-15.5) % Plt Count (150-450) k/uL Neutrophils # (1.3-7.7) k/uL Lymphocytes # (1.0-4.8) k/uL Sodium (137-145) mmol/L Carbon Dioxide (22-30) mmol/L BUN (9-20) mg/dL Creatinine (0.66-1.25) mg/dL Glucose (74-99) mg/dL POC Glucose (mg/dL) 72 L 184 H 186 H (75-99) mg/dL Calcium (8.4-10.2) mg/dL Magnesium (1.6-2.3) mg/dL 09/17/20 09/17/20 09/18/20 Range/Units 16:48 20:10 05:57 WBC (3.8-10.6) k/uL RBC (4.30-5.90) m/uL Hgb (13.0-17.5) gm/dL Hct (39.0-53.0) % RDW (11.5-15.5) % Plt Count (150-450) k/uL Neutrophils # (1.3-7.7) k/uL Lymphocytes # (1.0-4.8) k/uL Sodium (137-145) mmol/L Carbon Dioxide (22-30) mmol/L BUN (9-20) mg/dL Creatinine (0.66-1.25) mg/dL Glucose (74-99) mg/dL POC Glucose (mg/dL) 146 H 146 H 139 H (75-99) mg/dL Calcium (8.4-10.2) mg/dL Magnesium (1.6-2.3) mg/dL 09/18/20 09/18/20 09/18/20 Range/Units 12:00 16:42 20:30 WBC (3.8-10.6) k/uL RBC (4.30-5.90) m/uL Hgb (13.0-17.5) gm/dL Hct (39.0-53.0) % RDW (11.5-15.5) % Plt Count (150-450) k/uL Neutrophils # (1.3-7.7) k/uL Lymphocytes # (1.0-4.8) k/uL Sodium (137-145) mmol/L Carbon Dioxide (22-30) mmol/L BUN (9-20) mg/dL Creatinine (0.66-1.25) mg/dL Glucose (74-99) mg/dL POC Glucose (mg/dL) 214 H 155 H 200 H (75-99) mg/dL Calcium (8.4-10.2) mg/dL Magnesium (1.6-2.3) mg/dL 09/19/20 09/19/20 09/19/20 Range/Units 06:08 08:04 08:04 WBC 22.7 H (3.8-10.6) k/uL RBC 3.14 L (4.30-5.90) m/uL Hgb 8.9 L (13.0-17.5) gm/dL Hct 28.2 L (39.0-53.0) % RDW 16.0 H (11.5-15.5) % Plt Count 143 L (150-450) k/uL Neutrophils # 21.0 H (1.3-7.7) k/uL Lymphocytes # 0.5 L (1.0-4.8) k/uL Sodium 136 L (137-145) mmol/L Carbon Dioxide 32 H (22-30) mmol/L BUN 66 H (9-20) mg/dL Creatinine 1.50 H (0.66-1.25) mg/dL Glucose 116 H (74-99) mg/dL POC Glucose (mg/dL) 149 H (75-99) mg/dL Calcium 8.0 L (8.4-10.2) mg/dL Magnesium 2.7 H (1.6-2.3) mg/dL Microbiology - Last 24 Hours (Table) 09/16/20 08:57 Blood Culture - Preliminary Blood No Growth after 48 hours Assessment and Plan Plan: Assessment: 1. Acute kidney injury secondary to ATN secondary to acute blood loss anemia, A. fib, hypotension and component of cardiorenal syndrome. Baseline creatinine near 1 and peaked at 2.76 this admission - 1.5 today. No hydronephrosis noted on kidney ultrasound. No proteinuria on UA. 2. Acute on chronic systolic CHF with ejection fraction of 25% with moderate mitral regurgitation and tricuspid regurgitation. 3. Metabolic alkalosis and respiratory alkalosis. Alkalosis improved with diamox. 4. Hyperkalemia secondary to acute kidney injury, GI bleed and metabolic acidosis. Resolved. Became hypokalemic from diuresis. Status post placement. 5. Volume overload. Improving with diuresis. 6. Acute blood loss anemia secondary to GI bleed status post blood transfusion. GI following. Stable. 7. A. fib with RVR maintained on amiodarone and Lopressor. 8. Shock s/p Levophed. Plan: Maintain IV Lasix and metolazone. Maintain Diamox 250 mg IV twice daily for now. Low-salt diet and 1500 mL fluid restriction. Cozaar stopped September 17 due to low blood pressures. Replace potassium. 20 mEq today. Continue to monitor renal function and urine output. Daily weights. Repeat electrolytes in the morning. Consider adding dobutamine. Discussed with cardiology.
[2020-09-19] MEDS: DOBUTamine DRIP 500 MG in DEXTROSE/WATER 1 250ML.BAG IV SCH (11:38)
[2020-09-19 11:45] LABS: Glucose,Whole Blood 141 mg/dL (75-99)
--- NOTE | 2020-09-19 11:59 | P.PN ---
Subjective Progress Note Date: 09/19/20 Principal diagnosis: CC: SOB Patient says that his breathing is improving. Per nurse patient has good urine output. However per nurse there is worsening molting in his lower extremities with diminished pulses bilaterally. I discussed with cardiology and the plan is to start dobutamine. We will also obtain lower extremity arterial Dopplers and consult vascular surgery Objective - Vital Signs Vital signs: Vital Signs Temp 97.1 F L 09/19/20 09:48 Pulse 92 09/19/20 09:48 Resp 18 09/19/20 09:48 BP 96/57 09/19/20 09:48 Pulse Ox 99 09/19/20 09:48 Intake & Output 09/18/20 09/19/20 09/19/20 18:59 06:59 18:59 Intake Total 1140 240 710 Output Total 1575 1375 725 Balance -435 -1135 -15 Weight 108.7 kg Intake: IV 420 470 0.9 NACL 120 120 Azithromycin 500 mg In 250 250 Sodium Chloride 0.9% 250 ml @ 250 mls/hr IVPB DAILY [facility] Rx#:[id number] cefTRIAXone 1 gm In 50 100 Sodium Chloride 0.9% 50 ml @ 100 mls/hr IVPB Q24HR [facility] Rx#:[id number] Oral 720 240 240 Output: Urine 1575 1375 725 Other: Voiding Method Urinal Urinal Urinal # Voids 1 2 ABP, PAP, CO, CI - Last Documented Arterial Blood Pressure 92/79 - Exam General examination - Alert and Oriented 3 in NAD Heart - + S1S2 no murmurs Lungs - diminsed breath sounds bilaterally Abdomen soft NT ND +ve BS Extremities - +2 pitting edema bilaterally, discoloration with borderline formation in lower extremities and diminished pulses [employer] 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 - Moving all 4 extremities spontaneously Psych - Calm and cooperative - Labs CBC & Chem 7: 09/19/20 08:04 09/19/20 08:04 Labs: Abnormal Lab Results - Last 24 Hours (Table) 09/16/20 09/16/20 09/16/20 Range/Units 06:14 12:06 14:00 WBC (3.8-10.6) k/uL RBC (4.30-5.90) m/uL Hgb (13.0-17.5) gm/dL Hct (39.0-53.0) % RDW (11.5-15.5) % Plt Count (150-450) k/uL Neutrophils # (1.3-7.7) k/uL Lymphocytes # (1.0-4.8) k/uL Sodium (137-145) mmol/L Carbon Dioxide (22-30) mmol/L BUN (9-20) mg/dL Creatinine (0.66-1.25) mg/dL Glucose (74-99) mg/dL POC Glucose (mg/dL) 116 H 169 H 180 H (75-99) mg/dL Calcium (8.4-10.2) mg/dL Magnesium (1.6-2.3) mg/dL 09/16/20 09/16/20 09/17/20 Range/Units 17:14 20:00 06:15 WBC (3.8-10.6) k/uL RBC (4.30-5.90) m/uL Hgb (13.0-17.5) gm/dL Hct (39.0-53.0) % RDW (11.5-15.5) % Plt Count (150-450) k/uL Neutrophils # (1.3-7.7) k/uL Lymphocytes # (1.0-4.8) k/uL Sodium (137-145) mmol/L Carbon Dioxide (22-30) mmol/L BUN (9-20) mg/dL Creatinine (0.66-1.25) mg/dL Glucose (74-99) mg/dL POC Glucose (mg/dL) 72 L 184 H 186 H (75-99) mg/dL Calcium (8.4-10.2) mg/dL Magnesium (1.6-2.3) mg/dL 09/17/20 09/17/20 09/18/20 Range/Units 16:48 20:10 05:57 WBC (3.8-10.6) k/uL RBC (4.30-5.90) m/uL Hgb (13.0-17.5) gm/dL Hct (39.0-53.0) % RDW (11.5-15.5) % Plt Count (150-450) k/uL Neutrophils # (1.3-7.7) k/uL Lymphocytes # (1.0-4.8) k/uL Sodium (137-145) mmol/L Carbon Dioxide (22-30) mmol/L BUN (9-20) mg/dL Creatinine (0.66-1.25) mg/dL Glucose (74-99) mg/dL POC Glucose (mg/dL) 146 H 146 H 139 H (75-99) mg/dL Calcium (8.4-10.2) mg/dL Magnesium (1.6-2.3) mg/dL 09/18/20 09/18/20 09/18/20 Range/Units 12:00 16:42 20:30 WBC (3.8-10.6) k/uL RBC (4.30-5.90) m/uL Hgb (13.0-17.5) gm/dL Hct (39.0-53.0) % RDW (11.5-15.5) % Plt Count (150-450) k/uL Neutrophils # (1.3-7.7) k/uL Lymphocytes # (1.0-4.8) k/uL Sodium (137-145) mmol/L Carbon Dioxide (22-30) mmol/L BUN (9-20) mg/dL Creatinine (0.66-1.25) mg/dL Glucose (74-99) mg/dL POC Glucose (mg/dL) 214 H 155 H 200 H (75-99) mg/dL Calcium (8.4-10.2) mg/dL Magnesium (1.6-2.3) mg/dL 09/19/20 09/19/20 09/19/20 Range/Units 06:08 08:04 08:04 WBC 22.7 H (3.8-10.6) k/uL RBC 3.14 L (4.30-5.90) m/uL Hgb 8.9 L (13.0-17.5) gm/dL Hct 28.2 L (39.0-53.0) % RDW 16.0 H (11.5-15.5) % Plt Count 143 L (150-450) k/uL Neutrophils # 21.0 H (1.3-7.7) k/uL Lymphocytes # 0.5 L (1.0-4.8) k/uL Sodium 136 L (137-145) mmol/L Carbon Dioxide 32 H (22-30) mmol/L BUN 66 H (9-20) mg/dL Creatinine 1.50 H (0.66-1.25) mg/dL Glucose 116 H (74-99) mg/dL POC Glucose (mg/dL) 149 H (75-99) mg/dL Calcium 8.0 L (8.4-10.2) mg/dL Magnesium 2.7 H (1.6-2.3) mg/dL 09/19/20 Range/Units 11:34 WBC (3.8-10.6) k/uL RBC (4.30-5.90) m/uL Hgb (13.0-17.5) gm/dL Hct (39.0-53.0) % RDW (11.5-15.5) % Plt Count (150-450) k/uL Neutrophils # (1.3-7.7) k/uL Lymphocytes # (1.0-4.8) k/uL Sodium (137-145) mmol/L Carbon Dioxide (22-30) mmol/L BUN (9-20) mg/dL Creatinine (0.66-1.25) mg/dL Glucose (74-99) mg/dL POC Glucose (mg/dL) 141 H (75-99) mg/dL Calcium (8.4-10.2) mg/dL Magnesium (1.6-2.3) mg/dL Microbiology - Last 24 Hours (Table) 09/16/20 08:57 Blood Culture - Preliminary Blood No Growth after 72 hours Assessment and Plan Assessment: 1. Mixed Shock, Hypovolemic secondary to ABLA, then Cardiogenic secondary to blood product transfusion superimposed on chronic HFrEF 2. Upper GI Bleed 3. Permanent Atrial Fibrillation with RVR 4. JOSE 5. HTN 6. HLD 7. Leukocytosis with Cough with sputum production 8. Possible Lower extremity ischemia 85 year old man with history of CAD/HTN/HLD, HFrEF 25%, AFib presented with hypovolemic shock secondary to upper GI Bleed, warranting 3U PRBCs and levophed initially. He was then felt to be in cardiogenic shock warranting levophed and lasix gtt, which he was weaned off of gradually. Patient had refused an EGD for work up, however, fortunately blood counts remained stable at 10. GI and Cardiology consulted on care, and recommendations appreciated. #Leukocytosis/Cough -Likely due to steroids versus possible pneumonia -Chest x-ray shows venous congestion and difficult to exclude infiltrates -UA is clear -Blood culture negative to date -We'll start patient on IV ceftriaxone and azithromycin day / -WBC trending down #Upper GI bleed: With hemoglobin of 6.4 on presentation/Acute blood loss anemia: Status post transfusion of packed red blood cells. Hemoglobin is stable but trending down gradually. GI recs appreciated. Continue IV Protonix 40 mg twice daily. Per patient he does not want to proceed with an EGD There is no overt signs of bleeding #Worsening skin molting in the lower extremities likely due to lower extremity ischemia from heart failure -I discussed with cardiology and the plan is to start dobutamine -Check lower extremity arterial Dopplers -Consult vascular surgery #Hypovolemic and cardiogenic shock, with lactic acidosis. -Patient now off pressors -Resolved #COPD exacerbation -Patient having wheezing this morning -Restart steroids day 3/. -Patient on azithromycin as above -Duo nebs scheduled and as needed -Pulmonology on board #Acute on chronic systolic heart failure exacerbation, systolic EF=25-30%: With evidence of fluid overload clinically and on chest x-ray. Nephrology increase Lasix to 80 mg IV twice a day Patient started on metolazone Continue spironolactone Hold Losartan due to borderline low blood pressure Nephrology managing diuretics #JOSE shayy cardiorenal -Creatinine is stable -Nephrology is managing #Metabolic alkalosis likely due to diuretics -patient started on dimox -bicarb improving. #A. fib with RVR Continue amiodarone TID #Steroid-induced hyperglycemia insulin sliding scale #Itchy legs benadryl cream prescribed Poor prognosis -> patient at this time is refusing palliative or hospice care. We'll need to continue to discuss goals of care with the patient especially due to the new findings of skin molting in his lower extremities CODE STATUS: DO NOT RESUSCITATE/DO NOT INTUBATE. Patient refuses to go to rehab. He is amenable to home care. Patient states that after discharge his nephew will live with him.
--- NOTE | 2020-09-19 12:20 | P.GSCN ---
History of Present Illness History of present illness: This is a 85-year-old gentleman, I was consulted for vascular evaluation. Patient came in with upper GI bleed, hemoglobin dropped to 6 heparin we will has been improved patient has history of multiple medical issues, history of kidney injury,, cardiogenic shock, atrial fibrillation, congestive heart failure. Patient was in intensive care unit patient was on Levophed. Vascular examination brachial radial pulses are palpable, both femorals are palpable 2+ patient has a blister formation noted on his both lower extremities there is marked bilateral lower extremity swelling. Posterior tibial dorsal pedis by the Doppler patient has dusky appearance of the toes, patient is a scheduled to have a duplex of the extremity at this point patient be watched very closely we will close with nephrology if he needs angiography of both lower extremity follow with you Past Medical History Past Medical History: Chest Pain / Angina, Myocardial Infarction ([place]) Additional Past Medical History / Comment(s): History of CAD with previous history of bypass grafting Last Myocardial Infarction Date:: Unknown History of Any Multi-Drug Resistant Organisms: None Reported Past Surgical History: Coronary Bypass/CABG Past Psychological History: No Psychological Hx Reported Smoking Status: Former smoker Past Alcohol Use History: Rare Past Drug Use History: None Reported Medications and Allergies Home Medications Medication Instructions Recorded Confirmed Type Ascorbic Acid [Vitamin C] 500 mg PO DAILY 09/06/20 09/06/20 History Doxazosin [Cardura] 2 mg PO HS 09/06/20 09/06/20 History Lecithin, Soy [Lecithin] 400 mg PO DAILY 09/06/20 09/06/20 History Multivitamins, Thera [Multivitamin 1 tab PO DAILY 09/06/20 09/06/20 History (formulary)] Simvastatin [Zocor] 5 mg PO HS 09/06/20 09/06/20 History Vitamin E 400 unit PO DAILY 09/06/20 09/06/20 History atenoloL [Atenolol] 25 mg PO DAILY 09/06/20 09/06/20 History Allergies Allergy/AdvReac Type Severity Reaction Status Date / Time Penicillins Allergy Rash/Hives Verified 09/06/20 13:25 Surgical - Exam Vital Signs Temp Pulse Resp BP 97.7 F 85 18 95/65 09/06/20 12:23 09/06/20 12:23 09/06/20 12:23 09/06/20 12:23 Results - Labs 09/19/20 08:04 09/19/20 08:04 Abnormal Lab Results - Last 24 Hours (Table) 09/16/20 09/16/20 09/16/20 Range/Units 06:14 12:06 14:00 WBC (3.8-10.6) k/uL RBC (4.30-5.90) m/uL Hgb (13.0-17.5) gm/dL Hct (39.0-53.0) % RDW (11.5-15.5) % Plt Count (150-450) k/uL Neutrophils # (1.3-7.7) k/uL Lymphocytes # (1.0-4.8) k/uL Sodium (137-145) mmol/L Carbon Dioxide (22-30) mmol/L BUN (9-20) mg/dL Creatinine (0.66-1.25) mg/dL Glucose (74-99) mg/dL POC Glucose (mg/dL) 116 H 169 H 180 H (75-99) mg/dL Calcium (8.4-10.2) mg/dL Magnesium (1.6-2.3) mg/dL 09/16/20 09/16/20 09/17/20 Range/Units 17:14 20:00 06:15 WBC (3.8-10.6) k/uL RBC (4.30-5.90) m/uL Hgb (13.0-17.5) gm/dL Hct (39.0-53.0) % RDW (11.5-15.5) % Plt Count (150-450) k/uL Neutrophils # (1.3-7.7) k/uL Lymphocytes # (1.0-4.8) k/uL Sodium (137-145) mmol/L Carbon Dioxide (22-30) mmol/L BUN (9-20) mg/dL Creatinine (0.66-1.25) mg/dL Glucose (74-99) mg/dL POC Glucose (mg/dL) 72 L 184 H 186 H (75-99) mg/dL Calcium (8.4-10.2) mg/dL Magnesium (1.6-2.3) mg/dL 09/17/20 09/17/20 09/18/20 Range/Units 16:48 20:10 05:57 WBC (3.8-10.6) k/uL RBC (4.30-5.90) m/uL Hgb (13.0-17.5) gm/dL Hct (39.0-53.0) % RDW (11.5-15.5) % Plt Count (150-450) k/uL Neutrophils # (1.3-7.7) k/uL Lymphocytes # (1.0-4.8) k/uL Sodium (137-145) mmol/L Carbon Dioxide (22-30) mmol/L BUN (9-20) mg/dL Creatinine (0.66-1.25) mg/dL Glucose (74-99) mg/dL POC Glucose (mg/dL) 146 H 146 H 139 H (75-99) mg/dL Calcium (8.4-10.2) mg/dL Magnesium (1.6-2.3) mg/dL 09/18/20 09/18/20 09/18/20 Range/Units 12:00 16:42 20:30 WBC (3.8-10.6) k/uL RBC (4.30-5.90) m/uL Hgb (13.0-17.5) gm/dL Hct (39.0-53.0) % RDW (11.5-15.5) % Plt Count (150-450) k/uL Neutrophils # (1.3-7.7) k/uL Lymphocytes # (1.0-4.8) k/uL Sodium (137-145) mmol/L Carbon Dioxide (22-30) mmol/L BUN (9-20) mg/dL Creatinine (0.66-1.25) mg/dL Glucose (74-99) mg/dL POC Glucose (mg/dL) 214 H 155 H 200 H (75-99) mg/dL Calcium (8.4-10.2) mg/dL Magnesium (1.6-2.3) mg/dL 09/19/20 09/19/20 09/19/20 Range/Units 06:08 08:04 08:04 WBC 22.7 H (3.8-10.6) k/uL RBC 3.14 L (4.30-5.90) m/uL Hgb 8.9 L (13.0-17.5) gm/dL Hct 28.2 L (39.0-53.0) % RDW 16.0 H (11.5-15.5) % Plt Count 143 L (150-450) k/uL Neutrophils # 21.0 H (1.3-7.7) k/uL Lymphocytes # 0.5 L (1.0-4.8) k/uL Sodium 136 L (137-145) mmol/L Carbon Dioxide 32 H (22-30) mmol/L BUN 66 H (9-20) mg/dL Creatinine 1.50 H (0.66-1.25) mg/dL Glucose 116 H (74-99) mg/dL POC Glucose (mg/dL) 149 H (75-99) mg/dL Calcium 8.0 L (8.4-10.2) mg/dL Magnesium 2.7 H (1.6-2.3) mg/dL 09/19/20 Range/Units 11:34 WBC (3.8-10.6) k/uL RBC (4.30-5.90) m/uL Hgb (13.0-17.5) gm/dL Hct (39.0-53.0) % RDW (11.5-15.5) % Plt Count (150-450) k/uL Neutrophils # (1.3-7.7) k/uL Lymphocytes # (1.0-4.8) k/uL Sodium (137-145) mmol/L Carbon Dioxide (22-30) mmol/L BUN (9-20) mg/dL Creatinine (0.66-1.25) mg/dL Glucose (74-99) mg/dL POC Glucose (mg/dL) 141 H (75-99) mg/dL Calcium (8.4-10.2) mg/dL Magnesium (1.6-2.3) mg/dL Microbiology - Last 24 Hours (Table) 09/16/20 08:57 Blood Culture - Preliminary Blood No Growth after 72 hours Diabetes panel 09/19/20 Range/Units 08:04 Sodium 136 L (137-145) mmol/L Potassium 3.9 (3.5-5.1) mmol/L Chloride 99 (98-107) mmol/L Carbon Dioxide 32 H (22-30) mmol/L BUN 66 H (9-20) mg/dL Creatinine 1.50 H (0.66-1.25) mg/dL Glucose 116 H (74-99) mg/dL Calcium 8.0 L (8.4-10.2) mg/dL Calcium panel 09/19/20 Range/Units 08:04 Calcium 8.0 L (8.4-10.2) mg/dL Pituitary panel 09/19/20 Range/Units 08:04 Sodium 136 L (137-145) mmol/L Potassium 3.9 (3.5-5.1) mmol/L Chloride 99 (98-107) mmol/L Carbon Dioxide 32 H (22-30) mmol/L BUN 66 H (9-20) mg/dL Creatinine 1.50 H (0.66-1.25) mg/dL Glucose 116 H (74-99) mg/dL Calcium 8.0 L (8.4-10.2) mg/dL Adrenal panel 09/19/20 Range/Units 08:04 Sodium 136 L (137-145) mmol/L Potassium 3.9 (3.5-5.1) mmol/L Chloride 99 (98-107) mmol/L Carbon Dioxide 32 H (22-30) mmol/L BUN 66 H (9-20) mg/dL Creatinine 1.50 H (0.66-1.25) mg/dL Glucose 116 H (74-99) mg/dL Calcium 8.0 L (8.4-10.2) mg/dL
--- NOTE | 2020-09-19 12:41 | P.PN ---
Subjective Progress Note Date: 09/19/20 HISTORY OF PRESENT ILLNESS: Patient examined this morning at the bedside. He denies chest pain or pressure. Reports his shortness of breath is improving. Patient's lower extremity edema does appear to be slightly improved this morning. However he has worsening mottling of his bilateral feet. Creatinine today is 1.50. Fluid balance over the last 24 hours is -1500 mL. Nephrology is following and managing diuretic therapy. The patient is currently on Diamox, Lasix, Zaroxolyn, and Aldactone. PHYSICAL EXAM: VITAL SIGNS: Reviewed. GENERAL: Well-developed in no acute distress. NECK: Supple. No JVD or thyromegaly LUNGS: Respirations even and unlabored. Lungs diminished. HEART: Regular rate and rhythm. S1 and S2 heard. Systolic murmur. EXTREMITIES: Normal range of motion. No clubbing or cyanosis. 2-+ bilateral lower extremity edema. Patient with mottling of bilateral feet and toes. Cool to touch. ASSESSMENT: Paroxysmal atrial fibrillation, currently maintaining sinus mechanism Acute exacerbation of chronic systolic congestive heart failure, EF 25-30% Upper GI bleed PLAN: Continue current dose of metoprolol. Monitor heart rate. No anticoagulation due to GI bleed Continue diuretics per nephrology Cozaar remains on hold secondary to low blood pressure Will begin dobutamine at 2.5 mics per kilo per minute Per Dr. Sharif, no life vest at this time. Patient will require AICD in the future when his acute issues have resolved. Consult vascular surgery to evaluate worsening mottling of bilateral lower extremities Further recommendations pending patient course Nurse practitioner note has been reviewed by physician. Signing provider agrees with the documented findings, assessment, and plan of care. Objective - Vital Signs Vital signs: Vital Signs Temp 97.1 F L 09/19/20 09:48 Pulse 92 09/19/20 09:48 Resp 18 09/19/20 09:48 BP 96/57 09/19/20 09:48 Pulse Ox 99 09/19/20 09:48 Intake & Output 09/18/20 09/19/20 09/19/20 18:59 06:59 18:59 Intake Total 1140 240 710 Output Total 1575 1375 725 Balance -435 -1135 -15 Weight 108.7 kg Intake: IV 420 470 0.9 NACL 120 120 Azithromycin 500 mg In 250 250 Sodium Chloride 0.9% 250 ml @ 250 mls/hr IVPB DAILY [facility] Rx#:[id number] cefTRIAXone 1 gm In 50 100 Sodium Chloride 0.9% 50 ml @ 100 mls/hr IVPB Q24HR [facility] Rx#:[id number] Oral 720 240 240 Output: Urine 1575 1375 725 Other: Voiding Method Urinal Urinal Urinal # Voids 1 2 ABP, PAP, CO, CI - Last Documented Arterial Blood Pressure 92/79 - Labs CBC & Chem 7: 09/19/20 08:04 09/19/20 08:04 Labs: Abnormal Lab Results - Last 24 Hours (Table) 09/16/20 09/16/20 09/16/20 Range/Units 06:14 12:06 14:00 WBC (3.8-10.6) k/uL RBC (4.30-5.90) m/uL Hgb (13.0-17.5) gm/dL Hct (39.0-53.0) % RDW (11.5-15.5) % Plt Count (150-450) k/uL Neutrophils # (1.3-7.7) k/uL Lymphocytes # (1.0-4.8) k/uL Sodium (137-145) mmol/L Carbon Dioxide (22-30) mmol/L BUN (9-20) mg/dL Creatinine (0.66-1.25) mg/dL Glucose (74-99) mg/dL POC Glucose (mg/dL) 116 H 169 H 180 H (75-99) mg/dL Calcium (8.4-10.2) mg/dL Magnesium (1.6-2.3) mg/dL 09/16/20 09/16/20 09/17/20 Range/Units 17:14 20:00 06:15 WBC (3.8-10.6) k/uL RBC (4.30-5.90) m/uL Hgb (13.0-17.5) gm/dL Hct (39.0-53.0) % RDW (11.5-15.5) % Plt Count (150-450) k/uL Neutrophils # (1.3-7.7) k/uL Lymphocytes # (1.0-4.8) k/uL Sodium (137-145) mmol/L Carbon Dioxide (22-30) mmol/L BUN (9-20) mg/dL Creatinine (0.66-1.25) mg/dL Glucose (74-99) mg/dL POC Glucose (mg/dL) 72 L 184 H 186 H (75-99) mg/dL Calcium (8.4-10.2) mg/dL Magnesium (1.6-2.3) mg/dL 09/17/20 09/17/20 09/18/20 Range/Units 16:48 20:10 05:57 WBC (3.8-10.6) k/uL RBC (4.30-5.90) m/uL Hgb (13.0-17.5) gm/dL Hct (39.0-53.0) % RDW (11.5-15.5) % Plt Count (150-450) k/uL Neutrophils # (1.3-7.7) k/uL Lymphocytes # (1.0-4.8) k/uL Sodium (137-145) mmol/L Carbon Dioxide (22-30) mmol/L BUN (9-20) mg/dL Creatinine (0.66-1.25) mg/dL Glucose (74-99) mg/dL POC Glucose (mg/dL) 146 H 146 H 139 H (75-99) mg/dL Calcium (8.4-10.2) mg/dL Magnesium (1.6-2.3) mg/dL 09/18/20 09/18/20 09/18/20 Range/Units 12:00 16:42 20:30 WBC (3.8-10.6) k/uL RBC (4.30-5.90) m/uL Hgb (13.0-17.5) gm/dL Hct (39.0-53.0) % RDW (11.5-15.5) % Plt Count (150-450) k/uL Neutrophils # (1.3-7.7) k/uL Lymphocytes # (1.0-4.8) k/uL Sodium (137-145) mmol/L Carbon Dioxide (22-30) mmol/L BUN (9-20) mg/dL Creatinine (0.66-1.25) mg/dL Glucose (74-99) mg/dL POC Glucose (mg/dL) 214 H 155 H 200 H (75-99) mg/dL Calcium (8.4-10.2) mg/dL Magnesium (1.6-2.3) mg/dL 09/19/20 09/19/20 09/19/20 Range/Units 06:08 08:04 08:04 WBC 22.7 H (3.8-10.6) k/uL RBC 3.14 L (4.30-5.90) m/uL Hgb 8.9 L (13.0-17.5) gm/dL Hct 28.2 L (39.0-53.0) % RDW 16.0 H (11.5-15.5) % Plt Count 143 L (150-450) k/uL Neutrophils # 21.0 H (1.3-7.7) k/uL Lymphocytes # 0.5 L (1.0-4.8) k/uL Sodium 136 L (137-145) mmol/L Carbon Dioxide 32 H (22-30) mmol/L BUN 66 H (9-20) mg/dL Creatinine 1.50 H (0.66-1.25) mg/dL Glucose 116 H (74-99) mg/dL POC Glucose (mg/dL) 149 H (75-99) mg/dL Calcium 8.0 L (8.4-10.2) mg/dL Magnesium 2.7 H (1.6-2.3) mg/dL 09/19/20 Range/Units 11:34 WBC (3.8-10.6) k/uL RBC (4.30-5.90) m/uL Hgb (13.0-17.5) gm/dL Hct (39.0-53.0) % RDW (11.5-15.5) % Plt Count (150-450) k/uL Neutrophils # (1.3-7.7) k/uL Lymphocytes # (1.0-4.8) k/uL Sodium (137-145) mmol/L Carbon Dioxide (22-30) mmol/L BUN (9-20) mg/dL Creatinine (0.66-1.25) mg/dL Glucose (74-99) mg/dL POC Glucose (mg/dL) 141 H (75-99) mg/dL Calcium (8.4-10.2) mg/dL Magnesium (1.6-2.3) mg/dL Microbiology - Last 24 Hours (Table) 09/16/20 08:57 Blood Culture - Preliminary Blood No Growth after 72 hours
--- NOTE | 2020-09-19 13:14 | US ---
EXAMINATION TYPE: US venous doppler duplex LE BI DATE OF EXAM: 09/19/2020 12:52 PM COMPARISON: NONE CLINICAL HISTORY: 85-year-old male EDEMA-R/O CLOT. Bilateral leg edema, pt states no known h/o DVT SIDE PERFORMED: Bilateral TECHNIQUE: The lower extremity deep venous system is examined utilizing real time linear array sonog savannah with graded compression, doppler sonography and color-flow sonography. FINDINGS: VESSELS IMAGED: Common Femoral Vein Deep Femoral Vein Greater Saphenous Vein * Femoral Vein Popliteal Vein Small Saphenous Vein * Proximal Calf Veins (* superficial vessels) Right Leg: Possible thrombus at CFV/GSV junction with partial compression, No evidence of thrombus i n other veins visualized Left Leg: Possible thrombus at CFV/GSV junction with partial compression, No evidence of thrombus in other veins visualized IMPRESSION: There is partial compression at the junction of the common femoral vein and greater saphe nous vein on both sides with nonocclusive filling defect demonstrated. 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 No other DVT seen. Follow-up can be considered.
--- NOTE | 2020-09-19 13:30 | PN ---
PROGRESS NOTE PULMONARY/CRITICAL CARE PROGRESS NOTE: DATE OF SERVICE: 09/19/2020 This is an 85-year-old gentleman who was admitted back on September 06 for acute hypoxemic respiratory failure secondary to acute non ST-segment elevation myocardial infarction and acute pulmonary edema. The patient also manifested cardiogenic shock at that time. The patient is currently doing much better. He has been weaned down to 2 L nasal cannula. His breathing is much improved. A couple days back, he was having significant shortness of breath with wheezing. That is much better now. The patient denies any chest pain or chest discomfort. He is not coughing up any phlegm. There is no fever or chills. His breathing is much improved. He also denies any nausea, vomiting, diarrhea, or abdominal pain. PHYSICAL EXAMINATION: VITAL SIGNS: Current vital signs are reviewed. Temperature is 97.1, heart rate 92, respiratory rate 18, blood pressure 96/57, mean 70 and 2 L saturation is 99%. He appears in no acute distress. No respiratory distress. No audible wheezing. HEENT: Examination is grossly unremarkable. NECK: Supple. Full range of motion. No adenopathy. Neck veins are flat. CARDIOVASCULAR: Examination reveals a regular rhythm and rate. S1, S2 normal. There is a soft systolic murmur. Heart rate in the mid 70 range. LUNGS: Reveal a few scattered wheezes. A few scattered mild rhonchi are noted. There are also a few scattered crackles. Breath sounds equal bilaterally. ABDOMEN: Soft. Bowel sounds are heard. EXTREMITIES are intact. Mild edema. No cyanosis or clubbing. SKIN: Without rash. NEUROLOGIC: Examination is brief but nonfocal. LABS: Reviewed. White count 22.7, hemoglobin 8.9, hematocrit 28.2, platelet count 143,000. Sodium 136, potassium 3.9, chloride 99 CO2 32, anion gap is 5. BUN and creatinine were 66 and 1.50. Microbiology is currently negative. Chest x-ray from 09/18 shows cardiomegaly, small bilateral pleural effusions and some cephalization consistent with mild fluid overload. CURRENT MEDICATIONS: Reviewed. The patient is on Diamox, Cordarone, Zithromax, ceftriaxone, Benadryl, dobutamine drip at 2.5 mcg/kg per minute, Lasix, insulin, DuoNeb, Zaroxolyn, metoprolol, morphine, Narcan, Zofran, Protonix, potassium replacement, prednisone and Aldactone. ASSESSMENT: 1. Acute hypoxemic respiratory failure secondary to acute systolic congestive heart failure and pulmonary edema, improved but not completely resolved. 2. Acute cardiogenic shock and pulmonary edema, secondary to acute non ST-segment elevation myocardial infarction, improved. 3. Ischemic cardiomyopathy with ejection fraction of 25%-30%. 4. Acute gastrointestinal bleed, status post 3 units of PRBCs. 5. Acute kidney injury, secondary to acute tubular necrosis. 6. Acute lactic acidosis, resolved. 7. Metabolic alkalosis, secondary to hypokalemia, and volume contraction, secondary to diuretics. The patient currently is maintained on Diamox. 8. History of coronary artery disease with previous bypass grafting. 9. Previous tobacco use, rule out chronic obstructive pulmonary disease. 10.New onset atrial fibrillation with rapid ventricular response. PLAN: Currently, the patient is doing better. He was started on dobutamine by Cardiology. No additional recommendations are made. He remains on diuretics. We will continue to follow. From the pulmonary standpoint, the patient is improved. Most of his issues now are cardiac in nature. No additional recommendations are made. Medications are reviewed. MMODL / IJN: [id number] /
[2020-09-19 16:47] LABS: Glucose,Whole Blood 197 mg/dL (75-99)
--- NOTE | 2020-09-19 18:02 | P.PN ---
Progress Note - Text Progress Note Date: 09/19/20 Patient found to possible thrombus in bilateral lower extremities on lower extremity venous Dopplers. I spoke to vascular surgery who recommended to start anticoagulation if family understood the risks of bleeding. I spoke to patient's nephew who is hesitant about anticoagulation however he is amenable to starting him and monitoring him closely in the hospital for signs of GI bleed. Earlier in the admission patient had refused EGD. Nephew said that he will try to convince patient to have an EGD done. We will notify GI if patient is amenable to EGD.
[2020-09-19] MEDS: ENOXAPARIN 100 MG/ML SYRINGE SQ SCH ×2 (19:09→19:14)
[2020-09-19 19:55] LABS: Glucose,Whole Blood 185 mg/dL (75-99)
[2020-09-20] MEDS: IPRATROPIUM-ALBUTEROL 3 ML NEB INHALATION SCH ×5 (01:58→17:09)
[2020-09-20 06:21] LABS: Glucose,Whole Blood 138 mg/dL (75-99)
[2020-09-20] MEDS: INSULIN ASPART (NovoLOG) 100 UNIT/ML VIAL SQ SCH ×5 (06:35→17:10)
[2020-09-20 07:32] LABS: Basophils % (A) 0 %; Eosinophils % (A) 0 %; HGB 8.2 gm/dL (13.0-17.5); Hypochromasia Marked; Lymphocytes # (A) 0.5 k/uL (1.0-4.8); Lymphocytes % (A) 3 %; MCH 28.5 pg (25.0-35.0); MCHC 31.6 g/dL (31.0-37.0); MCV 90.3 fL (80.0-100.0); Mean Platelet Volume 8.7; Monocytes # (A) 0.7 k/uL (0-1.0); Monocytes % (A) 5 %; Neutrophils # (A) 14.6 k/uL (1.3-7.7); Neutrophils % (A) 92 %; Platelet Count 124 k/uL (150-450); Poikilocytosis Slight; RBC 2.88 m/uL (4.30-5.90); RDW 15.8 % (11.5-15.5)
[2020-09-20 07:51] LABS: Calcium 7.8 mg/dL (8.4-10.2); Magnesium 2.5 mg/dL (1.6-2.3); Potassium 3.9 mmol/L (3.5-5.1)
--- NOTE | 2020-09-20 08:47 | P.PN ---
Subjective Progress Note Date: 09/20/20 85-year-old male patient with extensive cardiac disease with previous bypass surgery, who was in the intensive care unit for complications of cardiac disease, cardiogenic shock, upper GI bleed and atrial fibrillation. The patient has a DNR/DNI status. The patient was optimized and the intensive care unit. He received a total of 3 units of packed RBCs. He was given pressors. He was given BiPAP for respiratory support for decompensated heart failure. He also developed an acute kidney injury related to cardiorenal factors. All of these issues are suffering a ground. The patient is currently being managed in the cardiac floor and currently is on dobutamine drip at 2.5 mg per KG per minute he is also on Lasix 80 mg IV every 12 hours and he continues to have significant amount of edema in the lower extremities. Furthermore, the patient underwent Doppler of the lower extremities and he was found to have clots partially occluding the common femoral/saphenous vein junction lower extremities bilaterally. He is currently on therapeutic dose of Lovenox. Note that the Lovenox has not been started pending EGD and this is planned to be done today. His lower extremities are warm. There is edema. There is areas of ecchymosis involving the foot and the toes bilaterally extending to the sole of his feet and some blisters anteriorly over the dorsal aspect of the foot bilaterally. Skin related to hypoperfusion and utilization of pressors. The patient is awake and alert and is communicating. He denies having any significant complaints. His EF is around 25-30%. Please refer to his latest echocardiogram. 3. Recent chest x-ray showed cardiomegaly without any significant signs of pulmonary edema. His white blood count is a 16 with a hemoglobin of 8.2. Platelet counts is 124. Objective - Vital Signs Vital signs: Vital Signs Temp 98.7 F 09/19/20 20:00 Pulse 72 09/20/20 03:32 Resp 16 09/20/20 03:32 BP 103/59 09/20/20 03:32 Pulse Ox 98 09/20/20 03:32 Intake & Output 09/19/20 09/20/20 09/20/20 18:59 06:59 18:59 Intake Total 1991 Output Total 1900 950 Balance 91 -950 Weight 110.5 kg Intake: IV 1045 0.9 NACL 120 Azithromycin 500 mg In 825 Sodium Chloride 0.9% 250 ml @ 250 mls/hr IVPB DAILY [facility] Rx#:[id number] cefTRIAXone 1 gm In 100 Sodium Chloride 0.9% 50 ml @ 100 mls/hr IVPB Q24HR [facility] Rx#:[id number] Oral 944 Lipid 2 Azithromycin 500 mg In 2 Sodium Chloride 0.9% 250 ml @ 250 mls/hr IVPB DAILY [facility] Rx#:[id number] Output: Urine 1900 950 Other: Voiding Method Urinal Urinal # Voids 2 1 # Bowel Movements 1 ABP, PAP, CO, CI - Last Documented Arterial Blood Pressure 92/79 - Exam GENERAL EXAM: Revealed a pleasant 85-year-old male patient, on room air, up in a chair at the bedside in no distress, much better and currently is on 2 L of oxygen by nasal cannula. He is not utilizing any accessory muscles of breathing. HEAD: Normocephalic/atraumatic. ENT: Dry mucous membranes, PERRLA, EOMI, no icterus, no neck masses, no JVD. CHEST: No chest wall deformity. Symmetrical expansion. LUNGS: Minimal crackles at the bases. Patient has expiratory wheezes heard throughout the lung. Bilaterally. CVS: Regular rate and rhythm, normal S1 and S2, no gallops, no murmurs, no rubs ABDOMEN: Obese, Soft, nontender. No hepatosplenomegaly, normal bowel sounds, no guarding or rigidity. EXTREMITIES: No clubbing, trace of bipedal edema, slight cyanosis, 2+ pulses and upper and lower extremities. Cold feet bilaterally. Diminished distal pulses MUSCULOSKELETAL: Muscle strength and tone normal. SKIN: No rashes CENTRAL NERVOUS SYSTEM: Alert and oriented 3, no gross focal deficits. PSYCHIATRIC: Normal mood affect and normal mental status examination. - Labs CBC & Chem 7: 09/20/20 07:09 09/20/20 07:09 Labs: Abnormal Lab Results - Last 24 Hours (Table) 09/16/20 09/16/20 09/16/20 Range/Units 06:14 12:06 14:00 WBC (3.8-10.6) k/uL RBC (4.30-5.90) m/uL Hgb (13.0-17.5) gm/dL Hct (39.0-53.0) % RDW (11.5-15.5) % Plt Count (150-450) k/uL Neutrophils # (1.3-7.7) k/uL Lymphocytes # (1.0-4.8) k/uL Sodium (137-145) mmol/L Carbon Dioxide (22-30) mmol/L BUN (9-20) mg/dL Creatinine (0.66-1.25) mg/dL Glucose (74-99) mg/dL POC Glucose (mg/dL) 116 H 169 H 180 H (75-99) mg/dL Calcium (8.4-10.2) mg/dL Magnesium (1.6-2.3) mg/dL Procalcitonin (0.02-0.09) ng/mL 09/16/20 09/16/20 09/17/20 Range/Units 17:14 20:00 06:15 WBC (3.8-10.6) k/uL RBC (4.30-5.90) m/uL Hgb (13.0-17.5) gm/dL Hct (39.0-53.0) % RDW (11.5-15.5) % Plt Count (150-450) k/uL Neutrophils # (1.3-7.7) k/uL Lymphocytes # (1.0-4.8) k/uL Sodium (137-145) mmol/L Carbon Dioxide (22-30) mmol/L BUN (9-20) mg/dL Creatinine (0.66-1.25) mg/dL Glucose (74-99) mg/dL POC Glucose (mg/dL) 72 L 184 H 186 H (75-99) mg/dL Calcium (8.4-10.2) mg/dL Magnesium (1.6-2.3) mg/dL Procalcitonin (0.02-0.09) ng/mL 09/17/20 09/17/20 09/18/20 Range/Units 16:48 20:10 05:57 WBC (3.8-10.6) k/uL RBC (4.30-5.90) m/uL Hgb (13.0-17.5) gm/dL Hct (39.0-53.0) % RDW (11.5-15.5) % Plt Count (150-450) k/uL Neutrophils # (1.3-7.7) k/uL Lymphocytes # (1.0-4.8) k/uL Sodium (137-145) mmol/L Carbon Dioxide (22-30) mmol/L BUN (9-20) mg/dL Creatinine (0.66-1.25) mg/dL Glucose (74-99) mg/dL POC Glucose (mg/dL) 146 H 146 H 139 H (75-99) mg/dL Calcium (8.4-10.2) mg/dL Magnesium (1.6-2.3) mg/dL Procalcitonin (0.02-0.09) ng/mL 09/18/20 09/18/20 09/18/20 Range/Units 12:00 16:42 20:30 WBC (3.8-10.6) k/uL RBC (4.30-5.90) m/uL Hgb (13.0-17.5) gm/dL Hct (39.0-53.0) % RDW (11.5-15.5) % Plt Count (150-450) k/uL Neutrophils # (1.3-7.7) k/uL Lymphocytes # (1.0-4.8) k/uL Sodium (137-145) mmol/L Carbon Dioxide (22-30) mmol/L BUN (9-20) mg/dL Creatinine (0.66-1.25) mg/dL Glucose (74-99) mg/dL POC Glucose (mg/dL) 214 H 155 H 200 H (75-99) mg/dL Calcium (8.4-10.2) mg/dL Magnesium (1.6-2.3) mg/dL Procalcitonin (0.02-0.09) ng/mL 09/19/20 09/19/20 09/19/20 Range/Units 06:08 08:04 08:13 WBC (3.8-10.6) k/uL RBC (4.30-5.90) m/uL Hgb (13.0-17.5) gm/dL Hct (39.0-53.0) % RDW (11.5-15.5) % Plt Count (150-450) k/uL Neutrophils # (1.3-7.7) k/uL Lymphocytes # (1.0-4.8) k/uL Sodium 136 L (137-145) mmol/L Carbon Dioxide 32 H (22-30) mmol/L BUN 66 H (9-20) mg/dL Creatinine 1.50 H (0.66-1.25) mg/dL Glucose 116 H (74-99) mg/dL POC Glucose (mg/dL) 149 H (75-99) mg/dL Calcium 8.0 L (8.4-10.2) mg/dL Magnesium 2.7 H (1.6-2.3) mg/dL Procalcitonin 0.25 H (0.02-0.09) ng/mL 09/19/20 09/19/20 09/19/20 Range/Units 11:34 16:45 19:52 WBC (3.8-10.6) k/uL RBC (4.30-5.90) m/uL Hgb (13.0-17.5) gm/dL Hct (39.0-53.0) % RDW (11.5-15.5) % Plt Count (150-450) k/uL Neutrophils # (1.3-7.7) k/uL Lymphocytes # (1.0-4.8) k/uL Sodium (137-145) mmol/L Carbon Dioxide (22-30) mmol/L BUN (9-20) mg/dL Creatinine (0.66-1.25) mg/dL Glucose (74-99) mg/dL POC Glucose (mg/dL) 141 H 197 H 185 H (75-99) mg/dL Calcium (8.4-10.2) mg/dL Magnesium (1.6-2.3) mg/dL Procalcitonin (0.02-0.09) ng/mL 09/20/20 09/20/20 09/20/20 Range/Units 06:20 07:09 07:09 WBC 16.0 H (3.8-10.6) k/uL RBC 2.88 L (4.30-5.90) m/uL Hgb 8.2 L (13.0-17.5) gm/dL Hct 26.0 L (39.0-53.0) % RDW 15.8 H (11.5-15.5) % Plt Count 124 L (150-450) k/uL Neutrophils # 14.6 H (1.3-7.7) k/uL Lymphocytes # 0.5 L (1.0-4.8) k/uL Sodium 135 L (137-145) mmol/L Carbon Dioxide 31 H (22-30) mmol/L BUN 62 H (9-20) mg/dL Creatinine 1.33 H (0.66-1.25) mg/dL Glucose 129 H (74-99) mg/dL POC Glucose (mg/dL) 138 H (75-99) mg/dL Calcium 7.8 L (8.4-10.2) mg/dL Magnesium 2.5 H (1.6-2.3) mg/dL Procalcitonin (0.02-0.09) ng/mL Microbiology - Last 24 Hours (Table) 09/16/20 08:57 Blood Culture - Preliminary Blood No Growth after 72 hours Assessment and Plan Plan: 1 Acute hypoxic respiratory failure, secondary to acute systolic congestive heart failure and pulmonary edema/in combination with COPD exacerbation and possibly component of acute non-ST elevation myocardial infarction. The patient is currently improving currently on 2 L of oxygen by nasal cannula. The patient has been taken off the BiPAP. The patient remains on bronchodilators and steroids. The patient is also is on a combination of dobutamine and Lasix and he is diuresing well for now with improvement in lower extremity edema. Note that his overall pulmonary status and oxidation is improved., 2 Acute cardiogenic shock and pulmonary edema secondary to acute systolic dysfunction, recovered in hemodynamically stable , still on dobutamine to aug ment the cardiac output 3 Acute non-ST elevation myocardial infarction 4 Ischemic cardiomyopathy and LV dysfunction, ejection fraction is 25-30%. 5 Acute GI bleeding, exact source in nature is not clear at this point. Status post 3 units packed red blood cells this admission. Current hemoglobin stable and the patient is not showing any signs of bleeding. Nevertheless there is an urge for anticoagulation for that reason the patient is going to have an EGD to be cleared for anticoagulation. 6 Acute kidney injury, suspect acute tubular necrosis secondary to hypotension and possible cardiorenal syndrome. The renal function is improving as the patient is currently on a combination of inotropes with dobutamine and Lasix, renal function continues to improve the rate is controlled for now 7 Acute lactic acidosis secondary to hypoperfusion and cardiogenic shock. 8 History of coronary artery disease and previous CABG. 9 Former smoker. 10 New-onset atrial fibrillation with RVR. Plan procee with EGD to clear the patient for safety of anticoagulation Continue dobutamine Continue Lasix and monitor lower extremity edema and monitor also the ecchymosis of the Skin blisters once cleared, the patient can be started on anticoagulation Attending and prednisone for now as part of a burst taper and continue bronchodilators. Overall pulmonary status is stable and the patient is curre ntly on 2 L of oxygen by nasal cannula. We'll continue following up this patient along with aggressive the consultants.
[2020-09-20] MEDS ORDERED: predniSONE 10 MG TAB PO SCH (09:00)
[2020-09-20] MEDS: AZITHROMYCIN 500 MG in SODIUM CHLORIDE 0.9% 250 ML IVPB SCH (09:04)
[2020-09-20] MEDS: FUROSEMIDE 10 MG/ML 10 ML VIAL IV SCH ×2 (09:05→17:08)
[2020-09-20] MEDS: METOPROLOL TARTRATE 50 MG TAB PO SCH ×2 (09:05→17:08)
[2020-09-20] MEDS: diphenhydrAMINE 2% CREAM 28.4 GM TUBE TOPICAL SCH ×2 (09:06→17:07)
[2020-09-20] MEDS: AMIODARONE 200 MG TAB PO SCH ×2 (09:06→17:07)
[2020-09-20] MEDS: SPIRONOLACTONE 25 MG TAB PO SCH (09:06)
[2020-09-20] MEDS: PANTOPRAZOLE 40 MG TABLET PO SCH ×2 (09:06→17:09)
[2020-09-20] MEDS: metOLazone 5 MG TAB PO SCH (09:06)
[2020-09-20] MEDS ORDERED: IV FLUID CONTINUATION 1,000 ML IV ONE (10:09)
[2020-09-20] MEDS ORDERED: PROPOFOL 10 MG/ML 20 ML VIAL IV ONE (10:09)
--- NOTE | 2020-09-20 10:09 | P.PN ---
Subjective Progress Note Date: 09/20/20 Principal diagnosis: CC: SOB Patient yesterday was found to have possible bilateral DVT on lower extremity ultrasound. I spoke with both patient and his nephew and they agree to start anticoagulation with the risk for possible GI bleed. Patient will also be having EGD done today to clear him for anticoagulation. His hemoglobin is trending down gradually. There are no overt signs of GI bleeding. Patient also started on a dobutamine drip because of lower extremity ischemia from low output heart failure. This morning the coloration in his lower extremities is improving. Patient also still has significant edema in his lower extremities however it is improving. Patient's renal function is also improving. Patient states that his breathing is improving. Objective - Vital Signs Vital signs: Vital Signs Temp 98.7 F 09/19/20 20:00 Pulse 70 09/20/20 08:47 Resp 16 09/20/20 03:32 BP 103/59 09/20/20 03:32 Pulse Ox 98 09/20/20 03:32 Intake & Output 09/19/20 09/20/20 09/20/20 18:59 06:59 18:59 Intake Total 1990 Output Total 1900 950 Balance 91 -950 Weight 110.5 kg Intake: IV 1045 0.9 NACL 120 Azithromycin 500 mg In 825 Sodium Chloride 0.9% 250 ml @ 250 mls/hr IVPB DAILY [facility] Rx#:[id number] cefTRIAXone 1 gm In 100 Sodium Chloride 0.9% 50 ml @ 100 mls/hr IVPB Q24HR [facility] Rx#:[id number] Oral 944 Lipid 2 Azithromycin 500 mg In 2 Sodium Chloride 0.9% 250 ml @ 250 mls/hr IVPB DAILY [facility] Rx#:[id number] Output: Urine 1900 950 Other: Voiding Method Urinal Urinal # Voids 2 1 # Bowel Movements 1 ABP, PAP, CO, CI - Last Documented Arterial Blood Pressure 92/79 - Exam General examination - Alert and Oriented 3 in NAD Heart - + S1S2 no murmurs Lungs - diminsed breath sounds bilaterally Abdomen soft NT ND +ve BS Extremities - +2 pitting edema bilaterally, discoloration with bullae formation in lower extremities and diminished pulses [employer] - Moving all 4 extremities spontaneously Psych - Calm and cooperative - Labs CBC & Chem 7: 09/20/20 07:09 09/20/20 07:09 Labs: Abnormal Lab Results - Last 24 Hours (Table) 09/19/20 09/19/20 09/19/20 Range/Units 08:13 11:34 16:45 WBC (3.8-10.6) k/uL RBC (4.30-5.90) m/uL Hgb (13.0-17.5) gm/dL Hct (39.0-53.0) % RDW (11.5-15.5) % Plt Count (150-450) k/uL Neutrophils # (1.3-7.7) k/uL Lymphocytes # (1.0-4.8) k/uL Sodium (137-145) mmol/L Carbon Dioxide (22-30) mmol/L BUN (9-20) mg/dL Creatinine (0.66-1.25) mg/dL Glucose (74-99) mg/dL POC Glucose (mg/dL) 141 H 197 H (75-99) mg/dL Calcium (8.4-10.2) mg/dL Magnesium (1.6-2.3) mg/dL Procalcitonin 0.25 H (0.02-0.09) ng/mL 09/19/20 09/20/20 09/20/20 Range/Units 19:52 06:20 07:09 WBC 16.0 H (3.8-10.6) k/uL RBC 2.88 L (4.30-5.90) m/uL Hgb 8.2 L (13.0-17.5) gm/dL Hct 26.0 L (39.0-53.0) % RDW 15.8 H (11.5-15.5) % Plt Count 124 L (150-450) k/uL Neutrophils # 14.6 H (1.3-7.7) k/uL Lymphocytes # 0.5 L (1.0-4.8) k/uL Sodium (137-145) mmol/L Carbon Dioxide (22-30) mmol/L BUN (9-20) mg/dL Creatinine (0.66-1.25) mg/dL Glucose (74-99) mg/dL POC Glucose (mg/dL) 185 H 138 H (75-99) mg/dL Calcium (8.4-10.2) mg/dL Magnesium (1.6-2.3) mg/dL Procalcitonin (0.02-0.09) ng/mL 09/20/20 Range/Units 07:09 WBC (3.8-10.6) k/uL RBC (4.30-5.90) m/uL Hgb (13.0-17.5) gm/dL Hct (39.0-53.0) % RDW (11.5-15.5) % Plt Count (150-450) k/uL Neutrophils # (1.3-7.7) k/uL Lymphocytes # (1.0-4.8) k/uL Sodium 135 L (137-145) mmol/L Carbon Dioxide 31 H (22-30) mmol/L BUN 62 H (9-20) mg/dL Creatinine 1.33 H (0.66-1.25) mg/dL Glucose 129 H (74-99) mg/dL POC Glucose (mg/dL) (75-99) mg/dL Calcium 7.8 L (8.4-10.2) mg/dL Magnesium 2.5 H (1.6-2.3) mg/dL Procalcitonin (0.02-0.09) ng/mL Microbiology - Last 24 Hours (Table) 09/16/20 08:57 Blood Culture - Preliminary Blood No Growth after 72 hours Assessment and Plan Assessment: 1. Mixed Shock, Hypovolemic secondary to ABLA, then Cardiogenic secondary to blood product transfusion superimposed on chronic HFrEF 2. Upper GI Bleed 3. Permanent Atrial Fibrillation with RVR 4. JOSE 5. HTN 6. HLD 7. Leukocytosis with Cough with sputum production 8. Possible Lower extremity ischemia due to heart failure 9 Possible Lower extremity DVT 85 year old man with history of CAD/HTN/HLD, HFrEF 25%, AFib presented with hypovolemic shock secondary to upper GI Bleed, warranting 3U PRBCs and levophed initially. He was then felt to be in cardiogenic shock warranting levophed and lasix gtt, which he was weaned off of gradually. Patient was then being treated for heart failure with diuretics. On 09/19/2020 patient had worsening disco loration with bullae formation in his lower extremities concerning for possible ischemia due to heart failure. He was started on dobutamine drip. Workup for the discoloration is lower extremities that to the finding of possible thrombus in his lower extremities on the lower extremity duplex. Patient started on anticoagulation and both patient and son understand the risk of bleeding. Patient will have a EGD done to clear him for anticoagulation. His prognosis is guarded. However patient currently refusing palliative and hospice care. #Leukocytosis/Cough -Likely due to steroids versus possible pneumonia -Chest x-ray shows venous congestion and difficult to exclude infiltrates -UA is clear -Blood culture negative to date -We'll start patient on IV ceftriaxone and azithromycin day 01/28 -WBC trending down #Upper GI bleed: With hemoglobin of 6.4 on presentation/Acute blood loss anemia: Status post transfusion of packed red blood cells. Hemoglobin is stable but trending down gradually. GI recs appreciated. Continue IV Protonix 40 mg twice daily. Patient is now amenable for an EGD. He will be having an EGD today There is no overt signs of bleeding #Worsening skin discoloration in the lower extremities likely due to lower extremity ischemia from heart failure -Per vascular surgery unlikely due to stenosis since patient has good bilateral lower extremity pulses -Cardiology started patient on dobutamine drip and there is improvement in the coloration of his lower extremities -Vessel surgery following #Possible bilateral lower extremity DVT -Lower extremity Doppler read is "possible thrombus" -Patient started on anticoagulation with Lovenox -> both patient and nephew u nderstand the risk for bleeding -Patient having an EGD done today to hopefully clear him for anticoagulation -I discussed with vascular surgery who said that he will repeat the lower extremity Doppler with weld technician present to confirm if there really is a DVT or not #Hypovolemic and cardiogenic shock, with lactic acidosis. -Patient now off pressors -Resolved #COPD exacerbation -Patient having wheezing this morning -Restart steroids day 4/. -Patient on azithromycin as above -Duo nebs scheduled and as needed -Pulmonology on board #Acute on chronic systolic heart failure exacerbation, systolic EF=25-30%: With evidence of fluid overload clinically and on chest x-ray. Nephrology increase Lasix to 80 mg IV twice a day Patient started on metolazone Continue spironolactone Hold Losartan due to borderline low blood pressure Nephrology managing diuretics #JOSE shayy cardiorenal -Creatinine is improving -Nephrology is managing #Metabolic alkalosis likely due to diuretics -patient started on dimox -bicarb improving. #A. fib with RVR Continue amiodarone TID Patient started on anticoagulation for DVT #Steroid-induced hyperglycemia insulin sliding scale #Itchy legs benadryl cream prescribed Poor prognosis -> patient at this time is refusing palliative or hospice care. We'll need to continue to discuss goals of care with the patient especially due to the new findings of skin molting in his lower extremities CODE STATUS: DO NOT RESUSCITATE/DO NOT INTUBATE. Patient refuses to go to rehab. He is amenable to home care. Patient states that after discharge his nephew will live with him.
--- NOTE | 2020-09-20 10:51 | P.PCN ---
Date of Procedure: 09/20/20 Description of Procedure: BRIEF HISTORY: Patient is a 85-year-old male with multiple medical comorbidities including prior hospitalization for COPD, acute non-ST elevation AR with recent development of DVT lead initially presented with complaints of melena and acute blood loss anemia. Patient had initially opted for conservative management as hemoglobin has stabilized, however with the development of DVT patient will now need to be on anticoagulation therapy. Prior to admission he had been reporting dark black tarry bowel movements and was found to be anemic on initial hospitalization. PROCEDURE PERFORMED: Esophagogastroduodenoscopy with biopsy and Endo Clip placement. PREOPERATIVE DIAGNOSIS: Melena, anemia of acute blood loss. ESTIMATED BLOOD LOSS: Minimal. IV sedation per anesthesia. PROCEDURE: After informed consent was obtained, the patient was brought into the endoscopy unit. IV sedation was administered by Anesthesia under continuous monitoring. Initially the Olympus GIF-190 video endoscope was inserted into the mouth. Esophagus intubated without any difficulty. It was gradually advanced into the stomach and duodenum and carefully examined. The bulb and the second part of the duodenum appeared normal, with biopsies taken. The scope at this time was withdrawn to the stomach, adequately insufflated with air, and upon careful examination, mucosa of the antrum, body, cardia and the fundus appeared grossly normal except for a 1 cm cratered antral ulcer without high-risk stigmata for bleeding, Endo Clip was placed in the setting of anticoagulation therapy for treatment. Biopsies were taken of the ulcer edge. The scope was then withdrawn into the esophagus. The GE junction was located at 39 cm from the incisors. The esophagus appeared normal. There were no erosions or ulcerations seen and the patient tolerated the procedure well. IMPRESSION: 1. Nonbleeding antral ulcer, endoclip placement 1 due to the need for anticoagulation therapy, there were no high risk stigmata for bleeding noted. 2. Biopsies of the antral ulcer and duodenum. 3. No active bleeding or old blood noted. RECOMMENDATIONS: The findings of this examination were discussed with the patient. Okay for full liquid diet today, can advance to low residual tomorrow if stable. Okay for anticoagulation therapy as needed. Consider repeat EGD in 6-8 weeks to check for ulcer healing. No further endoscopic evaluation planned at this time. Continue to monitor hemoglobin and for signs or symptoms of bleeding.
[2020-09-20] MEDS: DOBUTamine DRIP 500 MG in DEXTROSE/WATER 1 250ML.BAG IV SCH (12:02)
[2020-09-20 12:09] LABS: Glucose,Whole Blood 111 mg/dL (75-99)
--- NOTE | 2020-09-20 12:25 | P.PN ---
Subjective Progress Note Date: 09/20/20 Principal diagnosis: Heart failure with reduced ejection fraction This is an 85-year-old gentleman with history of severe cardiomyopathy and EF between 25-30% as well as paroxysmal atrial fibrillation as well as history of GI bleeding was admitted to the hospital was heart failure exacerbation secondary to systolic dysfunction. He was started on dobutamine yesterday and it seems to be helping the patient. The patient denies any symptoms of chest pain or chest discomfort or shortness of breath or dizziness or lightheadedness or syncope. He has been mentating normal sinus mechanism. He did have some ectopy earlier today but not anymore. We'll continue the patient on dobutamine and continue monitor the kidney function and electrolytes. Objective - Vital Signs Vital signs: Vital Signs Temp 97.6 F 09/20/20 08:00 Pulse 70 09/20/20 08:47 Resp 18 09/20/20 08:00 BP 123/48 09/20/20 08:00 Pulse Ox 100 09/20/20 08:00 Intake & Output 09/19/20 09/20/20 09/20/20 18:59 06:59 18:59 Intake Total 1990 448.933 Output Total 1900 950 Balance 91 -950 448.933 Weight 110.5 kg Intake: IV 1045 250 0.9 NACL 120 Azithromycin 500 mg In 825 Sodium Chloride 0.9% 250 ml @ 250 mls/hr IVPB DAILY [facility] Rx#:[id number] cefTRIAXone 1 gm In 100 Sodium Chloride 0.9% 50 ml @ 100 mls/hr IVPB Q24HR [facility] Rx#:[id number] Intake, IV Titration 198.933 Amount DOBUTamine DRIP 500 mg In 198.933 Dextrose/Water 1 250ml. bag @ 2.5 MCG/KG/MIN 8. 153 mls/hr IV .Q24H [facility] Rx#:[id number] Oral 944 Lipid 2 Azithromycin 500 mg In 2 Sodium Chloride 0.9% 250 ml @ 250 mls/hr IVPB DAILY [facility] Rx#:[id number] Output: Urine 1900 950 Other: Voiding Method Urinal Urinal Urinal # Voids 2 1 # Bowel Movements 1 ABP, PAP, CO, CI - Last Documented Arterial Blood Pressure 92/79 - Constitutional General appearance: Present: no acute distress - Respiratory Respiratory: bilateral: diminished - Cardiovascular Rhythm: regular Heart sounds: normal: S1, S2 - Labs CBC & Chem 7: 09/20/20 07:09 09/20/20 07:09 Labs: Abnormal Lab Results - Last 24 Hours (Table) 09/19/20 09/19/20 09/19/20 Range/Units 08:13 16:45 19:52 WBC (3.8-10.6) k/uL RBC (4.30-5.90) m/uL Hgb (13.0-17.5) gm/dL Hct (39.0-53.0) % RDW (11.5-15.5) % Plt Count (150-450) k/uL Neutrophils # (1.3-7.7) k/uL Lymphocytes # (1.0-4.8) k/uL Sodium (137-145) mmol/L Carbon Dioxide (22-30) mmol/L BUN (9-20) mg/dL Creatinine (0.66-1.25) mg/dL Glucose (74-99) mg/dL POC Glucose (mg/dL) 197 H 185 H (75-99) mg/dL Calcium (8.4-10.2) mg/dL Magnesium (1.6-2.3) mg/dL Procalcitonin 0.25 H (0.02-0.09) ng/mL 09/20/20 09/20/20 09/20/20 Range/Units 06:20 07:09 07:09 WBC 16.0 H (3.8-10.6) k/uL RBC 2.88 L (4.30-5.90) m/uL Hgb 8.2 L (13.0-17.5) gm/dL Hct 26.0 L (39.0-53.0) % RDW 15.8 H (11.5-15.5) % Plt Count 124 L (150-450) k/uL Neutrophils # 14.6 H (1.3-7.7) k/uL Lymphocytes # 0.5 L (1.0-4.8) k/uL Sodium 135 L (137-145) mmol/L Carbon Dioxide 31 H (22-30) mmol/L BUN 62 H (9-20) mg/dL Creatinine 1.33 H (0.66-1.25) mg/dL Glucose 129 H (74-99) mg/dL POC Glucose (mg/dL) 138 H (75-99) mg/dL Calcium 7.8 L (8.4-10.2) mg/dL Magnesium 2.5 H (1.6-2.3) mg/dL Procalcitonin (0.02-0.09) ng/mL 09/20/20 Range/Units 12:07 WBC (3.8-10.6) k/uL RBC (4.30-5.90) m/uL Hgb (13.0-17.5) gm/dL Hct (39.0-53.0) % RDW (11.5-15.5) % Plt Count (150-450) k/uL Neutrophils # (1.3-7.7) k/uL Lymphocytes # (1.0-4.8) k/uL Sodium (137-145) mmol/L Carbon Dioxide (22-30) mmol/L BUN (9-20) mg/dL Creatinine (0.66-1.25) mg/dL Glucose (74-99) mg/dL POC Glucose (mg/dL) 111 H (75-99) mg/dL Calcium (8.4-10.2) mg/dL Magnesium (1.6-2.3) mg/dL Procalcitonin (0.02-0.09) ng/mL Microbiology - Last 24 Hours (Table) 09/16/20 08:57 Blood Culture - Preliminary Blood No Growth after 96 hours Assessment and Plan Assessment: Assessment #1 congestive heart failure exacerbation secondary to systolic dysfunction #2 severe cardiomyopathy #3 paroxysmal atrial fibrillation #4 history of GI bleeding Plan #1 continue dobutamine #2 monitor the patient for arrhythmia #3 monitor the kidney function and electrolytes #4 follow-up with the patient
--- NOTE | 2020-09-20 13:21 | PN ---
PROGRESS NOTE This is an 85-year-old gentleman who came with multiple medical issues, was in intensive care unit. The patient was on Levophed and life-saving drugs. The patient also had a right femoral dialysis catheter for IV infusion. I was consulted. Patient has some discoloration of both feet, toes. On examination, brachial, radial, femoral pulses are palpable. Patient has a by the Doppler. The patient has some ischemic changes involving the toes and also some plantar aspect of the foot. The patient is on dopamine drip due to low output heart failure. I had a long discussion with the patient and to evaluate further we are considering doing angiography. The patient wants to wait for few more days and also patient was found to have bilateral DVT of the femoral vein, possible. The patient is on Lovenox. I have discussed the plan with Internal Medicine. Follow with you. MADELYN / XIN: [id number] /
--- NOTE | 2020-09-20 13:36 | PN ---
PROGRESS NOTE Patient is seen for followup for acute kidney injury. Renal function has improved. Creatinine down to 1.3 from 1.5. The patient denies any significant complaints. PHYSICAL EXAMINATION: Blood pressure was 123/48, heart rate 72 per minute. He is afebrile. EXAMINATION OF THE HEART: S1, S2. EXAMINATION OF LUNGS: Decreased breath sounds at bases. Abdomen is soft, nontender. Examination of lower extremities showed no significant edema. LABS: Labs show sodium 135, potassium 3.9, chloride 103, CO2 is 31, BUN 62, creatinine 1.3, hemoglobin 8.2 g/dL. ASSESSMENT: 1. Acute kidney injury, acute tubular necrosis associated with acute anemia, atrial fibrillation, hypotension and cardiorenal syndrome, currently improved. 2. Congestive heart failure acute on top of chronic mainly systolic. 3. Cardiomyopathy, ejection fraction 25% with moderate mitral regurgitation and tricuspid regurgitation. 4. Metabolic alkalosis maintained on Diamox, currently improved. 5. Volume overload, improved with diuresis. 6. Atrial fibrillation with rapid ventricular response maintained on amiodarone and Lopressor. PLAN: Continue off of angiotensin receptor blockers secondary to low blood pressures. Continue with the IV Lasix for now. Repeat labs in a.m. MMODL / IJN: [id number] /
[2020-09-20 15:51] VITALS: BP 96/52; PULSE 66; RESP 18; TEMP 97.5
[2020-09-20 16:29] LABS: Glucose,Whole Blood 171 mg/dL (75-99)
[2020-09-20] MEDS: ENOXAPARIN 100 MG/ML SYRINGE SQ SCH (17:07)
--- NOTE | 2020-09-20 17:30 | P.DS ---
Providers Date of admission: 09/06/20 13:48 Expected date of discharge: 09/20/20 Attending physician: Jose Kenny Consults: 09/06/20 13:48 Consult Physician Stat Consulting Provider: Tona Rowe Consult Reason/Comments: GI bleed, NSTEMI Do you want consulting provider notified?: Already Contacted Consult Physician Urgent Consulting Provider: Loki Alfonso Consult Reason/Comments: GI bleed, non-ST segment elevated ID Do you want consulting provider notified?: Already Contacted Consult Physician Urgent Consulting Provider: Kimberly Sharif Consult Reason/Comments: GI bleed Do you want consulting provider notified?: Already Contacted 09/07/20 07:53 Consult Physician Routine Consulting Provider: Lenore Saavedra Consult Reason/Comments: JOSE Do you want consulting provider notified?: Yes 09/19/20 10:42 Consult Physician Routine Consulting Provider: Escobar Moreno Consult Reason/Comments: EDEMA-POOR [id number] TISSUE Do you want consulting provider notified?: Yes Primary care physician: Physician Nonsta Hospital Course: Vision is an 84-year-old male with a PMH of coronary artery disease with history of MIs and hyperlipidemia who presented to the emergency room with complaints of black tarry stools. The patient was noted to have severe acute blood loss anemia along with hypotension and was admitted for further management of the [facility]. The patient was ordered 2 units of PRBCs in the emergency room. Cardiology was consulted due to elevated troponin and pulmonary edema. The patient was started on Levophed infusion along with a bicarbonate infusion. An echocardiogram was performed which revealed severe systolic LV dysfunction with EF 25-30%. The patient was subsequently started on a Lasix infusion along with dobutamine due to persistent oliguria. The patient also had persistently elevated lactate levels. The patient's hypovolemic shock gradually improved and he was weaned off of IV pressors support. The patient subsequently refused EGD for further workup. The patient was also noted to be in a COPD exacerbation and was given IV steroids along with breathing treatments. The patient also underwent lower extremity Doppler which revealed a possible thrombus. The patient was subsequently scheduled for EGD due to his very high risk for GI bleeding to clear him for anticoagulation. The patient underwent an EGD earlier today on 09/20, which revealed a nonbleeding antral ulcer with 1 Endo Clip placed and biopsy taken. Patient was continued on dobutamine infusion. The patient was then noted to have V-tach on the monitor and as the RN checked on the patient, he was found to have no pulse and was not breathing at 4:30 pm. No CPR was performed as per the patient's Code Status nor were any shocks del ivered. The patient was noted to be in asystole @ 4:49 pm. The patient's family was notified. Physical Examination General: Non-toxic, in no acute distress, appears stated age, normal weight HEENT: NC/AT, anicteric sclerae, moist conjunctiva, no lid-lag, PERRLA Cardiovascular: S1/S2 wnl, no murmurs, rubs, or gallops Lungs: Clear to auscultation, normal respiratory effort, no accessory muscle use Abdominal: Soft, non-tender, non-distended, no guarding, rebound, or rigidity Skin: Warm, dry Extremities: No edema or contractures Psychiatric: Alert and oriented to person, place and time, appropriate affect Neuro: CN II-XII grossly intact, Strength 5/5 in all 4 extremities, Speech intact, Sensation to light touch grossly intact throughout Discharge diagnosis: Mixed shock, hypovolemic secondary to acute blood loss anemia versus cardiogenic; severe systolic CHF with acute exacerbation; acute upper GI bleeding; permanent A. fib with RVR; acute kidney injury; hypertension; hyperlipidemia; leukocytosis; acute lower extremity DVT; acute COPD exacerbation A total of 45 minutes of time were spent preparing this complex discharge summary. Plan - Discharge Summary Discharge Rx Participant: No New Discharge Prescriptions: No Action Simvastatin [Zocor] 5 mg PO HS Multivitamins, Thera [Multivitamin (formulary)] 1 tab PO DAILY Ascorbic Acid [Vitamin C] 500 mg PO DAILY atenoloL [Atenolol] 25 mg PO DAILY Doxazosin [Cardura] 2 mg PO HS Vitamin E 400 unit PO DAILY Lecithin, Soy [Lecithin] 400 mg PO DAILY Discharge Medication List Ascorbic Acid [Vitamin C] 500 mg PO DAILY 09/06/20 [History] Doxazosin [Cardura] 2 mg PO HS 09/06/20 [History] Lecithin, Soy [Lecithin] 400 mg PO DAILY 09/06/20 [History] Multivitamins, Thera [Multivitamin (formulary)] 1 tab PO DAILY 09/06/20 [History] Simvastatin [Zocor] 5 mg PO HS 09/06/20 [History] Vitamin E 400 unit PO DAILY 09/06/20 [History] atenoloL [Atenolol] 25 mg PO DAILY 09/06/20 [History] Follow up Appointment(s)/Referral(s): Nonstaff,Physician [Primary Care Provider] - 1-2 days Discharge Disposition: - Preliminary Cause of Preliminary Cause of : Heart Failure
[2020-09-21] MEDS ORDERED: AZITHROMYCIN 500 MG TAB PO SCH (09:00)
--- NOTE | 2020-09-27 12:43 | CDI ---
Documentation Clarification Form Mortality review Date: 09/27/2020 12:07:29 PM From: Estela Franco RN, CCDS Admit Date: 09/06/2020 01:48:00 PM Patient Name: Danial Logan Visit Number: [id number] Discharge Date: 09/20/2020 09:05:00 PM ATTENTION: The Clinical Documentation Specialists (CDI) and [facility] Coding Staff appreciate your assistance in clarifying documentation. Please respond to the clarification below the line at the bottom and electronically sign. The CDI & [facility] Coding staff will review the response and follow-up if needed. Please note: Queries are made part of the Legal Health Record. If you have any questions, please contact the author of this message via ITS. Dr. Grajeda Atrial Fibrillation is documented progress notes and requires clarification regarding actual specificity due to conflicting documentation by multiple providers. Final diagnosis is decided upon by attending provider. History/Risk Factors: GI bleed with ABLA s/p blood transfusion, Acute on chronic systolic CHF, Cardiogenic and Hypovolemic shock with use of Levophed and Dobutamine, Acute COPD exacerbation, Acute hypoxic respiratory failure, CAD with HX of CABG, Type 2 NH, bilateral lower extremity femoral DVT's, JOSE with ATN, HLD, HTN, former smoker Clinical Indicators: 09/14 Attending Progress notes-09/20 D/C Summary: "permanent A-fib" 09/16-09/20 Cardiology Progress note: "paroxysmal atrial fibrillation." 09/14-09/15 Cardiology progress notes: "Chronic persistent atrial fibrillation." 09/09-09/20 Pulmonary Progress note: "New-onset atrial fibrillation with RVR" 09/08- GI Progress note: "New onset atrial fibrillation with RVR on amiodarone drip." 09/08 cardiology Progress Note: " Patient went into atrial fibrillation with RVR with aberrancy He is on pressors for low blood pressure His hemoglobin has remained stable at 9.6." 09/07 EKG/telemetry: A-Fib RVR Treatment: Consults: Cardiology- see above documentation 09/08 Amio bolus and drip followed by PO Amio 200mg TID beginning 09/11, decreased to BID 09/18 09/19-09/20 Dobutamine 2.5 mcg/kg/min 09/12-09/14 Lopressor 12.5 mg PO BID, 09/14 25 mg Lopressor PO OT, 09/14-09/20 50 mg Lopressor PO BID 09/07-09/12 Levophed Gtt titrate for B/P In your professional opinion, can you please clarify the type of Atrial Fibrillation, if known? Chronic/Permanent Paroxysmal Persistent Other, please specify Unable to determine (Last Revision: December 2017) MTDD
== END 2020-09-20 21:05 | disposition expired | DRG 377 ==
LOC: EC 12:19 → 2SICU 13:48 → 4SSUR 09-07 09:54 → 2SICU 09-07 09:55 → 3SCARD 09-14 06:11
PROVIDERS: ADMIT Internal Medicine; ATTEND Internal Medicine
PROC: 30233N1 Transfusion of Nonautologous Red Blood Cells into Peripheral Vein, Percutaneous Approach (ICD-10-PCS; 2020-09-06)
PROC: 5A09557 Assistance with Respiratory Ventilation, Greater than 96 Consecutive Hours, Continuous Positive Airway Pressure (ICD-10-PCS; 2020-09-06)
PROC: 05HB33Z Insertion of Infusion Device into Right Basilic Vein, Percutaneous Approach (ICD-10-PCS; 2020-09-07)
PROC: 4A133B1 Monitoring of Arterial Pressure, Peripheral, Percutaneous Approach (ICD-10-PCS; 2020-09-08)
PROC: 3E043XZ Introduction of Vasopressor into Central Vein, Percutaneous Approach (ICD-10-PCS; 2020-09-08)
PROC: 4A133J1 Monitoring of Arterial Pulse, Peripheral, Percutaneous Approach (ICD-10-PCS; 2020-09-08)
PROC: 06HM33Z Insertion of Infusion Device into Right Femoral Vein, Percutaneous Approach (ICD-10-PCS; 2020-09-08)
PROC: 03HY32Z Insertion of Monitoring Device into Upper Artery, Percutaneous Approach (ICD-10-PCS; 2020-09-08)
PROC: 0W3P8ZZ Control Bleeding in Gastrointestinal Tract, Via Natural or Artificial Opening Endoscopic (ICD-10-PCS; principal; 2020-09-20 08:15)
PROC: 0DB98ZX Excision of Duodenum, Via Natural or Artificial Opening Endoscopic, Diagnostic (ICD-10-PCS; principal; 2020-09-20 08:15)
PROC: 0DB78ZX Excision of Stomach, Pylorus, Via Natural or Artificial Opening Endoscopic, Diagnostic (ICD-10-PCS; principal; 2020-09-20 08:15)
DX: K25.4 Chronic or unspecified gastric ulcer with hemorrhage (principal); I50.23 Acute on chronic systolic (congestive) heart failure; N17.0 Acute kidney failure with tubular necrosis; I21.A1 Myocardial infarction type 2; J96.01 Acute respiratory failure with hypoxia; I47.2 Ventricular tachycardia; I13.0 Hypertensive heart and chronic kidney disease with heart failure and stage 1 through stage 4 chronic kidney disease, or unspecified chronic kidney disease; E87.4 Mixed disorder of acid-base balance; D62 Acute posthemorrhagic anemia; I82.413 Acute embolism and thrombosis of femoral vein, bilateral; E87.1 Hypo-osmolality and hyponatremia; J44.1 Chronic obstructive pulmonary disease with (acute) exacerbation; R57.0 Cardiogenic shock; R57.1 Hypovolemic shock; D63.1 Anemia in chronic kidney disease; E83.51 Hypocalcemia; I27.20 Pulmonary hypertension, unspecified; E87.71 Transfusion associated circulatory overload; I46.9 Cardiac arrest, cause unspecified; I48.0 Paroxysmal atrial fibrillation; Z66 Do not resuscitate; Z20.828 Contact with and (suspected) exposure to other viral communicable diseases; I25.5 Ischemic cardiomyopathy; E87.5 Hyperkalemia; E87.6 Hypokalemia; N18.9 Chronic kidney disease, unspecified; E78.5 Hyperlipidemia, unspecified; E78.00 Pure hypercholesterolemia, unspecified; I08.1 Rheumatic disorders of both mitral and tricuspid valves; I73.89 Other specified peripheral vascular diseases; I99.8 Other disorder of circulatory system; R73.9 Hyperglycemia, unspecified; I25.10 Atherosclerotic heart disease of native coronary artery without angina pectoris; I25.2 Old myocardial infarction; T50.2X5A Adverse effect of carbonic-anhydrase inhibitors, benzothiadiazides and other diuretics, initial encounter; T38.0X5A Adverse effect of glucocorticoids and synthetic analogues, initial encounter; I44.7 Left bundle-branch block, unspecified; Z79.899 Other long term (current) drug therapy; Z87.891 Personal history of nicotine dependence; Z95.1 Presence of aortocoronary bypass graft; Z88.0 Allergy status to penicillin
CPT/HCPCS: 36415; 36600; 43239; 43255; 71045; 71046; 74022; 76770; 80048; 80053; 81001; 82040; 82272; 82330; 82805; 83605; 83735; 83880; 84132; 84145; 84484; 85025; 85027; 85610; 85730; 86850; 86900; 86901; 86920; 87040; 87635; 88305; 93005; 93306; 93970; 94640; 94660; 94760; 96361; 96365; 96366; 96367; 96368; 96375; 96376; 99291